=== PATIENT | female | born 1955 | race Caucasian/White ===

== ENCOUNTER → 2016-04-23 | Outpatient (CLI) | payer OTHER ==
[~2016-04-23] MED LIST: ALBINS/ INH; CITA40TA12 PO; CLR10 PO; DILT120C PO; LEVO25TA5 PO; LISI-729 PO; MELO7.5T5 PO; PRED50TA PO; PRLSR20 PO
--- NOTE | 2016-04-24 06:16 | PAP/PSG TECHNICIAN REPORT ---
[facility] Traveling Operator Polysomnogram Report Study name: None Report date: 04/24/2016 Study date: 04/23/2016 Referring Physician: Cole Castro M.D. Name: VJ WADE Interpreting Physician: Haile Castro M.D. Date of : 1955 Traveling Operator: Dora Vincent RPS. Sex: Female Age: 60 StudyType: PSG Weight: 230 lbs Height: 60 years, Height 5' 3" Neck Circum: 15.75 BMI: 40.74 Medications: Methylprednisolone, Duoneb, Singulair 10mg, ProAir HFA 108 (90 Base), Diltiazem 120 mg, Bledsoe Nasal Stanton, Lisinopril 10 mg, Loratadine 10 mg, Levoxyl 25 MCG, Celexa 40mg, Meloxican 15 mg, Flonase 50 MCG, Omeprazole 20 mg Patient History 60 yr. old female here for a possible split night sleep study. Patient complains of loud snoring and never feeling rested. Patients Henderson Sleepiness Scale Score is 6/24. Parameters Monitored NPSG: E1-M2, E2-M1, Fp1-M2, Fp2-M1, F3-M2, F4-M2, F4-M1, C3-M2, C4-M2, C4-M1, O1-M2, O2-M2, O2-M1, T3-M2, T4-M1, P3-M2, P4-M1, CHIN1, CHIN2, HR, EKG, Legs, PFLOW, SNOR, FLOW, CFLOW, Tidal Volume, THOR, ABDO, SpO2, PLTH, CPRESS, ETCO2 Wave, ETCO2, pH Sleep Architecture Sleep Stages Time at Lights Off 10:49:59 PM STAGES Time (min.) TST (%) Time at Lights On 5:59:59 AM Wake 61.5 -- Total Recording Time (TRT) 429.00 min. N1 25.5 7 Total Sleep Period (TSP) 399.5 min. N2 130.5 36 Total Sleep Time (TST) 367.5min. N3 67.5 18 Awake Time 61.5 min. REM 144.0 39 Wake after Sleep Onset 33.0 min. Sleep Efficiency (SE) 86 % Sleep Onset Latency (JENIFER) 29.5 min. Number of Stage 1 Shifts None Awakenings 11 Stage Changes 55 Number of REM periods 4 REM 144.0 39 REM Latency 114.5 min. NREM 223.5 61 Body Position Analysis Supine Right Left Side Prone Vertical Total Sleep Time (min.) 153.8 253.5 0.0 253.50 0.0 0.0 Total Sleep Time (%) 31% 69% 0% 69 0% N/A% Total Sleep Time REM (min.) 61.5 82.5 0.0 None 0.0 0.0 Total Sleep Time NREM (min.) 52.5 171.0 0.0 None 0.0 0.0 Intermittent Wake (min.) 39.8 21.7 0.0 None 0.0 0.0 Total Sleep Period (%) 34% None None None None None Arousals Myoclonus (PLM) * Events Count Index Events Count Index Spontaneous 3 0 Events Awake (PLMW) 63 61.5 Respiratory 0 0.0 Events Asleep w/ Arousal (PLMA) 2 0.3 PLM 1 0 Events Asleep w/o Arousal (PLMS) 53 8.7 Snoring 12 2 Total Asleep 55 9.0 Total 16 3 Total 118 17 Respiratory Analysis * CA OA MA CH H RERA Total Count 0 3 0 0 107 0 110 Index 0.0 0.5 0.0 0 17.5 0 18.0 Mean Duration 0.0 13.8 0.0 0.00 18.5 0.0 18.4 Longest Duration 0.0 16.2 0.0 0.00 0.0 0.0 47.2 Respiratory Event Summary Total Supine ~Supine Right Left Prone REM NREM Apneas Count 3 1 2 2 N/A N/A 3 0 Index 0.5 1 0 0.5 N/A N/A 1 0 Hypopneas (4% Desat) Count 107 55 52 52 N/A N/A 104 3 Index 17.5 28.9 12 12.3 N/A N/A 43.3 0.8 Apneas & All Hypopneas Count 110 56 54 54 N/A N/A 107 3 Index 18.0 29 13 13 N/A N/A 44.6 0.8 Respiratory Events (Senior Writer+All Hyp+RERA) Count 110 56 54 54 N/A N/A 107 3 Index 18.0 29 13 12.8 N/A N/A 44.6 0.8 Respiratory Related Arousal Count 0 56 0 0 N/A N/A 0 0 Index 0.0 0 0 0 N/A N/A 0 0 Snoring Analysis Supine Right Left Prone REM NREM Total Snore duration 111.9 min Snores count 482 2,623 N/A N/A 838 2,267 3,105 Snore mean duration 2.2 Sec Snores index 254 621 N/A N/A 349.2 608.6 506.9 TST with snoring (%) 30.5% Desaturation Event Summary: Minimum %SpO2 Event Count Mean/Min/Max Duration(sec.) Desaturation Index % Time In Bed > 90 93 23.2 / 8.3 / 59.5 16.4 80.5 86 - 90 26 14.4 / 8.0 / 31.8 19.7 18.7 81 - 85 0 N/A 0.0 0.7 76 - 80 0 N/A 0.0 0.1 71 - 75 0 N/A 0.0 0.0 66 - 70 0 N/A 0.0 0.0 61 - 65 0 N/A 0.0 0.0 56 - 60 0 N/A 0.0 0.0 51 - 55 0 N/A 0.0 0.0 < 50 0 N/A 0.0 0.0 Total REM NREM Awake <50% 0.0 min. 0.0 min. 0.0 min. 0.0 min. 51 - 60% 0.0 min. 0.0 min. 0.0 min. 0.0 min. 61 - 70% 0.0 min. 0.0 min. 0.0 min. 0.0 min. 71 - 80% 0.3 min. 0.1 min. 0.0 min. 0.2 min. 81 - 90% 82.4 min. 37.0 min. 44.0 min. 1.3 min. 91 - 100% 340.8 min. 106.9 min. 179.5 min. 54.5 min. Average 92 92 91 94 Minimum SpO2 75 79 83 75 Desaturation Event Index 14.4 38.8 0.5 7.8 # Desat. Events below 89% 50 47 2 1 Time(%) with Saturation below 89% 3.7 3.4 0.1 0.1 Time(min.) with Saturation below 89% 15.5 14.6 0.5 0.5 Time (mins) REM (mins) NREM (mins) % of TST SpO2 Below 90% 80 78 N2 7.7 SpO2 Below 88% 15 0 0 2 Heart Rate Analysis Min (bpm) Max (bpm) Average (bpm) Awake 70 127 82 NREM 62 103 79 REM 64 143 83 Overall 62 143 81 Supplemental O2 Values Minimum O2 level: None Value Start Time End Time Traveling Operator Comments MS. Wade slept in the right and supine positions. Tachycardia noted. No PLMs noted. No bruxism noted. Snoring was noted and scored as a 4 on a scale of 0 through 5. (0=no snoring, 5=snoring loud enough to be heard through a closed door or down the tabor way) MS. Wade awoke to use the restroom once during the night. MS. Wade stated, I actually slept better last night compared to at home. The final report will be interpreted and signed by a sleep physician. The completed physician report will then be placed in the patient medical record. Therapy (cm H2O) 0 TIB (min.) 429.0 TST (min.) 367.5 Sleep Onset (min.) 29.5 REM Onset From Sleep (min.) 114.5 Sleep Efficiency % 86 Wakefulness (%) 14 Wakefulness (min.) 61.5 NREM 1 (%) 7 NREM 1 (min.) 25.5 NREM 2 (%) 36 NREM 2 (min.) 130.5 NREM 3 (%) 18 NREM 3 (min.) 67.5 REM (%) 39 REM (min.) 144.0 # Arousals 16 Arousal Index 3 # Snore 3,105 Snore Index 506.9 AHI 18.0 AHI Supine 29 AHI Non-Supine 13 NREM AHI 0.8 REM AHI 44.6 RDI 18.0 # Obstructive Apnea 3 # Central Apnea 0 # Mixed Apnea 0 # Hypopneas 107 RERAs 0 Total Respiratory Events 111 Time Below SpO2 89% (min.) 15.0 Mean NREM SpO2 (%) 91 Mean REM SpO2 (%) 92 Mean Sleep SpO2 (%) 92 Min NREM SpO2 (%) 83 Min REM SpO2 (%) 79 Position Supine (min.) 153.8 Position Non-supine (min.) 253.5 LM Index Sleep 9.0 LM Index NREM 6.4 LM Index REM 12.9 Mean Heart Rate (bpm) 81 Min Heart Rate (bpm) 62
--- NOTE | 2016-05-04 00:53 | POLYSOMNOGRAPH REPORT ---
REFERRING PERSON: Dr. Gretchen Castro. CAR STORER: Dora Vincent. Ms. Wade is a 60-year-old female sent for a possible split night sleep study. She complains of loud snoring and unrefreshing sleep. Her Jackson sleepiness scale score on the evening of this study is 6. BMI is 40.74. Following the technical and digital specifications of the [place] [employer] (AASM) a standard diagnostic polysomnogram was performed monitoring EEG, EOG, EMG (chin and leg deviations), oxygen saturation, body position, digital video, respiratory effort and airflow. The sleep Stage and event scoring was based on the AASM Manual for the Scoring of Sleep and Associated Events 2007 edition. Apneas are defined as a drop in the peak thermal sensor excursion by >90% of baseline for at least 10 seconds. Hypopneas were scored using the 4% oxygen desaturation rule (4A-Medicare) and a decrease in the nasal pressure excursions by >30% of baseline for at least 10 seconds. Respiratory effort-related arousal (RERA's) is defined as a sequence of breaths lasting at least 10 seconds characterized by increasing respiratory effort or flattening of the nasal pressure waveform leading to an arousal from sleep when the sequence of breaths does not meet criteria for an apnea or hypopnea. Apnea Hypopnea index (AHI) is defined as the number of apneas and hypopneas occurring in an hour of sleep. Respiratory disturbance index (RDI) is defined as the number of apneas, hypopneas, and RERA's occurring in an hour of sleep. Ms. Wade's total sleep period time was 399.5 minutes. Total sleep time was 367.5 minutes. Sleep efficiency was 86%. Latency to sleep onset was 29.5 minutes with wake after sleep onset of 33 minutes. Total non-REM sleep time was 223.5 minutes. She spent 7% of that time in N1 sleep, 36% in N2 sleep and 18% in N3 sleep. REM latency was 114.5 minutes. Total REM sleep time was 144 minutes or 39% of total sleep time. There were 16 cortical arousals from sleep. Three of these arousals were spontaneous, 1 was due to periodic limb movement and 12 were due to snoring. There were 55 periodic limb movements noted on this test. Limb movement index was 9. Limb movement with arousal index was 0.3. There were no central, 3 obstructive and no mixed apneas on this test. Additionally, there were 107 hypopneas. Apnea-hypopnea index was 18. The supine AHI was 29 and REM AHI 44.6. There were 3105 snoring events recorded. Total sleep time with snoring was 30.5%. Loud snoring was heard throughout the night. Mean saturation during sleep was 92%. Desaturations were noted particularly during an episode of REM sleep while supine to 75%. Saturations were less than 89% for 15.5 minutes of sleep time. This is significant nocturnal hypoxemia. During sleep, heart rates ranged from a low of 62 beats per minute to 143 beats per minute. A period of tachycardia was noted during a supine REM. This lasted about 5 minutes. It appears that this is not artifactual, but may be. IMPRESSION AND PLAN: A 60-year-old female with evidence of moderately severe sleep apnea, severe in REM and supine sleep, with nocturnal hypoxemia. 1. This patient would likely benefit from positive airway pressure therapy. She should return to sleep lab for a full night titration and then based on those results be started on equipment at home. A download from her machine should be reviewed in 1 month both to check compliance as well as AHI and further pressure adjustments can occur at that time. 2. Should this patient be unwilling or unable to tolerate CPAP therapy, she should be sent to ear, nose and throat or oral surgery/dental medicine (if appropriate) to discuss alternative treatments for sleep disordered breathing.
== END | disposition home or self-care (01) ==
LOC: C.NEUR 20:00
PROVIDERS: ATTEND Family Medicine
DX: G47.10 Hypersomnia, unspecified (principal)

== ENCOUNTER 2016-08-26 10:52 | Emergency (ER) | payer OTHER ==
[~2016-08-26] VITALS: Ht 160 cm; Wt 104.5 kg
[~2016-08-26 10:52] MED LIST changes: -ALBINS/ INH; -PRED50TA PO
[2016-08-26 11:03] VITALS: TEMP 36.5; Ht 160 cm; Wt 104.5 kg
[2016-08-26] MEDS ORDERED: ALBUT/IPRATROP 3MG/0.5MG NEB 3 ML VIAL INH STA (11:21)
--- NOTE | 2016-08-26 11:48 | DIAGNOSTIC IMAGING REPORT ---
CHEST ONE VIEW PORTABLE CLINICAL HISTORY: Respiratory distress. Dyspnea. COMPARISON STUDY: 06/10/2015 FINDINGS: The cardiac and mediastinal contours are normal. There is no evidence of focal pulmonary consolidation. There is no evidence of failure. No pleural effusions are visualized.[ IMPRESSION: No active disease in the chest. Electronically signed by: Eleuterio Jean M.D. 08/26/2016 11:47 AM Dictated Date/Time: 08/26/2016 11:46 AM
[2016-08-26 11:49] VITALS: O2SAT 100
[2016-08-26 11:59] LABS: BASO % 0.3 %; BASO ABS # 0.02 K/uL (0-0.2); COMPLETE YES; EOS % 2.3 %; HEMATOCRIT 41.9 % (37-47); LYMPH % 35.3 %; LYMPH ABS # 2.13 K/uL (1.2-3.4); MEAN CELL VOLUME 78.8 fL (80-100); MEAN CORPUSCULAR HEMOGLOBIN 24.1 pg (25-34); MEAN CORPUSCULAR HGB CONC 30.5 g/dl (32-36); NEUT % 57.1 %; PLATELET COUNT 109 K/uL (130-400); RED BLOOD COUNT 5.32 M/uL (4.2-5.4); WHITE BLOOD COUNT 6.03 K/uL (4.8-10.8)
[2016-08-26 12:07] LABS: URINE APPEARANCE CLEAR (CLEAR); URINE BILIRUBIN NEG (NEG); URINE COLOR YELLOW; URINE EPITHELIAL CELL AUTO >30 /lpf (0-5); URINE NITRITE NEG (NEG); URINE PH 6.5 (4.5-7.5); URINE SPECIFIC GRAVITY 1.016 (1.000-1.030); UROBILINOGEN NEG (NEG)
[2016-08-26 12:11] LABS: PROTHROMBIN TIME (PATIENT) 10.7 SECONDS (9.0-12.0)
[2016-08-26 12:17] LABS: ALT/SGPT 32 U/L (12-78); AST/SGOT 19 U/L (15-37); BLOOD UREA NITROGEN 15 mg/dl (7-18); BUN/CREATININE RATIO 16.8 (10-20); CALCIUM 8.5 mg/dl (8.5-10.1); CARBON DIOXIDE 28 mmol/L (21-32); CHLORIDE 110 mmol/L (98-107); CREATININE 0.89 mg/dl (0.60-1.20); GLUCOSE 106 mg/dl (70-99); POTASSIUM 3.7 mmol/L (3.5-5.1); SODIUM 146 mmol/L (136-145)
[2016-08-26 12:21] LABS: ALB/GLOB RATIO 1.2 (0.9-2); ALKALINE PHOSPHATASE 74 U/L (45-117)
[2016-08-26 12:26] LABS: MANUAL MICROSCOPIC REQUIRED? NO; REVIEW REQ? YES
[2016-08-26] MEDS ORDERED: ALBUTEROL 0.083% NEBU SOLN 3 ML VIAL INH STA (12:37)
[2016-08-26] MEDS ORDERED: PRED50TA PO (12:59)
[2016-08-26] MEDS ORDERED: ALBINS/ INH (13:07)
[2016-08-26 13:48] VITALS: BP 167/78; PULSE 76; O2SAT 99
--- NOTE | 2016-08-26 17:05 | EMERGENCY ROOM VISIT NOTE ---
History Report prepared by Rosetta: Angi Stark Under the Supervision of: Dr. Augusto Ron D.O. First contact with patient: 11:11 Chief Complaint: SHORTNESS OF BREATH Stated Complaint: SOB Nursing Triage Summary: Patient has hx of asthma. Patient c/o SOB with no relief after using rescue inhaler an nebulizer. History of Present Illness The patient is a 60 year old female who presents to the Emergency Room with complaints of constant shortness of breath for the past month that has been worsening over the past week. She has a history of asthma and states that she typically has some shortness of breath and wheezing due to her asthma. Over the past month it has gotten worse, but she attributed this to her seasonal allergies. She reports an intermittent cough and rhinorrhea. The patient has been using her inhaler and nebulizer. She used both of these this morning without any relief of her symptoms. She denies sore throat, chest pain, abdominal pain, nausea, vomiting, and pain or swelling in the legs. She denies any recent weight gain or personal history of heart failure. The patient does not take any blood thinners. Source of History: patient Onset: 1 month ago Position: chest (respiratory) Quality: other (shortness of breath) Timing: worsening Associated Symptoms: + cough, No sorethroat, No chest pain, No vomiting, No abdominal pain Note: Pt notes rhinorrhea. Review of Systems See HPI for pertinent positives & negatives. A total of 10 systems reviewed and were otherwise negative. Past Medical & Surgical Medical Problems: (1) Asthma (2) Hypertension (3) Pulmonary nodule (4) SVT (supraventricular tachycardia) Surgical Problems: (1) History of hysterectomy Family History Atrial flutter Diabetes mellitus FH: cancer FH: gallbladder disease FH: heart disease FH: lung disease Hypertension Social History Smoking Status: Never Smoker Smokeless Tobacco Use: No Alcohol Use: none Drug Use: none Marital Status: in relationship Housing Status: lives with significant other Occupation Status: employed Current/Historical Medications Scheduled Albuterol Sulf (Proventil 0.083% 2.5MG/3ML), 2.5 MG INH QID Citalopram Hydrobromide (Celexa), 40 MG PO DAILY Diltiazem Hcl Coated Beads (Diltiazem Hcl Er), 1 CAP PO DAILY Levothyroxine Sodium (Levothyroxine Sodium), 25 MCG PO DAILY Lisinopril (Zestril), 10 MG PO DAILY Loratadine (Claritin), 10 MG PO DAILY Meloxicam (Mobic), 15 MG PO DAILY Omeprazole (Prilosec), 20 MG PO DAILY Prednisone (Prednisone), 50 MG PO DAILY Allergies Coded Allergies: NO KNOWN DRUG ALLERGIES (Verified Allergy, Unknown, ., 08/26/16) Physical Exam Vital Signs Date Time Temp Pulse Resp B/P (MAP) Pulse Ox O2 Delivery O2 Flow Rate FiO2 08/26/16 13:48 76 18 167/78 99 08/26/16 13:17 73 18 151/74 99 Room Air 08/26/16 12:31 82 08/26/16 11:49 100 Room Air 08/26/16 11:09 Room Air 08/26/16 11:03 36.5 71 20 177/93 98 Room Air Physical Exam GENERAL: alert, sitting up in bed, well appearing, well nourished, no distress, non-toxic, able to talk in full sentence. EYE EXAM: normal conjunctiva OROPHARYNX: no exudate, no erythema, lips, buccal mucosa, and tongue normal and mucous membranes are moist NECK: supple, no nuchal rigidity, no adenopathy, non-tender, no JVD. LUNGS: Slightly diminished air movement throughout. Normal chest wall mechanics HEART: no murmurs, S1 normal and S2 normal ABDOMEN: abdomen soft, non-tender, normo-active bowel sounds, no masses, no rebound or guarding. BACK: Back is symmetrical on inspection and there is no deformity, no midline tenderness, no CVA tenderness. SKIN: no rashes and no bruising UPPER EXTREMITIES: upper extremities are grossly normal. LOWER EXTREMITIES: Faint pitting edema. Calves are equal bilaterally. NEURO EXAM: Normal sensorium, cranial nerves II-XII grossly intact, normal speech, no gross weakness of arms, no gross weakness of legs. Medical Decision & Procedures ER Provider Diagnostic Interpretation: Radiology results as stated below per my review and the radiologist's interpretation: CHEST ONE VIEW PORTABLE CLINICAL HISTORY: Respiratory distress. Dyspnea. COMPARISON STUDY: 06/10/2015 FINDINGS: The cardiac and mediastinal contours are normal. There is no evidence of focal pulmonary consolidation. There is no evidence of failure. No pleural effusions are visualized.[ IMPRESSION: No active disease in the chest. Electronically signed by: Eleuterio Jean M.D. 08/26/2016 11:47 AM Dictated Date/Time: 08/26/2016 11:46 AM Laboratory Results 08/26/16 11:40 Red Blood Count 5.32, Mean Corpuscular Volume 78.8, Mean Corpuscular Hemoglobin 24.1, Mean Corpuscular Hemoglobin Concent 30.5, Mean Platelet Volume 10.0, Neutrophils (%) (Auto) 57.1, Lymphocytes (%) (Auto) 35.3, Monocytes (%) (Auto) 5.0, Eosinophils (%) (Auto) 2.3, Basophils (%) (Auto) 0.3, Neutrophils # (Auto) 3.44, Lymphocytes # (Auto) 2.13, Monocytes # (Auto) 0.30, Eosinophils # (Auto) 0.14, Basophils # (Auto) 0.02 08/26/16 11:40 Test 08/26/16 11:40 08/26/16 11:45 White Blood Count 6.03 K/uL (4.8-10.8) Red Blood Count 5.32 M/uL (4.2-5.4) Hemoglobin 12.8 g/dL (12.0-16.0) Hematocrit 41.9 % (37-47) Mean Corpuscular Volume 78.8 fL (80-100) Mean Corpuscular Hemoglobin 24.1 pg (25-34) Mean Corpuscular Hemoglobin Concent 30.5 g/dl (32-36) Platelet Count 109 K/uL (130-400) Mean Platelet Volume 10.0 fL (7.4-10.4) Neutrophils (%) (Auto) 57.1 % Lymphocytes (%) (Auto) 35.3 % Monocytes (%) (Auto) 5.0 % Eosinophils (%) (Auto) 2.3 % Basophils (%) (Auto) 0.3 % Neutrophils # (Auto) 3.44 K/uL (1.4-6.5) Lymphocytes # (Auto) 2.13 K/uL (1.2-3.4) Monocytes # (Auto) 0.30 K/uL (0.11-0.59) Eosinophils # (Auto) 0.14 K/uL (0-0.5) Basophils # (Auto) 0.02 K/uL (0-0.2) RDW Standard Deviation 38.1 fL (36.4-46.3) RDW Coefficient of Variation 13.5 % (11.5-14.5) Immature Granulocyte % (Auto) 0.0 % Immature Granulocyte # (Auto) 0.00 K/uL (0.00-0.02) Prothrombin Time 10.7 SECONDS (9.0-12.0) Prothromb Time International Ratio 1.0 (0.9-1.1) Activated Partial Thromboplast Time 26.6 SECONDS (21.0-31.0) Partial Thromboplastin Ratio 1.0 D-Dimer 280 ug/L FEU (0-500) Anion Gap 8.0 mmol/L (3-11) Est Creatinine Clear Calc Drug Dose 79.7 ml/min Estimated GFR () 82.8 Estimated GFR (Non- 71.4 BUN/Creatinine Ratio 16.8 (10-20) Calcium Level 8.5 mg/dl (8.5-10.1) Total Bilirubin 0.3 mg/dl (0.2-1) Aspartate Amino Transf (AST/SGOT) 19 U/L (15-37) Alanine Aminotransferase (ALT/SGPT) 32 U/L (12-78) Alkaline Phosphatase 74 U/L (45-117) Troponin I < 0.015 ng/ml (0-0.045) Total Protein 7.1 gm/dl (6.4-8.2) Albumin 3.8 gm/dl (3.4-5.0) Globulin 3.3 gm/dl (2.5-4.0) Albumin/Globulin Ratio 1.2 (0.9-2) Urine Color YELLOW Urine Appearance CLEAR (CLEAR) Urine pH 6.5 (4.5-7.5) Urine Specific [place] 1.016 (1.000-1.030) Urine Protein NEG (NEG) Urine Glucose (UA) NEG (NEG) Urine Ketones NEG (NEG) Urine Occult Blood NEG (NEG) Urine Nitrite NEG (NEG) Urine Bilirubin NEG (NEG) Urine Urobilinogen NEG (NEG) Urine Leukocyte Esterase MODERATE (NEG) Urine WBC (Auto) 5-10 /hpf (0-5) Urine RBC (Auto) 0-4 /hpf (0-4) Urine Hyaline Casts (Auto) 1-5 /lpf (0-5) Urine Epithelial Cells (Auto) >30 /lpf (0-5) Urine Bacteria (Auto) NEG (NEG) Urine Yeast (Auto) (NONE PRSENT) Laboratory results per my review. Medications Administered Medications (Trade) Dose Ordered Sig/Mike Route Start Time Stop Time Status Last Admin Dose Admin Albuterol/ Ipratropium (Duoneb) 3 ml NOW STAT INH 08/26/16 11:21 08/26/16 11:23 DC 08/26/16 11:47 3 ML Albuterol Sulfate (Ventolin 0.083% 2.5MG/3ML Neb) 2.5 mg NOW STAT INH 08/26/16 12:37 08/26/16 12:38 DC 08/26/16 13:17 2.5 MG Prednisone (PredniSONE TAB) 50 mg NOW ONCE PO 08/26/16 12:45 08/26/16 13:24 DC 08/26/16 13:42 50 MG ECG Indication: SOB/dyspnea Rate (beats per minute): 62 Rhythm: normal sinus Findings: no ectopy, other (normal axis) ED Course ED COURSE: Vital signs were reviewed and showed hypertensive. The patients medical record was reviewed The above diagnostic studies were performed and reviewed. ED treatments and interventions as stated above. 1111: The patient was evaluated in room C9. A complete history and physical examination was performed. 1121: DuoNeb 3 ml INH 1229: I reassessed the patient at this time and she is feeling better after the DuoNeb. 1237: Albuterol sulfate 2.5 mg INH 1245: Prednisone 50 mg PO 1301: Upon reevaluation, the patient is feeling better and resting comfortably. I discussed my findings with the patient and she understands and agrees with the treatment plan. Based on the patients age, coexisting illnesses, exam and lab findings the decision to treat as an outpatient was made. The patient remained stable while under my care. The patient appeared well at the time of discharge. Medical Decision Differential diagnoses includes but is not limited to pneumonia, bronchitis, COPD/Asthma exacerbation, pneumothorax, pulmonary embolism, congestive heart failure, acute coronary syndrome. Medication Reconciliation: I attest that I have personally reviewed the patient' s current medication list. Blood pressure screening: Patient was found to have an elevated blood pressure and was referred to their primary doctor for recheck and further treatment. Patient is a 60-year-old female who presents the ER for shortness of breath. She notes that this has been present for the past month but worsened over the past week. She denies any chest pain. She does admit to a slight cough and runny nose. Denies any diabetes, high cholesterol, CAD, smoking and previous blood clots. She does admit to hypertension. EKG shows no ischemia. Troponin was negative. CBC along with BMP, LFTs, bilirubin and troponin were negative. UA was contaminated. D-dimer was negative. Chest x-ray was unremarkable. She was given a neb treatment along with steroids and had proven of her symptoms. I do not believe that this is cardiac in nature with a negative troponin and unremarkable EKG. She has no signs of heart failure. Unlikely PE as d-dimer is negative. Patient did feel better following albuterol and steroids. She is discharged with steroids and a new albuterol prescription for her nebulizer to follow with her PCP. Discussed with Pt concerning signs and symptoms to watch out for. Pt was instructed to follow up with their PCP and discussed with the patient their option to return to the ED at anytime for persistent or worsening symptoms. The appropriate anticipatory guidance and out-patient management, including indications for return to the emergency department, were explained at length to the patient and understood. Impression Primary Impression: Shortness of breath Scribe Attestation The scribe's documentation has been prepared under my direction and personally reviewed by me in its entirety. I confirm that the note above accurately reflects all work, treatment, procedures, and medical decision making performed by me. Departure Information Dispostion Home / Self-Care Prescriptions Albuterol Sulf (PROVENTIL 0.083% 2.5MG/3ML) 2.5 Mg/3 Ml Nebu 2.5 MG INH QID, #60 EA Prov: Augusto Ron, DO 08/26/16 Prednisone (PREDNISONE) 50 Mg Tab 50 MG PO DAILY for 4 Days, TAB Prov: Augusto Ron, DO 08/26/16 Referrals No Doctor, Assigned (PCP) Nisa Guerra, D.O. Forms HOME CARE DOCUMENTATION FORM, IMPORTANT VISIT INFORMATION Patient Instructions ED Dyspnea Shortness of Breath, Emphysema [place], My [facility] Additional Instructions Please follow up with your primary care doctor with in the next 24 hours. Any worsening of your symptoms, please return to the ED immediately. This includes chest pain, new or worsening shortness breath, passing out, or any other concerning signs or symptoms from your standpoint. Please use your inhaler as needed. Please take steroids as prescribed.
== END 2016-08-26 13:48 | disposition home or self-care (01) ==
LOC: C.EDB 10:54 → C.EDC 13:48
DX: R06.02 Shortness of breath (principal); J45.909 Unspecified asthma, uncomplicated; I10 Essential (primary) hypertension; Z90.710 Acquired absence of both cervix and uterus; Z82.49 Family history of ischemic heart disease and other diseases of the circulatory system; Z83.3 Family history of diabetes mellitus; Z79.899 Other long term (current) drug therapy

== ENCOUNTER 2023-03-30 07:47 | Observation (INO) ==
--- NOTE | 2022-12-30 11:38 | PAT Medication Instructions ---
Medication Instructions Date of Service December 30, 2022 Home Medications Medication Instructions Recorded OneTouch Verio Flex Start #1 ea 09/22/19 (blood-glucose meter) metformin 500 mg tablet 1,000 mg PO BID #360 tabs 04/28/21 oxycodone 5 mg tablet (Roxicodone) 5 mg PO Q6H PRN pain #12 tabs 12/05/21 OneTouch Verio test strips (blood #300 ea 03/03/22 sugar diagnostic) OneTouch Delica Plus Lancet 33 ##100 03/12/22 gauge (lancets) dulaglutide 3 mg/0.5 mL 3 mg (0.5 mL) subcut Q7D #2 mL 09/02/22 subcutaneous pen injector albuterol sulfate 90 mcg/actuation aerosol inhaler 2 puffs inhalation Q4H PRN Wheezing allopurinol 100 mg tablet 100 mg PO QAM allopurinol 300 mg tablet 300 mg PO QAM fluticasone propionate 50 mcg/actuation nasal spray,suspension (Flonase Allergy Relief) 2 sprays intranasal DAILY PRN Congestion furosemide 20 mg tablet (Lasix) 20 mg PO QAM ipratropium 0.5 mg-albuterol 3 mg (2.5 mg base)/3 mL nebulization soln 3 ml inhalation Q4H PRN Wheezing levothyroxine 25 mcg tablet (Levoxyl) 25 mcg PO QAM montelukast 10 mg tablet (Singulair) 10 mg PO QAM omeprazole magnesium 20 mg tablet,delayed release (Prilosec OTC) 20 mg PO QAM sodium chloride 0.65 % nasal spray aerosol ([place] Nasal) 2 sprays intranasal BID PRN Congestion triamcinolone acetonide 0.1 % topical cream 1 appln topical BID PRN Rash lisinopril 10 mg tablet 20 mg PO QAM citalopram 40 mg tablet (Celexa) 40 mg PO QAM metformin 500 mg tablet 1,000 mg PO BID oxycodone 5 mg tablet (Roxicodone) 5 mg PO Q6H PRN pain dulaglutide 3 mg/0.5 mL subcutaneous pen injector 3 mg (0.5 mL) subcut Q7D atorvastatin 10 mg tablet 10 mg PO QAM levocetirizine 5 mg tablet (Xyzal) 5 mg PO QAM STOP taking 24 hours before surgery triamcinolone acetonide 0.1 % topical cream 1 appln topical BID PRN Rash DO NOT take the morning of surgery furosemide 20 mg tablet (Lasix) 20 mg PO QAM montelukast 10 mg tablet (Singulair) 10 mg PO QAM lisinopril 10 mg tablet 20 mg PO QAM metformin 500 mg tablet 1,000 mg PO BID levocetirizine 5 mg tablet (Xyzal) 5 mg PO QAM Take morning of surgery With a small sip of water, OTHERWISE NOTHING TO EAT OR DRINK AFTER MIDNIGHT: albuterol sulfate 90 mcg/actuation aerosol inhaler 2 puffs inhalation Q4H PRN Wheezing (use if needed; please bring rescue inhaler with you to hospital day of surgery if possible) allopurinol 100 mg tablet 100 mg PO QAM allopurinol 300 mg tablet 300 mg PO QAM fluticasone propionate 50 mcg/actuation nasal spray,suspension (Flonase Allergy Relief) 2 sprays intranasal DAILY PRN Congestion (if needed) ipratropium 0.5 mg-albuterol 3 mg (2.5 mg base)/3 mL nebulization soln 3 ml inhalation Q4H PRN Wheezing (if needed) levothyroxine 25 mcg tablet (Levoxyl) 25 mcg PO QAM omeprazole magnesium 20 mg tablet,delayed release (Prilosec OTC) 20 mg PO QAM sodium chloride 0.65 % nasal spray aerosol ([place] Nasal) 2 sprays intranasal BID PRN Congestion (if needed) citalopram 40 mg tablet (Celexa) 40 mg PO QAM oxycodone 5 mg tablet (Roxicodone) 5 mg PO Q6H PRN pain (if needed) atorvastatin 10 mg tablet 10 mg PO QAM Take evening before surgery albuterol sulfate 90 mcg/actuation aerosol inhaler 2 puffs inhalation Q4H PRN Wheezing (if needed) fluticasone propionate 50 mcg/actuation nasal spray,suspension (Flonase Allergy Relief) 2 sprays intranasal DAILY PRN Congestion (if needed) ipratropium 0.5 mg-albuterol 3 mg (2.5 mg base)/3 mL nebulization soln 3 ml inhalation Q4H PRN Wheezing (if needed) sodium chloride 0.65 % nasal spray aerosol ([place] Nasal) 2 sprays intranasal BID PRN Congestion (if needed) metformin 500 mg tablet 1,000 mg PO BID oxycodone 5 mg tablet (Roxicodone) 5 mg PO Q6H PRN pain (if needed) STOP 7 days prior to surgery (to receive further instructions at upcoming PAT visit) dulaglutide 3 mg/0.5 mL subcutaneous pen injector 3 mg (0.5 mL) subcut Q7D Other Notes If you have any questions please call us at [phone] or [phone] or [phone] or [phone]
--- NOTE | 2023-01-04 10:43 | Anesthesiology Consultation ---
Date of Service January 04, 2023 Assessment & Plan (1) Encounter for pre-operative examination: - Check BSG AM DOS - Infectious disease screening: Per assessment on 01/04/23: No known infectious disease contacts or current infectious disease symptoms. No noted Covid positive test result in past 90 days. - Outpatient joint assessment: Pt currently scheduled for inpatient pathway. If surgeon requests review for outpatient joint pathway, patient is not recommended candidate for outpatient joint program from anesthesia standpoint. - Trulicity/dulaglutide instructions: Patient takes on Tuesdays. Patient informed at PAT visit to stop 7 days prior to surgery- voiced understanding. DOS 01/26/23. Advised last dose to be 01/19/23 (advised to not take DOS). - Thrombocytopenia: Platelets 106 on preop labs performed 01/04/23. Available comparison labs from 10/2022 show platelets at 123. Note written to PCP regarding thrombocytopenia- Awaiting response (Dr. Nisa Guerra/[facility]). Chart Review Chart Review: Patient seen in Pre Admission Testing Teaching & Discussion Pre-Anesthesia Teaching/Discussion Notes: Instructed NPO after midnight before surgery,except medications with 15 cc of water. Medication instructions provided according to the [facility] guidelines. History Surgery Operation Date: 01/26/23 11:15 Proposed Procedures p Left Total Knee Arthroplasty - Lars Enrique DO Height/Weight Height: 5 ft 3 in Weight: 111.6 kg Allergies Allergy/AdvReac Type Severity Reaction Status Date / Time No Known Drug Allergies Allergy Unknown Verified 12/28/22 08:59 Medications Home Medications Medication Instructions Recorded Confirmed Last Taken albuterol sulfate 90 mcg/actuation 2 puffs inhalation Q4H PRN Wheezing 09/11/19 12/28/22 Unknown aerosol inhaler allopurinol 100 mg tablet 100 mg PO QAM 09/11/19 12/28/22 Unknown allopurinol 300 mg tablet 300 mg PO QAM 09/11/19 12/28/22 Unknown fluticasone propionate 50 2 sprays intranasal DAILY PRN 09/11/19 12/28/22 Unknown mcg/actuation nasal Congestion spray,suspension (Flonase Allergy Relief) furosemide 20 mg tablet (Lasix) 20 mg PO QAM 09/11/19 12/28/22 Unknown ipratropium 0.5 mg-albuterol 3 mg 3 ml inhalation Q4H PRN Wheezing 09/11/19 12/28/22 Unknown (2.5 mg base)/3 mL nebulization soln levothyroxine 25 mcg tablet 25 mcg PO QAM 09/11/19 12/28/22 Unknown (Levoxyl) montelukast 10 mg tablet 10 mg PO QAM 09/11/19 12/28/22 Unknown (Singulair) omeprazole magnesium 20 mg 20 mg PO QAM 09/11/19 12/28/22 Unknown tablet,delayed release (Prilosec OTC) sodium chloride 0.65 % nasal spray 2 sprays intranasal BID PRN 09/11/19 12/28/22 Unknown aerosol ([place] Nasal) Congestion triamcinolone acetonide 0.1 % 1 appln topical BID PRN Rash 09/11/19 12/28/22 Unknown topical cream OneTouch Verio Flex Start #1 ea 09/22/19 09/16/21 Unknown (blood-glucose meter) lisinopril 10 mg tablet 20 mg PO QAM 10/27/19 12/28/22 Unknown citalopram 40 mg tablet (Celexa) 40 mg PO QAM 05/02/20 12/28/22 Unknown metformin 500 mg tablet 1,000 mg PO BID #360 tabs 04/28/21 12/28/22 Unknown oxycodone 5 mg tablet (Roxicodone) 5 mg PO Q6H PRN pain #12 tabs 12/05/21 12/28/22 Unknown OneTouch Verio test strips (blood #300 ea 03/03/22 Unknown sugar diagnostic) OneTouch Delica Plus Lancet 33 ##100 03/12/22 Unknown gauge (lancets) dulaglutide 3 mg/0.5 mL 3 mg (0.5 mL) subcut Q7D #2 mL 09/02/22 12/28/22 Unknown subcutaneous pen injector atorvastatin 10 mg tablet 10 mg PO QAM 12/28/22 12/28/22 Unknown levocetirizine 5 mg tablet (Xyzal) 5 mg PO QAM 12/28/22 12/28/22 Unknown Past Medical History Medical History Arthritis Asthma Stable Depression Diabetes mellitus, type 2 GERD (gastroesophageal reflux disease) Gout History of COVID-2020, not hospitalized Hyperlipidemia Hypertension Hypothyroidism Leaky heart valve Stress echo 08/2019: Mild AR Pulmonary nodule Sleep apnea CPAP (compliant) Spinal stenosis SVT (supraventricular tachycardia) 2016 felt r/t flu, no issues since Exercise / Class Metabolic Activity III < 4 Walking/Shop/Light housework Past Family History Family History Mother Diabetes Father Diabetes Brother Diabetes Brother Diabetes Past Surgical History Surgical History H/O melanoma excision face History of colonoscopy History of hysterectomy Past Anesthesia History No Hx of Anesthesia Complications and No Family Hx of Anesthesia Complications History of PONV No Hx of PONV and Hx of Motion Sickness (Occasional) Social History Smoking Status: Never smoker Do You Dip or Chew Tobacco: No Hx Alcohol Use: Yes Alcohol type: hard liquor alcohol intake frequency: a few times a month Hx Substance Use: No substance use type: does not use Review of Systems Patient denies chest pain, shortness of breath, fever, chills, cough, wheezing, palpitations. Physical Exam Vital Signs VITALS BP 123/74 P 70 TEMP 98.0 SP02 97%RA RESP 16 PHYSICAL Full cervical extension range of motion. Full TMJ range of motion. TMD 4 finger breaths Mallampati Score 3 Dentition: missing molars Lungs: clear throughout to auscultation Cardiac: regular rate and rhythm, no murmurs noted Spine: normal Carotid arteries: negative bruit Extremities: non-pitting LE edema Short neck Lab Results Anesthesia Preop Results Results Anesthesia Widget: WBC 5.02 K/ul (4.8-10.8) 01/04/23 Hgb 12.6 g/dl (12.0-16.0) 01/04/23 Hct 40.5 % (37.0-47.0) 01/04/23 Plt 106 K/uL (130-400) L 01/04/23 Na 140 mmol/L (136-145) 01/04/23 K 4.1 mmol/L (3.5-5.1) 01/04/23 Cl 105 mmol/L (98-107) 01/04/23 CO2 29 mmol/L (21-32) 01/04/23 BUN 17 mg/dl (6-23) 01/04/23 Creat 0.97 mg/dl (0.6-1.2) 01/04/23 Glucose Level 103 mg/dl (70-99(Fasting)) H 01/04/23 PT 11.4 Seconds (9.0-12.0) 01/04/23 PTT 29.1 Seconds (21.0-31.0) 01/04/23 INR 1.0 (0.9-1.1) 01/04/23 TSH 1.053 uIu/ml (0.300-4.500) 11/09/22 HA1c 6.5 % (4.5-5.6) H 01/04/23 Urine Color Yellow 01/04/23 Urine Appearance Clear (Clear) 01/04/23 Urine pH 6.5 (4.5-7.5) 01/04/23 Urine Specific [place] 1.010 (1.000-1.030) 01/04/23 Urine Protein Negative (Negative) 01/04/23 Urine Glucose (UA) Negative (Negative) 01/04/23 Urine Ketones Negative (Negative) 01/04/23 Urine Blood Negative (Negative) 01/04/23 Urine Nitrite Negative (Negative) 01/04/23 Urine Bilirubin Negative (Negative) 01/04/23 Urine Urobilinogen Negative (Negative) 01/04/23 Urine Leukocyte Esterase Negative (Negative) 01/04/23 Blood Type A Negative 01/04/23 Antibody Screen NEGATIVE 01/04/23 Testing Electrocardiogram Date: 11/09/22 Normal sinus rhythm at 71 bpm. Low voltage QRS. Compared to 07/18/2018, questionable change in QRS duration per human resources hr representative fior silverio. Chest X-Ray Date: 11/09/22 FINDINGS: Exam is limited by underpenetration. Calcified aortic knob is seen. The lungs are clear. No evidence of pleural effusion or pneumothorax. IMPRESSION: No acute chest disease. Stress Test Date: 09/12/19 Type: exercise Stress echo is negative for inducible ischemia. Below average exercise tolerance for age. 97% MPHR. 5.8 METS. At rest, normal LV chamber size with mild concentric LVH. EF 55-60%. Grade 1 diastolic dysfunction. Inadequately visualized aortic valve with mild sclerosis and mild AR. Mild LAE.
--- NOTE | 2023-01-06 08:29 | History & Physical Report ---
Date of Service January 06, 2023 DATE OF SURGERY: 01/26/23 PROCEDURE: Left Total Knee Arthroplasty Surgeon: Lars Enrique Assessment & Plan (1) Arthritis of knee, left: Plan: Further care discussed with patient and at this point in time has failed conservative measures and would like to proceed with a left total knee replacement. Plan on discharge will be home with home health physical therapy. DVT prophylaxiswith TEDs, SCDs and will also place on aspirin 81 mg p.o. b.i.d. for a month postop. Patient will have follow up appointment in our office two weeks post op for staple/suture removal and re-evaluation. Patient otherwise has no other questions or concerns. The risks and benefits have been discussed including, but not limited to, risk of infection, nerve injury, stiffness, loss of motion, failure to improve, etc. Reasonable outcomes and options of treatment were discussed. An explanation of appropriate alternatives to the procedure that may be advantageous were discussed and their risks and benefits, as well as the risks and benefits of not proceeding with treatment. I offered to answer any additional inquiries concerning the treatment involved. All the patient's questions were answered. The patient is agreeable, understanding of the treatment plan and alternatives, and wishes to proceed with the treatment plan. History of Present Illness Chief Complaint: left knee pain Primary Care Provider: BAILEE Peña Jono is a pleasant 67-year-old female who presented for preop evaluation prior to upcoming left total knee replacement, she had a longstanding history of left knee pain which is gradually worsened in particular over the last year. She had an arthroscopy of the knee done about a year ago and has had no improvement. She has also undergone viscosupplementation as well as steroid injections without any improvement. She has tried oral anti-inflammatories and Tylenol. At this point time is failed conservative measures and would like to proceed with a left total knee replacement Allergies Allergy/AdvReac Type Severity Reaction Status Date / Time No Known Drug Allergies Allergy Unknown Verified 12/28/22 08:59 Home Medications Medication Instructions Recorded Confirmed Type albuterol sulfate 90 mcg/actuation 2 puffs inhalation Q4H PRN Wheezing 09/11/19 12/28/22 History aerosol inhaler allopurinol 100 mg tablet 100 mg PO QAM 09/11/19 12/28/22 History allopurinol 300 mg tablet 300 mg PO QAM 09/11/19 12/28/22 History fluticasone propionate 50 2 sprays intranasal DAILY PRN 09/11/19 12/28/22 History mcg/actuation nasal Congestion spray,suspension (Flonase Allergy Relief) furosemide 20 mg tablet (Lasix) 20 mg PO QAM 09/11/19 12/28/22 History ipratropium 0.5 mg-albuterol 3 mg 3 ml inhalation Q4H PRN Wheezing 09/11/19 12/28/22 History (2.5 mg base)/3 mL nebulization soln levothyroxine 25 mcg tablet 25 mcg PO QAM 09/11/19 12/28/22 History (Levoxyl) montelukast 10 mg tablet 10 mg PO QAM 09/11/19 12/28/22 History (Singulair) omeprazole magnesium 20 mg 20 mg PO QAM 09/11/19 12/28/22 History tablet,delayed release (Prilosec OTC) sodium chloride 0.65 % nasal spray 2 sprays intranasal BID PRN 09/11/19 12/28/22 History aerosol ([place] Nasal) Congestion triamcinolone acetonide 0.1 % 1 appln topical BID PRN Rash 09/11/19 12/28/22 History topical cream OneTouch Verio Flex Start #1 ea 09/22/19 09/16/21 Rx (blood-glucose meter) lisinopril 10 mg tablet 20 mg PO QAM 10/27/19 12/28/22 History citalopram 40 mg tablet (Celexa) 40 mg PO QAM 05/02/20 12/28/22 History metformin 500 mg tablet 1,000 mg PO BID #360 tabs 04/28/21 12/28/22 Rx oxycodone 5 mg tablet (Roxicodone) 5 mg PO Q6H PRN pain #12 tabs 12/05/21 12/28/22 Rx OneTouch Verio test strips (blood #300 ea 03/03/22 Rx sugar diagnostic) OneTouch Delica Plus Lancet 33 ##100 03/12/22 Rx gauge (lancets) dulaglutide 3 mg/0.5 mL 3 mg (0.5 mL) subcut Q7D #2 mL 09/02/22 12/28/22 Rx subcutaneous pen injector atorvastatin 10 mg tablet 10 mg PO QAM 12/28/22 12/28/22 History levocetirizine 5 mg tablet (Xyzal) 5 mg PO QAM 12/28/22 12/28/22 History Past Med/Surg History Medical History Arthritis Asthma Stable Depression Diabetes mellitus, type 2 GERD (gastroesophageal reflux disease) Gout History of COVID-19 2020, not hospitalized Hyperlipidemia Hypertension Hypothyroidism Leaky heart valve Stress echo 08/2019: Mild AR Pulmonary nodule Sleep apnea CPAP (compliant) Spinal stenosis SVT (supraventricular tachycardia) 2015 felt r/t flu, no issues since Surgical History H/O melanoma excision face History of colonoscopy History of hysterectomy Family History Mother Diabetes Father Diabetes Brother Diabetes Brother Diabetes Social History Smoking Status: Never smoker Second Hand Exposure: No; Do You Dip or Chew Tobacco: No; Hx Alcohol Use: Yes Alcohol type: hard liquor Hx Substance Use: No Preferred Language: Slovak Communication Ability: Effective Blade Balancer Required: No Beliefs That Will Affect Care: None Current Living Situation: Significant Other Feels Safe at Home: Yes Assistive Devices: CPAP and Glasses Review of Systems Review of Systems: All systems reviewed & are unremarkable except as noted in HPI & below Constitutional: no fever, no chills and no sweats Respiratory: no cough and no dyspnea Cardiovascular: no chest pain, no dyspnea and no orthopnea Gastrointestinal: no abdominal pain, no nausea and no vomiting Musculoskeletal: as per Subjective / HPI Physical Exam Physical Exam: HT: 5ft 3in WT: 111.6kg Constitutional: WD/WN, vitals as above no acute distress Respiratory: normal respiratory effort, lungs clear to auscultation no respiratory distress, no labored breathing and does not use accessory muscles Cardiovascular: RRR, no murmur, no edema Gastrointestinal (Abdomen): normal bowel sounds, soft, nontender, no hepatosplenomegaly Musculoskeletal: Knee: + knee abnormal to inspection (LEFT KNEE: ), + effusion (+1 effusion), + surgical incision (well healed portals), + limited ROM of knee (ROM 0/3/110), + knee ROM with crepitation, + joint line tenderness (medial joint line) and + Jero's sign positive; no deformity, no skin erythema, no ecchymosis, no valgus laxity, no varus laxity, anterior drawer test negative, Noy's sign negative and pivot shift test negative Results & Data Results & Data Diagnostic Findings Left Knee X-ray: left knee series confirm degenerative changes to the left knee, greatest medial compartments and patellofemoral joint, showing joint space narrowing, osteophyte formation and subchondral sclerosis. no acute bony pathology noted.
--- NOTE | 2023-01-27 08:19 | History & Physical Report ---
Date of Service January 27, 2023 date of surgery: 02/03/23 Procedure: Left Total Knee Arthroplasty Surgeon: Lars Enrique DO Assessment & Plan (1) Arthritis of knee, left: Plan: Further care discussed with patient and at this point in time has failed conse rvative measures and would like to proceed with a left total knee replacement. Plan on discharge will be home with home health physical therapy. DVT prophylaxiswith TEDs, SCDs and will also place on aspirin 81 mg p.o. b.i.d. for a month postop. Patient will have follow up appointment in our office two weeks post op for staple/suture removal and re-evaluation. Patient otherwise has no other questions or concerns. The risks and benefits have been discussed including, but not limited to, risk of infection, nerve injury, stiffness, loss of motion, failure to improve, etc. Reasonable outcomes and options of treatment were discussed. An explanation of appropriate alternatives to the procedure that may be advantageous were discussed and their risks and benefits, as well as the risks and benefits of not proceeding with treatment. I offered to answer any additional inquiries concerning the treatment involved. All the patient's questions were answered. The patient is agreeable, understanding of the treatment plan and alternatives, and wishes to proceed with the treatment plan. History of Present Illness Chief Complaint: left knee pain Primary Care Provider: Nisa Guerra DO Jono is a pleasant 67-year-old female who presented for preop evaluation prior to upcoming left total knee replacement, she had a longstanding history of left knee pain which is gradually worsened in particular over the last year. She had an arthroscopy of the knee done about a year ago and has had no improvement. She has also undergone viscosupplementation as well as steroid injections without any improvement. She has tried oral anti-inflammatories and Tylenol. At this point time is failed conservative measures and would like to proceed with a left total knee replacement Allergies Allergy/AdvReac Type Severity Reaction Status Date / Time No Known Drug Allergies Allergy Unknown Verified 01/20/23 10:37 Home Medications Medication Instructions Recorded Confirmed Type albuterol sulfate 90 mcg/actuation 2 puffs inhalation Q4H PRN Wheezing 09/11/19 01/20/23 History aerosol inhaler allopurinol 100 mg tablet 100 mg PO QAM 09/11/19 01/20/23 History allopurinol 300 mg tablet 300 mg PO QAM 09/11/19 01/20/23 History fluticasone propionate 50 2 sprays intranasal DAILY PRN 09/11/19 01/20/23 History mcg/actuation nasal Congestion spray,suspension (Flonase Allergy Relief) furosemide 20 mg tablet (Lasix) 20 mg PO QAM 09/11/19 01/20/23 History ipratropium 0.5 mg-albuterol 3 mg 3 ml inhalation Q4H PRN Wheezing 09/11/19 01/20/23 History (2.5 mg base)/3 mL nebulization soln levothyroxine 25 mcg tablet 25 mcg PO QAM 09/11/19 01/20/23 History (Levoxyl) montelukast 10 mg tablet 10 mg PO QAM 09/11/19 01/20/23 History (Singulair) omeprazole magnesium 20 mg 20 mg PO QAM 09/11/19 01/20/23 History tablet,delayed release (Prilosec OTC) sodium chloride 0.65 % nasal spray 2 sprays intranasal BID PRN 09/11/19 01/20/23 History aerosol ([place] Nasal) Congestion triamcinolone acetonide 0.1 % 1 appln topical BID PRN Rash 09/11/19 01/20/23 History topical cream OneTouch Verio Flex Start #1 ea 09/22/19 01/20/23 Rx (blood-glucose meter) lisinopril 10 mg tablet 20 mg PO QAM 10/27/19 01/20/23 History citalopram 40 mg tablet (Celexa) 40 mg PO QAM 05/02/20 01/20/23 History metformin 500 mg tablet 1,000 mg (2 x 500 mg) PO BID #360 04/28/21 01/20/23 Rx tabs OneTouch Verio test strips (blood #300 ea 03/03/22 01/20/23 Rx sugar diagnostic) OneTouch Delica Plus Lancet 33 ##100 03/12/22 01/20/23 Rx gauge (lancets) dulaglutide 3 mg/0.5 mL 3 mg (0.5 mL) subcut Q7D #2 mL 09/02/22 01/20/23 Rx subcutaneous pen injector atorvastatin 10 mg tablet 10 mg PO QAM 12/28/22 01/20/23 History levocetirizine 5 mg tablet (Xyzal) 5 mg PO QAM 12/28/22 01/20/23 History cholecalciferol (vitamin D3) 125 5,000 unit PO DAILY #30 caps 01/21/23 Rx mcg (5,000 unit) capsule semaglutide 0.25 mg or 0.5 mg (2 0.25 mg (0.368 mL) subcut Q7D 30 01/26/23 Rx mg/3 mL) subcutaneous pen injector days #3 mL (Ozempic) Past Med/Surg History Medical History Spinal stenosis Arthritis GERD (gastroesophageal reflux disease) Hypothyroidism Diabetes mellitus, type 2 Depression Leaky heart valve Stress echo 08/2019: Mild [place] Hyperlipidemia History of COVID-19 2020, not hospitalized Sleep apnea CPAP (compliant) Gout SVT (supraventricular tachycardia) 2015 felt r/t flu, no issues since Pulmonary nodule Hypertension Asthma Stable Surgical History History of colonoscopy H/O melanoma excision face History of hysterectomy Family History Mother Diabetes Father Diabetes Brother Diabetes Brother Diabetes Social History Smoking Status: Never smoker Second Hand Exposure: No; Do You Dip or Chew Tobacco: No; Tobacco Cessation Education Requested by Patient: No Hx Alcohol Use: Yes Alcohol type: hard liquor Hx Substance Use: No Preferred Language: French Communication Ability: Effective Vehicle Trimmer Required: No Beliefs That Will Affect Care: None Current Living Situation: Significant Other Other Information That Helps Us Care for You: No Feels Safe at Home: Yes Safety Concerns: Feels Safe At This Time Assistive Devices: CPAP and Glasses Review of Systems Constitutional: no fever, no chills and no sweats Respiratory: no cough and no dyspnea Cardiovascular: no chest pain, no dyspnea and no orthopnea Gastrointestinal: no abdominal pain, no nausea and no vomiting Musculoskeletal: as per Subjective / HPI Physical Exam Physical Exam: HT: 5ft 3in WT: 111.6kg Constitutional: WD/WN, vitals as above no acute distress Respiratory: normal respiratory effort, lungs clear to auscultation no respiratory distress, no labored breathing and does not use accessory muscles Cardiovascular: RRR, no murmur, no edema Gastrointestinal (Abdomen): normal bowel sounds, soft, nontender, no hepatosplenomegaly Musculoskeletal: Knee: + knee abnormal to inspection (LEFT KNEE: ), + effusion (+1 effusion), + surgical incision (well healed portals), + limited ROM of knee (ROM 0/3/110), + knee ROM with crepitation, + joint line tenderness (medial joint line) and + Jero's sign positive; no deformity, no skin erythema, no ecchymosis, no valgus laxity, no varus laxity, anterior drawer test negative, Noy's sign negative and pivot shift test negative Results & Data Results & Data Diagnostic Findings Left Knee X-ray: left knee series confirm degenerative changes to the left knee, greatest medial compartments and patellofemoral joint, showing joint space narrowing, osteophyte formation and subchondral sclerosis. no acute bony pathology noted.
--- NOTE | 2023-03-02 08:24 | History & Physical Report ---
Date of Service March 02, 2023 date of surgery: 03/30/23 Procedure: Left Total Knee Arthroplasty Surgeon: Lars Enrique DO Assessment & Plan (1) Arthritis of knee, left: Plan: Further care discussed with patient and at this point in time has failed conse rvative measures and would like to proceed with a left total knee replacement. Plan on discharge will be home with home health physical therapy. DVT prophylaxiswith TEDs, SCDs and will also place on aspirin 81 mg p.o. b.i.d. for a month postop. Patient will have follow up appointment in our office two weeks post op for staple/suture removal and re-evaluation. Patient otherwise has no other questions or concerns. The risks and benefits have been discussed including, but not limited to, risk of infection, nerve injury, stiffness, loss of motion, failure to improve, etc. Reasonable outcomes and options of treatment were discussed. An explanation of appropriate alternatives to the procedure that may be advantageous were discussed and their risks and benefits, as well as the risks and benefits of not proceeding with treatment. I offered to answer any additional inquiries concerning the treatment involved. All the patient's questions were answered. The patient is agreeable, understanding of the treatment plan and alternatives, and wishes to proceed with the treatment plan. History of Present Illness Chief Complaint: Left knee pain Primary Care Provider: Nisa Guerra DO Jono is a pleasant 67-year-old female who presented for preop evaluation prior to upcoming left total knee replacement, she had a longstanding history of left knee pain which is gradually worsened in particular over the last year. She had an arthroscopy of the knee done about a year ago and has had no improvement. She has also undergone viscosupplementation as well as steroid injections without any improvement. She has tried oral anti-inflammatories and Tylenol. At this point time is failed conservative measures and would like to proceed with a left total knee replacement Allergies Allergy/AdvReac Type Severity Reaction Status Date / Time No Known Drug Allergies Allergy Unknown Verified 01/20/23 10:37 Home Medications Medication Instructions Recorded Confirmed Type albuterol sulfate 90 mcg/actuation 2 puffs inhalation Q4H PRN Wheezing 09/11/19 01/20/23 History aerosol inhaler allopurinol 100 mg tablet 100 mg PO QAM 09/11/19 01/20/23 History allopurinol 300 mg tablet 300 mg PO QAM 09/11/19 01/20/23 History fluticasone propionate 50 2 sprays intranasal DAILY PRN 09/11/19 01/20/23 History mcg/actuation nasal Congestion spray,suspension (Flonase Allergy Relief) furosemide 20 mg tablet (Lasix) 20 mg PO QAM 09/11/19 01/20/23 History ipratropium 0.5 mg-albuterol 3 mg 3 ml inhalation Q4H PRN Wheezing 09/11/19 01/20/23 History (2.5 mg base)/3 mL nebulization soln levothyroxine 25 mcg tablet 25 mcg PO QAM 09/11/19 01/20/23 History (Levoxyl) montelukast 10 mg tablet 10 mg PO QAM 09/11/19 01/20/23 History (Singulair) omeprazole magnesium 20 mg 20 mg PO QAM 09/11/19 01/20/23 History tablet,delayed release (Prilosec OTC) sodium chloride 0.65 % nasal spray 2 sprays intranasal BID PRN 09/11/19 01/20/23 History aerosol ([place] Nasal) Congestion triamcinolone acetonide 0.1 % 1 appln topical BID PRN Rash 09/11/19 01/20/23 History topical cream OneTouch Verio Flex Start #1 ea 09/22/19 01/20/23 Rx (blood-glucose meter) lisinopril 10 mg tablet 20 mg PO QAM 10/27/19 01/20/23 History citalopram 40 mg tablet (Celexa) 40 mg PO QAM 05/02/20 01/20/23 History metformin 500 mg tablet 1,000 mg (2 x 500 mg) PO BID #360 04/28/21 01/20/23 Rx tabs OneTouch Verio test strips (blood #300 ea 03/03/22 01/20/23 Rx sugar diagnostic) OneTouch Delica Plus Lancet 33 ##100 03/12/22 01/20/23 Rx gauge (lancets) dulaglutide 3 mg/0.5 mL 3 mg (0.5 mL) subcut Q7D #2 mL 09/02/22 01/20/23 Rx subcutaneous pen injector atorvastatin 10 mg tablet 10 mg PO QAM 12/28/22 01/20/23 History levocetirizine 5 mg tablet (Xyzal) 5 mg PO QAM 12/28/22 01/20/23 History cholecalciferol (vitamin D3) 125 5,000 unit PO DAILY #30 caps 01/21/23 Rx mcg (5,000 unit) capsule semaglutide 0.25 mg or 0.5 mg (2 0.25 mg (0.368 mL) subcut Q7D 30 01/26/23 Rx mg/3 mL) subcutaneous pen injector days #3 mL (Ozempic) Past Med/Surg History Medical History Spinal stenosis Arthritis GERD (gastroesophageal reflux disease) Hypothyroidism Diabetes mellitus, type 2 Depression Leaky heart valve Stress echo 08/2019: Mild [place] Hyperlipidemia History of COVID-2020, not hospitalized Sleep apnea CPAP (compliant) Gout SVT (supraventricular tachycardia) 2015 felt r/t flu, no issues since Pulmonary nodule Hypertension Asthma Stable Surgical History History of colonoscopy H/O melanoma excision face History of hysterectomy Family History Mother Diabetes Father Diabetes Brother Diabetes Brother Diabetes Social History Smoking Status: Never smoker Second Hand Exposure: No; Do You Dip or Chew Tobacco: No; Tobacco Cessation Education Requested by Patient: No Hx Alcohol Use: Yes Alcohol type: hard liquor Hx Substance Use: No Preferred Language: Yakut Communication Ability: Effective Patient Care Technician Required: No Beliefs That Will Affect Care: None Current Living Situation: Significant Other Other Information That Helps Us Care for You: No Feels Safe at Home: Yes Safety Concerns: Feels Safe At This Time Assistive Devices: CPAP and Glasses Review of Systems Constitutional: no fever, no chills and no sweats Respiratory: no cough and no dyspnea Cardiovascular: no chest pain, no dyspnea and no orthopnea Gastrointestinal: no abdominal pain, no nausea and no vomiting Musculoskeletal: as per Subjective / HPI Physical Exam Physical Exam: HT: 5ft 3in WT: 111.6kg Constitutional: WD/WN, vitals as above no acute distress Respiratory: normal respiratory effort, lungs clear to auscultation no respiratory distress, no labored breathing and does not use accessory muscles Cardiovascular: RRR, no murmur, no edema Gastrointestinal (Abdomen): normal bowel sounds, soft, nontender, no hepatosplenomegaly Musculoskeletal: Knee: + knee abnormal to inspection (LEFT KNEE: ), + effusion (+1 effusion), + surgical incision (well healed portals), + limited ROM of knee (ROM 0/3/110), + knee ROM with crepitation, + joint line tenderness (medial joint line) and + Jero's sign positive; no deformity, no skin erythema, no ecchymosis, no valgus laxity, no varus laxity, anterior drawer test negative, Noy's sign negative and pivot shift test negative Results & Data Results & Data Diagnostic Findings Left Knee X-ray: left knee series confirm degenerative changes to the left knee, greatest medial compartments and patellofemoral joint, showing joint space narrowing, osteophyte formation and subchondral sclerosis. no acute bony pathology noted.
[~2023-03-30 07:47] MED LIST changes: +ACETAMINOPHEN 500 MG TAB PO SCH; +BUPIVACAINE 0.5 % 5 MG/1 ML PF 10ML VIAL ONE; -CITA40TA12 PO; -CLR10 PO; +CeleBREX 200 MG CAP PO SCH; -DILT120C PO; +EPINEPHrine INJ 1 MG/ML AMP ONE; +FAMOTIDINE 20 MG TAB PO SCH; +GABAPENTIN 600 MG DOSE PO SCH; -LEVO25TA5 PO; -LISI-729 PO; +LR 500ML BOLUS, THEN 15ML/HR IV SCH; +LR 60ML/HR IV SCH; -MELO7.5T5 PO; +METOCLOPRAMIDE HCL 10 MG TABLET PO SCH; -PRLSR20 PO; +ROPIV 0.5% 246mg, Ketorolac 30mg, EPINEPHrine 0.5mg in NSS INFIL SCH; +ROPIVACAINE 0.5% 5 MG/ML 30 ML VIAL ONE; +ROPIVACAINE 0.5% HCL/PF 150 MG, BUPIVACAINE 0.75% MPF 20 ML, EPINEPHrine 30MG/30ML (OR ... INSTIL SCH; +TRANEXAMIC ACID 1,000 MG **IV Intra-op IV SCH; +TRANEXAMIC ACID 1,000 MG **IV Pre-op IV SCH; +ceFAZolin 2000MG 2,000 MG/15 ML SYR IV SCH
--- OUTSIDE RECORDS SUMMARY | 2023-03-30 07:56 | External Medical Summary | Summary of Care ---
Author Name Unknown Organization [facility] Address [address] [place] [address] Phone [phone] Care Team Providers Care Drywall Finisher Foreman Name Role Phone RenettaBeatris slaughter Christelle MOROCHO Primary Care Provider Reason for Visit * Reason Onset Date Comments Advice 03/19/2023 Cpap supplies or jesusita Encounter Details Date Type Department Care Team (Late st Contact Info) Description 03/19/2023 Telephone Sleep Disorders Ctr [facility] [address] [place] [phone] Cassy Salas CRNP [address] [place] [address] Advice (Cpap supplies order) Allergies Active Allergy Reactions Criticality Noted Date Comments No Known Drug Allergy 02/05/2001 documented as of this encounter (statuses as of 03/22/2023) Medications Medication Sig Dispensed Refills Start Date End Date Status NEBULIZER DEVIIndications:Asth ma, severity to be determined,Esophagea l reflux as directed 1 0 03/16/2006 Active saline (OCEAN NASAL SPRAY) 0.65 % nasal sprayIndications:Acu te frontal sinusitis, recurrence not specified,Acute bronchitis, complicated Administer 2 Sprays into each nostril as needed for Congestion. for nasal dryness or congestion 1 Bottle 5 05/26/2015 Active Multiple Vitamins-Minerals (MULTIVITAMIN ADULT) TABS Take by mouth. 0 Active Spacer/Aero-Holding Chambers Device J44.9 1 Each 0 01/01/2020 Active CPAP every night at bedtime. 0 Active Albuterol Sulfate HFA 108 (90 Base) MCG/ACT Inhalation Aerosol Solution Inhale 2 Puffs by mouth every 4 hours as needed for Shortness of Breath or Wheezing. 8.5 g 5 07/06/2022 Active Fluticasone-Salmeter ol 230-21 MCG/ACT Inhalation Aerosol (Advair HFA) Inhale 2 Puffs by mouth in the morning and 2 Puffs before bedtime. 36 Each 3 08/18/2022 Active Levothyroxine Sodium 25 MCG Oral Tablet (Levoxyl) Take 1 Tablet by mouth daily first thing in the morning. (at least 30 min prior to breakfast or other meds) 90 Tablet 08/18/2022 Active Lisinopril 20 MG Oral Tablet (Prinivil)Indication s:HTN, goal below 140/90 Take 1 Tablet by mouth in the morning. 90 Tablet 3 08/18/2022 Active Allopurinol 300 MG Oral Tablet (Zyloprim)Indication s:Chronic gout of foot, unspecified cause, unspecified laterality Take 1 Tablet by mouth in the morning. 90 Tablet 08/18/2022 Active Ipratropium-Albutero l 0.5-2.5 (3) MG/3ML Inhalation Solution (Duoneb) USE 3 ML EVERY 4 HOURS NEEDED FOR COUGH OR FOR SHORTNESS OF BREATH OR WHEEZING 90 mL 08/18/2022 Active Citalopram Hydrobromide 40 MG Oral Tablet (CeleXA)Indications: Moderate episode of recurrent major depressive disorder (HCC) Take 1 Tablet by mouth in the morning. 90 Tablet 3 08/18/2022 Active Levocetirizine Dihydrochloride 5 MG Oral Tablet Take 1 Tablet by mouth every evening. 90 Tablet 08/18/2022 Active Meloxicam 15 MG Oral Tablet TAKE 1 TABLET BY MOUTH DAILY FOR PAIN 30 Tablet 10/30/2022 Active Furosemide 20 MG Oral Tablet (Lasix)Indications:1 + pitting edema One pill on Wednesday to and 2 pills Wednesday, Wednesday, Wednesday. 90 Tablet 3 11/03/2022 Active Potassium Chloride Katelyn ER 20 MEQ Oral Tablet Extended ReleaseIndications:1 + pitting edema Take 1 Tablet by mouth in the morning. 90 Tablet 3 11/03/2022 Active Fluticasone Propionate 50 MCG/ACT Nasal Suspension (Flonase)Indications :Seasonal allergic rhinitis due to pollen SPRAY 2 SPRAYS INTO EACH NOSTRIL EVERY DAY 16 mL 5 01/04/2023 Active Omeprazole 20 MG Oral Capsule Delayed Release (PriLOSEC)Indication s:Gastroesophageal reflux disease without esophagitis TAKE BY MOUTH 1 CAPSULE IN THE MORNING. 1 HOUR BEFORE THE FIRST MEAL OF THE DAY.. 90 Capsule 1 01/14/2023 Active Triamcinolone Acetonide 0.1 % External Cream (Aristocort) Apply to itchy areas on arms twice daily as needed 453.6 g 1 01/18/2023 Active Montelukast Sodium 10 MG Oral Tablet (Singulair)Indicatio ns:Allergic rhinitis,Asthma, allergic, mild intermittent, uncomplicated TAKE 1 TABLET BY MOUTH EVERY DAY 90 Tablet 3 01/29/2023 Active SUMAtriptan Succinate 50 MG Oral Tablet (Imitrex) TAKE 2 TABLETS BY MOUTH AT ONSET OF MIGRAINE. TAKE 1 TABLET EVERY 2 HRS NEEDED. MAX 5 PER 24 HRS 9 Tablet 3 01/29/2023 Active Allopurinol 100 MG Oral Tablet (Zyloprim) TAKE 1 TABLET BY MOUTH EVERY DAY *TAKE ALONG WITH 300MG TABS FOR A DAILY DOSE OF 400MG* 90 Tablet 3 01/29/2023 Active Doxycycline Monohydrate 100 MG Oral CapsuleIndications:F olliculitis Take 1 Capsule by mouth in the morning. 30 Capsule 11 03/16/2023 Active Ozempic (0.25 or 0.5 MG/DOSE) 2 MG/3ML Solution Pen-injector INJECT 0.25 MG (0.368 ML) SUBCUTANEOUSLY EVERY 7 DAYS FOR 30 DAYS 0 01/26/2023 Active documented as of this encounter (statuses as of 03/22/2023) Active Problems Problem Noted Date Diagnosed Date Moderate episode of recurrent major depressive d isorder 03/16/2023 Hyperlipidemia 03/16/2023 Folliculitis 03/16/2023 Thrombocytopenia 01/21/2023 Mass of skin 08/18/2022 Depression 08/18/2022 Recurrent headache 09/20/2021 Neck pain 09/20/2021 Vitreous floaters of both eyes 09/20/2021 Migraine without aura and wi thout status migrainosus, not intractable 09/20/2021 Type 2 diabetes mellitus wit h other diabetic kidney complication 06/19/2021 Moderate persistent asthma with acute exacerbati on 06/19/2021 Left shoulder pain 12/03/2020 Preoperative general physical examination 2020 Type 2 diabetes mellitus wit h hemoglobin A1c goal of less than 7.0% 08/30/2020 HTN, goal below 130/80 02/23/2020 Need for pneumococcal vaccination 11/16/2019 SOB (shortness of breath) 09/26/2019 Grade I diastolic dysfunction 09/26/2019 Lung nodule 09/26/2019 Elevated LFTs 08/24/2019 History of malignant melanoma of skin 12/14/2016 Overview: right cheek 0.3mm in depth, 05/29 DANNIE on CPAP 06/17/2016 Overview: CPAP 14 AHP Gout 08/21/2014 Morbid obesity with BMI of 40.0-44.9, adult 05/14 Overview: Per Obesity Taxonomy Anxiety state 01/06/2009 Hypothyroid 12/29/2007 Allergic rhinitis, seasonal 10/03/2003 Overview: ICD-10 update of inactive term Rosacea Esophageal reflux documented as of this encounter (statuses as of 03/22/2023) Resolved Problems Problem Noted Date Diagnosed Date Resolved Date Mild intermittent asthma with exacerbation 05/28/2021 06/06/2021 Chest pain 08/05/2020 06/06/2021 Mild persistent asthma without complication 01/11/2020 06/19/2021 Diabetes mellitus without complication 01/26/2019 08/09/2020 Malignant melanoma of face e xcluding eyelid, nose, lip, and ear 09/01/2016 12/14/2016 Overview: Breslow 0.3mm Impaired fasting glucose 08/21/201401/2020 Solar lentigo 08/13/2014 12/14/2016 ACTIVE CASE MANAGEMENT 11/14/200912/30 Overview: Ramonita Saldivar, RN HTN, goal below 140/90 01/18/200902/22 Overview: Modified per HTN Taxonomy. ADVANCE DIRECTIVE INFORMATION 02/04/2005 07/09/2017 Overview: No, Advance Directive brochure given to patient at prior appointment. High triglycerides 02/21/2003 5 OBESITY, UNSPECIFIED 03/09/2002 010 Overview: Per Obesity Taxonomy Hypopotassemia 07/09/2017 BENIGN HYPERTENSION 01/19/20 09 Overview: Modified per HTN Taxonomy. documented as of this encounter (statuses as of 03/22/2023) Immunizations Name Administration Dates Next Due HEP A - Hepatitis A (Adult > 18 yrs) 04/18/2018, 10/13/2017 Hepatitis B, 20+ yrs 04/18/2018,11/16/2017,10/13 PPD 01/12/2012 Pneumococcal Conjugate Vacci ne, 20-valent ([id number]) 03/16/2023 Pneumococcal Polysaccharide PPV23 (Pneumovax) 02/23/2020 Seasonal Influenza, PF, 6 M & above, IM , (FluLaval or Fluzone) 01/06/2022,12/03/2020,11/16/2019 Seasonal Influenza, Quadriva lent Hd (Fluzone Hd) 03/16/2023 TDAP (age 10 and older)(Boostrix) 12/08/2016 TDAP (age 11 and older)(Adacel) 12/29/2007 Zoster Vaccine Recombinant (Shingrix) 04/10/2019 ,01/26/2019 documented as of this encounter Social History Tobacco Use Types Packs/Day Years Used Date Smoking Tobacco: Never Smokeless Tobacco: Never Alcohol Use Standard Drinks/Week Comments Yes 0 (1 standard drink = 0.6 oz pur e alcohol) less than once a month PHQ-2 Answer Date Recorded PHQ-2 Score 0 01/26/2019 Hunger Vital Sign Answer Date Recorded Worried About Running Out of Food in the Last Ye ar Never true 01/26/2019 Ran Out of Food in the Last Year Never true 01/26/2019 Sex and Gender Information Value Date Recorded Sex Assigned at Female 01/12/2023 4:54 PM EDT Gender Identity Not on file Sexual Orientation Straight 01/12/2023 4: 54 PM EDT Job Start Date Occupation Industry Not on file Not on file Not on file documented as of this encounter Miscellaneous Notes * Telephone Encounter - Tera Dutton OSA - 03/22/2023 9:28 AM EST [employer] message sent with Date and time. * Telephone Encounter - Margoth Floyd LPN - 03/19/2023 10:59 AM EST Pt was last seen by sleep 04/2020. I spoke with the pt, and she understands she will be contacted toschedule an appt, in order to get PAP supplies. She prefers to be contacted via the portal. * Telephone Encounter - Tera Dutton OSA - 03/19/2023 9:50 AM EST Jolynn from [facility] ([place] [facility]) left message on my machine about patient. Patient needs cpap supplies and recently switched insurances to [facility]. They need an order through [facility]. If I looked in chart correctly, patient hasn't seen sleep in 5 years. Any questions, please call Jolynn at [phone]. documented in this encounter Plan of Treatment Upcoming Encounters Date Type Department Care Team (Late st Contact Info) Description 03/30/2023 11:00 AM EST Office Visit Sleep Disorders Ctr [facility] [address] [facility] [place] [phone] Cassy Salas CRNP [address] [facility] [place] [address] 06/15/2023 9:20 AM EDT Office Visit Family Practice [facility] [address] [place] [address] Beatris Ruggiero CRNP [address] [place] [address] 08/30/2023 10:30 AM EDT Imaging Radiology [facility] 1st [facility] [address] [place] [address] 01/20/2024 12:45 PM EST Office Visit Dermatology [facility] [address] [facility] [place] [address] Bianca Mattson MD [address] [facility] [place] [address] Scheduled Procedures Name Priority Associated Diagnoses Date/Ti me COLONOSCOPY FLEXIBLE PROXIMAL DIAGNOSTIC Recall Screen for colon cancer Health Maintenance Due Date Last Done Comments COVID-19 Vaccine (#1) 06/04/1956 Cologuard 2002 Fecal Occult Blood Test 2002 Sigmoidoscopy 2002 Depression Screening 01/27/2020 01/26/2019 Diabetic Eye Exam 08/23/2020 08/24/2019 DXA Scan 2022 Diabetic Foot Exam 08/19/2023 08/18/2022, 0 12/03/2020, 08/24/2019 HbA1c 09/14/2023 03/16/2023, 08/13, 01/06/2022, Additional history exists Mammogram 09/17/2023 09/16/2022, 08/13, 09/24/2020, Additional history exists Albumin/Creatinine Ratio 03/16/2024 03/16/2023, 12/14 GFR 03/16/2024 03/16/2023, 12/14, 11/03/2022, Additional history exists TSH 03/16/2024 03/16/2023, 08/13, 01/06/2022, Additional history exists DTaP,Tdap,and Td Vaccines (3 - Td or Tdap) 12/08/2026 12/08/2016, 12/29/2007 Lipid Panel 08/29/2027 08/28/2022, 06/2021, 08/04/2018, Additional history exists Colonoscopy 03/06/2029 03/06/2019, 02/13, 01/31/2009 Colorectal Cancer Screening 03/06/2029 Hepatitis B Completed 04/18/2018, 06/2017, 10/13/2017 Zoster Vaccines Completed 04/10/2019, 01/26/2019 Influenza Vaccine (FLU shot) Completed 04/2023, 01/06/2022, 12/03/2020, Additional history exists Pneumococcal Vaccine: 65+ Years Completed 03/16/2023, 02/23/2020 GARDASIL-HPV IMMUNIZATION SERIES Aged Out No longer eligible based on patient's age to complete this topic MENINGOCOCCAL (MENACTRA/MENVEO) Aged Out No longer eligible based on patient's age to complete this topic documented as of this encounter Medical Devices Not on filedocumented as of this encounter Care Teams Drywall Finisher Foreman Relationship Specialty Start Date End Date Beatris Ruggiero CRNP [address] [place] [address] PCP - General Nurse Practitioner 05/16/21 documented as of this encounter
--- OUTSIDE RECORDS SUMMARY | 2023-03-30 07:56 | External Medical Summary | Summary of Care ---
Author Name Unknown Organization [facility] Address [address] [place] [address] Phone [phone] Care Team Providers Care Tile Classifier Name Role Phone RenettaBeatris slaughter Christelle MOROCHO Primary Care Provider Reason for Visit * Reason Onset Date Comments Advice 03/19/2023 Cpap supplies or jesusita Appointment 03/19/2023 Encounter Details Date Type Department Care Team (Late st Contact Info) Description 03/19/2023 Telephone Sleep Disorders Ctr [facility] [address] [place] [phone] Cassy Salas CRNP [address] [place] [address] Advice (Cpap supplies order); Appointment Allergies Active Allergy Reactions Criticality Noted Date Comments No Known Drug Allergy 02/05/2001 documented as of this encounter (statuses as of 03/24/2023) Medications Medication Sig Dispensed Refills Start Date [...] in the morning. 90 Tablet 08/18/2022 Active Allopurinol 300 MG Oral Tablet [...] 2 pills Wednesday, Wednesday, Wednesday. 90 Tablet 11/03/2022 Active Potassium Chloride Katelyn ER 20 [...] as of this encounter (statuses as of 03/24/2023) Active Problems Problem Noted Date Diagnosed Date [...] as of this encounter (statuses as of 03/24/2023) Resolved Problems Problem Noted Date Diagnosed Date Resolved Date Mild intermittent asthma with exacerbation 05/28/2021 06/06/2021 Chest pain 08/05/2020 06/06/2021 Mild persistent asthma without complication 01/11/2020 06/19/2021 Diabetes mellitus without complication 01/26/2019 08/09/2020 Malignant melanoma of face e xcluding eyelid, nose, lip, and ear 09/01/2016 12/14/2016 Overview: Breslow 0.3mm Impaired fasting glucose 08/21/201401/2020 Solar lentigo 08/13/2014 12/14/2016 ACTIVE CASE MANAGEMENT 11/14/200912/30 Overview: Ramonita Saldivar RN HTN, goal below 140/90 01/18/200902/22 Overview: Modified per HTN Taxonomy. ADVANCE DIRECTIVE INFORMATION 02/04/2005 07/09/2017 Overview: No, Advance Directive brochure given to patient at prior appointment. High triglycerides 02/21/2003 5 OBESITY, UNSPECIFIED 03/09/2002 010 Overview: Per Obesity Taxonomy Hypopotassemia 07/09/2017 BENIGN HYPERTENSION 01/19/20 09 Overview: Modified per HTN Taxonomy. documented as of this encounter (statuses as of 03/24/2023) Immunizations Name Administration Dates Next Due HEP A - Hepatitis A (Adult > 18 yrs) 04/18/2018, 10/13/2017 Hepatitis B, 20+ yrs 04/18/2018,11/16/2017,10/13 PPD 01/12/2012 Pneumococcal Conjugate Vacci ne, 20-valent ([id number]) 03/16/2023 Pneumococcal Polysaccharide PPV23 (Pneumovax) 02/23/2020 Seasonal [...] Dutton OSA - 03/22/2023 9:28 AM EST [employer] message sent with Date and time. * [...] - 03/19/2023 9:50 AM EST Jolynn from [facility] ([place] [facility]) left message on my machine about patient. Patient needs cpap supplies and recently switched insurances to [facility]. They need an order through [facility]. If I looked in chart correctly, patient hasn't seen sleep in 5 years. Any questions, please call Jolynn at [phone]. documented in this encounter Plan of Treatment Upcoming Encounters Date Type Department Care Team (Late st Contact Info) Description 06/15/2023 9:20 AM EDT Office Visit [facility] [address] [place] [address] Beatris Ruggiero CRNP [address] [place] [address] 08/30/2023 10:30 AM EDT Imaging Radiology [facility] 1st [facility] [address] [place] [address] 01/20/2024 12:45 PM EST Office Visit Dermatology [facility] [address] [place] [address] Bianca Mattson MD [address] [place] [address] Scheduled Procedures Name Priority Associated Diagnoses Date/Ti [...] 12/08/2026 12/08/2016, 12/29/2007 Lipid Panel 08/29/2027 08/28/2022, 03/0 06/2021, 08/04/2018, Additional history exists Colonoscopy 03/06/2029 [...] filedocumented as of this encounter Care Teams Tile Classifier Relationship Specialty Start Date End Date Beatris Ruggiero CRNP [address] [place] [address] PCP - General Nurse Practitioner 05/16/21 documented as of this encounter
--- OUTSIDE RECORDS SUMMARY | 2023-03-30 07:56 | External Medical Summary | Summary of Care ---
Author Name Unknown Organization [facility] Address [address] [place] [address] Phone [phone] Care Team Providers Care Shift Production Associate Name Role Phone RenettaBeatris slaughter Christelle MOROCHO Primary Care Provider Reason for Visit * Reason Onset Date Comments Advice 03/19/2023 Cpap supplies or jesusita Appointment 03/19/2023 Encounter Details Date Type Department Care Team (Late st Contact Info) Description 03/19/2023 Telephone Sleep Disorders Ctr [facility] [address] [place] [phone] Cassy Salas CRNP [address] [place] [address] Advice (Cpap supplies order); Appointment Allergies Active [...] PPD 01/12/2012 Pneumococcal Conjugate Vacci ne, 20-valent ([id number]) 03/16/2023 Pneumococcal Polysaccharide PPV23 (Pneumovax) 02/23/2020 Seasonal [...] Dutton OSA - 03/22/2023 9:28 AM EST [employer] message sent with Date and time. * [...] - 03/19/2023 9:50 AM EST Jolynn from [facility] ([place] [facility]) left message on my machine about patient. Patient needs cpap supplies and recently switched insurances to [facility]. They need an order through [facility]. If I looked in chart correctly, patient hasn't seen sleep in 5 years. Any questions, please call Jolynn at [phone]. documented in this encounter Plan of Treatment Upcoming Encounters Date Type Department Care Team (Late st Contact Info) Description 05/07/2023 9:20 AM EST Office Visit Sleep Disorders Ctr [facility] [address] [facility] [place] [phone] Jovanna Madrigal, [address] [place] [address] 06/15/2023 9:20 AM EDT Office Visit Family Practice [facility] [address] [place] [address] Beatris Ruggiero CRNP [address] [place] [address] 08/30/2023 10:30 AM EDT Imaging Radiology [address] [place] [address] 01/20/2024 12:45 PM EST Office Visit Dermatology [facility] [address] [place] [address] Bianca Mattson MD [address] [place] [address] Scheduled Procedures Name Priority Associated Diagnoses Date/Ti [...] filedocumented as of this encounter Care Teams Shift Production Associate Relationship Specialty Start Date End Date Beatris Ruggiero CRNP [address] [place] [address] PCP - General Nurse Practitioner 05/16/21 documented as of this encounter
--- OUTSIDE RECORDS SUMMARY | 2023-03-30 07:57 | External Medical Summary ---
Author Name Unknown Address Unknown Organization [id number]:[facility] [address] [place] [address] Laboratory Report Ordering Provider Test Date Status RICCARDO CACERES 03/16/2023 13:49:20 Final Normal: <30 mg/g creatinine< br/>High: 30-300 mg/g creatinine
Very High: >300 mg/g creatinine
Nephrotic: >2200 mg/g creatinine Observation Date Value Abnormality Reference (Units ) Status Albumin, Urine 03/16/2023 13:49:20 <1.20 (mg/dL) Final Creatinine, Urine 03/16/2023 13:49:20 49 (mg/dL) Final Albumin/Creatinine [Mass Ratio] in Urine 03/16/2023 13:49:20 <24 <30 (mg/g Creat) Final Performing Location [facility] [place] [address] [place] [address]
--- OUTSIDE RECORDS SUMMARY | 2023-03-30 07:57 | External Medical Summary ---
Author Name Unknown Address Unknown Organization [id number] [address] [place] [address] Laboratory Report Ordering Provider Test Date Status TESSY TAPIA 03/16/2023 13:44:47 Final Observation Date Value Abnormality Reference (Units ) Status SYNC LEUKOCYTES IN BLOOD BY AUTOMATED COUNT 03/16/2023 13:44:47 5.42 4.00-10.80 (K/uL) Final Segs 03/16/2023 13:44:47 51.6 40.0-75.0 (%) Final Lymphs % 03/16/2023 13:44:47 39.5 18.0-42.0 (%) Final Monos 03/16/2023 13:44:47 6.1 1.0-11.0 (%) Final Eosinophils 03/16/2023 13:44:47 2.4 0.0-6.0 (%) Final Basos 03/16/2023 13:44:47 0.4 0.0-2.0 (%) Final Absolute Segs 03/16/2023 13:44:47 2.80 1.80-7.70 (K/uL) Final Lymphs, absolute 03/16/2023 13:44:47 2.14 1.00-4.80 (K/ul) Final Monos, Abs 03/16/2023 13:44:47 0.33 0.00-1.10 (K/uL) Final Eos, Abs 03/16/2023 13:44:47 0.13 0.00-0.70 (K/uL) Final Basos, Abs 03/16/2023 13:44:47 0.02 0.00-0.20 (K/uL) Final Performing Location LABORATORY [facility] [[email or web address]] [place] [facility] - [address] [place] [address]
--- OUTSIDE RECORDS SUMMARY | 2023-03-30 07:57 | External Medical Summary ---
Author Name Unknown Address Unknown Organization [id number]:[facility]ORY [facility] [place] - [address] [place] [address] Laboratory Report Ordering Provider Test Date Status VONDA CACERESFabricio 03/16/2023 13:44:47 Final Observation Date Value Abnormality Reference (Units ) Status TSH 03/16/2023 13:44:47 0.43 0.27-4.20 (uIU/mL) Final Performing Location LABORATORY [facility] - [address] [place] [id number]
--- OUTSIDE RECORDS SUMMARY | 2023-03-30 07:57 | External Medical Summary ---
Author Name Unknown Address Unknown Organization [id number][place] [place] [address] [place] [address] Laboratory Report Ordering Provider Test Date Status DIONNE PEREZ 03/16/2023 13:44:47 Final Observation Date Value Abnormality Reference (Units ) Status MYCODE SPECIMEN-SST 03/16/2023 13:44:47 Freezing of extracted DNA, whole blood and/or serum. Final Performing Location LABORATORY C - [address] [place] [address]
--- OUTSIDE RECORDS SUMMARY | 2023-03-30 07:57 | External Medical Summary ---
Author Name Unknown Address Unknown Organization [id number]:LABORATORY [facility] [place] [address] - [address] [place] [address] Laboratory Report Ordering Provider Test Date Status RICCARDO CACERES 03/16/2023 13:44:47 Final Observation Date Value Abnormality Reference (Units ) Status BUN 03/16/2023 13:44:47 18 6-20 (mg/dL) Final Creatinine 03/16/2023 13:44:47 1.0 0.5-1.0 (mg/dL) Final Glomerular filtration rate/1.73 sq M.predicted [Volume Rate/Area] in Serum, Plasma or Blood by Creatinine-based formula (CKD-EPI) 03/16/2023 13:44:47 64 >=60 (mL/min) Final eGFR is calculated based on the CKD-EPI 2020 equation SODIUM 03/16/2023 13:44:47 141 135-146 (m mol/L) Final Potassium 03/16/2023 13:44:47 4.4 3.5-5.1 (m mol/L) Final Cl 03/16/2023 13:44:47 103 98-107 (mm ol/L) Final CO2 03/16/2023 13:44:47 27 22-32 (mmo l/L) Final Anion gap 03/16/2023 13:44:47 11 7-15 (mmol /L) Final Glucose 03/16/2023 13:44:47 103 70-120 (mg /dL) Final Calcium 03/16/2023 13:44:47 9.9 8.4-10.2 ( mg/dL) Final Performing Location LABORATORY [facility] [place] [address] - [address] [place] [address]
--- OUTSIDE RECORDS SUMMARY | 2023-03-30 07:57 | External Medical Summary ---
Author Name Unknown Address Unknown Organization K01:[facility]ORY [facility] [place] - [facility] [address] [facility] [address] Laboratory Report Ordering Provider Test Date Status RICCARDO CACERES 03/16/2023 13:44:47 Final Verbal consent received from patient for HIV screening. pb Observation Date Value Abnormality Reference (Units ) Status HIV 1+2 Ab+HIV1 p24 Ag [Presence] in Serum or Plasma by Immunoassay 03/16/2023 13:44:47 Negative Negative Final Negative HIV-1/2 antigen and antibody screening tset results usually indicate the absence of HIV-1 and HIV-2 infection. However, such negative results do not rule-out acute HIV infection. If acute HIV-1 infection is highly suspected, it is recommended that a specimen be submitted for detection of HIV-1 RNA. Performing Location LABORATORY [facility] [place] - [address] [place] [address]
--- OUTSIDE RECORDS SUMMARY | 2023-03-30 07:57 | External Medical Summary | Summary of Care ---
Author Name Unknown Organization [facility] Address [address] [place] [address] Phone [phone] Care Team Providers Care Strip Picker Name Role Phone RenettaBeatris slaughter Christelle MOROCHO Primary Care Provider Reason for Visit * Reason Comments Outpatient Testing Encounter Details Date Type Department Care Team (Late st Contact Info) Description 03/16/2023 1:50 PM EST Laboratory Laboratory, [facility] [address] [facility] [id number] [facility] [address] Special screening examination for viral disease; MyCode Research Other*[id number]; Gastroesophageal reflux disease without esophagitis; Encounter for long-term (current) use of medications; Thrombocytopenia (HCC); Preoperative general physical examination; Type 2 diabetes mellitus with hemoglobin A1c goal of less than 7.0% ([facility]); Acquired hypothyroidism; Type 2 diabetes mellitus with other diabetic kidney complication ([facility]) Allergies Active Allergy Reactions Criticality Noted Date Comments No Known Drug Allergy 02/05/2001 documented as of this encounter (statuses as of 03/16/2023) Medications Medication Sig Dispensed Refills Start Date [...] to breakfast or other meds) 90 Tablet 3 08/18/2022 Active Lisinopril 20 MG Oral Tablet (Prinivil)Indication s:HTN, goal below 140/90 Take 1 Tablet by mouth in the morning. 90 Tablet 3 08/18/2022 Active Allopurinol 300 MG Oral Tablet (Zyloprim)Indication s:Chronic gout of foot, unspecified cause, unspecified laterality Take 1 Tablet by mouth in the morning. 90 Tablet 3 08/18/2022 Active Ipratropium-Albutero l 0.5-2.5 (3) MG/3ML Inhalation Solution (Duoneb) USE 3 ML EVERY 4 HOURS NEEDED FOR COUGH OR FOR SHORTNESS OF BREATH OR WHEEZING 90 mL 5 08/18/2022 Active Citalopram Hydrobromide 40 MG Oral Tablet (CeleXA)Indications: Moderate episode of recurrent major depressive disorder (HCC) Take 1 Tablet by mouth in the morning. 90 Tablet 3 08/18/2022 Active Levocetirizine Dihydrochloride 5 MG Oral Tablet Take 1 Tablet by mouth every evening. 90 Tablet 3 08/18/2022 Active Meloxicam 15 MG Oral Tablet TAKE 1 TABLET BY MOUTH DAILY FOR PAIN 30 Tablet 5 10/30/2022 Active Furosemide 20 MG Oral Tablet [...] as of this encounter (statuses as of 03/16/2023) Active Problems Problem Noted Date Diagnosed Date [...] as of this encounter (statuses as of 03/16/2023) Resolved Problems Problem Noted Date Diagnosed Date [...] as of this encounter (statuses as of 03/16/2023) Immunizations Name Administration Dates Next Due HEP A - Hepatitis A (Adult > 18 yrs) 04/18/2018, 10/13/2017 Hepatitis B, 20+ yrs 04/18/2018,11/16/2017,10/13 PPD 01/12/2012 Pneumococcal Conjugate Vacci ne, 20-valent ([id number]) 03/16/2023 Pneumococcal Polysaccharide PPV23 (Pneumovax) 02/23/2020 Seasonal [...] on file documented as of this encounter Plan of Treatment Upcoming Encounters Date Type Department Care Team (Late st Contact Info) Description 06/15/2023 9:20 AM EDT Office Visit Family Practice [facility] [address] [facility] [place] [address] Beatris Ruggiero CRNP [address] [place] [address] 08/30/2023 10:30 AM EDT Imaging Radiology [facility] [address] [facility] [address] [facility] [place] [address] 01/20/2024 12:45 PM EST Office Visit Dermatology [facility] [address] [place] [address] Bianca Mattson MD [address] [place] [address] Pending Results Name Type Priority Associated Diagnoses Date /Time HIV ANTIGEN & ANTIBODY SCREEN W/ CONFIRMATION Lab Routine Special screening examination for viral disease 03/16/2023 1:44 PM EST MYCODE SUBSEQUENT ADULT Lab Routine MyCode Research Other*[id number] 03/16/2023 1:44 PM EST MAGNESIUM Lab Routine Gastroesophageal reflux disease without esophagitis Encounter for long-term (current) use of medications 03/16/2023 1:44 PM EST HEMOGLOBIN A1C Lab Routine Type 2 diabetes mellitus with hemoglobin A1c goal of less than 7.0% (HCC) 03/16/2023 1:44 PM EST TSH WITH FREE T4 IF INDICATED Lab Routine Acquired hypothyroidism 03/16/2023 1:44 PM EST MYCODE SST1 Lab Routine MyCode Research Other*[id number] 03/16/2023 1:44 PM EST MYCODE SST2 Lab Routine MyCode Research Other*[id number] 03/16/2023 1:44 PM EST ALBUMIN / CREATININE RATIO, URINE Lab Routine Type 2 diabetes mellitus with other diabetic kidney complication (HCC) 03/16/2023 1:49 PM EST Scheduled Orders Name Type Priority Associated Diagnoses Orde r Schedule HIV ANTIGEN & ANTIBODY SCREEN W/ CONFIRMATION Lab Routine Special screening examination for viral disease Expected: 03/16/2023, Expires: 03/16/2024 ALBUMIN / CREATININE RATIO, URINE Lab Routine Type 2 diabetes mellitus with other diabetic kidney complication (HCC) Expected: 03/16/2023 (Approximate), Expires: 03/16/2024 Scheduled Procedures Name Priority Associated Diagnoses Date/Ti me COLONOSCOPY FLEXIBLE PROXIMAL DIAGNOSTIC Recall Screen for colon cancer Health Maintenance Due Date Last Done Comments COVID-19 Vaccine (#1) 06/04/1956 HIV Screening 1972 Cologuard 2002 Fecal Occult Blood Test 2002 Sigmoidoscopy 2002 Depression Screening 01/27/2020 01/26/2019 Diabetic Eye Exam 08/23/2020 08/24/2019 DXA Scan 2022 Albumin/Creatinine Ratio 01/06/2023 01/06/2022 HbA1c 02/27/2023 08/28/2022, 12/14, 03/11/2021, Additional history exists Diabetic Foot Exam 08/19/2023 08/18/2022, 0 12/03/2020, 08/24/2019 TSH 08/29/2023 08/28/2022, 12/14, 05/16/2021, Additional history exists Mammogram 09/17/2023 09/16/2022, 08/13, 09/24/2020, Additional history exists GFR 03/16/2024 03/16/2023, 12/14, 11/03/2022, Additional history exists DTaP,Tdap,and Td Vaccines (3 - Td or Tdap) 12/08/2026 12/08/2016, 12/29/2007 Lipid Panel 08/29/2027 08/28/2022, 0306/2021, 08/04/2018, Additional history exists Colonoscopy 03/06/2029 03/06/2019, [...] Not on filedocumented as of this encounter Procedures Procedure Name Priority Date/Time Associated Diagnosis Comments DIFFERENTIAL, AUTOMATED Routine 03/16/2023 1:44 PM EST Thrombocytopenia (HCC) BASIC METABOLIC PANEL Routine 03/16/2023 1:44 PM EST Type 2 diabetes mellitus with hemoglobin A1c goal of less than 7.0% (HCC) CBC Routine 03/16/2023 1:44 PM EST Thrombocytopenia (HCC) CBC Routine 03/16/2023 1:44 PM EST Thrombocytopenia (HCC) documented in this encounter Results * DIFFERENTIAL, AUTOMATED (03/16/2023 1:44 PM EST) WBC 5.42 4.00 - 10.80 K/uL 03/16/2023 2:24 PM EST [facility] [place] [facility] Neutrophils % 51.6 40.0 - 75.0 % 03/16/2023 2:24 PM EST [facility] [place] [facility] Lymphocytes % 39.5 18.0 - 42.0 % 03/16/2023 2:24 PM EST [facility] [place] [facility] Monocytes % 6.1 1.0 - 11.0 % 03/16/2023 2:24 PM EST [facility] [place] [facility] Eosinophils % 2.4 0.0 - 6.0 % 03/16/2023 2:24 PM EST [facility] [place] [facility] Basophils % 0.4 0.0 - 2.0 % 03/16/2023 2:24 PM EST [facility] [place] [facility] Absolute Neutrophils 2.80 1.80 - 7.70 K/uL 03/16/2023 2:24 PM EST [facility] [place] [facility] Absolute Lymphocytes 2.14 1.00 - 4.80 K/ul 03/16/2023 2:24 PM EST [facility] [place] [facility] Absolute Monocytes 0.33 0.00 - 1.10 K/uL 03/16/2023 2:24 PM EST [facility] [place] [facility] Absolute Eosinophils 0.13 0.00 - 0.70 K/uL 03/16/2023 2:24 PM EST [facility] [place] [facility] Absolute Basophils 0.02 0.00 - 0.20 K/uL 03/16/2023 2:24 PM EST [facility] [place] [facility] Blood Venous blood specimen / Unknown Venipuncture / Unknown 03/16/2023 1:44 PM EST 03/16/2023 1:44 PM EST Jacque MOROCHO LAB BLOOD ORDERABL ES [facility] [place] [facility] [place] [id number] * (ABNORMAL) CBC (03/16/2023 1:44 PM EST) WBC 5.42 4.00 - 10.80 K/uL 03/16/2023 2:24 PM EST [facility] [place] [facility] RBC 5.05 3.85 - 5.15 M/uL 03/16/2023 2:24 PM EST [facility] [place] [facility] HGB 12.8 12.0 - 15.3 g/dL 03/16/2023 2:24 PM EST [facility] [place] [facility] HCT 41.0 36.0 - 45.2 % 03/16/2023 2:24 PM EST [facility] [place] [facility] MCV 81.2 81.5 - 97.5 fL 03/16/2023 2:24 PM EST [facility] [place] [facility] MCH 25.3 27.0 - 34.0 pg 03/16/2023 2:24 PM EST [facility] [place] [facility]10 MCHC 31.2 32.0 - 36.0 g/dL 03/16/2023 2:24 PM EST [facility] [place] [facility] RDW 14.4 11.5 - 15.5 % 03/16/2023 2:24 PM EST [facility] [place] [facility] PLT 117(L) 140 - 400 K/uL 03/16/2023 2:24 PM EST [facility] [place] [facility] MPV 11.1 6.6 - 11.1 fL 03/16/2023 2:24 PM EST [facility] [place] [facility]10 Blood Venous blood specimen / Unknown Venipuncture / Unknown 03/16/2023 1:44 PM EST 03/16/2023 1:44 PM EST Jacque MOROCHO LAB BLOOD ORDERABL ES [facility] [place] [address] [address] [place] [address] * BASIC METABOLIC PANEL (03/16/2023 1:44 PM EST) BUN 18 6 - 20 mg/dL 03/16/2023 3:15 PM EST [facility] [place] [address] Creatinine 1.0 0.5 - 1.0 mg/dL 03/16/2023 3:15 PM EST [facility] [place] [facility]10 Estimated Glomerular Filtration Rate 64 >=60 mL/min 03/16/2023 3:15 PM EST [facility] [place] [facility] Comment:eGFR is calculated b ased on the CKD-EPI 2020 equation Sodium 141 135 - 146 mmol/L 03/16/2023 3:15 PM EST [facility] [place] [facility] Potassium 4.4 3.5 - 5.1 mmol/L 03/16/2023 3:15 PM EST [facility] [place] [facility] Chloride 103 98 - 107 mmol/L 03/16/2023 3:15 PM EST [facility] [place] [facility] CO2 27 22 - 32 mmol/L 03/16/2023 3:15 PM EST [facility] [place] [facility] Anion Gap 11 7 - 15 mmol/L 03/16/2023 3:15 PM EST [facility] [place] [facility] Glucose 103 70 - 120 mg/dL 03/16/2023 3:15 PM EST [facility] [place] [facility] Calcium 9.9 8.4 - 10.2 mg/dL 03/16/2023 3:15 PM EST [facility] [place] [facility] Blood Venous blood specimen / Unknown Venipuncture / Unknown 03/16/2023 1:44 PM EST 03/16/2023 1:44 PM EST Beatris MOROCHO LAB BLOOD ORDE SHAYE [facility] [place] [facility] [address] [place] [address] documented in this encounter Visit Diagnoses Diagnosis Special screening examination for viral disease Special screening examination for unspecified viral disease MyCode Research Other*[id number] Gastroesophageal reflux disease without esophagitis Esophageal reflux Encounter for long-term (current) use of medications Encounter for long-term (current) use of other medications Thrombocytopenia (HCC) Thrombocytopenia, unspecified Preoperative general physical examination Other specified pre-operative examination Type 2 diabetes mellitus with hemoglobin A1c goal of less than 7.0% (HCC) Acquired hypothyroidism Unspecified hypothyroidism Type 2 diabetes mellitus with other diabetic kidney complication (HCC) documented in this encounter Care Teams Strip Picker Relationship Specialty Start Date End Date Beatris Ruggiero CRNP [address] [place] [address] PCP - General Nurse Practitioner 05/16/21 documented as of this encounter
--- OUTSIDE RECORDS SUMMARY | 2023-03-30 07:57 | External Medical Summary ---
Author Name Unknown Address Unknown Organization [id number]:[facility] [place] - [address] [facility] [address] Laboratory Report Ordering Provider Test Date Status NICKIRICCARDO 03/16/2023 13:44:47 Final Observation Date Value Abnormality Reference (Units ) Status HbA1C 03/16/2023 13:44:47 6.6 Above high normal 4. 0-5.6 (%) Final The use of HbA1c to monitor glycemic status is based on normal hemoglobin and HbA composition. This test should not be used in patients with abnormal hemoglobin that affects the half life of the red blood cell or the in vivo glycation rates. Glucose, estimated average 03/16/2023 13:44:47 143 Above high normal <126 (mg/dL) Aron wilcox Performing Location [facility] [place] - [address] [place] [address]
--- OUTSIDE RECORDS SUMMARY | 2023-03-30 07:57 | External Medical Summary | Summary of Care ---
Author Name Unknown Organization [facility] Address [address] [place] [address] Phone [phone] Care Team Providers Care Monogram And Letter Paster Name Role Phone Beatris Ruggiero Primary Care Provider Reason for Visit * Reason Onset Date Comments pre-op exam Pt here for pre op for knee surgery Medication Administration 03/16/2023 Flu an d/or Pneumo Inj Encounter Details Date Type Department Care Team (Latest Contact Info) Description 03/16/2023 1:00 PM EST Office [facility] [address] [facility] [place] [address] Beatris Ruggiero CRNP [address] [place] [address] Preoperative general physical examination*; Type 2 diabetes mellitus with hemoglobin A1c goal of less than 7.0% (HCC); Moderate persistent asthma without complication; Folliculitis; Need for prophylactic vaccination and inoculation against influenza; Need for pneumococcal vaccination; Acquired hypothyroidism; Moderate episode of recurrent major depressive disorder (HCC); Type 2 diabetes mellitus with other diabetic kidney complication (HCC); Anxiety state; Migraine without aura and without status migrainosus, not intractable; Morbid obesity with BMI of 40.0-44.9, adult (HCC); Thrombocytopenia (HCC); HTN, goal below 130/80; Hypothyroidism, unspecified type; Hyperlipidemia, unspecified hyperlipidemia type; Moderate persistent asthma with acute exacerbation Allergies Active Allergy Reactions Criticality Noted Date Comments No Known Drug Allergy 02/05/2001 documented as of this encounter (statuses as of 03/16/2023) Medications Medication Sig Dispensed Refills Start Date End Date Status NEBULIZER DEVIIndications:As thma, severity to be determined,Esophag eal reflux as directed 1 0 03/16/19 07 Active saline (OCEAN NASAL SPRAY) 0.65 % nasal sprayIndications:A cute frontal sinusitis, recurrence not specified,Acute bronchitis, complicated Administer 2 Sprays into each nostril as needed for Congestion. for nasal dryness or congestion 1 Bottle 5 05/26/19 16 Active Multiple Vitamins-Minerals (MULTIVITAMIN ADULT) TABS Take by mouth. 0 Active Spacer/Aero-Holdin g Chambers Device J44.9 1 Each 0 01/01/20 20 Active CPAP every night at bedtime. 0 Active Albuterol Sulfate HFA 108 (90 Base) MCG/ACT Inhalation Aerosol Solution Inhale 2 Puffs by mouth every 4 hours as needed for Shortness of Breath or Wheezing. 8.5 g 5 07/07/19 23 Active Fluticasone-Salmet olivia 230-21 MCG/ACT Inhalation Aerosol (Advair HFA) Inhale 2 Puffs by mouth in the morning and 2 Puffs before bedtime. 36 Each 3 08/19/19 23 Active Levothyroxine Sodium 25 MCG Oral Tablet (Levoxyl) Take 1 Tablet by mouth daily first thing in the morning. (at least 30 min prior to breakfast or other meds) 90 Tablet 3 08/19/19 23 Active Lisinopril 20 MG Oral Tablet (Prinivil)Indicati ons:HTN, goal below 140/90 Take 1 Tablet by mouth in the morning. 90 Tablet 3 08/19/19 23 Active Allopurinol 300 MG Oral Tablet (Zyloprim)Indicati ons:Chronic gout of foot, unspecified cause, unspecified laterality Take 1 Tablet by mouth in the morning. 90 Tablet 3 08/19/19 23 Active Ipratropium-Albute rol 0.5-2.5 (3) MG/3ML Inhalation Solution (Duoneb) USE 3 ML EVERY 4 HOURS NEEDED FOR COUGH OR FOR SHORTNESS OF BREATH OR WHEEZING 90 mL 5 08/19/19 Active Citalopram Hydrobromide 40 MG Oral Tablet (CeleXA)Indication s:Moderate episode of recurrent major depressive disorder (HCC) Take 1 Tablet by mouth in the morning. 90 Tablet 3 08/19/19 Active Levocetirizine Dihydrochloride 5 MG Oral Tablet Take 1 Tablet by mouth every evening. 90 Tablet 3 08/19/19 Active Meloxicam 15 MG Oral Tablet TAKE 1 TABLET BY MOUTH DAILY FOR PAIN 30 Tablet 5 10/31/19 Active Furosemide 20 MG Oral Tablet (Lasix)Indications :1+ pitting edema One pill on Wednesday to and 2 pills Wednesday, Wednesday, Wednesday. 90 Tablet 3 11/04/19 Active Potassium Chloride Katelyn ER 20 MEQ Oral Tablet Extended ReleaseIndications :1+ pitting edema Take 1 Tablet by mouth in the morning. 90 Tablet 3 11/04/19 Active Fluticasone Propionate 50 MCG/ACT Nasal Suspension (Flonase)Indicatio ns:Seasonal allergic rhinitis due to pollen SPRAY 2 SPRAYS INTO EACH NOSTRIL EVERY DAY 16 mL 5 01/05/20 Active Omeprazole 20 MG Oral Capsule Delayed Release (PriLOSEC)Indicati ons:Gastroesophage al reflux disease without esophagitis TAKE BY MOUTH 1 CAPSULE IN THE MORNING. 1 HOUR BEFORE THE FIRST MEAL OF THE DAY.. 90 Capsule 1 01/15/20 Active Triamcinolone Acetonide 0.1 % External Cream (Aristocort) Apply to itchy areas on arms twice daily as needed 453.6 g 1 01/19/20 Active Montelukast Sodium 10 MG Oral Tablet (Singulair)Indicat ions:Allergic rhinitis,Asthma, allergic, mild intermittent, uncomplicated TAKE 1 TABLET BY MOUTH EVERY DAY 90 Tablet 3 01/30/20 Active SUMAtriptan Succinate 50 MG Oral Tablet (Imitrex) TAKE 2 TABLETS BY MOUTH AT ONSET OF MIGRAINE. TAKE 1 TABLET EVERY 2 HRS NEEDED. MAX 5 PER 24 HRS 9 Tablet 3 01/30/20 23 Active Allopurinol 100 MG Oral Tablet (Zyloprim) TAKE 1 TABLET BY MOUTH EVERY DAY *TAKE ALONG WITH 300MG TABS FOR A DAILY DOSE OF 400MG* 90 Tablet 3 01/30/20 23 Active Doxycycline Monohydrate 100 MG Oral CapsuleIndications :Folliculitis Take 1 Capsule by mouth in the morning. 30 Capsule 11 03/16/19 24 Active Ozempic (0.25 or 0.5 MG/DOSE) 2 MG/3ML Solution Pen-injector INJECT 0.25 MG (0.368 ML) SUBCUTANEOUSLY EVERY 7 DAYS FOR 30 DAYS 0 01/27/20 23 Active ASPIRIN 81 MG PO TABS Take by mouth. 0 024 Discontinued Doxycycline Monohydrate 100 MG Oral CapsuleIndications :Folliculitis TAKE 1 CAPSULE BY MOUTH EVERY DAY 30 Capsule 11 02/07/20 22 024 Discontinued(Re fill) documented as of this encounter (statuses as [...] Morbid obesity with BMI of 40.0-44.9, adult /11/2009 Overview: Per Obesity Taxonomy Anxiety state 01/06/2009 [...] PPD 01/12/2012 Pneumococcal Conjugate Vacci ne, 20-valent ([id number]) 03/16/2023 Pneumococcal Polysaccharide PPV23 (Pneumovax) 02/23/2020 Seasonal [...] on file documented as of this encounter Last Filed Vital Signs Vital Sign Reading Time Taken Comments Blood Pressure 120/78 03/16/2023 12:54 PM EST Pulse 80 03/16/2023 12:54 PM EST Temperature 36.4 C (97.5 F) 03/16/2023 12:[address] Respiratory Rate 18 03/16/2023 12:54 PM EST Oxygen Saturation - - Inhaled Oxygen Concentration - - Weight 108.4 kg (239 lb) 03/16/2023 12:54 PM EST Height 160 cm (5' 3") 03/16/2023 12:54 PM EST Body Mass Index 42.34 03/16/2023 12:54 PM EST documented in this encounter Patient Instructions * Patient Instructions* Karina Serrano LPN - 03/16/2023 12:58 PM EST ~~PATIENT INSTRUCTIONS FOR PNEUMOCOCCAL VACCINE~~ Possible side effects of pneumococcal vaccine, (pneumonia shot), are usually mild and can include: 1. Soreness or redness at injection site 2. Low grade fever 3. Body aches You may use Tylenol/Acetaminophen as needed for these symptoms. LET YOUR DOCTOR KNOW IMMEDIATELY IF YOU HAVE DIFFICULTY BREATHING OR SWALLOWING, EXPERIENCE ITCHINGOF FEET OR HANDS, HAVE SWELLING OF EYES, FACE OR INSIDE OF NOSE. documented in this encounter Progress Notes * Karina Serrano LPN - 03/16/2023 12:57 PM EST PRE - ADMINISTRATION DOCUMENTATION Are you experiencing any cold symptoms or fever? No Have you had Guillain-[place] Syndrome (an illness that causes paralysis) within the last 6 weeks? No Have you had the flu shot in the past? YES Have you ever had a reaction to the flu shot? No Karina Serrano LPN, 03/16/2023 12:57 PM Immunization Administration Documentation Time Out Procedure Performed: Yes Patient Identified (Ask Name/Date of ): Yes Does the patient have a fever greater than 101 degrees today? No Patient allergic to latex? No VFC Stock: Yes, Does this patient qualify for immunization through the VFC program because he/she (check only one): No-this child does not qualify for [facility] program; refer patient to a Federal Qualified [facility] Immunization(s) verified: Yes, Immunization Name: Flu, VIS Sheet(s) given: Yes Verified Side and Site: Yes Verified Shot(s) with Parent(s)/Patient: Yes * Beatris Ruggiero CRNP - 03/16/2023 12:49 PM EST Jono Manzo Mauro : 1955 Chief Complaint: Patient is sent for pre-operative medical clearance at the request of Dr. Enrique Planned Surgery: LEFT TOTAL KNEE REPLACEMENT Date: 03/30/2022 Planned anesthesia: Block and twilight HPI: 67 year old female presenting for preoperative clearance. Jono is able to walk 1 city block without olmos and able to ascend 1 flight of step without shortness of breath. Denies difficulty with anesthesia in the past. Patient Active Problem List Diagnosis Code Allergic rhinitis, seasonal J30.2 Rosacea L71.9 Esophageal reflux K21.9 Hypothyroid E03.9 Anxiety state F41.1 Morbid obesity with BMI of 40.0-44.9, adult ([facility]) E66.01, Z68.41 Gout M10.9 DANNIE on CPAP G47.33 History of malignant melanoma of skin Z85.820 Elevated LFTs R79.89 SOB (shortness of breath) R06.02 Grade I diastolic dysfunction I51.89 Lung nodule R91.1 Need for prophylactic vaccination and inoculation against influenza Z23 HTN, goal below 130/80 I10 Type 2 diabetes mellitus with hemoglobin A1c goal of less than 7.0% ([facility]) E11.9 Left shoulder pain M25.512 Encounter for screening mammogram for breast cancer Z12.31 Type 2 diabetes mellitus with other diabetic kidney complication ([facility]) E11.29 Moderate persistent asthma with acute exacerbation J45.41 Recurrent headache R51.9 Neck pain M54.2 Vitreous floaters of both eyes H43.393 Migraine without aura and without status migrainosus, not intractable G43.009 Mass of skin R22.9 Depression F32.A Thrombocytopenia ([facility]) D69.6 Past Surgical History: Procedure Laterality Date COLONOSCOPY, DIAGNOSTIC (RECTUM) 03/06/2019 diverticulosis, repeat 10 yrs/COLONOSCOPY FLEXIBLE PROXIMAL DIAGNOSTIC performed by Alma Subramanian MD at ENDOSCOPY [facility] CXR 2 VIEWS AP/PA & LATERAL 07/23/2007 NAD....[place] DIGITAL RECTAL EXAM,ANNUAL 07/1999 EGD, FLEXIBLE, DIAGNOSTIC 11/06/2020 normal bx / ESOPHAGOGASTRODUODENOSCOPY (EGD), FLEXIBLE, TRANSORAL, DIAGNOSTIC performed by Alma Subramanian MD at ENDOSCOPY [facility] INJECT DX/THER SUBSTANCE INTERLAMINAR LUMBAR/SACRAL W IMAGE GUIDE 02/02/2019 INJECTION SPINE LUMBAR OR SACRAL performed by Will rKishnamurthy DO at OR [facility] INJECT DX/THER SUBSTANCE INTERLAMINAR LUMBAR/SACRAL W IMAGE GUIDE 03/16/2019 INJECTION SPINE LUMBAR OR SACRAL performed by Will Krishnamurthy DO at OR [facility] INJECT DX/THER SUBSTANCE INTERLAMINAR LUMBAR/SACRAL W IMAGE GUIDE 01/11/2020 INJECTION SPINE LUMBAR OR SACRAL performed by Will Curt Cousins, DO at OR [facility] INJECT DX/THER SUBSTANCE INTERLAMINAR LUMBAR/SACRAL W IMAGE GUIDE 10/10/2020 INJECTION SPINE LUMBAR OR SACRAL performed by Will Krishnamurthy, DO at OR [facility] INJECT DX/THER SUBSTANCE INTERLAMINAR LUMBAR/SACRAL W IMAGE GUIDE 11/19/2021 INJECTION SPINE LUMBAR OR SACRAL performed by Will Krishnamurthy, DO at OR [facility] INJECT DX/THER SUBSTANCE INTERLAMINAR LUMBAR/SACRAL W IMAGE GUIDE 05/13/2022 INJECTION SPINE LUMBAR OR SACRAL performed by Will Krishnamurthy, DO at OR [facility] L-/S-SPINE PARAVERTEBRAL FACET INJ,1 LEVEL 12/08/2018 L-/S-SPINE PARAVERTEBRAL FACET INJ, 1 LEVEL performed by Will Krishnamurthy, at OR [facility] LIGATE/CUT OVIDUCT(S) 1995 MAMMOGRAM - BILATERAL 08/1999 Mammogram,Both Breast MAMMOGRAM SCREENING-BILATERAL 07/29/2007 heterogeneously dense, category 1 normal OBTAINING SCREEN PAP SMEAR 07/1999 REMOVAL OF OVARY/OVIDUCT(S) 10/18/2001 bilateral REMOVE TONSILS & ADENOIDS, UNDER 12 Age 6-7 TOTAL ABD HYSTERECTOMY W/WO REMOVAL OF TUBE(S) 10/18/2001 Dr. Little XR L SPINE COMPLETE 08/20/2014 grade 1 spondylolisthesis Current Outpatient Medications Medication Sig Dispense Refill NEBULIZER DOROTHY as directed 1 0 ASPIRIN 81 MG PO TABS Take by mouth. saline (OCEAN NASAL SPRAY) 0.65 % nasal spray Administer 2 Sprays into each nostril as needed for Congestion. for nasal dryness or congestion 1 Bottle 5 Multiple Vitamins-Minerals (MULTIVITAMIN ADULT) TABS Take by mouth. Spacer/Aero-Holding Chambers Device J44.9 1 Each 0 CPAP every night at bedtime. Doxycycline Monohydrate 100 MG Oral Capsule TAKE 1 CAPSULE BY MOUTH EVERY DAY (Patient not taking: Reported on 11/03/2022) 30 Capsule 11 Albuterol Sulfate HFA 108 (90 Base) MCG/ACT Inhalation Aerosol Solution Inhale 2 Puffs by mouth every 4 hours as needed for Shortness of Breath or Wheezing. 8.5 g 5 Fluticasone-Salmeterol 230-21 MCG/ACT Inhalation Aerosol (Advair HFA) Inhale 2 Puffs by mouth in the morning and 2 Puffs before bedtime. 36 Each 3 Levothyroxine Sodium 25 MCG Oral Tablet (Levoxyl) Take 1 Tablet by mouth daily first thing in the morning. (at least 30 min prior to breakfast or other meds) 90 Tablet 3 Lisinopril 20 MG Oral Tablet (Prinivil) Take 1 Tablet by mouth in the morning. 90 Tablet 3 Allopurinol 300 MG Oral Tablet (Zyloprim) Take 1 Tablet by mouth in the morning. 90 Tablet 3 Ipratropium-Albuterol 0.5-2.5 (3) MG/3ML Inhalation Solution (Duoneb) USE 3 ML EVERY 4 HOURS NEEDED FOR COUGH OR FOR SHORTNESS OF BREATH OR WHEEZING 90 mL 5 Citalopram Hydrobromide 40 MG Oral Tablet (CeleXA) Take 1 Tablet by mouth in the morning. 90 Tablet3 Levocetirizine Dihydrochloride 5 MG Oral Tablet Take 1 Tablet by mouth every evening. 90 Tablet 3 Meloxicam 15 MG Oral Tablet TAKE 1 TABLET BY MOUTH DAILY FOR PAIN 30 Tablet 5 Furosemide 20 MG Oral Tablet (Lasix) One pill on Wednesday to and 2 pills Wednesday, Wednesday, Wednesday. 90 Tablet 3 Potassium Chloride Katelyn ER 20 MEQ Oral Tablet Extended Release Take 1 Tablet by mouth in the morning. 90 Tablet 3 Fluticasone Propionate 50 MCG/ACT Nasal Suspension (Flonase) SPRAY 2 SPRAYS INTO EACH NOSTRIL EVERYDAY 16 mL 5 Omeprazole 20 MG Oral Capsule Delayed Release (PriLOSEC) TAKE BY MOUTH 1 CAPSULE IN THE MORNING. 1 HOUR BEFORE THE FIRST MEAL OF THE DAY.. 90 Capsule 1 Triamcinolone Acetonide 0.1 % External Cream (Aristocort) Apply to itchy areas on arms twice daily as needed 453.6 g 1 Montelukast Sodium 10 MG Oral Tablet (Singulair) TAKE 1 TABLET BY MOUTH EVERY DAY 90 Tablet 3 SUMAtriptan Succinate 50 MG Oral Tablet (Imitrex) TAKE 2 TABLETS BY MOUTH AT ONSET OF MIGRAINE. TAKE 1 TABLET EVERY 2 HRS NEEDED. MAX 5 PER 24 HRS 9 Tablet 3 Allopurinol 100 MG Oral Tablet (Zyloprim) TAKE 1 TABLET BY MOUTH EVERY DAY *TAKE ALONG WITH 300MG TABS FOR A DAILY DOSE OF 400MG* 90 Tablet 3 No current facility-administered medications for this visit. 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: [employer] Tobacco Use Smoking status: Never Smokeless tobacco: Never Vaping Use Vaping Use: Never used Substance and Sexual Activity Alcohol use: Yes Comment: less than once a month Drug use: No Sexual activity: Yes Partners: Male control/protection: Surgical Other Topics Concern Service Not Asked Blood Transfusions Not Asked Caffeine Concern Not Asked Occupational Exposure Not Asked Hobby Hazards Not Asked Sleep Concern Not Asked Stress Concern Not Asked Weight Concern Not Asked Special Diet Not Asked Back Care Not Asked Exercise No Bike Helmet Not Asked Seat Belt Not Asked Self-Exams Yes Comment: breast, occasional Social History Narrative [employer], 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 Social Determinants of Health Financial Resource Strain: Not on file Food Insecurity: No Food Insecurity (01/26/2019) Hunger Vital Sign Worried About Running Out of Food in the Last Year: Never true Ran Out of Food in the Last Year: Never true Transportation Needs: Not on file Physical Activity: Not on file Stress: Not on file Social Connections: Not on file Intimate Partner Violence: Not on file Housing Stability: Not on file Family History Problem Relation Age of Onset Hypertension Mother Asthma Mother Diabetes Father Hypertension Father Diabetes Grandmother (Maternal) Hypertension Grandmother (Maternal) Hypertension Grandfather (Maternal) Diabetes Grandmother (Paternal) Hypertension Grandmother (Paternal) Breast Cancer Grandmother (Paternal) Cancer Grandfather (Paternal) ?site Hypertension Grandfather (Paternal) Hypertension Brother Asthma Brother Review of Systems Constitutional: Negative for chills, diaphoresis, fatigue and fever. HENT: Negative for trouble swallowing. Respiratory: Negative for cough, shortness of breath and wheezing. Cardiovascular: Negative for chest pain and palpitations. Gastrointestinal: Negative for abdominal pain, anal bleeding, blood in stool, constipation, diarrhea, nausea and vomiting. Neurological: Negative for dizziness and syncope. Psychiatric/Behavioral: Negative for dysphoric mood and sleep disturbance. The patient is not nervous/anxious. Filed Vitals: 03/16/23 1254 BP: 120/78 Pulse: 80 Resp: 18 Temp: 36.4 C (97.5 F) TempSrc: Tympanic Weight: 108.4 kg (239 lb) Height: 1.6 m (5' 3") Physical Exam HENT: Head: Normocephalic. Comments: Ear canals small and tortuous Right Ear: A middle ear effusion is present. Left Ear: A middle ear effusion is present. Eyes: Pupils: Pupils are equal, round, and reactive to light. Cardiovascular: Rate and Rhythm: Normal rate and regular rhythm. Pulmonary: Effort: Pulmonary effort is normal. Breath sounds: Normal breath sounds. Abdominal: General: Bowel sounds are normal. Palpations: Abdomen is soft. Tenderness: There is no abdominal tenderness. Musculoskeletal: General: Normal range of motion. Cervical back: Normal range of motion. Neurological: General: No focal deficit present. Mental Status: She is alert and oriented to person, place, and time. Psychiatric: Mood and Affect: Mood normal. Behavior: Behavior normal. Thought Content: Thought content normal. Judgment: Judgment normal. 1. Preoperative general physical examination PRE-OPERATIVE TESTS: ECG:normal January 2023 LABS: PENDING PRE-OPERATIVE CLEARANCE DISCUSSION: There is no medical contraindication for the proposed surgery and anesthesia. Concerns/Precautions: Diabetes. DANNIE on cpap- will need to use this is the postoperative period. - CBC WITH WBC DIFFERENTIAL; Future 2. Type 2 diabetes mellitus with hemoglobin A1c goal of less than 7.0% (HCC) On ozempic - HEMOGLOBIN A1C; Future - BASIC METABOLIC PANEL; Future 3. Moderate persistent asthma without complication stable 4. Folliculitis refilled - Doxycycline Monohydrate 100 MG Oral Capsule; Take 1 Capsule by mouth in the morning. Dispense: 30Capsule; Refill: 11 5. Need for prophylactic vaccination and inoculation against influenza - INFLUENZA VACC, QUAD, HIGH DOSE (FLUZONE HD) 6. Need for pneumococcal vaccination - PNEUMOCOCCAL VACC, PCV20, IM ([id number]) 7. Acquired hypothyroidism On levothyroxine - TSH WITH FREE T4 IF INDICATED; Future I spent a total of 40-54 minutes (exact time 40 mins) on the date of service in preparation, delivery, and documentation of the care provided to Jono Wade excluding any time spent in the performance of separately billed services. documented in this encounter Nursing Notes * Chong-Karina Aragon LPN - 03/16/2023 12:54 PM EST The patient has been properly identified by confirmation of name and date of . Chief Complaint Patient presents with pre-op exam Pt here for pre op for knee surgery documented in this encounter Plan of Treatment Upcoming Encounters Date Type Department Care Team (Late st Contact Info) Description 06/15/2023 9:20 AM EDT Office Visit Family Practice [facility] [address] [place] [address] Beatris Ruggiero CRNP [address] [place] [address] 08/30/2023 10:30 AM EDT Imaging Radiology [address] [place] [address] 01/20/2024 12:45 PM EST Office Visit Dermatology [facility] [address] [place] [address] Bianca Mattson MD [address] [place] [address] Pending Results Name Type Priority Associated Diagnoses Date /Time HEMOGLOBIN A1C Lab Routine Type 2 diabetes mellitus with hemoglobin A1c goal of less than 7.0% ([facility]) 03/16/2023 1:44 PM EST BASIC METABOLIC PANEL Lab Routine Type 2 diabetes mellitus with hemoglobin A1c goal of less than 7.0% (HCC) 03/16/2023 1:44 PM EST TSH WITH FREE T4 IF INDICATED Lab Routine Acquired hypothyroidism 03/16/2023 1:44 PM EST Scheduled Orders Name Type Priority Associated Diagnoses Orde r Schedule HEMOGLOBIN A1C Lab Routine Type 2 diabetes mellitus with hemoglobin A1c goal of less than 7.0% (HCC) Expected: 03/16/2023 (Approximate), Expires: 03/15/2024 BASIC METABOLIC PANEL Lab Routine Type 2 diabetes mellitus with hemoglobin A1c goal of less than 7.0% (HCC) Expected: 03/16/2023 (Approximate), Expires: 03/15/2024 TSH WITH FREE T4 IF INDICATED Lab Routine Acquired hypothyroidism Expected: 03/16/2023 (Approximate), Expires: 03/15/2024 Scheduled Procedures Name Priority Associated Diagnoses Date/Ti [...] 09/16/2022, 08/13, 09/24/2020, Additional history exists GFR 01/05/2024 01/04/2023, 10/14, 10/20/2022, Additional history exists DTaP,Tdap,and Td Vaccines (3 [...] Not on filedocumented as of this encounter Visit Diagnoses Diagnosis Preoperative general physical examination- Primary Other specified pre-operative examination Type 2 diabetes mellitus with hemoglobin A1c goal of less than 7.0% (HCC) Moderate persistent asthma without complication Unspecified asthma Folliculitis Other specified disease of hair and hair follicles Need for prophylactic vaccination and inoculation against influenza Need for pneumococcal vaccination Need for prophylactic vaccination against streptococcus pneumoniae (pneumococcus) Acquired hypothyroidism Unspecified hypothyroidism Moderate episode of recurrent major depressive disorder (HCC) Type 2 diabetes mellitus with other diabetic kidney complication (HCC) Anxiety state Anxiety state, unspecified Migraine without aura and without status migrainosus, not intractable Migraine without aura, without mention of intractable migraine without mention of status migrainosus Morbid obesity with BMI of 40.0-44.9, adult (HCC) Morbid obesity Thrombocytopenia (HCC) Thrombocytopenia, unspecified HTN, goal below 130/80 Unspecified essential hypertension Hypothyroidism, unspecified type Hyperlipidemia, unspecified hyperlipidemia type Moderate persistent asthma with acute exacerbation documented in this encounter Care Teams Monogram And Letter Paster Relationship Specialty Start Date End Date Beatris Ruggiero CRNP [address] [place] [id number] PCP - General Nurse Practitioner 05/16/21 documented as of this encounter
--- OUTSIDE RECORDS SUMMARY | 2023-03-30 07:57 | External Medical Summary ---
Author Name Unknown Address Unknown Organization [id number]:[facility] [address] [place] [address] Laboratory Report Ordering Provider Test Date Status RAINA MCCLELLAND 03/16/2023 13:44:47 Final Observation Date Value Abnormality Reference (Units ) Status Magnesium 03/16/2023 13:44:47 1.8 1.5-2.6 (m g/dL) Final Performing Location [facility] [address] [place] [address]
[2023-03-30] MEDS ORDERED: MIDAZOLAM HCL 1 MG/ML 2ML VIAL ONE (08:43)
--- NOTE | 2023-03-30 08:44 | History & Physical Bridge Note ---
Date of Service March 30, 2023 History & Physical Bridge Note I have examined the patient, reviewed the History & Physical and in the interval since the performance of the History & Physical I have noted the following changes of clinical significance: no changes noted
[2023-03-30] MEDS ORDERED: ORTHO JOINT ANESTHETIC ONE (09:16)
[2023-03-30] MEDS ORDERED: ONDANSETRON INJ 2 MG/ML 2 ML VIAL IV PRN ×2 (09:41→14:12)
[2023-03-30] MEDS ORDERED: ePHEDrine sulfate 50 MG/ML AMP IV PRN (09:41)
[2023-03-30] MEDS ORDERED: NALOXONE HCL 0.4 MG/1 ML VIAL/CARP IV PRN ×2 (09:41→14:12)
[2023-03-30] MEDS ORDERED: FLUMAZENIL 0.1 MG/1 ML 10 ML VIAL IV PRN (09:41)
[2023-03-30] MEDS ORDERED: HYDROmorphone INJ 1 MG/ML SYRINGE IV PRN ×2 (09:41→14:12)
[2023-03-30] MEDS ORDERED: PROMETHAZINE HCL 12.5 MG in SODIUM CHLORIDE 0.9% 50 ML IV PRN (09:41)
[2023-03-30] MEDS ORDERED: ATROPINE SULFATE 0.1 MG/ML 10ML SYR IV PRN (09:41)
[2023-03-30] MEDS ORDERED: fentaNYL citrate PF 100 MCG/2 ML VIAL IV PRN (09:41)
[2023-03-30] MEDS ORDERED: PROPOFOL IV EMULSION 10 MG/ML 20 ML VIAL IV ONE ×3 (10:26→11:26)
[2023-03-30] MEDS ORDERED: ONDANSETRON INJ 2 MG/ML 2 ML VIAL ONE (10:26)
--- NOTE | 2023-03-30 12:49 | XRay Report ---
XR knee LT 1 or 2V routine HISTORY: 67 years-old Female Surgical Post Op left knee arthroplasty COMPARISON: 01/04/2023 TECHNIQUE: 2 views of the left knee FINDINGS: Total arthroplasty with patellar resurfacing. Surgical drainage catheter is in place. Expected postop erative soft tissue swelling with deep tissue air. No acute fracture, dislocation or unexpected opaqu e foreign body. IMPRESSION: Total joint arthroplasty with expected postoperative changes. ACT 112: Negative or not required by law. The above report was generated using voice recognition software. It may contain grammatical, syntax o r spelling errors. Electronically signed by: Shahid Baugh M.D. 03/30/2023 12:47 PM
--- NOTE | 2023-03-30 12:58 | Anesthesiology Progress Note ---
Date of Service March 30, 2023 Anesthesia Post Procedure Vital Signs Vital Signs: Temp Pulse Resp BP Pulse Ox O2 Del Method O2 Flow Rate 03/30/23 12:35 36.9 C 80 20 124/62 94 Room Air 03/30/23 12:25 79 23 109/61 98 Oxymask 2 03/30/23 12:15 82 25 H 127/57 L 96 Oxymask 3 03/30/23 12:05 83 29 H 110/60 97 Oxymask 3 03/30/23 11:56 36.4 C L 85 16 117/55 L 96 Oxymask 5 03/30/23 08:13 36.7 C 74 16 136/79 95 Room Air Transfer of Care Handoff Completed per policy Notes Mental Status: alert / awake / arousable Patient Amnestic to Procedure: Yes Nausea / Vomiting: adequately controlled Pain: adequately controlled Airway Patency, RR, SpO2: stable & adequate BP & HR: stable & adequate Hydration State: stable & adequate Neuraxial Anesthesia: was administered and sensory block is resolving Anesthetic Complications: no major complications apparent
[2023-03-30] MEDS ORDERED: SODIUM CHLORIDE 0.65% NA SOLN 45 ML (OCEAN) NAE PRN (14:12)
[2023-03-30] MEDS ORDERED: SODIUM CHLORIDE 0.9% 1,000 ML IV SCH (14:12)
[2023-03-30] MEDS ORDERED: diphenhydrAMINE Capsule 25 MG CAP PO PRN (14:12)
[2023-03-30] MEDS ORDERED: METOCLOPRAMIDE HCL INJ 5 MG/ML 2 ML VIAL IV PRN (14:12)
[2023-03-30] MEDS ORDERED: PHARMACY GLYCEMIC MGMT CONSULT PRN (14:12)
[2023-03-30] MEDS ORDERED: TRIAMCINOLONE ACET 0.1% CR 15 GM TUBE TOP PRN (14:12)
[2023-03-30] MEDS ORDERED: FLUTICASONE PROPIONATE NA SPR 16 GM BTL NAE PRN (14:12)
[2023-03-30] MEDS ORDERED: bisacodyL 10 MG SUPP PR PRN (14:12)
[2023-03-30] MEDS ORDERED: ALBUT/IPRATROP 3MG/0.5MG NEB 3 ML VIAL INH PRN (14:12)
[2023-03-30] MEDS ORDERED: ALBUTEROL HFA 8 GM INHALER INH PRN (14:12)
[2023-03-30] MEDS ORDERED: MAGNESIUM HYDROXIDE SUSP 30 ML UDC PO PRN (14:12)
[2023-03-30] MEDS: ACETAMINOPHEN 500 MG TAB PO SCH ×2 (14:29→22:54)
--- NOTE | 2023-03-30 14:49 | Pharmacy Report ---
Pharmacy Glycemic Short Note 2 - Date of Service March 30, 2023 - Glycemic Short BSG Results (Last 24 hours): 03/30/23 03/30/23 03/30/23 08:11 11:57 14:14 POC Glucose 126 H 98 108 H OUTPATIENT ANTIDIABETIC REGIMEN: * Metformin 1 gm PO BID * Ozempic 0.25 mg SC weekly * HbA1c= 6.5% on 01/04/23 ASSESSMENT: * 67 y/o F admitted for L TKA today. She has history of Type 2 diabetes well controlled on oral Metformin and SC Ozempic at home. * Post surgery, will hold off on home anti-diabetic meds and utilize only bolus insulins for inpatient glycemic control. * Will hold off on basal insulin since patient did not receive any steroids in the OR and BSG have been within goal. * Novolog parameters started with dinner using stress between 1 and 2. PLAN FOR INPATIENT GLYCEMIC CONTROL: * Hold outpatient oral diabetes medications * Basal insulin * None * Bolus insulin * NovoLog per scale ACHS or Q6hrs while NPO * Goal Range: Low 110 mg/dL - High 140 mg/dL * Correction Factor: 25 mg/dL/unit * Nutritional / Prandial insulin per carb ratio of 1 unit per 10 grams CHO consumed
[2023-03-30] MEDS ORDERED: GLUCOSE 40% GEL 15 GM TUBE PO PRN (15:00)
[2023-03-30] MEDS ORDERED: GLUCOSE 10 TAB/TUBE PO PRN (15:00)
[2023-03-30] MEDS ORDERED: DEXTROSE 50% 50 ML SYRINGE IV PRN (15:00)
[2023-03-30] MEDS ORDERED: CARBOHYDRATES FOR HYPOGLYCEMIA PO PRN (15:00)
[2023-03-30] MEDS ORDERED: GLUCAGON FOR INJ 1 MG VIAL IM PRN (15:00)
[2023-03-30] MEDS: KETOROLAC TROMETHAMINE 15 MG/ML VIAL IV SCH ×2 (15:18→22:55)
[2023-03-30] MEDS: lisinopril 10 MG TAB PO SCH (15:18)
[2023-03-30] MEDS ORDERED: INSULIN ASPART PER UNIT CHARGE SC SCH (16:30)
[2023-03-30] MEDS: ceFAZolin 2000MG 2,000 MG/15 ML SYR IV SCH (17:06)
[2023-03-30] MEDS: INSULIN ASPART PER UNIT CHARGE SC SCH ×2 (17:10→20:36)
[2023-03-30] MEDS: oxyCODONE HCL IR 5 MG TAB (IMMEDIATE RELEASE) PO PRN ×2 (18:41→22:54)
[2023-03-30] MEDS: DOCUSATE SODIUM 100 MG CAP PO SCH (20:23)
[2023-03-30] MEDS: ASPIRIN 81 MG ECTAB PO SCH (20:23)
[2023-03-30] MEDS ORDERED: SENNA 8.6 MG TAB PO SCH (21:00)
[2023-03-31] MEDS: ceFAZolin 2000MG 2,000 MG/15 ML SYR IV SCH (03:24)
[2023-03-31] MEDS: KETOROLAC TROMETHAMINE 15 MG/ML VIAL IV SCH ×2 (03:24→09:52)
[2023-03-31] MEDS: oxyCODONE HCL IR 5 MG TAB (IMMEDIATE RELEASE) PO PRN ×2 (03:35→09:57)
[2023-03-31] MEDS ORDERED: LEVOTHYROXINE SODIUM 25 MCG TABLET PO SCH (06:30)
--- NOTE | 2023-03-31 07:26 | Orthopedic Progress Note ---
Date of Service March 31, 2023 Assessment & Plan (1) History of total left knee replacement: Plan: POD #1 s/p Left TKA pt/ot dvt proph with JUANA/SCD/ASA plan for d/c home with HHPT Admission and Anticipated Discharge Date Admission Date: March 30, 2023 Subjective POD #1 s/p Left TKA Review of Systems Constitutional: no fever, no chills and no sweats Respiratory: no cough and no dyspnea Cardiovascular: no chest pain and no dyspnea Gastrointestinal: no abdominal pain, no nausea and no vomiting Physical Exam Physical Exam: Vital Signs Temp 36.4 C L 03/31/23 07:21 Pulse 80 03/31/23 07:21 Resp 18 03/31/23 07:21 BP 120/74 03/31/23 07:21 Pulse Ox 96 03/31/23 07:21 O2 Del Method Room Air 03/31/23 07:21 O2 Flow Rate 2 03/31/23 03:38 Intake & Output 03/30/23 03/31/23 03/31/23 18:59 06:59 18:59 Intake Total 1400 / 2315 915 / 2315 Output Total 466 / 741 275 / 741 Balance 934 / 1574 640 / 1574 Weight 107 kg Intake: IV 200 / 815 615 / 815 Lactated Ringe r's 1,000 ml @ 15 0 / 0 mls/hr IV .Q24 H FISH Rx#: [id number] Sodium Chlorid e 0.9% 1,000 ml @ 615 / 615 100 mls/hr IV .Q10H FISH Rx#: [id number] Tranexamic Aci d / 0.7% NaCl 1, 200 / 200 000 mg In 100 ml @ 600 mls/hr IV TODAY@0600 FISH Rx#:[id number] IV Perioperative 1200 / 1200 Oral 300 / 300 Output: Urine 350 / 350 Estimated Blood Loss 10 / 10 Drain Output 106 / 381 275 / 381 Left Knee Hemo vac #1 106 / 381 275 / 381 Other: # Unmeasured Voi ds 1 Weight Measureme nt Method Standing Scale Musculoskeletal: Left Leg: NVDI, calf SNT, negative carla sign. DP palpable, able to wiggle toes/ankle movement without difficulty. dressing clean dry and intact. Results & Data Vital Signs (Past 12 Hours) Vital Signs Temp Pulse Resp BP Pulse Ox O2 Del Method O2 Flow Rate 03/31/23 07:21 36.4 C L 80 18 120/74 96 Room Air 03/31/23 03:38 36.4 C L 72 20 99/65 L 96 Nasal Cannula 2 03/30/23 23:43 36.3 C L 73 18 95/61 L 97 Nasal Cannula 2 03/30/23 19:57 36.8 C 68 18 118/71 95 Room Air Laboratory Results Laboratory Results POC Glucose 102 mg/dl (70-99) H 03/30/23 20:27 Blood Type A Negative 03/30/23 08:01 Antibody Screen NEGATIVE 03/30/23 08:01 Impressions Knee X-Ray 03/30/23 11:59 XR knee LT 1 or 2V routine HISTORY: 67 years-old Female Surgical Post Op left knee arthroplasty COMPARISON: 01/04/2023 TECHNIQUE: 2 views of the left knee FINDINGS: Total arthroplasty with patellar resurfacing. Surgical drainage catheter is in place. Expected postoperative soft tissue swelling with deep tissue air. No acute fracture, dislocation or unexpected opaque foreign body. IMPRESSION: Total joint arthroplasty with expected postoperative changes. ACT 112: Negative or not required by law. The above report was generated using voice recognition software. It may contain grammatical, syntax or spelling errors. Electronically signed by: Shahid Baugh M.D. 03/30/2023 12:47 PM
--- NOTE | 2023-03-31 07:32 | Discharge Summary ---
Date of Service date of discharge: March 31, 2023 date of admission: 03/30/23 Admission HPI Per Admitting Provider Jono is a pleasant 67-year-old female who presented for preop evaluation prior to upcoming left total knee replacement, she had a longstanding history of left knee pain which is gradually worsened in particular over the last year. She had an arthroscopy of the knee done about a year ago and has had no improvement. She has also undergone viscosupplementation as well as steroid injections without any improvement. She has tried oral anti-inflammatories and Tylenol. At this point time is failed conservative measures and would like to proceed with a left total knee replacement Principal Diagnosis left total knee replacement Discharge Exam Vital Signs Temp Pulse Resp BP Pulse Ox O2 Del Method O2 Flow Rate 03/31/23 07:21 36.4 C L 80 18 120/74 96 Room Air 03/31/23 03:38 36.4 C L 72 20 99/65 L 96 Nasal Cannula 2 03/30/23 23:43 36.3 C L 73 18 95/61 L 97 Nasal Cannula 2 03/30/23 19:57 36.8 C 68 18 118/71 95 Room Air 03/30/23 17:00 36.7 C 75 18 120/77 93 Room Air 03/30/23 16:08 37.0 C 70 18 117/65 96 Nasal Cannula 2 03/30/23 15:10 74 16 115/66 97 Nasal Cannula 2 03/30/23 14:30 37.0 C 92 H 18 117/67 96 Nasal Cannula 2 03/30/23 14:00 Nasal Cannula 2 03/30/23 14:00 37.0 C 84 18 113/64 97 Room Air 03/30/23 13:30 85 17 132/64 97 Nasal Cannula 2 03/30/23 13:05 78 20 125/67 95 Nasal Cannula 2 03/30/23 12:35 36.9 C 80 20 124/62 94 Room Air 03/30/23 12:25 79 23 109/61 98 Oxymask 2 03/30/23 12:15 82 25 H 127/57 L 96 Oxymask 3 03/30/23 12:05 83 29 H 110/60 97 Oxymask 3 03/30/23 11:56 36.4 C L 85 16 117/55 L 96 Oxymask 5 03/30/23 08:13 36.7 C 74 16 136/79 95 Room Air Intake and Output 03/30/23 03/31/23 03/31/23 22:59 06:59 14:59 Intake Total 915 / 2315 Output Total 500 / 741 150 / 741 Balance 415 / 1574 -150 / 1574 Intake: IV 615 / 815 Sodium Chloride 0.9% 1,000 ml @ 615 / 615 100 mls/hr IV .Q10H FISH Rx#: [id number] Oral 300 / 300 Output: Urine 300 / 350 Drain Output 200 / 381 150 / 381 Left Knee Hemovac #1 200 / 381 150 / 381 Other: # Unmeasured Voids 1 1 Laboratory Results POC Glucose 102 mg/dl (70-99) H 03/30/23 20:27 Blood Type A Negative 03/30/23 08:01 Antibody Screen NEGATIVE 03/30/23 08:01 Impressions Knee X-Ray 03/30/23 11:59 XR knee LT 1 or 2V routine HISTORY: 67 years-old Female Surgical Post Op left knee arthroplasty COMPARISON: 01/04/2023 TECHNIQUE: 2 views of the left knee FINDINGS: Total arthroplasty with patellar resurfacing. Surgical drainage catheter is in place. Expected postoperative soft tissue swelling with deep tissue air. No acute fracture, dislocation or unexpected opaque foreign body. IMPRESSION: Total joint arthroplasty with expected postoperative changes. ACT 112: Negative or not required by law. The above report was generated using voice recognition software. It may contain grammatical, syntax or spelling errors. Electronically signed by: Shahid Baugh M.D. 03/30/2023 12:47 PM Musculoskeletal left knee: NVDI, calf SNT, negative carla sign. DP palpable, able to wiggle toes/ankle movement without difficulty. LEANNE dressing clean dry and intact. Discharge Data Allergies Allergy/AdvReac Type Severity Reaction Status Date / Time No Known Drug Allergies Allergy Unknown Verified 03/30/23 08:17 Procedures Performed Operation Date: 03/30/23 09:35 Actual Procedures p Left Total Knee Arthroplasty(Left) - Lars Enrique DO Ordered Studies 03/30/23 05:00 US - OR guided needle placemen Routine Hospital Course (1) History of total left knee replacement: POD #1 s/p Left TKA pt/ot dvt proph with JUANA/SCD/ASA plan for d/c home with HHPT Total Time Total Time Spent Total Time Spent (In Minutes): 20 Discharge Plan Discharge Items Patient Disposition: Home - Home Health Services Reason For Visit: Left Knee Osteoarthritis Discharge Diagnosis: Left Knee Osteoarthritis Activity: Per Instructions section Non-emergency contact: Surgeon Call non-emergency contact if: you have any medication questions, your pain is not controlled, your temperature is above 101.5, your wound has increased redness and your wound has increased drainage Follow-up/Referrals: Nisa Guerra DO [Primary Care Provider] - Diet: Regular Addtl Attending Provider Instructions: ACTIVITY RECOMMENDATIONS: SELF CARE INSTRUCTIONS AFTER TOTAL KNEE REPLACEMENT A. You may need to continue a physical therapy program after discharge from the hospital. There are several options available to you. Your doctor will assist you in selecting the best one for you. 1. An out-patient facility 2 to 3 times a week for therapy or home therapy. 2. Continue working on all exercises taught to you in the hospital. Your goals should be to increase bending of your knee to 90 degrees and beyond and to fully straighten your knee. B. You may progress at your own pace from walking with a walker or crutches to a cane; then to no assistive devices. C. Make walking a part of your daily routine. Be up as much as comfortable with rest periods throughout the day. Rest with leg elevation is very important. Use the ice wrap frequently for the first 3-4 weeks. D. There are no restrictions on activities. You may ride in a car, shop, participate in tack maker and all social activities. E. Wear the long elastic stockings (JUANA hose) 20 hours a day for 2 weeks after surgery. They can be removed several times a day for laundering and for a bath. F. You may shower, no tub baths until cleared by your doctor. SPECIAL CARE INSTRUCTIONS: VERY IMPORTANT TO READ AND REVIEW A. There are a few signs you need to watch for after you are home. Call [facility] if you notice any of the followin. Increased severe knee pain. Some pain is expected especially when you exercise. 2. Increased swelling in your leg or knee; pain or swelling of the calf muscle in either lower leg. 3. Any fluid drainage from the incision. 4. Shortness of breath or chest pain. B. Please call [facility] at if you have any concerns or questions about your operation or recovery. The doctor or his nurse will return your call promptly. C. You must take antibiotics before dental work, bladder, bowel or other surgery. Your doctor will provide you with a permanent care to carry describing this precaution. IMPORTANT: * REMEMBER TO TAKE ASPIRIN, 81 MG, TWICE DAILY FOR 4 WEEKS UNLESS OTHERWISE DIRECTED. THIS IS YOUR BLOOD THINNER. .* CALL IF INCREASED PAIN, REDNESS, DRAINAGE OR FEVER GREATER THAT 101. * WEAR JUANA HOSE 20 HOURS PER DAY FOR 2 WEEKS. DRESSING INSTRUCTIONS * LEANNE Dressing- This is a large suction dressing covering your incision. This will help pull any excess drainage from the wound and allow your incision to heal properly. You may shower with this if you can keep the unit outside of the shower. If any bleeding or leakage is noted please call your doctor's office. This will remain on your incision for 7 days and then should be removed. This can be done yourself or by the home nursing staff if applicable. The entire unit is disposable once removed. Once removed, keep incision clean and dry. If redness or drainage is noted, please call your surgeon. ONCE LEANNE IS REMOVED, FOLLOW THESE INSTRUCTIONS: DERMABOND Prineo- This is a mesh tape dressing that is covered with glue. It should remain in place until the incision is properly healed, usually 10-14 days. This dressing is designed to naturally slough off. You may trim the excess mesh tape as it peels off. Incision may be briefly wet in a shower. Dry immediately by blotting with a clean, dry towel. Do not bath or swim until instructed by your doctor. Do not scratch, rub, or pick at the dressing. Do not apply any topical ointments or lotions until dressing is completely removed and/or instructed by your doctor. There may be a small piece of suture material at one end of your incision. Do not pull or trim this. If it is bothersome or catching on clothing, you may cover it with a band-aid. IF INCISION IS LEAKING THROUGH DRESSING, CALL THE OFFICE . FOLLOW UP VISIT: If appointment is not already scheduled: Please call [facility] to make a follow-up appointment for 2 weeks after your surgery at . Pending Studies at Discharge: No Stand-Alone Forms: My [facility] Medications and DC Order Prescriptions: New acetaminophen 500 mg tablet 1,000 mg PO Q8 21 Days Qty: 126 0RF aspirin 81 mg tablet,delayed release (DR/EC) 81 mg PO BID 30 Days Qty: 60 0RF cefadroxil 500 mg capsule 500 mg PO BID 14 Days Qty: 28 0RF celecoxib [Celebrex] 200 mg capsule 200 mg PO BID 30 Days Qty: 60 0RF docusate sodium 100 mg Capsule 100 mg PO BID Qty: 20 0RF oxycodone 5 mg tablet 5 - 10 mg PO Q6H PRN (Reason: pain) Qty: 30 0RF Rx Instructions: ongoing therapy, supervising dr tyson enrique. max 6 tabs in 24 hours Continued (DME) blood-glucose meter [[employer] HealthTouch Verio Flex Start] Kit See Rx Instructions .ROUTE .MEDSUPPLY Qty: 1 0RF Rx Instructions: As directed (DME) OneTouch Verio test strips Strip See Rx Instructions .ROUTE .MEDSUPPLY Qty: 300 3RF Rx Instructions: test blood sugar 3 x daily Ozempic 0.25 mg or 0.5 mg (2 mg/3 mL) pen injector 0.25 mg subcut Q7D 30 Days Qty: 3 1RF (DME) lancets [[employer] HealthTouch Delica Plus Lancet] 33 gauge misc See Rx Instructions .ROUTE .COMPLEX Qty: 100 11RF Dose Instruction: TEST BLOOD SUGAR 3 X DAILY Rx Instructions: TEST BLOOD SUGAR 3 X DAILY allopurinol 100 mg tablet 100 mg PO QAM Rx Instructions: Take 1 tab by mouth daily. with 300 mg tab for total daily dose of 400 mg daily. allopurinol 300 mg tablet 300 mg PO QAM montelukast [Singulair] 10 mg tablet 10 mg PO QAM omeprazole magnesium [Prilosec OTC] 20 mg tablet,delayed release (DR/EC) 20 mg PO QAM Rx Instructions: Before first meal of the day levothyroxine [Levoxyl] 25 mcg tablet 25 mcg PO QAM fluticasone propionate [Flonase Allergy Relief] 50 mcg/actuation spray,suspension 2 sprays INTNAS DAILY PRN (Reason: Congestion) triamcinolone acetonide 0.1 % cream 1 appln TOP BID PRN (Reason: Rash) sodium chloride [[place] Nasal] 0.65 % aerosol,spray 2 sprays INTNAS BID PRN (Reason: Congestion) albuterol sulfate 90 mcg/actuation HFA aerosol inhaler 2 puffs INH Q4H PRN (Reason: Wheezing) ipratropium-albuterol 0.5 mg-3 mg(2.5 mg base)/3 mL solution for nebulization 3 ml INH Q4H PRN (Reason: Wheezing) furosemide [Lasix] 20 mg tablet 20 mg PO QAM lisinopril 10 mg tablet 20 mg PO 3XWK citalopram [Celexa] 40 mg tablet 40 mg PO QAM levocetirizine [Xyzal] 5 mg Tablet 5 mg PO QAM atorvastatin 10 mg tablet 10 mg PO QAM Rx Instructions: TAKE 1 TABLET BY MOUTH EVERY DAY lisinopril 10 mg Tablet 10 mg PO 4XWK metformin 500 mg tablet 500 mg PO BID Patient Comments: pt states has not taken for approx 1 month Rx Instructions: titrate as directed cholecalciferol (vitamin D3) 125 mcg (5,000 unit) capsule 5,000 unit PO QAM Admission Data Admit Date/Time: 03/30/23 11:59 Attending Provider: Lars Enrique Admit Provider: Lars Enrique Primary Care Provider: Nisa Guerra
[2023-03-31] MEDS: ACETAMINOPHEN 500 MG TAB PO SCH (07:35)
[2023-03-31] MEDS: lisinopril 10 MG TAB PO SCH (08:52)
[2023-03-31] MEDS: ASPIRIN 81 MG ECTAB PO SCH (08:53)
[2023-03-31] MEDS: DOCUSATE SODIUM 100 MG CAP PO SCH (08:53)
[2023-03-31] MEDS: INSULIN ASPART PER UNIT CHARGE SC SCH (08:57)
[2023-03-31 08:58] LABS: BUN Creatinine Ratio 19.7 (10-20); Calcium 8.6 mg/dl (8.6-10.3); Creatinine Clr Calc Pharmacy 44.7 ml/min; Est GFR (Non-African American) 37.1 ml/min; Potassium 4.5 mmol/L (3.5-5.1)
[2023-03-31] MEDS ORDERED: MULTIVITAMIN TAB PO SCH (09:00)
[2023-03-31] MEDS ORDERED: CETIRIZINE HCL 10 MG TABLET PO SCH (09:00)
[2023-03-31] MEDS ORDERED: CHOLECALCIFEROL 5,000 UNITS 125 MCG TAB PO SCH (09:00)
[2023-03-31] MEDS ORDERED: ATORVASTATIN 10 MG TAB PO SCH (09:00)
[2023-03-31] MEDS ORDERED: CITALOPRAM 40 MG TAB PO SCH (09:00)
[2023-03-31] MEDS ORDERED: allopurinoL 300 MG TAB PO SCH (09:00)
[2023-03-31] MEDS ORDERED: MONTELUKAST SODIUM 10 MG TABLET PO SCH (09:00)
[2023-03-31] MEDS ORDERED: allopurinoL 100 MG TAB PO SCH (09:00)
[2023-03-31 09:35] LABS: Hemoglobin 11.2 g/dl (12.0-16.0); Mean Corpuscular Hemoglobin 25.3 pg (25.0-34.0); Mean Corpuscular Hgb Conc 30.3 g/dL (32.0-36.0); Mean Corpuscular Volume 83.5 fL (80.0-100.0); Platelet Count 83 K/uL (130-400); Platelet Estimate Decreased (Normal); RDW Coefficient of Variation 14.4 % (11.5-14.5); RDW Standard Deviation 43.7 fL (36.4-46.3); Red Blood Count 4.43 M/uL (4.20-5.40); White Blood Count 5.85 K/ul (4.8-10.8)
[2023-03-31] MEDS ORDERED: CeleBREX 200 MG CAP PO SCH (21:00)
[2023-04-02] MEDS ORDERED: lisinopril 20 MG TAB PO SCH (09:00)
--- NOTE | 2023-04-07 10:11 | Operative Report ---
Post Operative Report Pre & Post Diagnosis Operation Date: 03/30/23 09:35 Pre-Op Diagnosis: Left Knee Osteoarthritis Post-Op Diagnosis: Left Knee Osteoarthritis I identified the patient and participated in the time-out.: Yes Procedure Left total knee arthroplasty utilizing [employer] journey 2 patient-matched total knee arthroplasty size femur 4 tibia 3 poly 11 patella 29 oval Operation Date: 03/30/23 09:35 Actual Procedures p Left Total Knee Arthroplasty(Left) - Lars Enrique DO Surgeon Lars Enrique DO Roving Can Tender Cristina PAC Estimated Blood Loss 10 Findings Consistent with Post-Op Diagnosis severe tricompartmental djd, subchondral cysts Specimens bone Drains medium bore hemovac Anesthesia Type MAC Spinal Regional Complications none Indications Patient presents with severe end-stage DJD left knee nonresponse to conservative management above intraoperative findings are noted patient is failed attempted conservative management occluding physical therapy anti-inflammatories relative rest activity modification corticosteroid injections viscosupplementation Description of Procedure Description of Procedure After proper prepping and draping of the left lower extremity anterior midline incision was made over the region of the extensor extensor mechanism after meticulous hemostasis was obtained and maintained in subcutaneous tissues a medial parapatellar incision was made The patella was subluxed lateralward the medial lateral gutter were cleaned from any hypertrophic synovitis and scar tissue of the distal femoral block was placed and the distal femoral osteotomy cut was made subsequently the chamfers anterior and posterior osteotomy cuts were made utilizing the 4-in-1 block the tibia was subsequently subluxed anteriorward medial and ateral meniscal remnants were excised in their entirety remnants of the anterior and posterior cruciate ligaments were excised in their entirety excellent exposure of the proximal tibia was obtained the tibial osteotomy guide was placed on the proximal tibial osteotomy cut was made once again the knee was irrigated with copious amounts of sterile saline solution the patella was subsequently everted lateralward thickened scar tissue around the patella was removed the patella was subsequently cut utilizing a freehand technique and was drilled prepared for final preparation and placement of patella socially flexion-extension gaps were checked and the equal and symmetric trials were placed to the appropriate femoral and tibial trials with poly-spacer being placed for equal flexion and extension gaps and full range of motion including extension to 0 and flexion to 140 the trial components after having been taken to recovery range of motion was subsequently removed meticulous hemostasis was obtained and maintained subsequently a knee block injection of joint cocktail including ropivacaine 0.5% 150 mg. Bupivacaine 0.5% epinephrine 1-200,030 mL's toradol 30 mg dexamethasone 4 mg ketamine 10 mg clonidine 100 micrograms normal saline solution 30 mg was infiltrated into the soft tissues of the posterior knee medial lateral gutters and periosteal synovium special attention was paid to protect neurovascular structures at all times subsequently trial components having been removed the knee was irrigated with sterile saline solution. debris was removed the proximal tibia was subsequently prepared and was made ready for the placement of the tibial component tibial component was also cemented and tamped into position the femoral component was subsequently placed and cemented in the position the patellar component was subsequently cemented in position because hemostasis once again obtained and maintained wound having been thoroughly irrigated with debridement and debridement lavage was performed as well as a medial parapatellar incision closed with #1 Vicryl in interrupted fashion subcutaneous was closed with #2 Vicryl skin was closed with skin clips. PA-C was necessary for prepping and drapping as well as wound closure of deep fascia Sub cutaneous tissue and skin and was necessary for the case. A sterile compressive dressing was placed patient was taken to recovery in stable condition of report dictated by Klaus I attest to the content of the Intraoperative Record and any orders documented therein. Any exceptions are noted below.Due to the complex nature of the procedure, the entire surgery was performed with the operational assistance of DUSTIN Valladares. The anesthesiology physician assistant, under direct supervision, was involved in the actual performance of all aspects of the surgical procedure including hemostasis, tissue retraction and incision, instrument management, patient positioning, and wound closure. I attest to the content of the Intraoperative Record and any orders documented therein. Any exceptions are noted below. I attest to the content of the Intraoperative Record and any orders documented therein. Any exceptions are noted below.
== END 2023-03-31 13:11 | disposition home health service (06) ==
LOC: ASU 07:47 → 3N 07:47

== ENCOUNTER 2023-11-25 10:33 | Inpatient (IN) ==
[2023-11-25] MEDS ORDERED: VANCOMYCIN CONSULT ACTIVE PRN (10:48)
[2023-11-25] MEDS ORDERED: PROMETHAZINE 6.25 MG/50.25 ML BAG IV PRN (10:54)
[2023-11-25] MEDS ORDERED: ALUMINUM/MAGNESIUM SUSP 30 ML UDC PO PRN (10:54)
[2023-11-25] MEDS ORDERED: MAGNESIUM HYDROXIDE SUSP 30 ML UDC PO PRN (10:54)
--- NOTE | 2023-11-25 11:05 | History & Physical Report ---
Date of Service November 25, 2023 Assessment & Plan (1) Infection of left knee: Plan Aly Wade is a 67y/o F with PMHx of DM type II, hypothyroidism, gout, HLD, DANNIE on CPAP, lung nodule, asthma, grade I diastolic dysfunction, HTN, SVT, mild aortic regurgitation, esophageal reflux, migraines, thrombocytopenia, anxiety, malignant melanoma s/p Mohs surgery, depression, elevated LFTs and other problems listed below who is a direct admission from [facility] for further medical management of a periprosthetic left knee joint infection and episodes of sustained tachycardia. Transfer was favored as a result of no available infectious disease or cardiology services at [facility]. Transfer was coordinated with the assistance of Anabelle Rehman and Boubacar Carreno MD [[facility]]. Patient underwent left total knee arthroplasty performed by Dr. Lars Enrique in March [address] [facility]. Approximately 6 to 8 weeks post-op, patient developed a superficial wound issue with a stitch abscess. 2cm of suture material was removed at that time and the area did heal. Then approximately 6 weeks later she had a similar issue just distal to the first area where another portion of the absorbable suture had to be removed. Patient then did well again until the end of September/early October. Patient had developed a superficial wound at the most proximal aspect of her surgical incision site. She has since then undergone multiple revisions plus I&Ds as a result of the recurrent non-healing superficial wounds at the incision site. Previous wound cultures from the site have grown Pseudomonas aeruginosa. Patient was seen at [facility] ED on 11/21/23 for left knee pain and left knee XR noted hardware loosening in addition to a large joint effusion with soft tissue swelling. Was ultimately then transferred to [facility] as a direct admission from our ED. Patient underwent left knee I&D with removal of the implant with placement of antibiotic spacer on 11/23/[address] Enrique. Patient was not on IV antibiotic therapy at [facility] at time of discussion with transfer center. She received 1 dose of IV vancomycin pre-operatively and 2 doses of IV vancomycin post-operatively. She now has a LEANNE drain dressing in place on her left knee surgical site. Infection of Left Knee Joint: History as per above and HPI. Vitals stable, not septic. Baseline labs still pending. CXR negative. Intraoperative cultures from [facility] show rare gram-positive cocci with other results still pending. Left knee XR shows antibiotic spacer, soft tissue swelling and soft tissue gas. MRSA screen negative. ESR pending. Wound care consulted. ID consulted. Ortho consulted. Pain control. Initiating IV cefepime + vancomycin for now. Blood cx pending. LEANNE drain dressing and knee immobilizer in place. Tachycardic Episodes History of SVT, Mild Aortic Regurgitation: Patient reportedly had runs of tachycardia with exertion at [facility]. Patient had episodes where her HR increased to the 170s and sustained for a short period of time. Does have a known h/o SVT. Each incidence of tachycardia resolved without intervention. Patient mentions that she did not experience any symptoms during the episodes of tachycardia. EKG shows NSR w/ sinus arrhythmia but no overt acute ischemic changes. Trop negative. Routine echo w/ LVEF=60-65%, grade I diastolic dysfunction, trace AR. Hypothyroidism: TSH pending. Continue levothyroxine. Anemia: Hgb 10.2 on admission. Will proceed with anemia w/u in AM - follow. 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 SSI regimen while inpatient. BSG checks ACHS. CC, HH diet. Hgb A1c in AM - follow. HTN: BP stable, continue to monitor. Continue lisinopril. 1+ BLE pitting edema on exam. Can continue home Lasix, K+ supplementation. Morbid obesity BMI 41 Other Chronic Medical Conditions: Gout, HLD, depression, seasonal allergies, asthma, GERD --> Can continue home meds for these specific conditions. CPAP HS for DANNIE. DVT Prophylaxis: SQ Lovenox Code Status: FULL CODE PCP: BAILEE Peña Disposition: Admitted in Med/Surg + Telemetry Patient seen in collaboration with Dr. Tam. Please see addendum. I spent a total of 70 minutes coordinating, documenting, and providing care for this patient excluding time spent in the performance of separately billed services. This included personally reviewing all current laboratories and imaging studies, medical reconciliation, outpatient chart review and discussion with specialists. This chart was completed in part utilizing Speech Voice Recognition Software. Grammatical errors, random word insertions, pronoun errors, and incomplete sentences are an occasional consequence of this system due to software limitations, ambient noise, and hardware issues. Any formal questions or concerns about the content, text, or information contained within the body of this dictation should be directly addressed to the provider for clarification. History of Present Illness Chief Complaint: Direct Admission - Left Periprosthetic Knee Joint Infection, Tachycardic Episodes Primary Care Provider: BAILEE Peña Mauro is a 67y/o F with PMHx of DM type II, hypothyroidism, gout, HLD, DANNIE on CPAP, lung nodule, asthma, grade I diastolic dysfunction, HTN, SVT, mild aortic regurgitation, esophageal reflux, migraines, thrombocytopenia, anxiety, malignant melanoma s/p Mohs surgery, depression, elevated LFTs and other problems listed below who is a direct admission from [facility] for further medical management of a periprosthetic left knee joint infection and episodes of sustained tachycardia. Transfer was favored as a result of no available infectious disease or cardiology services at [facility]. Transfer was coordinated with the assistance of Anabelle Rehman and Boubacar Carreno MD [[facility]]. Patient underwent left total knee arthroplasty performed by Dr. Lars Enrique in March [address] [facility]. Approximately 6 to 8 weeks post-op, patient developed a superficial wound issue with a stitch abscess. 2cm of suture material was removed at that time and the area did heal. Then approximately 6 weeks later she had a similar issue just distal to the first area where another portion of the absorbable suture had to be removed. Patient then did well again until the end of September/early October. Patient had developed a superficial wound at the most proximal aspect of her surgical incision site. She has since then undergone multiple revisions plus I&Ds as a result of the recurrent non-healing superficial wounds at the incision site. Previous wound cultures from the site have grown Pseudomonas aeruginosa. Patient was seen at [facility] ED on 11/21/23 for left knee pain and left knee XR noted hardware loosening in addition to a large joint effusion with soft tissue swelling. Was ultimately then transferred to [facility] as a direct admission from our ED. Patient underwent left knee I&D with removal of the implant with placement of antibiotic spacer on 11/23/[address] Enrique. Patient was not on IV antibiotic therapy at [facility] at time of discussion with transfer center. She received 1 dose of IV vancomycin pre-operatively and 2 doses of IV vancomycin post-operatively. She now has a LEANNE drain dressing in place on her left knee surgical site. Patient mentions repeated left knee infections as per above. Reports sensitivity to absorbable sutures as the main culprit for her incision not healing appropriately. Experiences left knee pain intermittently. Has been taking oxycodone for pain PRN. Patient reportedly had runs of tachycardia with exertion at [facility]. According to Dr. Carreno, patient had episodes where her HR increased to the 170s and sustained for a short period of time. Each incidence of tachycardia resolved without intervention. Patient mentions that she did not experience any symptoms during the episodes of tachycardia. No palpitations, SOB or chest pain recorded. Allergies Allergy/AdvReac Type Severity Reaction Status Date / Time No Known Drug Allergies Allergy Unknown Verified 11/21/23 12:26 Home Medications Medication Instructions Recorded Confirmed Type albuterol sulfate 90 mcg/actuation 2 puffs inhalation Q4H PRN Wheezing 09/11/19 11/25/23 History aerosol inhaler allopurinol 100 mg tablet See Rx Instructions .Route .COMPLEX 09/11/19 11/25/23 History allopurinol 300 mg tablet See Rx Instructions .Route .COMPLEX 09/11/19 11/25/23 History fluticasone propionate 50 2 sprays intranasal DAILY PRN 09/11/19 11/25/23 History mcg/actuation nasal Congestion spray,suspension (Flonase Allergy Relief) furosemide 20 mg tablet (Lasix) 20 mg PO QAM 09/11/19 11/25/23 History ipratropium 0.5 mg-albuterol 3 mg 3 ml inhalation Q4H PRN Wheezing 09/11/19 11/25/23 History (2.5 mg base)/3 mL nebulization soln levothyroxine 25 mcg tablet 25 mcg PO QAM 09/11/19 11/25/23 History (Levoxyl) montelukast 10 mg tablet 10 mg PO QAM 09/11/19 11/25/23 History (Singulair) omeprazole magnesium 20 mg 20 mg PO QAM 09/11/19 11/25/23 History tablet,delayed release (Prilosec OTC) sodium chloride 0.65 % nasal spray 2 sprays intranasal BID PRN 09/11/19 11/25/23 History aerosol (Medanales Nasal) Congestion triamcinolone acetonide 0.1 % 1 appln topical BID PRN Rash 09/11/19 11/25/23 History topical cream OneTouch Verio Flex Start #1 ea 09/22/19 11/25/23 Rx (blood-glucose meter) citalopram 40 mg tablet (Celexa) 40 mg PO QAM 05/02/20 11/25/23 History OneTouch Verio test strips (blood #300 ea 03/03/22 11/25/23 Rx sugar diagnostic) atorvastatin 10 mg tablet 10 mg PO QAM 12/28/22 11/25/23 History levocetirizine 5 mg tablet (Xyzal) 5 mg PO QAM 12/28/22 11/25/23 History cholecalciferol (vitamin D3) 125 5,000 unit PO QAM 03/23/23 11/25/23 History mcg (5,000 unit) capsule lisinopril 10 mg tablet 10 mg PO DAILY 03/23/23 11/25/23 History OneTouch Delica Plus Lancet 33 #100 ea 03/30/23 11/25/23 Rx gauge (lancets) docusate sodium 100 mg capsule 100 mg PO BID #20 caps 03/31/23 11/25/23 Rx semaglutide 0.25 mg or 0.5 mg (2 0.5 mg (0.736 mL) subcut Q7D #3 mL 10/04/23 11/25/23 Rx mg/3 mL) subcutaneous pen injector (Ozempic) celecoxib 200 mg capsule 200 mg PO QAM 11/21/23 11/25/23 History iron,carbonyl 65 mg-vitamin C 125 1 tab PO QAM 11/21/23 11/25/23 History mg tablet,delayed release (Vitron-C) meloxicam 15 mg tablet 15 mg PO DAILY 11/21/23 11/25/23 History naproxen 500 mg tablet 500 mg PO BID PRN pain #14 tabs 11/21/23 11/25/23 Rx potassium chloride 20 mEq 20 meq PO DAILY 11/21/23 11/25/23 History tablet,extended release(part/cryst) (Klor-Con M) sumatriptan succinate 50 mg tablet 100 mg PO UD 11/21/23 11/25/23 History metformin 1,000 mg tablet 1,000 mg PO BID 11/25/23 11/25/23 History oxycodone 5 mg tablet 5 - 10 mg PO Q6H PRN Pain 11/25/23 11/25/23 History Past Med/Surg History Problem List Infection of left knee Knee pain, left (Acute) S/P total knee arthroplasty (Acute) Knee pain, left (Acute) History of total left knee replacement Arthritis of knee, left Encounter for pre-operative examination Vitamin D deficiency Increase in creatinine Dysesthesia Depression Hypothyroidism Hypertriglyceridemia Dyslipidemia Obesity Controlled type 2 diabetes mellitus Shortness of breath (Acute) Tachycardia (Acute) Asthma (Chronic) Stable Hypertension (Chronic) Pulmonary nodule (Chronic) Medical History Hx of basal cell carcinoma Hx of melanoma of skin Spinal stenosis Arthritis GERD (gastroesophageal reflux disease) Hypothyroidism Diabetes mellitus, type 2 NIDDM Depression Leaky heart valve Stress echo 08/2019: Mild AR Hyperlipidemia History of COVID-19 2020, not hospitalized Sleep apnea CPAP (compliant) Gout Surgical History Hx of basal cell carcinoma excision S/P right knee arthroscopy S/P left knee arthroscopy History of colonoscopy H/O melanoma excision face Family History Mother Diabetes Father Diabetes Brother Diabetes Brother Diabetes Other No family history of adverse response to anesthesia Social History Smoking Status: Never smoker Second Hand Exposure: No; Do You Dip or Chew Tobacco: No; Tobacco Cessation Education Requested by Patient: No Hx Alcohol Use: Yes Alcohol type: hard liquor Hx Substance Use: No Preferred Language: Kittitian Communication Ability: Effective Inspector Metal Can Required: No Beliefs That Will Affect Care: None Current Living Situation: Alone Other Information That Helps Us Care for You: No Feels Safe at Home: Yes Safety Concerns: Feels Safe At This Time Assistive Devices: Cane and Walker Review of Systems Review of Systems: At least ten systems reviewed and negative, except as noted in the HPI. Physical Exam Physical Exam: Please refer to Dr. Tam's addendum for physical examination findings. Results & Data Results & Data Vital Signs (Past 12 Hours) Vital Signs Temp Resp BP Pulse Ox O2 Del Method 36.8 C 17 105/63 96 Room Air 11/25/23 12:52 11/25/23 12:52 11/25/23 12:52 11/25/23 12:52 11/25/23 12:52 Laboratory Results Short CBC 11/25/23 Range/Units 15:21 WBC 7.13 (4.8-10.8) K/ul Hgb 10.2 L (12.0-16.0) g/dl Hct 32.6 L (37.0-47.0) % Plt Count 126 L (130-400) K/uL Diagnostic Findings Knee X-Ray 11/25/23 13:00 XR knee LT 3V CLINICAL HISTORY: PAIN LEFT KNEE - INFECTION COMPARISON: Left knee radiographs November 21, 2023. FINDINGS: Skin monique are noted. Interval removal of the tibial component with placement of an antibiotic spacer is noted. Femoral component remains in place. There are no unexpected radiopaque foreign bodies. There are no fractures. Soft tissue swelling is noted as well as soft tissue gas. There is a probable joint effusion. IMPRESSION: 1. Interval removal of the tibial component with placement of an antibiotic spacer. 2. No fractures. No radiopaque foreign bodies. 3. Soft tissue swelling and soft tissue gas, as expected. ACT 112: Negative or not required by law. Electronically signed by: Carlos Dennis M.D. 11/25/2023 1:30 PM Code Status & VTE Plan Code Status FULL CODE VTE Prophylaxis Plan VTE Prophylaxis will be ordered: Yes Supervising Physician Co-Signing Physician Notes Patient is a 67-year-old female with history of hypothyroidism, hyperlipidemia, morbid obesity, diabetes mellitus, hypertension, SVT, asthma and other medical problems who was a direct admit from [facility] requesting evaluation by infectious disease for management of recurrent periprosthetic left knee joint infection and intermittent tachycardia. Patient admits to have pain at surgical site intermittently which is controlled with pain medications. Patient was noted to have recurrent tachycardic episodes with heart rates r unning as high as 170. Given lack of infectious disease, cardiology services patient was transferred to [facility] for further management. Currently she denies any chest pain, dyspnea, nausea, vomiting, abdominal pain, fever, chills. Patient had history of left TKA in March 2023, developed recurrent wound infections requiring I&D, hardware removal due to loosening. On 11/23/2023 patient had left knee I&D and removal of the implant with placement of antibiotic spacer by Dr. Enrique. Please review HPI for complete details of presentation. I personally reviewed blood work and imaging studies. EKG showed normal sinus rhythm with sinus arrhythmia, low voltage QRS, QTc 425. Also noted nonspecific T wave changes. Physical Exam: Vitals signs as noted above General Appearance: Morbidly obese, no apparent distress Head: normocephalic, Atraumatic Eyes: normal inspection, EOMI Neck: supple, Trachea midline Respiratory/Chest: Normal breath sounds, CTA, No accessory muscle use Cardiovascular: S1, S2, ? Faint murmur Abdomen/GI:Soft, Non tender, Bowel sounds present Extremities/Musculoskeletal:normal inspection, 1+edema, left knee immobilizer,+ wound VAC Neurologic/Psych:AAOX3, grossly no focal neurological deficits Skin: normal color, warm Left knee prosthetic joint infection On 11/23/2023 S/P left knee I&D and removal of the implant with placement of antibiotic spacer by Dr. Enrique Intraoperative cultures at [facility] showed rare gram-positive cocci Elevated ESR, CRP --Knee X ray:Interval removal of the tibial component with placement of an antibiotic spacer. No fractures. No radiopaque foreign bodies. Soft tissue swelling and soft tissue gas, as expected. H/O pseudomonal infection in the past on prior cultures Empirically started on vancomycin, cefepime Orthopedics on board Pain control Infectious disease consulted as well Recurrent tachycardic episodes H/O SVT Likely NSVT's Normal TSH Monitor on telemetry Check resting echo Monitor and replete electrolytes as needed Currently not on any beta-richardson If patient develops any recurrence of tachycardia, will start on beta-richardson Consider cardiology evaluation I personally interviewed and examined at bedside. Patient's care is coordinated with Mary Alonzo PA-C. I have reviewed the advanced practitioner's documentation, and I agree with plan of care. Please refer to the documentation above for details of patient's presentation and for discussion of other issues. I spent a total [id number] coordinating, documenting, and providing care for this patient excluding time spent in the performance of separately billed services.
--- NOTE | 2023-11-25 13:32 | XRay Report ---
XR knee LT 3V CLINICAL HISTORY: PAIN LEFT KNEE - INFECTION COMPARISON: Left knee radiographs November 21, 2023. FINDINGS: Skin monique are noted. Interval removal of the tibial component with placement of an anti biotic spacer is noted. Femoral component remains in place. There are no unexpected radiopaque foreig n bodies. There are no fractures. Soft tissue swelling is noted as well as soft tissue gas. There is a probable joint effusion. IMPRESSION: 1. Interval removal of the tibial component with placement of an antibiotic spacer. 2. No fractures. No radiopaque foreign bodies. 3. Soft tissue swelling and soft tissue gas, as expected. ACT 112: Negative or not required by law. Electronically signed by: Carlos Dennis M.D. 11/25/2023 1:30 PM
--- NOTE | 2023-11-25 13:51 | Orthopedic Consultation ---
Date of Consultation November 25, 2023 Assessment & Plan (1) Infection of left knee: Patient transferred from [facility] to [facility] for further medical management and cardiac evaluation as well as infectious disease consultation. Patient is currently on vancomycin awaiting cultures. Her intraoperative cultures from [facility] show rare gram- positive cocci with other results pending. Her ESR on 11/22 was 31 and CRP was 0.58. At this point we will continue PWB with the immobilizer on at all times while ambulating, she can loosen this while in bed for comfort. Ice elevate for swelling, currently on Percocet for breakthrough pain as well as Lovenox for DVT prophylaxis. LEANNE dressing x 7 days. Will await infectious disease recommendations regarding antibiotic and duration. Did discuss with patient that she would eventually require removal of antibiotic spacer and placement of revision total knee arthroplasty once infection is cleared. Spoke with patients over the phone as well. History of Present Illness Reason for Consultation: Infected left Total knee arthroplasty, s/p removal implant and placement of antibiotic spacer Attending Physician: Chris Tam MD History of Present Illness Ms Wade is a 67-year-old female that we are consulted in regards to her left knee. She has a history of a left total knee replacement on 03/30/23. Initially postoperatively, patient was progressing well. Approximately 6 to 8 weeks postoperatively she developed a superficial wound infection, where she actually was able to pull out a 2 inch piece of the 3-0 stratafix suture. She was placed on antibiotics at that time and the incision continued to heal. Patient was then seen again on 07/07/23 for a similar episode, at that time I was able to again remove a 2 inch long piece of the stratafix suture. She was continued on cefadroxil for 2 additional weeks and was healing well. She did follow-up at that time on July [address] Enrique and appeared that everything had healed over. She then followed up on October [address] Enrique for what appeared to be a "water- filled blister, and the area was aspirated by Dr. Enrique. At that time the decision was made to do a superficial wound I&D of the area on October 13 with placement of iodoform packing. She followed up postoperatively and had the packing removed a few days later and continued on Keflex. She was then again seen in the office on October 26 and again on November 03 to have the remaining sutures removed. Between that time and most recently November 18, patient began having increased pain and presented to [facility] ER where x-rays were obtained which showed loosening of her tibial component. Patient was then contacted at that time by our office to present to the [facility] emergency department for I&D and removal of implants with placement of antibiotic spacer. She underwent this procedure on November 22 and tolerated the procedure well. During her postoperative course she had several bouts of tachycardia and it was determined at that time the patient will need to be transferred to for cardiac consultation at [facility] as there was no handcrew foreman in-house at [facility] as well as to obtain infectious disease consultation and likely placement of PICC line. Previous wound cultures from the site have grown Pseudomonas aeruginosa. She has received two doses of Vancomycin thus far. Allergies Allergy/AdvReac Type Severity Reaction Status Date / Time No Known Drug Allergies Allergy Unknown Verified 11/21/23 12:26 Home Medications Medication Instructions Recorded Confirmed Type albuterol sulfate 90 mcg/actuation 2 puffs inhalation Q4H PRN Wheezing 09/11/19 11/21/23 History aerosol inhaler allopurinol 100 mg tablet See Rx Instructions .Route .COMPLEX 09/11/19 11/21/23 History allopurinol 300 mg tablet See Rx Instructions .Route .COMPLEX 09/11/19 11/21/23 History fluticasone propionate 50 2 sprays intranasal DAILY PRN 09/11/19 11/21/23 History mcg/actuation nasal Congestion spray,suspension (Flonase Allergy Relief) furosemide 20 mg tablet (Lasix) 20 mg PO QAM 09/11/19 11/21/23 History ipratropium 0.5 mg-albuterol 3 mg 3 ml inhalation Q4H PRN Wheezing 09/11/19 11/21/23 History (2.5 mg base)/3 mL nebulization soln levothyroxine 25 mcg tablet 25 mcg PO QAM 09/11/19 11/21/23 History (Levoxyl) montelukast 10 mg tablet 10 mg PO QAM 09/11/19 11/21/23 History (Singulair) omeprazole magnesium 20 mg 20 mg PO QAM 09/11/19 11/21/23 History tablet,delayed release (Prilosec OTC) sodium chloride 0.65 % nasal spray 2 sprays intranasal BID PRN 09/11/19 11/21/23 History aerosol ([place] Nasal) Congestion triamcinolone acetonide 0.1 % 1 appln topical BID PRN Rash 09/11/19 11/21/23 History topical cream OneTouch Verio Flex Start #1 ea 09/22/19 01/20/23 Rx (blood-glucose meter) citalopram 40 mg tablet (Celexa) 40 mg PO QAM 05/02/20 11/21/23 History OneTouch Verio test strips (blood #300 ea 03/03/22 01/20/23 Rx sugar diagnostic) atorvastatin 10 mg tablet 10 mg PO QAM 12/28/22 11/21/23 History levocetirizine 5 mg tablet (Xyzal) 5 mg PO QAM 12/28/22 11/21/23 History cholecalciferol (vitamin D3) 125 5,000 unit PO QAM 03/23/23 11/21/23 History mcg (5,000 unit) capsule lisinopril 10 mg tablet 10 mg PO DAILY 03/23/23 11/21/23 History metformin 500 mg tablet 500 mg PO BID 03/23/23 11/21/23 History OneTouch Delica Plus Lancet 33 #100 ea 03/30/23 Rx gauge (lancets) docusate sodium 100 mg capsule 100 mg PO BID #20 caps 03/31/23 11/21/23 Rx oxycodone 5 mg tablet 5 - 10 mg (1 - 2 x 5 mg) PO Q6H 03/31/23 11/21/23 Rx PRN pain #30 tabs semaglutide 0.25 mg or 0.5 mg (2 0.5 mg (0.736 mL) subcut Q7D #3 mL 10/04/23 11/21/23 Rx mg/3 mL) subcutaneous pen injector (Ozempic) celecoxib 200 mg capsule 200 mg PO QAM 11/21/23 11/21/23 History iron,carbonyl 65 mg-vitamin C 125 1 tab PO QAM 11/21/23 11/21/23 History mg tablet,delayed release (Vitron-C) meloxicam 15 mg tablet 15 mg PO DAILY 11/21/23 11/21/23 History naproxen 500 mg tablet 500 mg PO BID PRN pain #14 tabs 11/21/23 Rx potassium chloride 20 mEq 20 meq PO DAILY 11/21/23 11/21/23 History tablet,extended release(part/cryst) (Klor-Con M) sumatriptan succinate 50 mg tablet 100 mg PO UD 11/21/23 11/21/23 History Patient History Medical History Hx of basal cell carcinoma Hx of melanoma of skin Spinal stenosis Arthritis GERD (gastroesophageal reflux disease) Hypothyroidism Diabetes mellitus, type 2 NIDDM Depression Leaky heart valve Stress echo 08/2019: Mild AR Hyperlipidemia History of COVID-19 2020, not hospitalized Sleep apnea CPAP (compliant) Gout Surgical History Hx of basal cell carcinoma excision S/P right knee arthroscopy S/P left knee arthroscopy History of colonoscopy H/O melanoma excision face Family History Mother Diabetes Father Diabetes Brother Diabetes Brother Diabetes Other No family history of adverse response to anesthesia Social History Smoking Status: Never smoker Second Hand Exposure: No; Do You Dip or Chew Tobacco: No; Tobacco Cessation Education Requested by Patient: No Hx Alcohol Use: Yes Alcohol type: hard liquor Hx Substance Use: No Preferred Language: Amharic Communication Ability: Effective Consumer Loan Underwriter Required: No Beliefs That Will Affect Care: None Current Living Situation: Alone Other Information That Helps Us Care for You: No Feels Safe at Home: Yes Safety Concerns: Feels Safe At This Time Assistive Devices: Cane and Walker Review of Systems Constitutional: no fever, no chills and no sweats Respiratory: no cough and no dyspnea Cardiovascular: no chest pain and no dyspnea Gastrointestinal: no abdominal pain, no nausea and no vomiting Physical Exam Physical Exam: Vital Signs Temp Resp BP Pulse Ox O2 Del Method 11/25/23 12:52 36.8 C 17 105/63 96 Room Air Intake and Output 11/24/23 11/25/23 11/25/23 22:59 06:59 14:59 Other: Weight 104 kg Weight Measureme nt Method Built in [facility] Patient Weight 11/26/23 06:59 Weight 104 kg Musculoskeletal: Left knee: NVDI, calf SNT, negative carla sign. DP palpable, able to wiggle toes/ankle movement without difficulty. dressing clean dry and intact, LEANNE dressing intact. expected post-operative bruising noted. Results & Data Vital Signs (Past 12 Hours) Vital Signs Temp Resp BP Pulse Ox O2 Del Method 11/25/23 12:52 36.8 C 17 105/63 96 Room Air Laboratory Results Laboratory Results POC Glucose 114 mg/dl (70-99) H 11/25/23 13:23 Impressions Knee X-Ray 11/25/23 13:00 XR knee LT 3V CLINICAL HISTORY: PAIN LEFT KNEE - INFECTION COMPARISON: Left knee radiographs November 21, 2023. FINDINGS: Skin monique are noted. Interval removal of the tibial component with placement of an antibiotic spacer is noted. Femoral component remains in place. There are no unexpected radiopaque foreign bodies. There are no fractures. Soft tissue swelling is noted as well as soft tissue gas. There is a probable joint effusion. IMPRESSION: 1. Interval removal of the tibial component with placement of an antibiotic spacer. 2. No fractures. No radiopaque foreign bodies. 3. Soft tissue swelling and soft tissue gas, as expected. ACT 112: Negative or not required by law. Electronically signed by: Carlos Dennis M.D. 11/25/2023 1:30 PM
[2023-11-25] MEDS ORDERED: GLUCAGON FOR INJ 1 MG VIAL SQ PRN (13:58)
[2023-11-25] MEDS ORDERED: GLUCOSE 40% GEL 15 GM TUBE PO PRN (13:58)
[2023-11-25] MEDS ORDERED: DEXTROSE 50% 50 ML SYRINGE IV PRN (13:58)
[2023-11-25] MEDS ORDERED: CARBOHYDRATES FOR HYPOGLYCEMIA PO PRN (13:58)
[2023-11-25] MEDS ORDERED: GLUCOSE 10 TAB/TUBE PO PRN (13:58)
[2023-11-25] MEDS: Patient's HEIGHT &/or WEIGHT Needed SCH (14:00)
--- NOTE | 2023-11-25 14:13 | XRay Report ---
XR chest 1V portable CLINICAL HISTORY: INFECTION COMPARISON STUDY: Chest CT June 02, 2015. Chest radiograph November 09, 2022. FINDINGS: Lung volumes are normal. Lungs are clear. There is no pneumothorax or pleural effusion. Car diac size is normal. Mediastinal contours are normal. There is no evidence for pulmonary edema. Sever al old right-sided rib fractures are incidentally noted. IMPRESSION: No acute cardiopulmonary findings. ACT 112: Negative or not required by law. Electronically signed by: Carlos Dennis M.D. 11/25/2023 2:12 PM
--- NOTE | 2023-11-25 14:13 | Pharmacy Report ---
Pharmacy PK ABX Note - Date of Service November 25, 2023 - Assessment and Plan Assessment 67 year old F is a direct admit from OSH for further medical management of a periprosthetic left knee joint. Initial arthroplasty of the knee was done March 2023 and since then patient has had recurrent non-healing superficial wounds at the incision cite which resulted in multiple revisions and I&Ds. Most recently (11/22) a left knee I&D was done with removal of the implant and placem ent of an antibiotic spacer. * Pseudomonas grew on left knee cultures dated 10/11/23 and 10/14/23. * Cefepime has also been started today Day # 1 of antimicrobial therapy. Plan Vancomycin * Loading dose: 2500 mg IV x 1 (24mg/kg) * Maintenance dose: 750 mg IV every 12 hours * Regimen is predicted to achieve target AUC/JACLYN of 400-600 mg/L.hr * Vanco trough to be ordered as clinically indicated. Pharmacy will continue to follow and will adjust dose/frequency as necessary. Thank you. Pharmacy has transitioned to AUC monitoring for vancomycin. AUC/JACLYN is the preferred PK/PD target and is associated with decreased risk of nephrotoxicity compared to traditional trough targets.
[2023-11-25] MEDS: CEFEPIME 2,000 MG in SYRINGE 0 ML IV SCH (14:27)
[2023-11-25] MEDS: VANCOMYCIN HCL 2,500 MG in SODIUM CHLORIDE 0.9% 500 ML IV ONE (14:27)
[2023-11-25] MEDS: ENOXAPARIN INJ 40 MG/0.4 ML SYR SQ SCH (14:45)
[2023-11-25] MEDS: ADVANCED PROBIOTIC 625 MG CAPSULE PO SCH (14:46)
[2023-11-25 15:47] LABS: Basophils # (auto) 0.02 K/uL (0.00-0.20); Basophils % (auto) 0.3 %; Eosinophils # (auto) 0.51 K/uL (0.00-0.50); Eosinophils % (auto) 7.2 %; Hematocrit (blood only) 32.6 % (37.0-47.0); Hemoglobin 10.2 g/dl (12.0-16.0); Immature Granulocytes # (auto) 0.02 K/uL (0.01-0.20); Immature Granulocytes % (auto) 0.3 %; Lymphocytes # (auto) 2.06 K/uL (1.20-3.40); Lymphocytes % (auto) 28.9 %; Mean Corpuscular Hemoglobin 22.6 pg (25.0-34.0); Mean Corpuscular Hgb Conc 31.3 g/dL (32.0-36.0); Mean Corpuscular Volume 72.3 fL (80.0-100.0); Mean Platelet Volume 10.3 fL (9.4-12.4); Neutrophils # (auto) 4.02 K/uL (1.40-6.50); Neutrophils % (auto) 56.3 %; Platelet Count 126 K/uL (130-400); RDW Coefficient of Variation 16.9 % (11.5-14.5); RDW Standard Deviation 42.7 fL (36.4-46.3); Red Blood Count 4.51 M/uL (4.20-5.40); White Blood Count 7.13 K/ul (4.8-10.8)
[2023-11-25] MEDS ORDERED: ALBUT/IPRATROP 3MG/0.5MG NEB 3 ML VIAL INH PRN (15:52)
[2023-11-25] MEDS: POTASSIUM CHLORIDE CRTAB 20 MEQ TABCR PO ONE (16:03)
[2023-11-25 16:08] LABS: Troponin I High Sensitivity 2.6 pg/ml (0-14)
[2023-11-25 16:18] LABS: Thyroid Stimulating Hormone 0.943 uIu/ml (0.300-4.500)
[2023-11-25 16:24] LABS: Magnesium 1.6 mg/dl (1.7-2.4)
[2023-11-25 16:30] LABS: C Reactive Protein 8.5 mg/dl (0-0.5); Creatinine Clr Calc Pharmacy 65.4 ml/min; Est GFR (Non-African American) 61.3 ml/min; Phosphorus 3.6 mg/dl (2.5-4.9)
[2023-11-25] MEDS: INSULIN ASPART PER UNIT CHARGE SC SCH (17:44)
[2023-11-25] MEDS: MAGNESIUM SULFATE / D5W 1 GM/100 ML BAG IV SCH (20:28)
[2023-11-25] MEDS: DOCUSATE SODIUM 100 MG CAP PO SCH (20:28)
--- OUTSIDE RECORDS SUMMARY | 2023-11-25 20:34 | External Medical Summary | Summary of Care ---
Author Name Unknown Organization [facility] Address [address] [place] [address] Phone [phone] Care Team Providers Care Cna Gna Name Role Phone RenettaBeatris slaughter Christelle MOROCHO Primary Care Provider Encounter Details Date Type Department Care Team (Late st Contact Info) Description 11/23/2023 Result Scan Unspecified Department <No scans attached> Allergies Active Allergy Reactions Criticality Noted Date Comments No Known Drug Allergy 02/05/2001 documented as of this encounter (statuses as of 11/24/2023) Medications Medication Sig Dispensed Refills Start Date End Date Status NEBULIZER DEVIIndications:Asthm a, severity to be determined,Esophageal reflux as directed 1 0 03/16/2006 Active saline (OCEAN NASAL SPRAY) 0.65 % nasal sprayIndications:Acut e frontal sinusitis, recurrence not specified,Acute bronchitis, complicated Administer 2 Sprays into each nostril as needed for Congestion. for nasal dryness or congestion 1 Bottle 5 05/26/2015 Active Multiple Vitamins-Minerals (MULTIVITAMIN ADULT) TABS Take 1 Tablet by mouth daily. Active Spacer/Aero-Holding Chambers Device J44.9 1 Each 01/01/2020 Active CPAP every night at bedtime. Active Fluticasone-Salmetero l 230-21 MCG/ACT Inhalation Aerosol (Advair HFA) Inhale 2 Puffs by mouth in the morning and 2 Puffs before bedtime. 36 Each 3 08/18/2022 Active Lisinopril 20 MG Oral Tablet (Prinivil)Indications :HTN, goal below 140/90 Take 1 Tablet by mouth in the morning. 90 Tablet 3 08/18/2022 Active Allopurinol 300 MG Oral Tablet (Zyloprim)Indications :Chronic gout of foot, unspecified cause, unspecified laterality Take 1 Tablet by mouth in the morning. 90 Tablet 3 08/18/2022 Active Ipratropium-Albuterol 0.5-2.5 (3) MG/3ML Inhalation Solution (Duoneb) USE 3 ML EVERY 4 HOURS NEEDED FOR COUGH OR FOR SHORTNESS OF BREATH OR WHEEZING 90 mL 5 08/18/2022 Active Triamcinolone Acetonide 0.1 % External Cream (Aristocort) Apply to itchy areas on arms twice daily as needed 453.6 g 1 01/18/2023 Active Meloxicam 15 MG Oral Tablet (Mobic) TAKE 1 TABLET BY MOUTH DAILY FOR PAIN 30 Tablet 11 05/09/2023 Active Albuterol Sulfate HFA 108 (90 Base) MCG/ACT Inhalation Aerosol Solution Inhale 2 Puffs by mouth every 4 hours as needed for Shortness of Breath or Wheezing. 8.5 g 5 06/09/2023 Active Ozempic (0.25 or 0.5 MG/DOSE) 2 MG/3ML Solution Pen-injector Inject 0.5 mg under the skin once a week. 06/24/2023 Active Fluticasone Propionate 50 MCG/ACT Nasal Suspension (Flonase)Indications: Seasonal allergic rhinitis due to pollen SPRAY 2 SPRAYS INTO EACH NOSTRIL EVERY DAY 48 mL 1 07/05/2023 Active Levocetirizine Dihydrochloride 5 MG Oral Tablet TAKE 1 TABLET BY MOUTH EVERY DAY IN THE EVENING 30 Tablet 11 08/17/2023 Active Citalopram Hydrobromide 40 MG Oral Tablet (CeleXA)Indications:M oderate episode of recurrent major depressive disorder (HCC) TAKE 1 TABLET BY MOUTH EVERY DAY IN THE MORNING 90 Tablet 3 08/30/2023 Active Levothyroxine Sodium 25 MCG Oral Tablet (Levoxyl)Indications: Hypothyroidism, unspecified TAKE 1 TAB BY MOUTH DAILY FIRST THING IN THE MORNING(ATLEAST 30MIN PRIOR TO BREAKFAST OR OTHER MEDS) 90 Tablet 09/20/2023 Active Furosemide 20 MG Oral Tablet (Lasix)Indications:1+ pitting edema ONE PILL ON WEDNESDAY TO WEDNESDAY AND 2 PILLS WEDNESDAY, WEDNESDAY, WEDNESDAY. 120 Tablet 1 09/27/2023 Active Additional Information Patient taking differently: 20 mg Oral Daily(Non-Specified), One pill on Wednesday to and 2 pills Wednesday, Wednesday, Wednesday., Reported on 09/30/2023 Vitamin D 50 MCG (2000 UT) Oral Capsule Take 2,000 Units by mouth in the morning. Active Celecoxib 200 MG Oral Capsule (CeleBREX) Take 1 Capsule by mouth in the morning. Active Acetaminophen 500 MG Oral Tablet (Tylenol) Take 2 Tablets by mouth daily as needed for Pain, Mild or Pain, Moderate. Active Estroven Menopause Supplement Oral Tablet Take 1 Tablet by mouth at bedtime. Active Montelukast Sodium 10 MG Oral Tablet (Singulair)Indication s:Allergic rhinitis,Asthma, allergic, mild intermittent, uncomplicated TAKE 1 TABLET BY MOUTH EVERY DAY 90 Tablet 3 11/01/2023 Active Allopurinol 100 MG Oral Tablet (Zyloprim) TAKE 1 TABLET BY MOUTH EVERY DAY *TAKE ALONG WITH 300MG TABS FOR A DAILY DOSE OF 400MG* 90 Tablet 3 11/01/2023 Active Klor-Con M20 20 MEQ Oral Tablet Extended Release (Potassium Chloride ER)Indications:1+ pitting edema TAKE 1 TABLET BY MOUTH EVERY DAY IN THE MORNING 30 Tablet 11 10/31/2023 Active Omeprazole 20 MG Oral Capsule Delayed Release (PriLOSEC)Indications :Gastroesophageal reflux disease without esophagitis TAKE BY MOUTH 1 CAPSULE IN THE MORNING. 1 HOUR BEFORE THE FIRST MEAL OF THE DAY.. 90 Capsule 3 11/01/2023 Active Vitron-C 65-125 MG Oral Tablet (Iron-Vitamin C 65-125 mg per tab) Take 1 Tablet by mouth in the morning. 30 Tablet 3 11/02/2023 Active Atorvastatin Calcium 10 MG Oral Tablet (Lipitor) TAKE 1 TABLET BY MOUTH EVERY DAY IN THE MORNING 90 Tablet 11/09/2023 Active SUMAtriptan Succinate 50 MG Oral Tablet (Imitrex) TAKE 2 TABLETS BY MOUTH AT ONSET OF MIGRAINE. TAKE 1 TABLET EVERY 2 HRS NEEDED. MAX 5 PER 24 HRS 9 Tablet 3 11/12/2023 Active metFORMIN HCl 1000 MG Oral Tablet (Glucophage) Take 1 Tablet by mouth 2 times a day with morning and evening meals. 180 Tablet 11/22/2023 Active documented as of this encounter (statuses as of 11/24/2023) Active Problems Problem Noted Date Diagnosed Date Status post left knee replacement 06/24/2023 Moderate episode of recurrent major depressive d [...] as of this encounter (statuses as of 11/24/2023) Resolved Problems Problem Noted Date Diagnosed Date [...] as of this encounter (statuses as of 11/24/2023) Immunizations Name Administration Dates Next Due HEP A - Hepatitis A (Adult > 18 yrs) 04/18/2018, 10/13/2017 Hepatitis B, 20+ yrs 04/18/2018,11/16/2017,10/13 PPD 01/12/2012 Pneumococcal Conjugate Vacci ne, 20-valent ([id number]) 03/16/2023 Pneumococcal Polysaccharide PPV23 (Pneumovax) 02/23/2020 Seasonal Influenza, PF, 6 M & above, IM , (FluLaval or Fluzone) 01/06/2022,12/03/2020,11/16/2019 Seasonal Influenza, Quadriva lent Hd (Fluzone Hd) 03/16/2023 TDAP (age 10 and older)(Boostrix) 12/08/2016 TDAP, Age 7 and older, IM (Adacel) 12/29/2007 Zoster Vaccine Recombinant (Shingrix) 04/10/2019 ,01/26/2019 [...] Care Team (Late st Contact Info) Description 01/26/2024 10:00 AM EST [facility] [place] [address] Beatris Ruggiero CRNP [address] [place] [address] 09/08/2024 10:00 AM EDT Imaging Radiology [facility]st [facility] [address] [place] [address] Scheduled Procedures Name Priority Associated Diagnoses Date/Ti me COLONOSCOPY FLEXIBLE PROXIMAL DIAGNOSTIC Recall Screen for colon cancer Health Maintenance Due Date Last Done Comments Cologuard 2002 Fecal Occult Blood Test 2002 Sigmoidoscopy 2002 Depression Monitoring 01/27/2020 01/26/2019 Diabetic Foot Exam 08/19/2023 08/18/2022, 0 12/03/2020, 08/24/2019 COVID-19 Vaccine ( season) 2023 Influenza Vaccine (FLU shot) (#1) 2023 03/16/2023, 01/06/2022, 12/03/2020, Additional history exists Albumin/Creatinine Ratio 03/16/2024 03/16/2023, 12/14 HbA1c 04/27/2024 10/26/2023, 0 04/2023, 08/28/2022, Additional history exists Diabetic Eye Exam 06/23/2024 06/24/2023, 08/24/2019 Mammogram 09/01/2024 09/02/2023, 08/14, 08/30/2023, Additional history exists GFR 10/25/2024 10/26/2023, 0 04/2023, 01/04/2023, Additional history exists TSH 10/25/2024 10/26/2023, 0 04/2023, 08/28/2022, Additional history exists DTap/Tdap Vaccines (3 - Td or Tdap) 12/08/2026 12/08/2016, 12/29/2007 Lipid Panel 08/29/2027 08/28/2022, 030 06/2021, 08/04/2018, Additional history exists Colonoscopy 03/06/2029 03/06/2019, 02/13, 01/31/2009 Colorectal Cancer Screening 03/06/2029 DXA Scan 10/25/2033 10/26/2023 Hepatitis B Vaccine Completed 04/18/2018, 11/16/2017, 10/13/2017 Zoster Vaccines Completed 04/10/2019, 01/26/2019 Pneumococcal Vaccine: 65+ Years Completed 03/16/2023, 02/23/2020 HPV (Gardasil) Vaccine Aged Out No lo nger eligible based on patient's age to complete this topic MENINGOCOCCAL (MENACTRA/MENVEO) Aged Out No longer eligible based on patient's age to complete this topic documented as of this encounter Medical Devices Not on filedocumented as of this encounter Procedures Procedure Name Priority Date/Time Associated Diagnosis Comments RADIOLOGY SCANNED RESULT 11/23/2023 documented in this encounter Results * RADIOLOGY SCANNED RESULT (11/23/2023) 11/23/2023 No Physician Data Unknown DIAGNOSTIC RAD IOLOGY SERVICES documented in this encounter Care Teams Cna Gna Relationship Specialty Start Date End Date Beatris Ruggiero CRNP [address] [place] [address] PCP - General Nurse Practitioner 05/16/21 documented as of this encounter
[2023-11-25] MEDS: oxyCODONE/ACETAMINOPHEN 5mg/325mg TAB PO PRN (23:30)
[2023-11-26] MEDS: VANCOMYCIN HCL 750 MG in SODIUM CHLORIDE 0.9% 250 ML IV SCH (05:30)
[2023-11-26] MEDS: LEVOTHYROXINE SODIUM 25 MCG TABLET PO SCH (05:30)
[2023-11-26 06:34] LABS: Hematocrit (blood only) 29.5 % (37.0-47.0); Hemoglobin 9.1 g/dl (12.0-16.0); Mean Corpuscular Hemoglobin 22.5 pg (25.0-34.0); Mean Corpuscular Hgb Conc 30.8 g/dL (32.0-36.0); Mean Corpuscular Volume 72.8 fL (80.0-100.0); Platelet Count 119 K/uL (130-400); RDW Coefficient of Variation 16.7 % (11.5-14.5); RDW Standard Deviation 43.4 fL (36.4-46.3); Red Blood Count 4.05 M/uL (4.20-5.40); White Blood Count 5.12 K/ul (4.8-10.8)
[2023-11-26 06:45] LABS: Calcium 8.6 mg/dl (8.6-10.3); Creatinine Clr Calc Pharmacy 54.6 ml/min; Est GFR (African American) 57.2 ml/min; Est GFR (Non-African American) 49.4 ml/min; Magnesium 2.1 mg/dl (1.7-2.4); Phosphorus 3.3 mg/dl (2.5-4.9); Potassium 4.7 mmol/L (3.5-5.1)
[2023-11-26 07:05] LABS: Ferritin 124.3 ng/ml (8-388)
[2023-11-26 07:07] LABS: Folate (Folic Acid),Ser orPlas 13.4 ng/ml (>5.38)
--- NOTE | 2023-11-26 07:20 | Hospitalist Progress Note ---
<Statement entered by Med Richter, - 11/26/23 15:11> I have seen and examined the patient and have discussed the case with the provider above. I have reviewed the advanced practitioner's documentation, and I agree with, and take responsibility for that plan of care. 12 minutes spent on care patient and coordination. Patient feeling well. Was getting up out of bed to walk to the bathroom. Pain is controlled. Plan of care as outlined below Date of Service November 26, 2023 Assessment & Plan (1) Infection of left knee: Plan Aly Wade is a 67y/o F with PMHx of DM type II, hypothyroidism, gout, HLD, DANNIE on CPAP, lung nodule, asthma, grade I diastolic dysfunction, HTN, SVT, mild aortic regurgitation, esophageal reflux, migraines, thrombocytopenia, anxiety, malignant melanoma s/p Mohs surgery, depression, elevated LFTs --direct a dmission from [facility] for further medical management of a periprosthetic L knee joint infection and episodes of sustained tachycardia. Transfer was favored as a result of no available infectious disease or cardiology services @ [facility]. Patient underwent left total knee arthroplasty performed by Dr. Enrique 03/2023 at [facility]. 6 to 8 weeks post-op, patient developed a superficial wound issue with a stitch abscess. 2cm of suture material was removed at that time and the area did heal. 6 weeks later she had a similar issue. Pt was fine until the end of September/early October where she developed a superficial wound at the most proximal aspect of her surgical incision site. She has since then undergone multiple revisions plus I&Ds as a result of the recurrent non-healing superficial wounds at the incision site. Previous wound cultures from the site have grown Pseudomonas aeruginosa. Patient was seen at [facility] ED on 11/21/23 for left knee pain and left knee XR noted hardware loosening in addition to a large joint effusion with soft tissue swelling. She was a direct admit from [facility]. She had a left knee I&D with removal of the implant with placement of antibiotic spacer on 11/23/[address] Enrique. Patient was not on IV antibiotic therapy at [facility] at time of discussion with transfer center. She received 1 dose of IV vancomycin pre-op and 2 doses of IV vancomycin post-op. Infection of Left Knee Joint: History as per above and HPI. Vitals stable, not septic. Baseline labs still pending. CXR negative. Intraoperative cultures from [facility] show rare gram-positive cocci with other results still pending. Left knee XR shows antibiotic spacer, soft tissue swelling and soft tissue gas. MRSA screen neg. ESR 50. Wound care consulted. ID consulted. Ortho consulted. Pain control Blood cx drawn on 11/24; pending Started on IV cefepime + vancomycin for now;continue and adjust based on cultures and ID reccs LEANNE drain dressing and knee immobilizer in place. PICC consent obtained anticipating 6 weeks IV abx at home; await formal reccs from ID; if needed, order PICC to be placed Tachycardic Episodes History of SVT, Mild Aortic Regurgitation: reportedly had runs of tachycardia with exertion at , ranging 130-170. No episodes at [place] since arrival Each incidence of tachycardia resolved without intervention. EKG NSR w/ sinus arrhythmia; no ischemic changes Trop negative. ECHO 11/24 w/ LVEF=60-65%, grade I diastolic dysfunction, trace AR. 11/24: Started on Metoprolol Succinate 12.5 PO BID; will stop Lisinopril Low threshold for Cardiology consultation HTN: Chronic 1+ BLE pitting edema on exam. Continue home Lasix, K+ Stop Lisinopril since starting betablocker monitor; consider Cardiology consult if needed Anemia: Chronic Hgb 10.2 on admission; baseline 12 Hgb 9.1 on 11/25 Fe+16; will start oral Fe+ replacement. Ganzoni defecit 1220mg. 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 SSI regimen while inpatient. BSG checks ACHS. CC, HH diet. HA1c 6.8 Hypothyroidism: TSH 0.943. Continue levothyroxine. Morbid obesity BMI 41 Other Chronic Medical Conditions: Gout, HLD, depression, seasonal allergies, asthma, GERD --> Can continue home meds for these specific conditions. CPAP HS for DANNIE. Disposition: DVT Prophylaxis: SQ Lovenox Code Status: FULL CODE PCP: BAILEE Peña Admitted in Med/Surg + Telemetry I spent a total of 56 minutes coordinating, documenting, and providing care for this patient excluding time spent in the performance of separately billed services. This included personally reviewing all current laboratories and imaging studies, medical reconciliation, outpatient chart review and discussion with specialists. This chart was completed in part utilizing Speech Voice Recognition Software. Grammatical errors, random word insertions, pronoun errors, and incomplete sentences are an occasional consequence of this system due to software limitations, ambient noise, and hardware issues. Any formal questions or concerns about the content, text, or information contained within the body of this dictation should be directly addressed to the provider for clarification. Admission and Anticipated Discharge Date Admission Date: November 25, 2023 Subjective Pt sitting in her hospital bed in no apparent distress. She denies TOLBERT, dizziness, chest pain, palpitations, N/V/D Left knee in immobilizer. B/L +2 pedal pulses No episodes of SVT overnight Review of Systems Review of Systems: Neuro: (-) Falls, trauma, slurred speech HEENT: (-) TOLBERT, dizziness, dysphagia, visual or auditory changes CV: (-) CP, palpitations, swelling Resp: (-) SOB GI: (-) appetite changes, N/V/D, bowel changes : (-) urinary changes Skin: (-) rashes Psych: (-) anxiety, depression Physical Exam Physical Exam: Neuro: AAOx4, PERRLA, no aphagia, memory changes, CNII-XII grossly intact HEENT: head normocephalic, moist mucus membranes CV: S1/S2, (-) M/G/R, (-) edema, cap refill < 3 seconds Resp: Lungs CTA in all granda. On RA GI: Abdomen S/NT/ND, Ax4 bowel sounds, (-) CVA tenderness Musculoskeletal: 5/5 B/L UE strength, 5/5 B/L LE strength. Left knee immobilizer in place Skin: (-) rashes , (-) erythema. Psych: euthymic mood Results & Data Results & Data Vital Signs (Past 12 Hours) Vital Signs Temp Pulse Pulse Resp BP Pulse Ox O2 Del Method 11/26/23 05:41 73 11/26/23 02:30 84 14 94 11/26/23 02:16 36.7 C 79 18 111/66 95 Room Air, CPAP 11/25/23 23:28 90 14 96 11/25/23 23:21 84 11/25/23 22:37 36.5 C 83 18 96/61 L 97 Room Air 11/25/23 19:34 36.7 C 83 18 117/70 95 Room Air FiO2 11/26/23 05:41 11/26/23 02:30 21 11/26/23 02:16 11/25/23 23:28 21 11/25/23 23:21 11/25/23 22:37 11/25/23 19:34 Laboratory Results Short CBC 11/25/23 11/26/23 Range/Units 15:21 05:33 WBC 7.13 5.12 (4.8-10.8) K/ul Hgb 10.2 L 9.1 L (12.0-16.0) g/dl Hct 32.6 L 29.5 L (37.0-47.0) % Plt Count 126 L 119 L (130-400) K/uL BMP 11/25/23 11/26/23 15:21 05:33 Sodium 136 Potassium 4.7 Chloride 106 Carbon Dioxide 27 BUN 22 Creatinine 0.97 1.16 Glucose 117 H Calcium 8.6
[2023-11-26 07:42] LABS: Estimated Average Glucose 143 mg/dl; Hemoglobin A1C 6.6 % (4.5-5.6)
[2023-11-26] MEDS: POLYETHYLENE (MIRALAX) 17 GM PACK PO PRN (08:26)
--- NOTE | 2023-11-26 08:26 | Infectious Disease Consult ---
Date of Consultation November 26, 2023 Assessment & Plan (1) Infection of left knee: (2) Knee pain, left: Plan #Left knee infection #OR cultures Pending 67 yo F with h/o complicated left total knee infection, initial s/p L TKA 03/30/23, post operatively developed a wound infection for which she was placed on cefadroxil. She began having drainage again on 07/07/23 and given 2 additional weeks of cefadroxil for which the wound healed. Then again on 10/11/23 she developed a fluid filled bister and then went I+D on October [address] Enrique for what appeared to be a "water-filled blister, and the area was aspirated by Dr. Enrique. At that time the decision was made to do a superficial wound I&D of the area on October 13 with placement of iodoform packing. She followed up postoperatively and had the packing removed a few days later and continued on cephalexin - She presented to [facility] ER on 11/18 due to increasing pain, Xray showed loosening of tibial component. She went to [facility] surgery, there on 11/23/23 she underwent I&D and removal of implants with placement of antibiotic spacer. H/e TF to [facility] for tachycardia as there was no Cardiology on site. Currently on Vancomycin and Cefepime Prior MICRO 11/22 OR culture GPC 10/13 Left knee wound cx Pseudomonas panS 10/11/23 Lef knee wound cx PSA panS RECOMMEND: -Please obtain cultures from OR at [facility] once we have those cultures with sensi then can outline regimen -C/W Vancomycin -C/W Cefepime Anticipate [address] PICC line Pamela Carias MD Infectious Diseases Consultation Information Consultation was provided via telemedicine using two-way real-time interactive telecommunication between the patient and the telemedicine provider. For the duration of the visit, the provider was performing the assessment from a different facility than the patient. This includesuse of bluetooth stethoscope forauscultationperformed by the telepresenter that the telemedicine provider can hear if described in the physical exam. Proof Coin Collector contact information: Please call [facility] [place] . (Phone Number For Physician Use Only) After establishing a telemedicine visit, patient was: Patient was verified with two unique identifiers, Patient/authorized rep acknowledged consent and understanding and Gave permission to continue telehealth session Time Spent with Patient: Initial => 55 min History of Present Illness Reason for Consultation: knee infection Requesting Physician: Dr. Richter Attending Physician: Med Richter DO History of Present Illness 67 yo F with h/o complicated left total knee infection, initial s/p L TKA 03/30/23, post operatively developed a wound infection for which she was placed on cefadroxil. She began having drainage again on 07/07/23 and given 2 additional weeks of cefadroxil for which the wound healed. Then again on 10/11/23 she developed a fluid filled bister and then went I+D on October [address] Enrique for what appeared to be a "water-filled blister, and the area was aspirated by Dr. Enrique. At that time the decision was made to do a superficial wound I&D of the area on October 13 with placement of iodoform packing. She followed up postoperatively and had the packing removed a few days later and continued on cephalexin - She presented to [facility] ER on 11/18 due to increasing pain, Xray showed loosening of tibial component. She went to [facility] surgery, there on 11/23/23 she underwent I&D and removal of implants with placement of antibiotic spacer. H/e TF to [facility] for tachycardia as there was no Cardiology on site. Currently on Vancomycin and Cefepime Prior MICRO 11/22 OR culture GPC 10/13 Left knee wound cx Pseudomonas panS 10/11/23 Left knee wound cx PSA panS Allergies Allergy/AdvReac Type Severity Reaction Status Date / Time No Known Drug Allergies Allergy Unknown Verified 11/21/23 12:26 Home Medications Medication Instructions Recorded Confirmed Type albuterol sulfate 90 mcg/actuation 2 puffs inhalation Q4H PRN Wheezing 09/11/19 11/25/23 History aerosol inhaler allopurinol 100 mg tablet See Rx Instructions .Route .COMPLEX 09/11/19 11/25/23 History allopurinol 300 mg tablet See Rx Instructions .Route .COMPLEX 09/11/19 11/25/23 History fluticasone propionate 50 2 sprays intranasal DAILY PRN 09/11/19 11/25/23 History mcg/actuation nasal Congestion spray,suspension (Flonase Allergy Relief) furosemide 20 mg tablet (Lasix) 20 mg PO QAM 09/11/19 11/25/23 History ipratropium 0.5 mg-albuterol 3 mg 3 ml inhalation Q4H PRN Wheezing 09/11/19 11/25/23 History (2.5 mg base)/3 mL nebulization soln levothyroxine 25 mcg tablet 25 mcg PO QAM 09/11/19 11/25/23 History (Levoxyl) montelukast 10 mg tablet 10 mg PO QAM 09/11/19 11/25/23 History (Singulair) omeprazole magnesium 20 mg 20 mg PO QAM 09/11/19 11/25/23 History tablet,delayed release (Prilosec OTC) sodium chloride 0.65 % nasal spray 2 sprays intranasal BID PRN 09/11/19 11/25/23 History aerosol (Crosby Nasal) Congestion triamcinolone acetonide 0.1 % 1 appln topical BID PRN Rash 09/11/19 11/25/23 History topical cream OneTouch Verio Flex Start #1 ea 09/22/19 11/25/23 Rx (blood-glucose meter) citalopram 40 mg tablet (Celexa) 40 mg PO QAM 05/02/20 11/25/23 History OneTouch Verio test strips (blood #300 ea 03/03/22 11/25/23 Rx sugar diagnostic) atorvastatin 10 mg tablet 10 mg PO QAM 12/28/22 11/25/23 History levocetirizine 5 mg tablet (Xyzal) 5 mg PO QAM 12/28/22 11/25/23 History cholecalciferol (vitamin D3) 125 5,000 unit PO QAM 03/23/23 11/25/23 History mcg (5,000 unit) capsule lisinopril 10 mg tablet 10 mg PO DAILY 03/23/23 11/25/23 History OneTouch Delica Plus Lancet 33 #100 ea 03/30/23 11/25/23 Rx gauge (lancets) docusate sodium 100 mg capsule 100 mg PO BID #20 caps 03/31/23 11/25/23 Rx semaglutide 0.25 mg or 0.5 mg (2 0.5 mg (0.736 mL) subcut Q7D #3 mL 10/04/23 11/25/23 Rx mg/3 mL) subcutaneous pen injector (Ozempic) celecoxib 200 mg capsule 200 mg PO QAM 11/21/23 11/25/23 History iron,carbonyl 65 mg-vitamin C 125 1 tab PO QAM 11/21/23 11/25/23 History mg tablet,delayed release (Vitron-C) meloxicam 15 mg tablet 15 mg PO DAILY 11/21/23 11/25/23 History naproxen 500 mg tablet 500 mg PO BID PRN pain #14 tabs 11/21/23 11/25/23 Rx potassium chloride 20 mEq 20 meq PO DAILY 11/21/23 11/25/23 History tablet,extended release(part/cryst) (Klor-Con M) sumatriptan succinate 50 mg tablet 100 mg PO UD 11/21/23 11/25/23 History metformin 1,000 mg tablet 1,000 mg PO BID 11/25/23 11/25/23 History oxycodone 5 mg tablet 5 - 10 mg PO Q6H PRN Pain 11/25/23 11/25/23 History Patient History Medical History Hx of basal cell carcinoma Hx of melanoma of skin Spinal stenosis Arthritis GERD (gastroesophageal reflux disease) Hypothyroidism Diabetes mellitus, type 2 NIDDM Depression Leaky heart valve Stress echo 08/2019: Mild AR Hyperlipidemia History of COVID-2020, not hospitalized Sleep apnea CPAP (compliant) Gout Surgical History Hx of basal cell carcinoma excision S/P right knee arthroscopy S/P left knee arthroscopy History of colonoscopy H/O melanoma excision face Family History Mother Diabetes Father Diabetes Brother Diabetes Brother Diabetes Other No family history of adverse response to anesthesia Social History Smoking Status: Never smoker Second Hand Exposure: No; Do You Dip or Chew Tobacco: No; Tobacco Cessation Education Requested by Patient: No Hx Alcohol Use: Yes Alcohol type: hard liquor Hx Substance Use: No Preferred Language: Nigerian Communication Ability: Effective Stock Driver Required: No Beliefs That Will Affect Care: None Current Living Situation: Alone Other Information That Helps Us Care for You: No Feels Safe at Home: Yes Safety Concerns: Feels Safe At This Time Assistive Devices: CPAP and Walker Physical Exam Physical Exam: NAD Wound bandage on, no surrounding erythema OOB to chair Results & Data Vital Signs (Past 12 Hours) Vital Signs Temp Pulse Pulse Resp BP Pulse Ox O2 Del Method 11/26/23 07:40 36.8 C 84 16 109/62 97 Room Air 11/26/23 05:41 73 11/26/23 02:30 84 14 94 11/26/23 02:16 36.7 C 79 18 111/66 95 Room Air, CPAP 11/25/23 23:28 90 14 96 11/25/23 23:21 84 11/25/23 22:37 36.5 C 83 18 96/61 L 97 Room Air FiO2 11/26/23 07:40 11/26/23 05:41 11/26/23 02:30 21 11/26/23 02:16 11/25/23 23:28 21 11/25/23 23:21 11/25/23 22:37 Laboratory Results Laboratory Results - last 48 hr 11/25/23 11/25/23 11/25/23 13:23 13:24 15:21 WBC 7.13 RBC 4.51 Hgb 10.2 L Hct 32.6 L MCV 72.3 L MCH 22.6 L MCHC 31.3 L RDW Std Deviation 42.7 RDW Coeff of Soraya 16.9 H Plt Count 126 L MPV 10.3 Immature Gran % (Auto) 0.3 Neut % (Auto) 56.3 Lymph % (Auto) 28.9 Bryan % (Auto) 7.0 Eos % (Auto) 7.2 Baso % (Auto) 0.3 Neut # (Auto) 4.02 Lymph # (Auto) 2.06 Bryan # (Auto) 0.50 Eos # (Auto) 0.51 H Baso # (Auto) 0.02 Immature Gran # (Auto) 0.02 ESR 50 H Sodium Potassium Chloride Carbon Dioxide Anion Gap BUN Creatinine 0.97 Est Cr Clr Drug Dosing 65.4 Est GFR ( Amer) 71.0 Est GFR (Non-Af Amer) 61.3 BUN/Creatinine Ratio Glucose POC Glucose 114 H Estimat Average Glucose Hemoglobin A1c Calcium Phosphorus 3.6 Magnesium 1.6 L Iron TIBC Unsaturated IBC Transferrin % Sat Ferritin Troponin I High Sens 2.6 C-Reactive Protein 8.50 H Vitamin B12 Folate TSH 0.943 Nasal Screen MRSA (PCR) Negative 11/25/23 11/25/23 11/26/23 17:04 20:36 05:33 WBC 5.12 RBC 4.05 L Hgb 9.1 L Hct 29.5 L MCV 72.8 L MCH 22.5 L MCHC 30.8 L RDW Std Deviation 43.4 RDW Coeff of Soraya 16.7 H Plt Count 119 L MPV 11.0 Immature Gran % (Auto) Neut % (Auto) Lymph % (Auto) Bryan % (Auto) Eos % (Auto) Baso % (Auto) Neut # (Auto) Lymph # (Auto) Bryan # (Auto) Eos # (Auto) Baso # (Auto) Immature Gran # (Auto) ESR Sodium 136 Potassium 4.7 Chloride 106 Carbon Dioxide 27 Anion Gap 3 BUN 22 Creatinine 1.16 Est Cr Clr Drug Dosing 54.6 Est GFR ( Amer) 57.2 Est GFR (Non-Af Amer) 49.4 BUN/Creatinine Ratio 19.0 Glucose 117 H POC Glucose 110 H 88 Estimat Average Glucose 143 Hemoglobin A1c 6.6 H Calcium 8.6 Phosphorus 3.3 Magnesium 2.1 Iron 16 L TIBC 229 L Unsaturated IBC 213 Transferrin % Sat 7 L Ferritin 124.3 Troponin I High Sens C-Reactive Protein Vitamin B12 331 Folate 13.40 TSH Nasal Screen MRSA (PCR) 11/26/23 08:01 WBC RBC Hgb Hct MCV MCH MCHC RDW Std Deviation RDW Coeff of Soraya Plt Count MPV Immature Gran % (Auto) Neut % (Auto) Lymph % (Auto) Bryan % (Auto) Eos % (Auto) Baso % (Auto) Neut # (Auto) Lymph # (Auto) Bryan # (Auto) Eos # (Auto) Baso # (Auto) Immature Gran # (Auto) ESR Sodium Potassium Chloride Carbon Dioxide Anion Gap BUN Creatinine Est Cr Clr Drug Dosing Est GFR ( Amer) Est GFR (Non-Af Amer) BUN/Creatinine Ratio Glucose POC Glucose 122 H Estimat Average Glucose Hemoglobin A1c Calcium Phosphorus Magnesium Iron TIBC Unsaturated IBC Transferrin % Sat Ferritin Troponin I High Sens C-Reactive Protein Vitamin B12 Folate TSH Nasal Screen MRSA (PCR) Medications Administered Current Inpatient Medications Acetaminophen (Acetaminophen 325 Mg Tab) 650 mg PO Q4H PRN PRN Reason: pain/fever Stop: 12/25/23 10:53 Al Hydrox/Mg Hydrox/Simethicone (Aluminum/Magnesium Susp 30 Ml Udc) 30 ml PO Q6H PRN PRN Reason: Dyspepsia Stop: 12/25/23 10:53 Albuterol (Albut/Ipratrop 3mg/0.5mg Neb 3 Ml Vial) 3 ml INH Q4H PRN; Protocol PRN Reason: Wheezing/SOB Stop: 12/25/23 15:51 Allopurinol (Allopurinol 100 Mg Tab) 100 mg PO DAILY FISH Stop: 12/26/23 08:59 Allopurinol (Allopurinol 300 Mg Tab) 300 mg PO DAILY FISH Stop: 12/26/23 08:59 Ascorbic Acid (Ascorbic Acid 500 Mg Tab) 500 mg PO QAM [facility] Stop: 12/26/23 08:59 Atorvastatin Calcium (Atorvastatin 10 Mg Tab) 10 mg PO QAM [facility] Stop: 12/26/23 08:59 Cetirizine HCl (Cetirizine Hcl 10 Mg Tablet) 10 mg PO QAM [facility] Stop: 12/26/23 08:59 Citalopram Hydrobromide (Citalopram 40 Mg Tab) 40 mg PO QAM [facility] Stop: 12/26/23 08:59 Dextrose (Dextrose 50% 50 Ml Syringe) 25 - 50 ml IV UD PRN; Protocol PRN Reason: Hypoglycemia Protocol Stop: 12/25/23 13:57 Docusate Sodium (Docusate Sodium 100 Mg Cap) 100 mg PO BID FISH Stop: 12/25/23 20:59 Last Admin: 11/25/23 20:28 Dose: 100 mg Enoxaparin Sodium (Enoxaparin Inj 40 Mg/0.4 Ml Syr) 40 mg SQ Q12H FISH Stop: 12/25/23 14:14 Last Admin: 11/26/23 02:20 Dose: 40 mg Ferrous Sulfate (Ferrous Sulfate 325 Mg Tab) 1 mg PO QAM FISH Stop: 12/26/23 08:59 Furosemide (Furosemide 20 Mg Tab) 20 mg PO QAM FISH Stop: 12/26/23 08:59 Glucagon (Glucagon For Inj 1 Mg Vial) 1 mg SQ UD PRN; Protocol PRN Reason: Hypoglycemia Protocol Stop: 12/25/23 13:57 Glucose (Glucose 40% Gel 15 Gm Tube) 15 - 30 gm PO UD PRN; Protocol PRN Reason: Hypoglycemia Protocol Stop: 12/25/23 13:57 Glucose (Glucose 10 Tab/Tube) 4 - 8 tab PO UD PRN; Protocol PRN Reason: Hypoglycemia Treatment Stop: 12/25/23 13:57 Cefepime HCl 2,000 mg/ Syringe 20 mls @ 5 mls/min IV Q8H FISH; Protocol Stop: 01/06/24 13:59 Last Admin: 11/26/23 05:30 Dose: 5 mls/min Promethazine HCl (Phenergan) 6.25 mg in 50.25 mls @ 201 mls/hr IV Q6H PRN PRN Reason: Nausea And Vomiting Stop: 12/25/23 10:53 Vancomycin HCl 750 mg/ Sodium (Chloride) 265 mls @ 200 mls/hr IV Q12H [facility] Stop: 01/07/24 02:59 Last Infusion: 11/26/23 07:03 Dose: Infused Insulin Aspart (Insulin Aspart Per Unit Charge) 0 units SC ACHS [facility] Stop: 12/25/23 16:29 Last Admin: 11/25/23 20:36 Dose: Not Given Lactobacillus Acidophilus (Advanced Probiotic 625 Mg Capsule) 1,250 mg PO DAILY FISH Stop: 12/25/23 14:14 Last Admin: 11/25/23 14:46 Dose: 1,250 mg Levothyroxine Sodium (Levothyroxine Sodium 25 Mcg Tablet) 25 mcg PO DAILYBB [facility] Stop: 12/26/23 06:29 Last Admin: 11/26/23 05:30 Dose: 25 mcg Lisinopril (Lisinopril 10 Mg Tab) 10 mg PO DAILY [facility] Stop: 12/26/23 08:59 Magnesium Hydroxide (Magnesium Hydroxide Susp 30 Ml Udc) 30 ml PO Q6H PRN PRN Reason: Constipation Stop: 12/25/23 10:53 Miscellaneous (Carbohydrates For Hypoglycemia ) 15 - 30 gm PO UD PRN PRN Reason: Hypoglycemia Protocol Stop: 12/25/23 13:57 Miscellaneous Information (Vancomycin Consult Active) 1 each N/A UD PRN PRN Reason: Consult Stop: 12/25/23 10:47 Montelukast Sodium (Montelukast Sodium 10 Mg Tablet) 10 mg PO QAM [facility] Stop: 12/26/23 08:59 Oxycodone/Acetaminophen (Oxycodone/Acetaminophen 5mg/325mg Tab) 1 tab PO Q6H PRN PRN Reason: Mod-Sev Pain (Scale 4-10) Stop: 12/09/23 13:55 Last Admin: 11/25/23 23:30 Dose: 1 tab Pantoprazole Sodium (Pantoprazole 40 Mg Tab) 40 mg PO QAM [facility] Stop: 12/26/23 08:59 Polyethylene Glycol (Polyethylene (Miralax) 17 Gm Pack) 17 gm PO DAILY PRN PRN Reason: Constipation Stop: 12/25/23 10:53 Potassium Chloride (Potassium Chloride Crtab 20 Meq Tabcr) 20 meq PO DAILY FISH Stop: 12/26/23 08:59 Vitamin D (Cholecalciferol 125 Mcg (5,000 Units) Tab) 125 mcg PO QAM FISH Stop: 12/26/23 08:59
[2023-11-26] MEDS: FERROUS SULFATE 325 MG TAB PO SCH ×2 (08:28→15:57)
[2023-11-26] MEDS: allopurinoL 300 MG TAB PO SCH (08:28)
[2023-11-26] MEDS: PANTOprazole 40 MG TAB PO SCH (08:28)
[2023-11-26] MEDS: FUROSEMIDE 20 MG TAB PO SCH (08:28)
[2023-11-26] MEDS: allopurinoL 100 MG TAB PO SCH (08:28)
[2023-11-26] MEDS: CETIRIZINE HCL 10 MG TABLET PO SCH (08:28)
[2023-11-26] MEDS: CHOLECALCIFEROL 125 MCG (5,000 UNITS) TAB PO SCH (08:28)
[2023-11-26] MEDS: CITALOPRAM 40 MG TAB PO SCH (08:28)
[2023-11-26] MEDS: ATORVASTATIN 10 MG TAB PO SCH (08:28)
[2023-11-26] MEDS: lisinopril 10 MG TAB PO SCH (08:28)
[2023-11-26] MEDS: ASCORBIC ACID 500 MG TAB PO SCH (08:28)
[2023-11-26] MEDS: MONTELUKAST SODIUM 10 MG TABLET PO SCH (08:29)
[2023-11-26] MEDS: POTASSIUM CHLORIDE CRTAB 20 MEQ TABCR PO SCH (08:30)
[2023-11-26] MEDS: METOPROLOL SUCC 25MG EXT REL TAB PO SCH (11:26)
[2023-11-26] MEDS: ACETAMINOPHEN 325 MG TAB PO PRN (12:14)
--- NOTE | 2023-11-26 13:17 | Electrocardiogram Report ---
Test Reason : Blood Pressure : */* mmHG Vent. Rate : 81 BPM Atrial Rate : 81 BPM P-R Int : 168 ms QRS Dur : 82 ms QT Int : 366 ms P-R-T Axes : 31 10 21 degrees QTcB Int : 425 ms Normal sinus rhythm with sinus arrhythmia Low voltage QRS Possible Inferior infarct , age undetermined Abnormal ECG When compared with ECG of 09-Nov-2022 17:30, Criteria for Septal infarct are no longer Present Borderline criteria for Inferior infarct are now Present Confirmed by Dhaval Crump ([id number]) on 11/26/2023 1:16:41 PM Referred By: Chris Tam Confirmed By: Dhaval Crump
--- NOTE | 2023-11-26 13:54 | Electrocardiogram Report ---
Test Reason : Blood Pressure : */* mmHG Vent. Rate : 78 BPM Atrial Rate : 78 BPM P-R Int : 162 ms QRS Dur : 80 ms QT Int : 374 ms P-R-T Axes : 43 90 -7 degrees QTcB Int : 426 ms Normal sinus rhythm Rightward axis T wave abnormality, consider inferior ischemia Abnormal ECG When compared with ECG of 25-Nov-2023 14:40, (unconfirmed) Questionable change in QRS axis Confirmed by Dhaval Crump ([id number]) on 11/26/2023 1:54:23 PM Referred By: Chris Tam Confirmed By: Dhaval Crump
[2023-11-26] MEDS: CEFEPIME 2,000 MG in SYRINGE 0 ML IV SCH (18:20)
[2023-11-26] MEDS: VANCOMYCIN HCL 1,000 MG in SODIUM CHLORIDE 0.9% 250 ML IV SCH (21:08)
[2023-11-27 06:29] LABS: Hematocrit (blood only) 31.6 % (37.0-47.0); Hemoglobin 9.6 g/dl (12.0-16.0); Mean Corpuscular Hemoglobin 22.6 pg (25.0-34.0); Mean Corpuscular Hgb Conc 30.4 g/dL (32.0-36.0); Mean Corpuscular Volume 74.4 fL (80.0-100.0); Mean Platelet Volume 10.1 fL (9.4-12.4); Platelet Count 116 K/uL (130-400); RDW Coefficient of Variation 16.9 % (11.5-14.5); RDW Standard Deviation 44.7 fL (36.4-46.3); Red Blood Count 4.25 M/uL (4.20-5.40); White Blood Count 5.05 K/ul (4.8-10.8)
[2023-11-27 06:45] LABS: BUN Creatinine Ratio 20.7 (10-20); Calcium 8.8 mg/dl (8.6-10.3); Creatinine Clr Calc Pharmacy 52.4 ml/min; Est GFR (African American) 54.4 ml/min; Est GFR (Non-African American) 46.9 ml/min; Potassium 4.9 mmol/L (3.5-5.1)
--- NOTE | 2023-11-27 11:21 | Orthopedic Progress Note ---
Date of Service November 27, 2023 Assessment & Plan (1) Infection of left knee: Plan: Postop day 4 status post explant infected left TKA hardware with implantation of antibiotic spacer. PT/OT protocols. Partial weightbearing left lower extremity with immobilizer on at all times. DVT prophylaxis-enoxaparin 40 mg SQ q12 hours Pain management as written Cultures from [facility] have been [facility]. [facility] phone # [phone]; ask for laboratory) Verbal reading showed cultures of the hardware showing rare Pseudomonas aeruginosa, synovial fluid showing a rare Pseudomonas aeruginosa, and tissue showing rare Pseudomonas aeruginosa. They have sensitivities but the person I spoke to was unable to see them at that time. Currently they are planning on faxing the results of all cultures to [facility]. Cultures from previous aspirate and superficial I&D showing Pseudomonas aeruginosa pansensitive. Currently on cefepime and vancomycin. Infectious disease team to make final recommendations for antibiotics after reviewing [facility] cultures. Patient will require 6 weeks of IV antibiotics and PICC line insertion. Guero dressing to be removed in 3 days. Admission and Anticipated Discharge Date Admission Date: November 25, 2023 Subjective Postop day 4 Patient sitting up in bed awake and alert. States she is having a little bit of knee soreness this morning but it is tolerable. Pain has been controlled. No other complaints this morning. Patient states that she has been up to the bathroom several times on her own with walker. Physical Exam Physical Exam: Immobilizer in place. Loosened to check out her dressing. Guero dressing is clean, dry, and intact. Functioning well. Swelling consistent with surgery. Essentially no erythema. Calves are soft nontender. Neurovascular is intact. Toes are mobile. She has good dorsiflexion and plantarflexion of her left foot. Hemovac drain has been removed. Results & Data Vital Signs (Past 12 Hours) Vital Signs Temp Pulse Pulse Resp BP Pulse Ox O2 Del Method 11/27/23 07:41 37.0 C 70 20 117/76 93 Room Air 11/27/23 05:42 78 11/27/23 03:53 82 14 97 11/27/23 03:47 36.7 C 82 16 108/63 97 CPAP 11/26/23 23:57 36.5 C 80 16 104/59 L 94 CPAP 11/26/23 23:34 79 Laboratory Results 11/27/23 11/27/23 11/26/23 Range/Units 08:28 05:45 20:17 WBC 5.05 (4.8-10.8) K/ul RBC 4.25 (4.20-5.40) M/uL Hgb 9.6 L (12.0-16.0) g/dl Hct 31.6 L (37.0-47.0) % MCV 74.4 L (80.0-100.0) fL MCH 22.6 L (25.0-34.0) pg MCHC 30.4 L (32.0-36.0) g/dL RDW Std Deviation 44.7 (36.4-46.3) fL RDW Coeff of Soraya 16.9 H (11.5-14.5) % Plt Count 116 L (130-400) K/uL MPV 10.1 (9.4-12.4) fL Sodium 137 (136-145) mmol/L Potassium 4.9 (3.5-5.1) mmol/L Chloride 106 (98-107) mmol/L Carbon Dioxide 26 (21-32) mmol/L Anion Gap 5 (3-11) BUN 25 H (6-23) mg/dl Creatinine 1.21 H (0.6-1.2) mg/dl Est Cr Clr Drug Dosing 52.4 ml/min Est GFR ( Amer) 54.4 ml/min Est GFR (Non-Af Amer) 46.9 ml/min BUN/Creatinine Ratio 20.7 H (10-20) Glucose 119 H (70-99(Fasting)) mg/dl POC Glucose 124 H 105 H (70-99) mg/dl Calcium 8.8 (8.6-10.3) mg/dl 11/26/23 11/26/23 Range/Units 16:51 12:09 WBC (4.8-10.8) K/ul RBC (4.20-5.40) M/uL Hgb (12.0-16.0) g/dl Hct (37.0-47.0) % MCV (80.0-100.0) fL MCH (25.0-34.0) pg MCHC (32.0-36.0) g/dL RDW Std Deviation (36.4-46.3) fL RDW Coeff of Soraya (11.5-14.5) % Plt Count (130-400) K/uL MPV (9.4-12.4) fL Sodium (136-145) mmol/L Potassium (3.5-5.1) mmol/L Chloride (98-107) mmol/L Carbon Dioxide (21-32) mmol/L Anion Gap (3-11) BUN (6-23) mg/dl Creatinine (0.6-1.2) mg/dl Est Cr Clr Drug Dosing ml/min Est GFR ( Amer) ml/min Est GFR (Non-Af Amer) ml/min BUN/Creatinine Ratio (10-20) Glucose (70-99(Fasting)) mg/dl POC Glucose 135 H 137 H (70-99) mg/dl Calcium (8.6-10.3) mg/dl
--- NOTE | 2023-11-27 12:16 | Hospitalist Progress Note ---
Date of Service November 27, 2023 Assessment & Plan (1) Infection of prosthetic left knee joint: (2) Paroxysmal SVT (supraventricular tachycardia): (3) Hypothyroidism: (4) Diabetes mellitus, type 2: (5) Sleep apnea: Plan Patient overall doing well. Continue current antibiotics as recommended by infectious disease Attempt to get final cultures and sensitivities from [facility], nursing staff to get results faxed Continue therapies Continue metoprolol, patient tolerating well, no recurrent SVT Continue to monitor glucose and manage with insulin Anticipate PICC line placement today Care management to coordinate home antibiotics when final plans arranged by infectious disease [facility] to [facility] Admission and Anticipated Discharge Date Admission Date: November 25, 2023 Subjective Patient reports pain is well-controlled. No chest pain or palpitations Physical Exam Physical Exam: Constitutional: Alert HEENT: Mucous membranes moist. Lungs: Clear to auscultation, decreased, no wheezes rales or rhonchi CV: S1-S2, regular Abdomen: Soft, nontender, nondistended Extremities: No significant edema, left lower extremity in immobilizer Neuro: No focal deficits Psych: Cooperative, normal mood Results & Data Results & Data Vital Signs (Past 12 Hours) Vital Signs Temp Pulse Pulse Resp BP Pulse Ox O2 Del Method 11/27/23 11:42 36.8 C 80 16 119/71 95 Room Air 11/27/23 07:41 37.0 C 70 20 117/76 93 Room Air 11/27/23 05:42 78 11/27/23 03:53 82 14 97 11/27/23 03:47 36.7 C 82 16 108/63 97 CPAP Diagnostic Findings Reviewed imaging, laboratory and diagnostic studies. Pertinent findings as below. Hemoglobin 9.6, stable Creatinine 1.2 Verbal report from [facility] as surgical specimen/microbiology from 11/23/2023 growing rare amounts of Pseudomonas
[2023-11-28] MEDS: METOPROLOL TARTRATE 25 MG TAB PO STA ×2 (00:21→02:12)
[2023-11-28] MEDS: SODIUM CHLORIDE 0.9% 500 ML IV SCH ×2 (02:26→03:52)
[2023-11-28] MEDS: SODIUM CHLORIDE 0.9% 1,000 ML IV SCH (04:54)
[2023-11-28 05:54] LABS: Creatinine Clr Calc Pharmacy 63.7 ml/min; Est GFR (African American) 68.5 ml/min; Est GFR (Non-African American) 59.1 ml/min
--- NOTE | 2023-11-28 09:36 | Pharmacy Report ---
Pharmacy PK ABX Note - Date of Service November 28, 2023 - Assessment and Plan Assessment 67 year old F is a direct admit from OSH for further medical management of a periprosthetic left knee joint. Initial arthroplasty of the knee was done March 2023 and since then patient has had recurrent non-healing superficial wounds at the incision cite which resulted in multiple revisions and I&Ds. Most recently (11/22) a left knee I&D was done with removal of the implant and placem ent of an antibiotic spacer. * Pseudomonas grew on left knee cultures dated 10/11/23 and 10/14/23. * Cefepime has also continues * Per ID, anticipate 6 weeks of abx Day # 4 of antimicrobial therapy. Plan Vancomycin * Current regimen: 1000 mg IV every 18 hours * Random level obtained 11/28/23 resulted as 12.5 mcg/mL. This is predicted to achieve lower end of target AUC/JACLYN of 400-600 mg/L.hr (433 mg/L.hr) * Will adjust regimen to q24 hours as well in anticipation of discharge. Change to 1500 mg IV every 24 hours. Predicted AUC at steady state: 522 mg/L.hr * Repeat random level ordered for: 11/30/23 with AM labs. Pharmacy will continue to follow and will adjust dose/frequency as necessary. Thank you. Pharmacy has transitioned to AUC monitoring for vancomycin. AUC/JACLYN is the preferred PK/PD target and is associated with decreased risk of nephrotoxicity compared to traditional trough targets.
[2023-11-28] MEDS ORDERED: VANCOMYCIN HCL 1,250 MG in SODIUM CHLORIDE 0.9% 250 ML IV SCH (10:00)
[2023-11-28] MEDS: VANCOMYCIN HCL 1,500 MG in SODIUM CHLORIDE 0.9% 500 ML IV SCH (10:04)
[2023-11-28] MEDS: VANCOMYCIN LEVEL ONE (10:57)
--- NOTE | 2023-11-28 12:58 | Hospitalist Progress Note ---
Date of Service November 28, 2023 Assessment & Plan (1) Infection of prosthetic left knee joint: (2) Paroxysmal SVT (supraventricular tachycardia): (3) Hypothyroidism: (4) Diabetes mellitus, type 2: (5) Sleep apnea: Plan Patient with prosthetic joint infection, prosthetic joint removed at [facility]. [facility] cultures no growth to date Patient with some sinus tachycardia overnight, resolved with fluid hydration. Hold diuretics Continue beta-richardson Confirm with infectious disease final antibiotics recommendations given that no growth has been obtained from most recent cultures at [facility]. PICC line placed, discharged home when antibiotics coordinated, anticipate 6 weeks Admission and Anticipated Discharge Date Admission Date: November 25, 2023 Subjective Patient [place] any chest pain or shortness of breath. Overnight had some tachycardia that resolved with fluid resuscitation. Physical Exam Physical Exam: Constitutional: Alert, nontoxic HEENT: Mucous membranes moist. Lungs: Clear to auscultation, decreased, no wheezes rales or rhonchi CV: S1-S2, regular Abdomen: Soft, nontender, nondistended Extremities: Left lower extremity in immobilizer Neuro: No focal deficits Psych: Cooperative, normal mood Results & Data Results & Data Vital Signs (Past 12 Hours) Vital Signs Temp Pulse Resp BP Pulse Ox O2 Del Method 11/28/23 08:15 Room Air 11/28/23 07:12 36.7 C 75 18 112/67 96 Room Air 11/28/23 05:45 72 98 Room Air 11/28/23 03:26 111 H 107/62 11/28/23 01:41 120 H 11/28/23 01:31 122 H 116/78 Diagnostic Findings Reviewed imaging, laboratory and diagnostic studies. Pertinent findings as be low. Reviewed fax from [facility], cultures from most recent surgical intervention no growth
[2023-11-28] MEDS: CEFEPIME 2,000 MG in SYRINGE 0 ML IV SCH (14:25)
[2023-11-29] MEDS: METOPROLOL TARTRATE 25 MG TAB PO STA (00:31)
[2023-11-29] MEDS: SODIUM CHLORIDE 0.9% 500 ML IV SCH (02:00)
--- NOTE | 2023-11-29 07:42 | Infectious Disease Progress Nt ---
Date of Service November 29, 2023 Assessment & Plan (1) Infection of left knee: (2) Knee pain, left: Plan #Left knee infection #OR cultures Pending 67 yo F with h/o complicated left total knee infection, initial s/p L TKA 03/30/23, post operatively developed a wound infection for which she was placed on cefadroxil. She began having drainage again on 07/07/23 and given 2 additional weeks of cefadroxil for which the wound healed. Then again on 10/11/23 she developed a fluid filled bister and then went I+D on October [address] Enrique for what appeared to be a "water-filled blister, and the area was aspirated by Dr. Enrique. At that time the decision was made to do a superficial wound I&D of the area on October 13 with placement of iodoform packing. She followed up postoperatively and had the packing removed a few days later and continued on cephalexin - She presented to [facility] on 11/18 due to increasing pain, Xray showed loosening of tibial component. She went to [facility] surgery, there on 11/23/23 she underwent I&D and removal of implants with placement of antibiotic spacer. H/e TF to [facility] for tachycardia as there was no Cardiology on site. Currently on Vancomycin and Cefepime Prior MICRO 11/22 OR culture GPC 10/13 Left knee wound cx Pseudomonas panS 10/11/23 Lef knee wound cx PSA panS RECOMMEND: -Please obtain cultures from OR at [facility] once we have those cultures with sensi then can outline regimen Will confirm with primary care team today as some notes states Pseudomonas from OR cx from 11/22 - -C/W Vancomycin -C/W Cefepime Anticipate [address] PICC line Paemla Carias MD Infectious Diseases Admission and Anticipated Discharge Date Admission Date: November 25, 2023 Subjective Subsequent visit was provided via telemedicine using two-way real-time interactive telecommunication between the patient and the telemedicine provider. For the duration of the visit, the provider was performing the assessment from a different facility than the patient. This includesuse of bluetooth stethoscope forauscultationperformed by the telepresenter that the telemedicin e provider can hear if described in the physical exam. Economics Lecturer contact information: Please call [facility] [phone]. (Phone Number For Physician Use Only) After establishing a telemedicine visit, patient was: Patient was verified with two unique identifiers, Patient/authorized rep acknowledged consent and under standing and Gave permission to continue telehealth session Time Spent with Patient: Subsequent => 35 min Results & Data Vital Signs (Past 12 Hours) Vital Signs Temp Pulse Pulse Resp BP Pulse Ox O2 Del Method 11/29/23 07:18 36.6 C 80 16 129/75 96 Room Air 11/29/23 03:10 74 16 108/64 96 Room Air 11/29/23 03:09 78 17 95 11/29/23 01:50 121 H 16 113/73 96 Room Air 11/29/23 00:10 121 H 95 Room Air 11/28/23 23:16 123 H 128/70 95 Room Air 11/28/23 23:11 123 H 14 95 11/28/23 21:55 121 H 118/73 95 Room Air 11/28/23 19:56 36.8 C 120 H 16 122/72 95 Room Air FiO2 11/29/23 07:18 11/29/23 03:10 11/29/23 03:09 21 11/29/23 01:50 11/29/23 00:10 11/28/23 23:16 11/28/23 23:11 21 11/28/23 21:55 11/28/23 19:56 Laboratory Results Laboratory Results - last 48 hr 11/27/23 11/27/23 11/27/23 08:28 12:11 17:08 Creatinine Est Cr Clr Drug Dosing Est GFR ( Amer) Est GFR (Non-Af Amer) POC Glucose 124 H 117 H 123 H Random Vancomycin 11/27/23 11/28/23 11/28/23 20:24 05:23 07:41 Creatinine 1.00 Est Cr Clr Drug Dosing 63.7 Est GFR ( Amer) 68.5 Est GFR (Non-Af Amer) 59.1 POC Glucose 88 110 H Random Vancomycin 12.5 11/28/23 11/28/23 11/28/23 11:35 16:44 20:23 Creatinine Est Cr Clr Drug Dosing Est GFR ( Amer) Est GFR (Non-Af Amer) POC Glucose 136 H 92 122 H Random Vancomycin
[2023-11-29 07:49] LABS: Creatinine Clr Calc Pharmacy 71.6 ml/min; Est GFR (African American) 78.8 ml/min
--- NOTE | 2023-11-29 08:24 | Communication Note ---
Date of Service: November 29, 2023 Spoke with the laboratory at [facility] this morning. Cultures from left knee I&D with removal of the implant with placement of antib iotic spacer on 11/23/[address] Enrique are growing rare Pseudomonas aeruginosa. Still awaiting sensitivities at this time. Records are to be sent over from [facility] this morning.
--- NOTE | 2023-11-29 10:23 | Infectious Disease Progress Nt ---
Date of Service November 29, 2023 Assessment & Plan Admission and Anticipated Discharge Date Admission Date: November 25, 2023 Subjective Subsequent visit was provided via telemedicine using two-way real-time interactive telecommunication between the patient and the telemedicine provider. For the duration of the visit, the provider was performing the assessment from a different facility than the patient. This includesuse of bluetooth stethoscope forauscultationperformed by the telepresenter that the telemedicine provider can hear if described in the physical exam. Day Care Aide contact information: Please call [facility] . (Phone Number For Physician Use Only) After establishing a telemedicine visit, patient was: Patient was verified with two unique identifiers, Patient/authorized rep acknowledged consent and understanding and Gave permission to continue telehealth session Time Spent with Patient: Subsequent => 35 min Patient feeling well No acute events PICC line placed Results & Data Vital Signs (Past 12 Hours) Vital Signs Temp Pulse Pulse Resp BP Pulse Ox O2 Del Method 11/29/23 07:18 36.6 C 80 16 129/75 96 Room Air 11/29/23 03:10 74 16 108/64 96 Room Air 11/29/23 03:09 78 17 95 11/29/23 01:50 121 H 16 113/73 96 Room Air 11/29/23 00:10 121 H 95 Room Air 11/28/23 23:16 123 H 128/70 95 Room Air 11/28/23 23:11 123 H 14 95 FiO2 11/29/23 07:18 11/29/23 03:10 11/29/23 03:09 21 11/29/23 01:50 11/29/23 00:10 11/28/23 23:16 11/28/23 23:11 21 Laboratory Results Laboratory Results - last 48 hr 11/27/23 11/27/23 11/27/23 12:11 17:08 20:24 Creatinine Est Cr Clr Drug Dosing Est GFR ( Amer) Est GFR (Non-Af Amer) POC Glucose 117 H 123 H 88 Random Vancomycin 11/28/23 11/28/23 11/28/23 05:23 07:41 11:35 Creatinine 1.00 Est Cr Clr Drug Dosing 63.7 Est GFR ( Amer) 68.5 Est GFR (Non-Af Amer) 59.1 POC Glucose 110 H 136 H Random Vancomycin 12.5 11/28/23 11/28/23 11/29/23 16:44 20:23 07:20 Creatinine 0.89 Est Cr Clr Drug Dosing 71.6 Est GFR ( Amer) 78.8 Est GFR (Non-Af Amer) 68.0 POC Glucose 92 122 H Random Vancomycin 11/29/23 07:50 Creatinine Est Cr Clr Drug Dosing Est GFR ( Amer) Est GFR (Non-Af Amer) POC Glucose 116 H Random Vancomycin
--- NOTE | 2023-11-29 14:57 | Hospitalist Progress Note ---
<Statement entered by Med Richter, DO - 11/29/23 16:38> I have seen and examined the patient and have discussed the case with the provider above. I have reviewed the advanced practitioner's documentation, and I agree with, and take responsibility for that plan of care. 15 minutes spent on coordination of care Patient with asymptomatic sinus tachycardia overnight. Resolved with fluid bolus. Again reviewed echocardiogram no concerning findings Continue current metoprolol Continue to encourage oral hydration Coordinated home antibiotics as outlined below Plan of care as outlined below, anticipate discharge home tomorrow with home antibiotics Date of Service November 29, 2023 Assessment & Plan (1) Infection of left knee: (2) Paroxysmal SVT (supraventricular tachycardia): Plan Aly Wade is a 67y/o F with PMHx of DM type II, hypothyroidism, gout, HLD, DANNIE on CPAP, lung nodule, asthma, grade I diastolic dysfunction, HTN, SVT, mild aortic regurgitation, esophageal reflux, migraines, thrombocytopenia, anxiety, malignant melanoma s/p Mohs surgery, depression, elevated LFTs and other problems listed below who was a direct admission from [facility] on 11/25/23 for further medical management of a periprosthetic left knee joint infection and episodes of sustained tachycardia. Patient underwent left total knee arthroplasty performed by Dr. Lars Enrique in March 2023 at [facility]. Approximately 6 to 8 weeks post-op, patient developed a superficial wound issue with a stitch abscess. 2cm of suture material was removed at that time and the area did heal. Then approximately 6 weeks later she had a similar issue just distal to the first area where another portion of the absorbable suture had to be removed. Patient then did well again until the end of September/early October. Patient had developed a superficial wound at the most proximal aspect of her surgical incision site. She has since then undergone multiple revisions plus I&Ds as a result of the recurrent non-healing superficial wounds at the incision site. Previous wound cultures from the site have grown Pseudomonas aeruginosa. Patient was seen at [facility] ED on 11/21/23 for left knee pain and left knee XR noted hardware loosening in addition to a large joint effusion with soft tissue swelling. Was ultimately then transferred to [facility] as a direct admission from our ED. Patient underwent left knee I&D with removal of the implant with placement of antibiotic spacer on 11/23/[address] Enrique. 11/29/23 Spoke with the lab at [facility] this morning. Intraoperative cultures and sensitivities from operation on 11/23/23 were faxed over. Cultures reviewed --> growing rare Pseudomonas aeruginosa. Scanned results relayed via SeeWhy to Dr. Pamela Carias [ID] who recommended the following: * Discontinue IV vancomycin. C/W IV cefepime 2G TID x 6 weeks through 01/03/24. * Weekly CBC with diff, CMP while on IV cefepime therapy. Prescription for IV therapy given to CM this afternoon. Waiting to hear back from [facility] to see when medication can be delivered. Infection of Left Knee Joint: Patient had PICC line placed in her upper R anterior arm on 11/28/23. Vancomycin discontinued as per above. Plan to continue IV cefepime per ID recommendations as outlined above. Tachycardic Episodes History of SVT, Mild Aortic Regurgitation: Patient reportedly had runs of tachycardia with exertion at [facility]. She never had any symptoms. Each incidence of tachycardia resolved without intervention. Echo done 11/25/23 revealed LVEF=60-65%, grade I diastolic dysfunction, trace AR. She was started on metoprolol succinate 12.5mg po BID on 11/24. LISINOPRIL ST OPPED. Patient did have some episode of tachycardia overnight that resolved s/p po metoprolol tartrate 25mg x 1 dose. HTN: Holding home diuretics. Continue metoprolol succinate. 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 Chronic Anemia: Hgb 10.2 on admission, baseline Hgb ~12 per chart review. Iron level was 16 on anemia work-up, continue iron supplementation. 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 SSI regimen while inpatient. BSG checks ACHS. CC, HH diet. Hgb A1c 6.8% this admission. Other Chronic Medical Conditions: Gout, hypothyroidism, HLD, depression, seasonal allergies, asthma, GERD --> Can continue home meds for these specific conditions. CPAP HS for DANNIE. DVT Prophylaxis: SQ Lovenox Code Status: FULL CODE PCP: BAILEE Peña Disposition: Admitted in Med/Surg + Telemetry --> ? Possible discharge home tomorrow if IV antibiotic therapy can be arranged through [facility]. Patient seen in collaboration with Dr. Richter. Please see addendum. I spent a total of 50 minutes coordinating, documenting, and providing care for this patient excluding time spent in the performance of separately billed services. This included personally reviewing all current laboratories and imaging studies, medical reconciliation, outpatient chart review and discussion with specialists. This chart was completed in part utilizing Speech Voice Recognition Software. Grammatical errors, random word insertions, pronoun errors, and incomplete sentences are an occasional consequence of this system due to software limitations, ambient noise, and hardware issues. Any formal questions or concerns about the content, text, or information contained within the body of this dictation should be directly addressed to the provider for clarification. Admission and Anticipated Discharge Date Admission Date: November 25, 2023 Subjective Patient seen and examined at bedside in room N384-2. She spoke with Dr. Carias [infectious disease] this morning. Agreeable with IV cefepime x 6wk therapy at home. Pain is well-controlled at this time. Has no major concerns or questions at this time. No chest pain, SOB or palpitations. Review of Systems Review of Systems: At least ten systems reviewed and negative, except as noted in the HPI. Physical Exam Physical Exam: General: WD/WN, vitals as above, NAD, sitting up in bed, pleasant, conversing. A+Ox3, euthymic affect. HEENT: Normocephalic, atraumatic. PERRL, conjunctivae normal, anicteric sclerae, oropharynx normal. Respiratory: Normal respiratory effort, lungs clear to auscultation, no wheeze, rales, rhonchi. No accessory muscle use. Cardiovascular: Regular rate, rhythm, no murmur, normal peripheral pulses, no BLE edema. Vessels: No JVD. Abdomen/GI: Normal bowel sounds, soft, nontender, no hepatosplenomegaly. Extremities/Musculoskeletal: No cyanosis or clubbing, LLE in knee immobilizer. Neurologic: EOMI, no focal deficits, CN's II-XI not formally tested but appear grossly intact bilaterally. Skin: No rashes, normal color, warm/dry. Results & Data Results & Data Vital Signs (Past 12 Hours) Vital Signs Temp Pulse Pulse Resp BP Pulse Ox O2 Del Method 11/29/23 14:30 36.6 C 86 16 144/77 H 98 Room Air 11/29/23 07:18 36.6 C 80 16 129/75 96 Room Air 11/29/23 03:10 74 16 108/64 96 Room Air 11/29/23 03:09 78 17 95 FiO2 11/29/23 14:30 11/29/23 07:18 11/29/23 03:10 11/29/23 03:09 21 Laboratory Results [facility] 11/29/23 07:20 Creatinine 0.89
[2023-11-29 19:52] VITALS: O2SAT 97
--- NOTE | 2023-11-30 05:59 | Electrocardiogram Report ---
Test Reason : Blood Pressure : */* mmHG Vent. Rate : 122 BPM Atrial Rate : 122 BPM P-R Int : 224 ms QRS Dur : 82 ms QT Int : 300 ms P-R-T Axes : * 15 31 degrees QTcB Int : 427 ms Sinus tachycardia with 1st degree A-V block Otherwise normal ECG When compared with ECG of 26-Nov-2023 06:40, MD interval has increased Vent. rate has increased by 44 bpm Questionable change in QRS axis Nonspecific T wave abnormality has replaced inverted T waves in Inferior leads Confirmed by Vitor Gonzalez ([id number]) on 11/30/2023 5:58:52 AM Referred By: Chris Tam Confirmed By: Vitor Gonzalez
[2023-11-30 07:25] VITALS: RESP 16; TEMP 97.5
[2023-11-30 07:38] LABS: Basophils # (auto) 0.04 K/uL (0.00-0.20); Basophils % (auto) 0.8 %; Eosinophils # (auto) 0.53 K/uL (0.00-0.50); Eosinophils % (auto) 10.4 %; Hematocrit (blood only) 32.3 % (37.0-47.0); Hemoglobin 9.6 g/dl (12.0-16.0); Immature Granulocytes # (auto) 0.04 K/uL (0.01-0.20); Immature Granulocytes % (auto) 0.8 %; Lymphocytes % (auto) 35.4 %; Mean Corpuscular Hemoglobin 22.1 pg (25.0-34.0); Mean Corpuscular Hgb Conc 29.7 g/dL (32.0-36.0); Mean Corpuscular Volume 74.3 fL (80.0-100.0); Mean Platelet Volume 10.2 fL (9.4-12.4); Monocytes # (auto) 0.43 K/uL (0.11-0.59); Monocytes % (auto) 8.4 %; Neutrophils # (auto) 2.25 K/uL (1.40-6.50); Neutrophils % (auto) 44.2 %; Platelet Count 141 K/uL (130-400); RDW Coefficient of Variation 17.6 % (11.5-14.5); RDW Standard Deviation 45.5 fL (36.4-46.3); Red Blood Count 4.35 M/uL (4.20-5.40); White Blood Count 5.09 K/ul (4.8-10.8)
[2023-11-30 08:03] LABS: Albumin Globulin Ratio 1.6 (0.9-2); Albumin Level 3.7 gm/dl (3.4-5.0); BUN Creatinine Ratio 21.5 (10-20); Bilirubin,Total 0.4 mg/dl (0.2-1.0); Calcium 9.1 mg/dl (8.6-10.3); Creatinine Clr Calc Pharmacy 80.7 ml/min; Est GFR (Non-African American) 78.6 ml/min; Globulin 2.3 gm/dl (2.5-4.0); Magnesium 1.7 mg/dl (1.7-2.4); Phosphorus 3.8 mg/dl (2.5-4.9); Potassium 4.5 mmol/L (3.5-5.1)
--- NOTE | 2023-11-30 10:01 | Discharge Summary ---
<Statement entered by Med Richter, DO - 11/30/23 13:56> I have seen and examined the patient and have discussed the case with the provider above. I have reviewed the advanced practitioner's documentation, and I agree with, and take responsibility for that plan of care. 8 minutes spent on evaluation patient coordinating care Patient doing well. No pain. Anxious to get home. Home IV antibiotics have been arranged. Discharge plans as outlined below Date of Service November 30, 2023 Admission HPI Per Admitting Provider Aly Wade is a 67y/o F with PMHx of DM type II, hypothyroidism, gout, HLD, DANNIE on CPAP, lung nodule, asthma, grade I diastolic dysfunction, HTN, SVT, mild aortic regurgitation, esophageal reflux, migraines, thrombocytopenia, anxiety, malignant melanoma s/p Mohs surgery, depression, elevated LFTs and other problems listed below who is a direct admission from [facility] for further medical management of a periprosthetic left knee joint infection and episodes of sustained tachycardia. Transfer was favored as a result of no available infectious disease or cardiology services at [facility]. Transfer was coordinated with the assistance of Anabelle Rehman and Boubacar Carreno MD [[facility]]. Patient underwent left total knee arthroplasty performed by Dr. Lars Enrique in March 2023 at [facility]. Approximately 6 to 8 weeks post-op, patient developed a superficial wound issue with a stitch abscess. 2cm of suture material was removed at that time and the area did heal. Then approximately 6 weeks later she had a similar issue just distal to the first area where another portion of the absorbable suture had to be removed. Patient then did well again until the end of September/early October. Patient had developed a superficial wound at the most proximal aspect of her surgical incision site. She has since then undergone multiple revisions plus I&Ds as a result of the recurrent non-healing superficial wounds at the incision site. Previous wound cultures from the site have grown Pseudomonas aeruginosa. Patient was seen at [facility] ED on 11/21/23 for left knee pain and left knee XR noted hardware loosening in addition to a large joint effusion with soft tissue swelling. Was ultimately then transferred to [facility] as a direct admission from our ED. Patient underwent left knee I&D with removal of the implant with placement of antibiotic spacer on 11/23/[address] Enrique. Patient was not on IV antibiotic therapy at [facility] at time of discussion with transfer center. She received 1 dose of IV vancomycin pre-operatively and 2 doses of IV vancomycin post-operatively. She now has a LEANNE drain dressing in place on her left knee surgical site. Patient mentions repeated left knee infections as per above. Reports sensitivity to absorbable sutures as the main culprit for her incision not healing appropriately. Experiences left knee pain intermittently. Has been taking oxycodone for pain PRN. Patient reportedly had runs of tachycardia with exertion at [facility]. According to Dr. Carreno, patient had episodes where her HR increased to the 170s and sustained for a short period of time. Each incidence of tachycardia resolved without intervention. Patient mentions that she did not experience any symptoms during the episodes of tachycardia. No palpitations, SOB or chest pain recorded. Admission Exam Per Admitting Provider General Appearance: Morbidly obese, no apparent distress Head: normocephalic, Atraumatic Eyes: normal inspection, EOMI Neck: supple, Trachea midline Respiratory/Chest: Normal breath sounds, CTA, No accessory muscle use Cardiovascular: S1, S2, ? Faint murmur Abdomen/GI:Soft, Non tender, Bowel sounds present Extremities/Musculoskeletal:normal inspection, 1+edema, left knee immobilizer,+ wound VAC Neurologic/Psych:AAOX3, grossly no focal neurological deficits Skin: normal color, warm Principal Diagnosis Left Knee Joint Infection, Paroxysmal SVT Discharge Exam General: WD/WN, vitals as above, NAD, sitting up in bed, pleasant, conversing. A+Ox3, euthymic affect. HEENT: Normocephalic, atraumatic. PERRL, conjunctivae normal, anicteric sclerae, oropharynx normal. Respiratory: Normal respiratory effort, lungs clear to auscultation, no wheeze, rales, rhonchi. No accessory muscle use. Cardiovascular: Regular rate, rhythm, no murmur, normal peripheral pulses, no BLE edema. Vessels: No JVD. Abdomen/GI: Normal bowel sounds, soft, nontender, no hepatosplenomegaly. Extremities/Musculoskeletal: No cyanosis or clubbing, LLE in knee immobilizer, LEANNE dressing in place. Neurologic: EOMI, no focal deficits, CN's II-XI not formally tested but appear grossly intact bilaterally. Skin: No rashes, normal color, warm/dry. Discharge Data Allergies Allergy/AdvReac Type Severity Reaction Status Date / Time No Known Drug Allergies Allergy Unknown Verified 11/21/23 12:26 Consultations 11/25/23 10:57 Consult Orthopedic Surgery Routine 11/25/23 14:09 Consult Infectious Diseases Routine 11/29/23 07:33 HIM [Consult Health Information Management] Routine Hospital Course (1) Infection of left knee: (2) Paroxysmal SVT (supraventricular tachycardia): Mau Wade is a 67y/o F with PMHx of DM type II, hypothyroidism, gout, HLD, DANNIE on CPAP, lung nodule, asthma, grade I diastolic dysfunction, HTN, SVT, mild aortic regurgitation, esophageal reflux, migraines, thrombocytopenia, anxiety, malignant melanoma s/p Mohs surgery, depression, elevated LFTs and other problems listed below who was a direct admission from [facility] on 11/25/23 for further medical management of a periprosthetic left knee joint infection and episodes of sustained tachycardia. Transfer was favored as a result of no available infectious disease or cardiology services at [facility]. Infection of Left Knee Joint: Patient underwent left total knee arthroplasty performed by Dr. Lars Enrique in March 2023 at [facility]. Approximately 6 to 8 weeks post-op, patient developed a superficial wound issue with a stitch abscess. 2cm of suture material was removed at that time and the area did heal. Then approximately 6 weeks later she had a similar issue just distal to the first area where another portion of the absorbable suture had to be removed. Patient then did well again until the end of September/early October. Patient had developed a superficial wound at the most proximal aspect of her surgical incision site. She has since then undergone multiple revisions plus I&Ds as a result of the recurrent non-healing superficial wounds at the incision site. Previous wound cultures from the site have grown Pseudomonas aeruginosa. Patient was seen at [facility] ED on 11/21/23 for left knee pain and left knee XR noted hardware loosening in addition to a large joint effusion with soft tissue swelling. Was ultimately then transferred to [facility] as a direct admission from our ED. Patient underwent left knee I&D with removal of the implant with placement of antibiotic spacer on 11/23/[address] Enrique. Patient was not on IV antibiotic therapy at [facility] at time of discussion with transfer center. She received 1 dose of IV vancomycin pre-operatively and 2 doses of IV vancomycin post-operatively. She now has a LEANNE drain dressing in place on her left knee surgical site. Left knee XR on admission showed antibiotic spacer, soft tissue swelling and soft tissue gas. MRSA screen was negative, ESR was elevated at 50. Patient was started on IV cefepime and vancomycin initially. ID was consulted. Received patient's cultures and sensitivities from [facility] on 11/29/2023. Cultures were growing rare Pseudomonas aeruginosa sensitive to cefepime. Vancomycin was discontinued on 11/29/23 per ID. ID recommended patient complete 6-week course of IV cefepime 2g TID through 01/03/2024. PICC line was placed on 11/28/23 in the anterior right upper arm. Blood culture shows NGTD. Patient is being discharged home with [facility] and [facility]. Will need weekly CBC with differential and CMP while on ABX therapy per ID's recommendation. This will be coordinated by the patient's PCP. She is scheduled to see her PCP [BAILEE Rodrigues] on 12/03/2023 at 2:20PM. Tachycardic Episodes History of SVT, Mild Aortic Regurgitation: Patient reportedly had runs of tachycardia with exertion at [facility]. She never had any symptoms. Each incidence of tachycardia resolved without intervention. Echo done 11/25/23 revealed LVEF=60-65%, grade I diastolic dysfunction, trace AR. She was started on metoprolol succinate 12.5mg po BID on 11/24. Her home lisinopril was STOPPED at that time. HTN: Continue metoprolol succinate 12.5mg BID at time of discharge. Chronic Anemia: Hgb 9.6 at time of discharge. Patient can continue her iron supplementation at time of discharge. Close PCP follow-up as per above. DM Type II: On SSI regimen while admitted. Hgb A1c 6.8% this admission. Can continue her previous home regimen at time of discharge. Other Chronic Medical Conditions: Gout, hypothyroidism, HLD, depression, seasonal allergies, asthma, GERD --> Can continue home meds for these specific conditions at time of discharge. Also continue CPAP HS for DANNIE. PCP: BAILEE Peña Disposition: Patient is being discharged home with IV cefepime therapy (as per above) arranged by [facility]. [facility] will be assisting the patient with administering the ABX. Patient seen in collaboration with Dr. Richter. Please see addendum. I spent a total of 70 minutes coordinating, documenting, and providing care for this patient excluding time spent in the performance of separately billed services. This included personally reviewing all current laboratories and imaging studies, medical reconciliation, outpatient chart review and discussion with specialists. This chart was completed in part utilizing Speech Voice Recognition Software. Gr ammatical errors, random word insertions, pronoun errors, and incomplete sentences are an occasional consequence of this system due to software limitations, ambient noise, and hardware issues. Any formal questions or concerns about the content, text, or information contained within the body of this dictation should be directly addressed to the provider for clarification. Home Health Attestation I certify that this patient is under my care and that I, or a physicians high school assistant principal working with me, had a face to-face encounter that meets the home health [id number] encounter requirements with this patient. The encounter with the patient was in whole, or in part, for the following medical condition, which is the primary reason for home health care (list medical condition): left knee joint infection; home IV antibiotic therapy I certify that, based on my findings, the following services are medically necessary home health services: My clinical findings support the need for the above services because: Medication Compliance and Monitoring Effective of New Medications Medication Home Theatre Technician Incision for Infection Skilled Nsg Assessment Skilled Nsg Assessment Surgical Incision / Wound Skilled Nsg Instruction New Medications Skilled Nsg to Assess, Perform and Teach Wound Care S/S to Report to Provider Weekly Labs Further, I certify that my clinical findings support that this patient is homebound (i.e. absences from home require considerable and taxing effort and are for medical reasons or congregation services or infrequently or of short duration when for other reasons) because: Supportive Aid - Walker Transportation Assistance/Unable to Leave Home Unassisted Certification for Home Health Services: Based on the above findings, I certify that this patient is confined to the home and needs intermittent senior care care, physical therapy and/or speech therapy or continues to need occupational therapy. The patient is under my care, and I have initiated the establishment of the plan of care. This patient will be followed by a physician who will periodically review the plan of care. Total Time Total Time Spent Total Time Spent (In Minutes): 70 Discharge Plan Discharge Items Patient Disposition: Home - Self-Care Reason For Visit: Periprosthetic L Knee Joint Infection Discharge Diagnosis: Left Knee Joint Infection Condition on Discharge: Good Activity: Per Instructions section Non-emergency contact: Primary Care Provider Call non-emergency contact if: you have any medication questions, your pain is not controlled and you have a fever Follow-up/Referrals: Beatris Ruggiero CRNP [Primary Care Provider] - (DATE AND TIME: Wednesday (12/03/2023) @ 2:20PM Provider - BAILEE Rodrigues Patient will need WEEKLY CBC w/ diff and CMP while on IV cefepime!) Diet: Regular Addtl Attending Provider Instructions: Deepak De La Cruz were admitted to the hospital for treatment of a left knee joint infection. We started you on IV antibiotics during your hospitalization. You are being discharged home today and will be completing a 6-WEEK COURSE of IV cefepime therapy through JANUARY 03, 2024. [facility] will be visiting you this afternoon to assist with setting up your IV therapy equipment and managing your PICC line. Your antibiotic will be delivered today by [facility] and [facility] will help you administer your first dose. You will have WEEKLY lab work done while you are on your antibiotic regimen, including CBC with diff and CMP. Your primary care provider (PCP) will help manage this. You are scheduled to see BAILEE Rodrigues at 2:20PM on 12/03/2023. Please attend this hospital discharge follow-up appointment as scheduled. You were also started on METOPROLOL SUCCINATE 12.5MG TWICE DAILY during your hospitalization as you were diagnosed with paroxysmal supraventricular tachycardia. A prescription for this medication will be sent to your pharmacy. Please take this medication as prescribed and attend your PCP follow-up appointment above as scheduled. We STOPPED your LISINOPRIL 10MG DAILY while you were admitted. You will no longer be taking this medication! You can continue taking all of your other home medications as prescribed. You are being prescribed a DAILY PROBIOTIC to take while on IV antibiotic therapy. MEDICATION CHANGES: * START TAKING METOPROLOL SUCCINATE 12.5MG TWICE DAILY! * STOP TAKING LISINOPRIL 10MG DAILY! * CONTINUE TO TAKE A DAILY PROBIOTIC WHILE ON IV ANTIBIOTIC THERAPY! SEEK MEDICAL ATTENTION IF YOU HAVE: * temperature above 101F * chest pain or trouble breathing * abdominal pain, nausea, vomiting * diarrhea, dark stools or bloody stools * any unanswered questions or concerns Call [phone] if symptoms are severe. Please take good care of yourself. It has been a pleasure taking care of you. If you have any questions regarding your recent hospitalization please contact [facility] and request Jennifer Akosuaist @ [phone]. Addtl Thread Grinder Provider Instructions: ACTIVITY RECOMMENDATIONS: SELF CARE INSTRUCTIONS AFTER SURGERY A. You can do partial weight bearing on your leg with the immobilizer on. Leave immobilizer on at all times but can loosen when sitting for comfort. B. You may shower, no tub baths until cleared by your doctor. C. LEANNE Dressing- This is a large suction dressing covering your incision. This will help pull any excess drainage from the wound and allow your incision to heal properly. You may shower with this if you can keep the unit outside of the shower. If any bleeding or leakage is noted please call your doctor's office. This will remain on your incision for 7 days and then should be removed. This can be done yourself or by the home nursing staff if applicable. The entire unit is disposable once removed. Once removed, keep incision clean and dry. If redness or drainage is noted, please call your surgeon. SPECIAL CARE INSTRUCTIONS: VERY IMPORTANT TO READ AND REVIEW A. There are a few signs you need to watch for after you are home. Call [facility] if you notice any of the followin. Increased severe knee pain. Some pain is expected especially when you exercise. 2. Increased swelling in your leg or knee; pain or swelling of the calf muscle in either lower leg. 3. Any fluid drainage from the incision. 4. Shortness of breath or chest pain. B. Please call [facility] at if you have any concerns or questions about your operation or recovery. The doctor or his nurse will return your call promptly. IMPORTANT: * DVT prophylaxis that was prescribed by primary team. * will need 6 weeks of IV antibiotics * CALL IF INCREASED PAIN, REDNESS, DRAINAGE OR FEVER GREATER THAT 101. * WEAR JUANA HOSE 20 HOURS PER DAY FOR 2 WEEKS. FOLLOW UP VISIT: If appointment is not already scheduled: Please call [facility] to make a follow-up appointment for 2 weeks after your surgery at . Pending Studies at Discharge: No Stand-Alone Forms: My [facility], Smoking Cessation Medications and DC Order Prescriptions: New metoprolol succinate 25 mg Tablet Extended Release 24 Hr 12.5 mg PO BID Qty: 60 0RF Lactobacillus acidophilus 1 billion cell capsule 1,000 mmu cells PO DAILY Qty: 60 0RF Continued (DME) blood-glucose meter [Sentence LabTouch Verio Flex Start] Kit See Rx Instructions .ROUTE .MEDSUPPLY Qty: 1 0RF Rx Instructions: As directed (DME) OneTouch Verio test strips Strip See Rx Instructions .ROUTE .MEDSUPPLY Qty: 300 3RF Rx Instructions: test blood sugar 3 x daily (DME) lancets [OneTouch Delica Plus Lancet] 33 gauge misc See Rx Instructions .ROUTE .COMPLEX Qty: 100 11RF Dose Instruction: TEST BLOOD SUGAR 3 X DAILY Rx Instructions: TEST BLOOD SUGAR 3 X DAILY Ozempic 0.25 mg or 0.5 mg (2 mg/3 mL) pen injector 0.5 mg subcut Q7D Qty: 3 3RF Rx Instructions: Tuesdays allopurinol 100 mg tablet See Rx Instructions .ROUTE .COMPLEX Rx Instructions: Take 100mg with 300 mg tab for total daily dose of 400 mg every morning allopurinol 300 mg tablet See Rx Instructions .ROUTE .COMPLEX Rx Instructions: Take 300mg with 100mg to equal 400mg every morning montelukast [Singulair] 10 mg tablet 10 mg PO QAM omeprazole magnesium [Prilosec OTC] 20 mg tablet,delayed release (DR/EC) 20 mg PO QAM levothyroxine [Levoxyl] 25 mcg tablet 25 mcg PO QAM fluticasone propionate [Flonase Allergy Relief] 50 mcg/actuation spray,suspension 2 sprays INTNAS DAILY PRN (Reason: Congestion) triamcinolone acetonide 0.1 % cream 1 appln TOP BID PRN (Reason: Rash) sodium chloride [[place] Nasal] 0.65 % aerosol,spray 2 sprays INTNAS BID PRN (Reason: Congestion) albuterol sulfate 90 mcg/actuation HFA aerosol inhaler 2 puffs INH Q4H PRN (Reason: Wheezing) ipratropium-albuterol 0.5 mg-3 mg(2.5 mg base)/3 mL solution for nebulization 3 ml INH Q4H PRN (Reason: Wheezing) furosemide [Lasix] 20 mg tablet 20 mg PO QAM citalopram [Celexa] 40 mg tablet 40 mg PO QAM levocetirizine [Xyzal] 5 mg Tablet 5 mg PO QAM atorvastatin 10 mg tablet 10 mg PO QAM Rx Instructions: TAKE 1 TABLET BY MOUTH EVERY DAY cholecalciferol (vitamin D3) 125 mcg (5,000 unit) capsule 5,000 unit PO QAM docusate sodium 100 mg Capsule 100 mg PO BID Qty: 20 0RF metformin 1,000 mg tablet 1,000 mg PO BID oxycodone 5 mg tablet 5 - 10 mg PO Q6H PRN (Reason: Pain) celecoxib 200 mg capsule 200 mg PO QAM meloxicam 15 mg tablet 15 mg PO DAILY sumatriptan succinate 50 mg tablet 100 mg PO UD Rx Instructions: TAKE 2 TABLETS BY MOUTH AT ONSET OF MIGRAINE. TAKE 1 TABLET EVERY 2 HRS NEEDED. MAX 5 PER 24 HRS. potassium chloride [Klor-Con M20] 20 mEq tablet,ER particles/crystals 20 meq PO DAILY Vitron-C 65 mg iron- 125 mg tablet,delayed release (DR/EC) 1 tab PO QAM naproxen 500 mg tablet 500 mg PO BID PRN (Reason: pain) Qty: 14 0RF Discontinued lisinopril 10 mg Tablet 10 mg PO DAILY Discharge Orders: Discharge Order (Routine); Ordered 11/30/23 Ordered By: Mary Alonzo Admission Data Admit Date/Time: 11/25/23 10:54 Attending Provider: Med Richter Admit Provider: Chris Tam Primary Care Provider: Beatris Ruggiero Other Providers: Tyrell Palacios; Lars Enrique; Jessie Macedo; Pamela Carias; Gracia Peace; Dillon Colby; Lisa Mccarty; Katy Wei
[2023-11-30 11:08] VITALS: BP 105/60; PULSE 134
== END 2023-11-30 12:51 | disposition home health service (06) | DRG 560 ==
LOC: SUATTDRO 10:54 → 2N 10:54 → 3N 11-27 23:32

== ENCOUNTER 2023-12-15 10:55 | Inpatient (IN) ==
[2023-12-15] MEDS: ONDANSETRON INJ 2 MG/ML 2 ML VIAL ONE (12:17)
[2023-12-15] MEDS: ONDANSETRON INJ 2 MG/ML 2 ML VIAL IV STA (12:17)
[2023-12-15] MEDS: SODIUM CHLORIDE 0.9% 500 ML IV ONE (12:17)
[2023-12-15 12:18] LABS: Basophils # (auto) 0.08 K/uL (0.00-0.20); Basophils % (auto) 1.8 %; Eosinophils # (auto) 0.61 K/uL (0.00-0.50); Eosinophils % (auto) 13.7 %; Hematocrit (blood only) 36.4 % (37.0-47.0); Lymphocytes % (auto) 29.1 %; Mean Corpuscular Hemoglobin 22.9 pg (25.0-34.0); Mean Corpuscular Hgb Conc 30.2 g/dL (32.0-36.0); Mean Corpuscular Volume 75.7 fL (80.0-100.0); Mean Platelet Volume 10.2 fL (9.4-12.4); Monocytes # (auto) 0.38 K/uL (0.11-0.59); Monocytes % (auto) 8.5 %; Neutrophils # (auto) 2.09 K/uL (1.40-6.50); Neutrophils % (auto) 46.9 %; Platelet Count 82 K/uL (130-400); RDW Coefficient of Variation 18.8 % (11.5-14.5); RDW Standard Deviation 51.4 fL (36.4-46.3); Red Blood Count 4.81 M/uL (4.20-5.40); White Blood Count 4.46 K/ul (4.8-10.8)
--- NOTE | 2023-12-15 12:20 | XRay Report ---
XR chest 1V portable HISTORY: 68 years-old Female weakness acute weakness COMPARISON: 11/25/2023 TECHNIQUE: AP view of the chest FINDINGS: Status post placement of a right-sided PICC, distal tip in the expected location of the upper to mid SVC. No pneumothorax or effusion. The lungs are clear. Heart size is normal. Bones appear grossly int act. Chronic appearing right-sided rib fractures. IMPRESSION: 1. No acute process. 2. Status post placement of a right-sided PICC. 3. No pneumothorax. ACT 112: Negative or not required by law. The above report was generated using voice recognition software. It may contain grammatical, syntax o r spelling errors. Electronically signed by: Shahid Baugh M.D. 12/15/2023 12:19 PM
--- NOTE | 2023-12-15 12:23 | Emergency Department Note ---
Impression & Plan NIKITA (acute kidney injury), Infection of prosthetic left knee joint ED Provider Note Provider: Sandeep Nunn MD DATE OF SERVICE: 12/15/2023 CHIEF COMPLAINT: Worsened kidney function HISTORY OF PRESENT ILLNESS: Patient is a 68-year-old female history of type 2 diabetes, hyperlipidemia, grade 1 diastolic dysfunction, hypertension, SVT, migraines, anxiety, and complicated the left knee replacement status post infection and surgery by Dr. Enrique last month here currently on IV cefepime at home for Pseudomonas from the infected knee presenting here referred by outpatient doctor due to worsening blood work. Has been having some outpatient blood work. Kidney function noted from blood work yesterday to be worse with a creatinine of 2. Patient states he does not hydrate that well. Maybe a few chills here there and a little bit of pressure in the ears but denies significant cough. Has had some nausea here and there and got quite worked up according to and the patient after being called by the doctor this morning. No history of kidney issues reported. Urine has been a bit darker according to the patient recently. Has been taking the antibiotic as directed recently switched to twice daily dosing. Patient has been using Celebrex at home as directed daily. Lindy removed from left knee at office 2 days ago and has been healing well by patient's report. During interview patient acutely becomes nauseous and vomits approximately 500 mL of blackish brown vomitus. PAST MEDICAL HISTORY: As noted above MEDICATIONS: Reviewed home medications SOCIAL HISTORY: PHYSICAL EXAM: GENERAL: alert and oriented in no acute distress on stretcher Head: normocephalic and atraumatic EYES: No injection, discharge or icterus. EOMI. NECK: Trachea midline. Supple. ENT: Mucous membranes pink and moist. Pharynx without erythema or exudate. TMs clear bilaterally. LUNGS: Airway patent. No retractions. Breath sounds clear with good air entry bilaterally. HEART: Regular rate and rhythm. No chest wall tenderness ABDOMEN: Soft and non-tender, without guarding or rebound. SKIN: Acyanotic, warm, dry, without rashes EXTREMITIES: Without swelling, tenderness or deformity with the left knee and knee immobilizer trace swelling around the area. Right upper extremity PICC line in place. NEUROLOGICAL: No focal deficits sensation intact in all 4 extremities.. No aphasia. No facial droop or slurred speech. EK bpm sinus rhythm with sinus arrhythmia. No PVC or PAC. QTc 413. No acute ST segment elevation or depression. CONTINUOUS CARDIAC MONITORING: was ordered and showed a heart rate of 60s to 80s bpm in sinus rhythm occasional sinus arrhythmia Patient's laboratory studies and imaging reviewed. Differential includes Infection, dehydration, metabolic abnormality, hypo/hyperglycemia, electrolyte disturbance, anemia, hypoxia, cardiac sources, intracerebral event, toxicologic, neurologic, as well as other pathologies. IMPRESSION/MEDICAL DECISION MAKING: Patient with complex infectious history of the left knee. Reportedly been healing okay no trauma reported. Patient evidently had outpatient blood work showed worsening creatinine yesterday to 2. Called by doctor and told to come in for evaluation. Reportedly has had some decreased output but denies significant abdominal pain. Baseline creatinine around 1 according to prior blood work and testing on December 06 creatinine was 1.26. Has been on cefepime for antibiotic via PICC line. Has been using Celebrex for pain control this may be contributing. Blood work was ordered including procalcitonin COVID test she does report a bit of chills at times. Afebrile here. Judiciously given a small amount of IV fluid given some decreased intake reported although which be careful avoid fluid overload and does use Lasix regularly. Chest x-ray obtained. No evidence of acute otitis media on physical exam. Mother here with slightly worse thrombocytopenia of 82. Slightly improved anemia of 11. Blood cell count just low at 4.4. Worsened creatinine 2.26 today with a BUN of 54. No severe electrolyte abnormalities. Chest x-ray per my review and interpretation of those radiology without significant notes of fluid overload or pneumonia. Again gently given some IV fluids. Will send for renal ultrasound to exclude obstructive findings. Will bring in the hospital for further evaluation of her worsened renal function while on antibiotics. Will likely need to hold her Celebrex. Procalcitonin not elevated I doubt sepsis or bacteremia at this time. Renal ultrasound without obvious finding obstruction. Hospitalist evaluated for further care in the hospital given her acute kidney injury today. DIAGNOSIS: Acute kidney injury, chronic left knee infection DISPOSITION: Hospitalist will evaluate Patient was agreeable with this plan. Past Med/Surg History Problem List (Updated 12/15/23 @ 12:41 by Sandeep Nunn M.D.) NIKITA (acute kidney injury) (Acute) Infection of prosthetic left knee joint (Acute) Paroxysmal SVT (supraventricular tachycardia) Infection of left knee History of total left knee replacement Arthritis of knee, left Encounter for pre-operative examination Vitamin D deficiency Increase in creatinine Dysesthesia Depression Hypothyroidism Hypertriglyceridemia Dyslipidemia Obesity Controlled type 2 diabetes mellitus Shortness of breath (Acute) Tachycardia (Acute) Asthma (Chronic) Stable Hypertension (Chronic) Pulmonary nodule (Chronic) Medical History Hx of basal cell carcinoma Hx of melanoma of skin Spinal stenosis Arthritis GERD (gastroesophageal reflux disease) Hypothyroidism Diabetes mellitus, type 2 NIDDM Depression Leaky heart valve Stress echo 08/2019: Mild [place] Hyperlipidemia History of COVID-19 2020, not hospitalized Sleep apnea CPAP (compliant) Gout Surgical History Hx of basal cell carcinoma excision S/P right knee arthroscopy S/P left knee arthroscopy History of colonoscopy H/O melanoma excision face Family History Mother Diabetes Father Diabetes Brother Diabetes Brother Diabetes Other No family history of adverse response to anesthesia Social History Smoking Status: Never smoker Second Hand Exposure: No; Do You Dip or Chew Tobacco: No; Hx Alcohol Use: Yes Alcohol type: hard liquor Hx Substance Use: No Preferred Language: Tanzanian Communication Ability: Effective Director Of Dietary Required: No Beliefs That Will Affect Care: None Current Living Situation: Alone Feels Safe at Home: Yes Assistive Devices: CPAP and Walker Allergies Allergies Allergy/AdvReac Type Severity Reaction Status Date / Time No Known Drug Allergies Allergy Unknown Verified 11/21/23 12:26 Home Meds Home Medications Medication Instructions Recorded Confirmed albuterol sulfate 90 mcg/actuation 2 puffs inhalation Q4H PRN Wheezing 09/11/19 11/25/23 aerosol inhaler allopurinol 100 mg tablet See Rx Instructions .Route .COMPLEX 09/11/19 11/25/23 allopurinol 300 mg tablet See Rx Instructions .Route .COMPLEX 09/11/19 11/25/23 fluticasone propionate 50 2 sprays intranasal DAILY PRN 09/11/19 11/25/23 mcg/actuation nasal Congestion spray,suspension (Flonase Allergy Relief) furosemide 20 mg tablet (Lasix) 20 mg PO QAM 09/11/19 11/25/23 ipratropium 0.5 mg-albuterol 3 mg 3 ml inhalation Q4H PRN Wheezing 09/11/19 11/25/23 (2.5 mg base)/3 mL nebulization soln levothyroxine 25 mcg tablet 25 mcg PO QAM 09/11/19 11/25/23 (Levoxyl) montelukast 10 mg tablet 10 mg PO QAM 09/11/19 11/25/23 (Singulair) omeprazole magnesium 20 mg 20 mg PO QAM 09/11/19 11/25/23 tablet,delayed release (Prilosec OTC) sodium chloride 0.65 % nasal spray 2 sprays intranasal BID PRN 09/11/19 11/25/23 aerosol ([place] Nasal) Congestion triamcinolone acetonide 0.1 % 1 appln topical BID PRN Rash 09/11/19 11/25/23 topical cream citalopram 40 mg tablet (Celexa) 40 mg PO QAM 05/02/20 11/25/23 atorvastatin 10 mg tablet 10 mg PO QAM 12/28/22 11/25/23 levocetirizine 5 mg tablet (Xyzal) 5 mg PO QAM 12/28/22 11/25/23 cholecalciferol (vitamin D3) 125 5,000 unit PO QAM 03/23/23 11/25/23 mcg (5,000 unit) capsule celecoxib 200 mg capsule 200 mg PO QAM 11/21/23 11/25/23 iron,carbonyl 65 mg-vitamin C 125 1 tab PO QAM 11/21/23 11/25/23 mg tablet,delayed release (Vitron-C) meloxicam 15 mg tablet 15 mg PO DAILY 11/21/23 11/25/23 potassium chloride 20 mEq 20 meq PO DAILY 11/21/23 11/25/23 tablet,extended release(part/cryst) (Klor-Con M) sumatriptan succinate 50 mg tablet 100 mg PO UD 11/21/23 11/25/23 metformin 1,000 mg tablet 1,000 mg PO BID 11/25/23 11/25/23 oxycodone 5 mg tablet 5 - 10 mg PO Q6H PRN Pain 09/12/24 09/12/24 Previous Rx's Medication Instructions Recorded OneTouch Verio Flex Start #1 ea 09/22/19 (blood-glucose meter) OneTouch Verio test strips (blood #300 ea 03/03/22 sugar diagnostic) OneTouch Delica Plus Lancet 33 #100 ea 03/30/23 gauge (lancets) docusate sodium 100 mg capsule 100 mg PO BID #20 caps 03/31/23 semaglutide 0.25 mg or 0.5 mg (2 0.5 mg (0.736 mL) subcut Q7D #3 mL 10/04/23 mg/3 mL) subcutaneous pen injector ([employer]) naproxen 500 mg tablet 500 mg PO BID PRN pain #14 tabs 11/21/23 Lactobacillus acidophilus 1 1,000 mmu cells PO DAILY #60 caps 11/30/23 billion cell capsule metoprolol succinate 25 mg 12.5 mg (1/2 x 25 mg) PO BID #60 11/30/23 tablet,extended release 24 hr tabs Results & Data (ED) Vital Signs Vital Signs - 24 hr 12/15/23 11:04 12/15/23 12:31 12/15/23 12:33 Temperature 36.6 C Temperature Source Skin Pulse Rate 75 69 Respiratory Rate 18 Blood Pressure 158/89 H Blood Pressure Mean 112 Pulse Oximetry 97 97 Oxygen Delivery Method Room Air Room Air Sepsis Recent Fever Within 48 Hours No Sepsis New/Unexplained Change in Mental Status No Sepsis Action Taken by Nursing No Action Required Laboratory Data 12/15/23 Unknown 12/15/23 Unknown Lab Results 12/15/23 12/15/23 Range/Units 12:23 Unknown WBC 4.46 L (4.8-10.8) K/ul RBC 4.81 (4.20-5.40) M/uL Hgb 11.0 L (12.0-16.0) g/dl Hct 36.4 L (37.0-47.0) % MCV 75.7 L (80.0-100.0) fL MCH 22.9 L (25.0-34.0) pg MCHC 30.2 L (32.0-36.0) g/dL RDW Std Deviation 51.4 H (36.4-46.3) fL RDW Coeff of Soraya 18.8 H (11.5-14.5) % Plt Count 82 L (130-400) K/uL MPV 10.2 (9.4-12.4) fL Immature Gran % (Auto) 0.0 % Neut % (Auto) 46.9 % Lymph % (Auto) 29.1 % [place] % (Auto) 8.5 % Eos % (Auto) 13.7 % Baso % (Auto) 1.8 % Neut # (Auto) 2.09 (1.40-6.50) K/uL Lymph # (Auto) 1.30 (1.20-3.40) K/uL [place] # (Auto) 0.38 (0.11-0.59) K/uL Eos # (Auto) 0.61 H (0.00-0.50) K/uL Baso # (Auto) 0.08 (0.00-0.20) K/uL Immature Gran # (Auto) 0.00 L (0.01-0.20) K/uL Sodium 139 (136-145) mmol/L Potassium 4.4 (3.5-5.1) mmol/L Chloride 108 H (98-107) mmol/L Carbon Dioxide 22 (21-32) mmol/L Anion Gap 9 (3-11) BUN 54 H (6-23) mg/dl Creatinine 2.26 H (0.6-1.2) mg/dl Est Cr Clr Drug Dosing 27.5 ml/min eGFR 23.36 BUN/Creatinine Ratio 23.9 H (10-20) Glucose 106 H (70-99(Fasting)) mg/dl Calcium 9.5 (8.6-10.3) mg/dl Total Bilirubin 0.5 (0.2-1.0) mg/dl AST 17 (13-39) U/L ALT 11 (7-52) U/L Alkaline Phosphatase 76 (34-104) U/L Total Protein 7.4 (6.0-8.3) gm/dl Albumin 4.5 (3.4-5.0) gm/dl Globulin 2.9 (2.5-4.0) gm/dl Albumin/Globulin Ratio 1.6 (0.9-2) Lipase 67 (11-82) U/L Procalcitonin 0.07 (0-0.5) ng/ml TSH 0.797 (0.300-4.500) uIu/ml SARS-CoV-2, RNA, NAAT NEGATIVE (NEGATIVE) Administered Medications Discontinued Medications Sodium Chloride (Nss) 500 mls @ 999 mls/hr IV .Q31M ONE Stop: 12/15/23 12:44 Last Admin: 12/15/23 12:17 Dose: 999 mls/hr Documented By: DIEGO Ondansetron HCl (Ondansetron Inj 2 Mg/Ml 2 Ml Vial) 4 mg IV NOW STA Stop: 12/15/23 11:46 Last Admin: 12/15/23 12:17 Dose: 4 mg Documented By: DIEGO Ondansetron HCl (Ondansetron Inj 2 Mg/Ml 2 Ml Vial) Confirm Administered Dose 4 mg .ROUTE .STK-MED ONE Stop: 12/15/23 11:50 Last Admin: 12/15/23 12:17 Dose: Not Given Documented By: DIEGO Imaging Data Radiologist's Impression: Chest X-Ray 12/15/23 11:47 XR chest 1V portable HISTORY: 68 years-old Female weakness acute weakness COMPARISON: 11/25/2023 TECHNIQUE: AP view of the chest FINDINGS: Status post placement of a right-sided PICC, distal tip in the expected location of the upper to mid SVC. No pneumothorax or effusion. The lungs are clear. Heart size is normal. Bones appear grossly intact. Chronic appearing right-sided rib fractures. IMPRESSION: 1. No acute process. 2. Status post placement of a right-sided PICC. 3. No pneumothorax. ACT 112: Negative or not required by law. The above report was generated using voice recognition software. It may contain grammatical, syntax or spelling errors. Electronically signed by: Shahid Baugh M.D. 12/15/2023 12:19 PM Discharge Plan Visit Data Chief Complaint: Referred by Doctor Stated Complaint: ABNORMAL LABS/REFERRED BY ED Provider: Sandeep Nunn Discharge Problem: NIKITA (acute kidney injury), Infection of prosthetic left knee joint Patient Disposition: Being Evaluated by Hospitalist Forms Stand Alone Forms: [employer] Prescriptions Prescriptions: No Action (DME) blood-glucose meter [OneTouch Verio Flex Start] Kit See Rx Instructions .ROUTE .MEDSUPPLY Qty: 1 0RF Rx Instructions: As directed (DME) OneTouch Verio test strips Strip See Rx Instructions .ROUTE .MEDSUPPLY Qty: 300 3RF Rx Instructions: test blood sugar 3 x daily (DME) lancets [OneTouch Delica Plus Lancet] 33 gauge misc See Rx Instructions .ROUTE .COMPLEX Qty: 100 11RF Dose Instruction: TEST BLOOD SUGAR 3 X DAILY Rx Instructions: TEST BLOOD SUGAR 3 X DAILY Ozempic 0.25 mg or 0.5 mg (2 mg/3 mL) pen injector 0.5 mg subcut Q7D Qty: 3 3RF Rx Instructions: Tuesdays allopurinol 100 mg tablet See Rx Instructions .ROUTE .COMPLEX Rx Instructions: Take 100mg with 300 mg tab for total daily dose of 400 mg every morning allopurinol 300 mg tablet See Rx Instructions .ROUTE .COMPLEX Rx Instructions: Take 300mg with 100mg to equal 400mg every morning montelukast [Singulair] 10 mg tablet 10 mg PO QAM omeprazole magnesium [Prilosec OTC] 20 mg tablet,delayed release (DR/EC) 20 mg PO QAM levothyroxine [Levoxyl] 25 mcg tablet 25 mcg PO QAM fluticasone propionate [Flonase Allergy Relief] 50 mcg/actuation spray,suspension 2 sprays INTNAS DAILY PRN (Reason: Congestion) triamcinolone acetonide 0.1 % cream 1 appln TOP BID PRN (Reason: Rash) sodium chloride [[place] Nasal] 0.65 % aerosol,spray 2 sprays INTNAS BID PRN (Reason: Congestion) albuterol sulfate 90 mcg/actuation HFA aerosol inhaler 2 puffs INH Q4H PRN (Reason: Wheezing) ipratropium-albuterol 0.5 mg-3 mg(2.5 mg base)/3 mL solution for nebulization 3 ml INH Q4H PRN (Reason: Wheezing) furosemide [Lasix] 20 mg tablet 20 mg PO QAM citalopram [Celexa] 40 mg tablet 40 mg PO QAM levocetirizine [Xyzal] 5 mg Tablet 5 mg PO QAM atorvastatin 10 mg tablet 10 mg PO QAM Rx Instructions: TAKE 1 TABLET BY MOUTH EVERY DAY cholecalciferol (vitamin D3) 125 mcg (5,000 unit) capsule 5,000 unit PO QAM docusate sodium 100 mg Capsule 100 mg PO BID Qty: 20 0RF metformin 1,000 mg tablet 1,000 mg PO BID oxycodone 5 mg tablet 5 - 10 mg PO Q6H PRN (Reason: Pain) metoprolol succinate 25 mg Tablet Extended Release 24 Hr 12.5 mg PO BID Qty: 60 0RF Lactobacillus acidophilus 1 billion cell capsule 1,000 mmu cells PO DAILY Qty: 60 0RF celecoxib 200 mg capsule 200 mg PO QAM meloxicam 15 mg tablet 15 mg PO DAILY sumatriptan succinate 50 mg tablet 100 mg PO UD Rx Instructions: TAKE 2 TABLETS BY MOUTH AT ONSET OF MIGRAINE. TAKE 1 TABLET EVERY 2 HRS NEEDED. MAX 5 PER 24 HRS. potassium chloride [Klor-Con M20] 20 mEq tablet,ER particles/crystals 20 meq PO DAILY Vitron-C 65 mg iron- 125 mg tablet,delayed release (DR/EC) 1 tab PO QAM naproxen 500 mg tablet 500 mg PO BID PRN (Reason: pain) Qty: 14 0RF Referrals Referrals: Beatris Ruggiero CRNP [Primary Care Provider] -
[2023-12-15 12:28] LABS: Albumin Globulin Ratio 1.6 (0.9-2); Albumin Level 4.5 gm/dl (3.4-5.0); BUN Creatinine Ratio 23.9 (10-20); Bilirubin,Total 0.5 mg/dl (0.2-1.0); Calcium 9.5 mg/dl (8.6-10.3); Creatinine Clr Calc Pharmacy 27.5 ml/min; Globulin 2.9 gm/dl (2.5-4.0); Potassium 4.4 mmol/L (3.5-5.1); Total Protein 7.4 gm/dl (6.0-8.3)
[2023-12-15 12:42] LABS: Thyroid Stimulating Hormone 0.797 uIu/ml (0.300-4.500)
--- NOTE | 2023-12-15 13:03 | History & Physical Report ---
Date of Service December 15, 2023 Assessment & Plan (1) NIKITA (acute kidney injury): Plan: Patient is 68-year-old female with PMH HTN, dyslipidemia, DM II, PSVT, grade 1 diastolic dysfunction, chronic anemia, chronic thrombocytopenia, depression, hypothyroidism, gout, DANNIE and others listed below presented to ER for abnormal labs - abnromal renal functions. Currently on cefepime for left knee joint infection. Baseline creatinine 1.0 or less and Outpatient labs 12/07/2023 with creatinine 1.26. Outpatient labs yesterday and 12/14/2023 with creatinine of 2.0 Today in ER BUN: 54, Cr: 2.26, BUN/Cr ratio:24 UA pending Renal US: without hydronephrosis Patient reports was taking Celebrex in addition to meloxicam. Will hold those as well as well as avoid other NSAIDs, hold home Lasix, metformin. Renal adjust cefepime. In ER given 500ml NSS Will hold nephrotoxic agents as above and start gentle IVF CBC, BMP in am If no improvement of renal functions, consider nephrology consult (2) Infection of prosthetic left knee joint: Plan: S/P Left TKA in 03/[address] Enrique +Joint infection S/P I&D left knee with removal of implant and placement of antibiotic spacer on 11/23/[address] Enrique Intraoperative cultures + Pseudomonas aeruginosa. On IV cefepime per ID recommendations and to finish course on 01/03/24 Continue IV cefepime but renal dose Saw ortho 12/13/23 with reported no concern for infection at that time Will need continued outpatient follow up with ortho (3) Paroxysmal SVT (supraventricular tachycardia): Plan: History: Echo done 11/25/23 revealed LVEF=60-65%, grade I diastolic dysfunction, trace AR. Sinus rhythm Continue metoprolol tartrate (4) Hypertension: Plan: Continue metoprolol tartrate Lisinopril was previously stopped (5) Controlled type 2 diabetes mellitus: Plan: A1c: 6.6 on 11/26/23 Hold home metformin Novolog sliding scale correction only at this time (6) Hypothyroidism: Plan: TSH: 079 Continue levothyroxine (7) Depression: Plan: Continue citalopram (8) Asthma: Plan: No signs of acute exacerbation Continue albuterol prn (9) Chronic anemia: Plan: Hgb: 11 (baseline ~11). Plt: 82 (baseline low 100's) Monitor CBC Continue iron, B12 supplement (10) Gout: Plan: On home allopurinol 400mg daily Will decrease dose with renal functions (11) Sleep apnea: Plan: CPAP HS DVT Prophylaxis SCDs given thrombocytopenia Admit med tele Full Code as per discussion with pt Follows with Beatris Ruggiero for routine care Pt was seen and care coordinated with Dr Gutierrez See addendum I spent a total of 70 minutes reviewing notes, outpatient records, labs, medication, coordinating, documenting and providing care for this patient excluding time spent in the performance of separately billed services. History of Present Illness Chief Complaint: Abnormal labs Primary Care Provider: BAILEE Peña Patient is 68-year-old female with PMH HTN, dyslipidemia, DM II, PSVT, grade 1 diastolic dysfunction, chronic anemia, chronic thrombocytopenia, depression, hypothyroidism, gout, DANNIE and others listed below presented to ER for abnormal labs. History obtained from patient, patient's , inpatient and outpatient chart review. Per chart review history of hospitalization 11/25/2023 - 11/30/2023 for infected left periprosthetic knee joint. History left TKA by Dr. Enrique 03/2023. S/P I&D left knee with removal of implant and placement of antibiotic spacer on 11/23/[address] Enrique and Intraoperative cultures + Pseudomonas aeruginosa. During that hospitalization was initially treated with cefepime, vancomycin and ID consulted and recommended cefepime x 6 weeks with weekly CBC and CMP, to finish course on 01/03/24. Patient states has been given self cefepime at home TID through her PICC line in right arm. States yesterday was called and told to go to twice daily dosing but is unsure of the reason. Per chart review patient with baseline creatinine 1.0 or less and Outpatient labs 12/07/2023 with creatinine 1.26. Outpatient labs yesterday and 12/14/2023 with creatinine of 2.0 and was referred to ER today. Patient reports was taking Celebrex in addition to meloxicam. She states her knee pain in controlled. She states she drinks about 16 ounces of water daily, 1 cup of coffee and 1 bottle of soda. She has been taking Lasix 20 mg daily. She reports she is urinating without difficulty. Denies dysuria, hematuria, urinary frequency. States past couple days has had intermittent hot and cold episodes. Has not taken her temperature at home. She reports following up with Ortho, Dr. Enrique on 12/13/2023 and had sutures removed and reports area was healing as expected without suspected infection. Patient states eating normally. Today having some nausea. Denies any vomiting. Reports last week had 1 episode of diarrhea and took 1 OTC Imodium with relief. Since BMs have been normal. Patient reports 1 was told to come to ER today for abnormal labs she felt very anxious and in ER reports feeling severely anxious and vomited x 1. No further vomiting in ER. Patient reports now with discussion of current condition and medical plan she is feeling less anxious. Is using walker for ambulation at home. Denies falls. States last week had slight stuffy nose and slight nonproductive cough that has resolved. Denies diaphoresis, TOLBERT, dizziness, syncope, vision changes, neck pain, CP, SOB, orthopnea, palpitations, sore throat, otalgia, abdominal pain, back pain, paresthesias, extremity weakness, extremity edema, rashes. Allergies Allergy/AdvReac Type Severity Reaction Status Date / Time No Known Drug Allergies Allergy Unknown Verified 12/15/23 14:03 Home Medications Medication Instructions Recorded Confirmed Type albuterol sulfate 90 mcg/actuation 2 puffs inhalation Q4H PRN Wheezing 09/11/19 12/15/23 History aerosol inhaler allopurinol 100 mg tablet See Rx Instructions .Route .COMPLEX 09/11/19 12/15/23 History allopurinol 300 mg tablet See Rx Instructions .Route .COMPLEX 09/11/19 12/15/23 History fluticasone propionate 50 2 sprays intranasal DAILY PRN 09/11/19 12/15/23 History mcg/actuation nasal Congestion spray,suspension (Flonase Allergy Relief) furosemide 20 mg tablet (Lasix) 20 mg PO QAM 09/11/19 12/15/23 History ipratropium 0.5 mg-albuterol 3 mg 3 ml inhalation Q4H PRN Wheezing 09/11/19 12/15/23 History (2.5 mg base)/3 mL nebulization soln levothyroxine 25 mcg tablet 25 mcg PO QAM 09/11/19 12/15/23 History (Levoxyl) montelukast 10 mg tablet 10 mg PO QAM 09/11/19 12/15/23 History (Singulair) omeprazole magnesium 20 mg 20 mg PO QAM 09/11/19 12/15/23 History tablet,delayed release (Prilosec OTC) sodium chloride 0.65 % nasal spray 2 sprays intranasal BID PRN 09/11/19 12/15/23 History aerosol ([place] Nasal) Congestion triamcinolone acetonide 0.1 % 1 appln topical BID PRN Rash 09/11/19 12/15/23 History topical cream OneTouch Verio Flex Start #1 ea 09/22/19 12/15/23 Rx (blood-glucose meter) citalopram 40 mg tablet (Celexa) 40 mg PO QAM 05/02/20 12/15/23 History OneTouch Verio test strips (blood #300 ea 03/03/22 12/15/23 Rx sugar diagnostic) atorvastatin 10 mg tablet 10 mg PO QAM 12/28/22 12/15/23 History levocetirizine 5 mg tablet (Xyzal) 5 mg PO QAM 12/28/22 12/15/23 History OneTouch Delica Plus Lancet 33 #100 ea 03/30/23 12/15/23 Rx gauge (lancets) semaglutide 0.25 mg or 0.5 mg (2 0.5 mg (0.736 mL) subcut Q7D #3 mL 10/04/23 12/15/23 Rx mg/3 mL) subcutaneous pen injector (Ozempic) celecoxib 200 mg capsule 200 mg PO QAM 11/21/23 12/15/23 History iron,carbonyl 65 mg-vitamin C 125 1 tab PO QAM 11/21/23 12/15/23 History mg tablet,delayed release (Vitron-C) meloxicam 15 mg tablet 15 mg PO DAILY 11/21/23 12/15/23 History potassium chloride 20 mEq 20 meq PO DAILY 11/21/23 12/15/23 History tablet,extended release(part/cryst) (Klor-Con M) sumatriptan succinate 50 mg tablet 100 mg PO UD 11/21/23 12/15/23 History metformin 1,000 mg tablet 1,000 mg PO BID 11/25/23 12/15/23 History oxycodone 5 mg tablet 5 - 10 mg PO Q6H PRN Pain 11/25/23 12/15/23 History metoprolol succinate 25 mg 12.5 mg (1/2 x 25 mg) PO BID #60 11/30/23 12/15/23 Rx tablet,extended release 24 hr tabs cholecalciferol (vitamin D3) 50 2,000 unit PO DAILY 12/15/23 12/15/23 History mcg (2,000 unit) capsule (Vitamin D3) cyanocobalamin (vitamin B-12) 1,000 mcg PO DAILY 12/15/23 12/15/23 History 1,000 mcg tablet (Vitamin B-12) docusate sodium 100 mg capsule 100 mg PO BID PRN Constipation 12/15/23 12/15/23 History Past Med/Surg History Problem List (Updated 12/15/23 @ 14:48 by Ines Milner PA-C) Chronic anemia Sleep apnea CPAP (compliant) Gout NIKITA (acute kidney injury) (Acute) Infection of prosthetic left knee joint (Acute) Paroxysmal SVT (supraventricular tachycardia) Infection of left knee History of total left knee replacement Arthritis of knee, left Encounter for pre-operative examination Vitamin D deficiency Increase in creatinine Dysesthesia Depression Hypothyroidism Hypertriglyceridemia Dyslipidemia Obesity Controlled type 2 diabetes mellitus Shortness of breath (Acute) Tachycardia (Acute) Asthma (Chronic) Stable Hypertension (Chronic) Pulmonary nodule (Chronic) Medical History Hx of basal cell carcinoma Hx of melanoma of skin Spinal stenosis Arthritis GERD (gastroesophageal reflux disease) Hypothyroidism Diabetes mellitus, type 2 NIDDM Depression Leaky heart valve Stress echo 08/2019: Mild AR Hyperlipidemia History of COVID-2020, not hospitalized Sleep apnea CPAP (compliant) Gout Surgical History Hx of basal cell carcinoma excision S/P right knee arthroscopy S/P left knee arthroscopy History of colonoscopy H/O melanoma excision face Family History Mother Diabetes Father Diabetes Brother Diabetes Brother Diabetes Other No family history of adverse response to anesthesia Social History Smoking Status: Never smoker Second Hand Exposure: No; Do You Dip or Chew Tobacco: No; Tobacco Cessation Education Requested by Patient: No Hx Alcohol Use: No Hx Substance Use: No Preferred Language: [place] Islander Communication Ability: Effective [employer]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 Required: No Beliefs That Will Affect Care: None Current Living Situation: Spouse Other Information That Helps Us Care for You: No Feels Safe at Home: Yes Safety Concerns: Feels Safe At This Time Assistive Devices: Glasses and Walker Review of Systems Review of Systems: All systems reviewed & are unremarkable except as noted in HPI & below Physical Exam Physical Exam: General: no distress, obese Head: normocephalic, atraumatic Eyes: conjunctiva non-injected, anicteric ENT: normal inspection external ears, nose, mucous membranes dry Neck: supple, trachea midline Lungs: clear, no respiratory distress, no wheezing/rhonchi/rales CV: RRR, no murmur, no pretibial edema Abd: normal BS, soft, non-tender, no flank or CVA tenderness to palpation Ext: no cyanosis, no calf tenderness; Left knee with bandage and brace in place Neuro: A&O x 3, no focal deficits noted, normal affect Skin: warm, dry Results & Data Results & Data Vital Signs (Past 12 Hours) Vital Signs Temp Pulse Resp BP Pulse Ox O2 Del Method 12/15/23 12:33 69 12/15/23 12:31 97 Room Air 12/15/23 11:04 36.6 C 75 18 158/89 H 97 Room Air Laboratory Results Short CBC 12/15/23 Range/Units Unknown WBC 4.46 L (4.8-10.8) K/ul Hgb 11.0 L (12.0-16.0) g/dl Hct 36.4 L (37.0-47.0) % Plt Count 82 L (130-400) K/uL BMP 12/15/23 Unknown Sodium 139 Potassium 4.4 Chloride 108 H Carbon Dioxide 22 BUN 54 H Creatinine 2.26 H Glucose 106 H Calcium 9.5 Liver Function 12/15/23 Range/Units Unknown Total Bilirubin 0.5 (0.2-1.0) mg/dl AST 17 (13-39) U/L ALT 11 (7-52) U/L Alkaline Phosphatase 76 (34-104) U/L Albumin 4.5 (3.4-5.0) gm/dl Urine 12/15/23 Range/Units 13:49 Urine Color Yellow Urine Appearance Cloudy A (Clear) Urine pH 5.5 (4.5-7.5) Ur Specific Byers 1.017 (1.000-1.030) Urine Protein 2+ H (Negative) Urine Glucose (UA) Negative (Negative) Diagnostic Findings Chest X-Ray 12/15/23 11:47 XR chest 1V portable HISTORY: 68 years-old Female weakness acute weakness COMPARISON: 11/25/2023 TECHNIQUE: AP view of the chest FINDINGS: Status post placement of a right-sided PICC, distal tip in the expected location of the upper to mid SVC. No pneumothorax or effusion. The lungs are clear. Heart size is normal. Bones appear grossly intact. Chronic appearing right-sided rib fractures. IMPRESSION: 1. No acute process. 2. Status post placement of a right-sided PICC. 3. No pneumothorax. ACT 112: Negative or not required by law. The above report was generated using voice recognition software. It may contain grammatical, syntax or spelling errors. Electronically signed by: Shahid Baugh M.D. 12/15/2023 12:19 PM Renal Ultrasound 12/15/23 12:23 RENAL ULTRASOUND HISTORY: Acute kidney injury nikita COMPARISON: None. FINDINGS: Right kidney: 10.6 cm. No hydronephrosis. Normal corticomedullary differentiation and cortical thickness. Left kidney: 9.5 cm. No hydronephrosis. Normal corticomedullary differentiation and cortical thickness. Bladder: No bladder wall thickening. The bilateral ureteral jets were not identified. Hepatic steatosis incidentally noted. IMPRESSION: Normal renal ultrasound. ACT 112: Negative or not required by law. Electronically signed by: Shahid Baugh M.D. 12/15/2023 1:30 PM Supervising Physician Co-Signing Physician Notes Attending Addendum: Case reviewed with the advanced practitioner. I have personally performed a history and physical examination on the patient. I have reviewed the advanced practitioner's documentation on the date of service referenced in note, and I agree with, and take responsibility for the plan of care. please refer to her notes for full details patient seen and examined, records reviewed by myself as well on exam, patient seen resting in bed, comfortable, not in distress States she feels okay overall Denies problems with voiding No shortness of breath, chest pain abdominal pain, nausea vomiting No other new symptoms no other symptoms VS noted and reviewed oriented x 3, not in distress, speaks in sentences with no effort nor accessory muscle use normal rate, regular rhythm, no murmurs clear breath sounds bilaterally non distended, soft, nontender no bipedal edema, erythema, warmth no neuro deficits all labs, imaging noted and reviewed ASSESSMENT AND PLAN Acute kidney injury likely multifactorial: Prerenal etiology secondary to poor fluid intake, Lasix use Chronic use of celecoxib, meloxicam Underlying knee infection Renal ultrasound: No obstruction Hold offending meds IV NSS Check BMP tomorrow If without improvement, consult nephrology Left knee infection S/P I&D left knee with removal of implant and placement of antibiotic spacer on 11/23/[address] Enrique Intraoperative cultures + Pseudomonas aeruginosa. Blood cultures November 25, 2023 negative Continue IV cefepime until completion date, renally dose for now other diagnoses and plan of care as per advanced practitioner's notes Boni Gutierrez MD
--- NOTE | 2023-12-15 13:31 | Ultrasound Report ---
RENAL ULTRASOUND HISTORY: Acute kidney injury adriana COMPARISON: None. FINDINGS: Right kidney: 10.6 cm. No hydronephrosis. Normal corticomedullary differentiation and cortical thickn ess. Left kidney: 9.5 cm. No hydronephrosis. Normal corticomedullary differentiation and cortical thicknes s. Bladder: No bladder wall thickening. The bilateral ureteral jets were not identified. Hepatic steatosis incidentally noted. IMPRESSION: Normal renal ultrasound. ACT 112: Negative or not required by law. Electronically signed by: Shahid Baugh M.D. 12/15/2023 1:30 PM
[2023-12-15 14:13] LABS: Appearance Urine Cloudy (Clear); Bacteria Urine Automated None Seen (None Seen); Bilirubin Urine Negative (Negative); Blood Urine Trace (Negative); Color Urine Yellow; Epithelial Cell Urine Auto 0-2 /hpf (0-2); Glucose Urine UA Negative (Negative); Ketones Urine Trace (Negative); Leukocyte Esterase Urine Negative (Negative); Nitrite Urine Negative (Negative); Protein Urine 2+ (Negative); RBC Urine Automated 0-2 /hpf (0-2); Specific Gravity Urine 1.017 (1.000-1.030); Urobilinogen Urine Negative (Negative); WBC Urine Automated 0-5 /hpf (0-5); pH Urine 5.5 (4.5-7.5)
[2023-12-15] MEDS: METOPROLOL SUCC 25MG EXT REL TAB PO ONE (14:24)
[2023-12-15] MEDS ORDERED: GLUCAGON FOR INJ 1 MG VIAL SQ PRN (14:54)
[2023-12-15] MEDS ORDERED: PROMETHAZINE 6.25 MG/50.25 ML BAG IV PRN (14:54)
[2023-12-15] MEDS ORDERED: oxyCODONE HCL IR 5 MG TAB (IMMEDIATE RELEASE) PO PRN (14:54)
[2023-12-15] MEDS ORDERED: DEXTROSE 50% 50 ML SYRINGE IV PRN (14:54)
[2023-12-15] MEDS ORDERED: GLUCOSE 40% GEL 15 GM TUBE PO PRN (14:54)
[2023-12-15] MEDS ORDERED: ACETAMINOPHEN 325 MG TAB PO PRN (14:54)
[2023-12-15] MEDS ORDERED: GLUCOSE 10 TAB/TUBE PO PRN (14:54)
[2023-12-15] MEDS ORDERED: FLUTICASONE PROPIONATE NA SPR 16 GM BTL NAE PRN (14:54)
[2023-12-15] MEDS ORDERED: CARBOHYDRATES FOR HYPOGLYCEMIA PO PRN (14:54)
[2023-12-15] MEDS ORDERED: ALBUTEROL HFA 8 GM INHALER INH PRN (14:54)
--- NOTE | 2023-12-15 15:29 | Electrocardiogram Report ---
Test Reason : Blood Pressure : */* mmHG Vent. Rate : 63 BPM Atrial Rate : 63 BPM P-R Int : 168 ms QRS Dur : 82 ms QT Int : 404 ms P-R-T Axes : 49 4 23 degrees QTcB Int : 413 ms Normal sinus rhythm with sinus arrhythmia Poor R wave progression, consider anterior DE vs. lead placement vs. LVH When compared with ECG of 28-Nov-2023 01:57, HI interval has decreased Vent. rate has decreased by 59 bpm Confirmed by Brad Davis ([id number]) on 12/15/2023 3:28:46 PM Referred By: Confirmed By: Brad Davis
[2023-12-15] MEDS: CEFEPIME 2000MG 2,000 MG/20 ML SYR IV STA (15:47)
[2023-12-15] MEDS: SODIUM CHLORIDE 0.9% 1,000 ML IV SCH (15:47)
[2023-12-15] MEDS: INSULIN ASPART PER UNIT CHARGE SC SCH (17:54)
[2023-12-15] MEDS: METOPROLOL SUCC 25MG EXT REL TAB PO SCH (20:39)
--- OUTSIDE RECORDS SUMMARY | 2023-12-15 22:33 | External Medical Summary | Summary of Care ---
Author Name Unknown Organization [facility] Address [address] [place] [address] Phone [phone] Care Team Providers Care Neighborhood Aide Name Role Phone Beatris Ruggiero Primary Care Provider Encounter Details Date Type Department Care Team (Late st Contact Info) Description 12/14/2023 Orders Only Family Practice [facility] [address] [facility] [place] [id number] [facility] [address] [facility] [address] Allergies Active Allergy Reactions Criticality Noted Date Comments No Known Drug Allergy 02/05/2001 documented as of this encounter (statuses as of 12/14/2023) Medications Medication Sig Dispensed Refills Start Date [...] Active CPAP every night at bedtime. Active Fluticasone-Salmeter ol 230-21 MCG/ACT Inhalation Aerosol (Advair HFA) Inhale 2 Puffs by mouth in the morning and 2 Puffs before bedtime. 36 Each 3 08/18/2022 Active Ipratropium-Albutero l 0.5-2.5 (3) [...] FOR PAIN 30 Tablet 11 05/09/2023 Active Ozempic (0.25 or 0.5 MG/DOSE) 2 [...] Active Levothyroxine Sodium 25 MCG Oral Tablet (Levoxyl)Indications :Hypothyroidism, unspecified TAKE 1 TAB BY MOUTH DAILY FIRST THING IN THE MORNING(ATLEAST 30MIN PRIOR TO BREAKFAST OR OTHER MEDS) 90 Tablet 09/20/2023 Active Furosemide 20 MG Oral Tablet (Lasix)Indications:1 + pitting edema ONE PILL ON WEDNESDAY TO WEDNESDAY AND 2 PILLS WEDNESDAY, WEDNESDAY, WEDNESDAY. 120 Tablet 1 09/27/2023 Active Additional Information Patient taking differently: 20 mg Oral Daily(Non-Specified), One pill on Wednesday to and 2 pills Wednesday, Wednesday, Wednesday., Reported on 09/30/2023 Vitamin D 50 MCG (1999 UT) Oral Capsule Take 2,000 Units by [...] IN THE MORNING 90 Tablet 11/09/2023 Active Additional Information Patient not taking.Reported on 12/06/2023 SUMAtriptan Succinate 50 MG Oral Tablet (Imitrex) TAKE 2 TABLETS BY MOUTH AT ONSET OF MIGRAINE. TAKE 1 TABLET EVERY 2 HRS NEEDED. MAX 5 PER 24 HRS 9 Tablet 3 11/12/2023 Active metFORMIN HCl 1000 MG Oral Tablet (Glucophage) Take 1 Tablet by mouth 2 times a day with morning and evening meals. 180 Tablet 11/22/2023 Active Metoprolol Succinate 25 MG Oral Capsule ER 24 Hour Sprinkle Take 12.5 mg by mouth in the morning and 12.5 mg in the evening. Active Acidophilus Lactobacillus Oral Capsule Take by mouth. Active cefepime IV IJ (AMBULATORY) Administer intravenously. For 6wks via Picc line Active Allopurinol 300 MG Oral Tablet (Zyloprim)Indication s:Chronic gout of foot, unspecified cause, unspecified laterality Take 1 Tablet by mouth in the morning. 90 Tablet 3 12/06/2023 Active Albuterol Sulfate HFA 108 (90 Base) MCG/ACT Inhalation Aerosol Solution Inhale 2 Puffs by mouth every 4 hours as needed for Shortness of Breath or Wheezing. 8.5 g 5 12/06/2023 Active Metoprolol Succinate ER 25 MG Oral Tablet Extended Release 24 Hour (toPROL XL) Take 0.5 Tablets by mouth in the morning and 0.5 Tablets before bedtime. 11/30/2023 Active Cefepime HCl 2 GM Intravenous Solution Reconstituted (Maxipime) Administer 2 g intravenously in the morning and 2 g at noon and 2 g in the evening. 11/30/2023 Active Hospital, Clinic, or Other Facility Administered Medication Ordered Dose Route Frequency Start Date End Date Status sterile water for injection 20 mL with cefepime 2 g INFUSION CENTRAL IV Q12H 12/10/2023 12/31/2023 Act ginger documented as of this encounter (statuses as of 12/14/2023) Active Problems Problem Noted Date Diagnosed Date Pseudomonas aeruginosa infection 12/03/2023 History of removal of joint prosthesis of left knee due to infection 12/03/2023 Iron deficiency anemia 12/03/2023 Hospital discharge follow-up 12/03/2023 Status post left knee replacement 06/24/2023 Moderate [...] as of this encounter (statuses as of 12/14/2023) Resolved Problems Problem Noted Date Diagnosed Date [...] as of this encounter (statuses as of 12/14/2023) Immunizations Name Administration Dates Next Due HEP A - Hepatitis A (Adult > 18 yrs) 04/18/2018, 10/13/2017 Hepatitis B, 20+ yrs 04/18/2018,11/16/2017,10/13 PPD 01/12/2012 Pneumococcal Conjugate Vacci ne, 20-valent ([id number]) 03/16/2023 Pneumococcal Polysaccharide PPV23 (Pneumovax) 02/23/2020 Seasonal [...] Upcoming Encounters Date Type Department Care Team ([facility] st Contact Info) Description 01/05/2024 10:00 AM EDT Office Visit [facility] [address] [place] [id number] Beatris Ruggiero CRNP [address] [place] [phone] 01/26/2024 10:00 AM EST Office Visit [facility] [address] [place] [address] Beatris Ruggiero CRNP [address] [place] [phone] 09/08/2024 10:00 AM EDT Imaging Radiology [facility] [address] [facility] [place] [address] [place] [id number] Scheduled Procedures Name Priority Associated Diagnoses Date/Ti me COLONOSCOPY FLEXIBLE PROXIMAL DIAGNOSTIC Recall Screen for colon cancer Health Maintenance Due Date Last Done Comments Cologuard 2002 Fecal Occult Blood Test 2002 Sigmoidoscopy 2002 Depression Monitoring 01/27/2020 01/26/2019 Diabetic Foot Exam 08/19/2023 08/18/2022, 0 12/03/2020, 08/24/2019 COVID-19 Vaccine ( season) 2023 Influenza Vaccine (FLU shot) (#1) 2023 03/16/2023, 01/06/2022, 12/03/2020, Additional history exists Adult Wellness Visit 12/06/2023 Albumin/Creatinine Ratio 03/16/2024 03/16/2023, 12/14 HbA1c 04/27/2024 10/26/2023, 0 04/2023, 08/28/2022, Additional history exists Diabetic Eye Exam 06/23/2024 06/24/2023, 08/24/2019 Mammogram 09/01/2024 09/02/2023, 08/14, 08/30/2023, Additional history exists TSH 10/25/2024 10/26/2023, 0 04/2023, 08/28/2022, Additional history exists GFR 12/06/2024 12/14/2023, 11/14, 10/26/2023, Additional history exists DTap/Tdap Vaccines (3 - [...] Procedure Name Priority Date/Time Associated Diagnosis Comments CHEMISTRY-OUTSIDE Routine 12/14/2023 documented in this encounter Results * (ABNORMAL) CHEMISTRY-OUTSIDE (12/14/2023) Not all results display below - see scan for full detail SEE SCAN: CMP OUTSIDE LAB (SEE SCANNED REPORT) CREATININE 2.01(H) 0.55 - 1.02 MG/DL OUTSIDE LAB (SEE SCANNED REPORT) EGFR 27(L) >=60 ML/MIN/1. 73M2 OUTSIDE LAB (SEE SCANNED REPORT) POTASSIUM 4.1 3.5 - 5.1 MMOL/L OUTSIDE LAB (SEE SCANNED REPORT) GLUCOSE 149(H) 70 - 110 MG/DL OUTSIDE LAB (SEE SCANNED REPORT) HOURS FASTING OUTSID E LAB (SEE SCANNED REPORT) TRIGLYCERIDES-OUT SIDE LAB OUTSIDE LAB (SEE SCANNED REPORT) CHOLESTEROL-OUTSI DE LAB OUTSIDE LAB (SEE SCANNED REPORT) HDL-OUTSIDE LAB OUTS [facility] (SEE SCANNED REPORT) CHOL/HDL RATIO-OUTSIDE LAB OUTSIDE LA B (SEE SCANNED REPORT) LDL (CALCULATED)-OUTS [facility] LAB OUTSIDE LAB (SEE SCANNED REPORT) LDL (DIRECT MEASURE)-OUTSIDE LAB OUTSIDE LAB (SEE SCANNED REPORT) HEMOGLOBIN, [id number] LAB OUTSIDE LAB (SEE SCANNED REPORT) PHOSPHORUS-OUTSID E LAB OUTSIDE LAB (SEE SCANNED REPORT) PTH-OUTSIDE LAB OUTS [facility] LAB (SEE SCANNED REPORT) MICROALBUMIN RATIO-OUTSIDE LAB OUTSIDE LA B (SEE SCANNED REPORT) PROTEIN, UA-OUTSIDE LAB OUTSIDE LAB (SEE SCANNED REPORT) HGB OUTSIDE LA B (SEE SCANNED REPORT) 12/14/2023 [facility] OUTSIDE LAB (SEE SCANNED REPORT) documented in this encounter Care Teams Neighborhood Aide Relationship Specialty Start Date End Date Beatris Ruggiero CRNP [address] [place] [id number] PCP - General Nurse Practitioner 05/16/21 documented as of this encounter
--- OUTSIDE RECORDS SUMMARY | 2023-12-15 22:33 | External Medical Summary | Summary of Care ---
Author Name Unknown Organization [facility] Address [address] [place] [address] Phone [phone] Care Team Providers Care Mission Coordinator Name Role Phone Beatris Ruggiero Primary Care Provider Encounter Details Date Type Department Care Team (Late st Contact Info) Description 12/14/2023 Telephone Family Practice [facility] [address] [place] [address] Beatris Ruggiero CRNP [address] [place] [address] Allergies Active Allergy Reactions Criticality Noted Date Comments No Known Drug Allergy 02/05/2001 documented as of this encounter (statuses as of 12/15/2023) Medications Medication Sig Dispensed Refills Start Date [...] as of this encounter (statuses as of 12/15/2023) Active Problems Problem Noted Date Diagnosed Date [...] as of this encounter (statuses as of 12/15/2023) Resolved Problems Problem Noted Date Diagnosed Date [...] as of this encounter (statuses as of 12/15/2023) Immunizations Name Administration Dates Next Due HEP A - Hepatitis A (Adult > 18 yrs) 04/18/2018, 10/13/2017 Hepatitis B, 20+ yrs 04/18/2018,11/16/2017,10/13 PPD 01/12/2012 Pneumococcal Conjugate Vacci ne, 20-valent ([id number]) 03/16/2023 Pneumococcal Polysaccharide PPV23 (Pneumovax) 02/23/2020 Seasonal [...] encounter Miscellaneous Notes * Telephone Encounter - Bianca Tobar LPN - 12/15/2023 8:08 AM EDT Disregard. * Telephone Encounter - Beatris Ruggiero CRNP - 12/14/2023 4:25 PM EDT PLEASE CALL [facility] FOR COPY OF BMP DONE TODAY. documented in this encounter Plan of Treatment Upcoming Encounters Date Type Department Care Team (Late st Contact Info) Description 01/05/2024 10:00 AM EDT Office Visit [facility] [address] [place] [address] Beatris Ruggiero CRNP [address] [place] [address] 01/26/2024 10:00 AM EST Office Visit [facility] [address] [place] [address] Beatris Ruggiero CRNP [address] [place] [address] 09/08/2024 10:00 AM EDT [facility] [address] [place] [address] Scheduled Procedures Name Priority Associated Diagnoses Date/Ti [...] 0 04/2023, 08/28/2022, Additional history exists GFR 12/13/2024 12/14/2023, 11/14, 10/26/2023, Additional history exists DTap/Tdap [...] filedocumented as of this encounter Care Teams Mission Coordinator Relationship Specialty Start Date End Date Beatris Ruggiero CRNP [address] [place] [address] PCP - General Nurse Practitioner 05/16/21 documented as of this encounter
--- OUTSIDE RECORDS SUMMARY | 2023-12-15 22:34 | External Medical Summary | Summary of Care ---
Author Name Unknown Organization [facility] Address [address] [place] [address] Phone [phone] Care Team Providers Care Physics Tutor Name Role Phone Beatris Ruggiero Christelle MOROCHO Primary Care Provider Reason for Visit * Reason Onset Date Comments Test Results Imaging Study 12/06/2023 Encounter Details Date Type Department Care Team (Late st Contact Info) Description 12/06/2023 Telephone Family Practice [facility] [address] [place] [address] Alissa Dan LPN Test Results Imaging Study Allergies Active Allergy Reactions Criticality Noted Date Comments No Known Drug Allergy 02/05/2001 documented as of this encounter (statuses as of 12/06/2023) Medications Medication Sig Dispensed Refills Start Date [...] with cefepime 2 g INFUSION CENTRAL IV Q8H 12/03/2023 12/24/2023 Act ginger documented as of this encounter (statuses as of 12/06/2023) Active Problems Problem Noted Date Diagnosed Date [...] as of this encounter (statuses as of 12/06/2023) Resolved Problems Problem Noted Date Diagnosed Date [...] as of this encounter (statuses as of 12/06/2023) Immunizations Name Administration Dates Next Due HEP A - Hepatitis A (Adult > 18 yrs) 04/18/2018, 10/13/2017 Hepatitis B, 20+ yrs 04/18/2018,11/16/2017,10/13 PPD 01/12/2012 Pneumococcal Conjugate Vacci ne, 20-valent ([id number]) 03/16/2023 Pneumococcal Polysaccharide PPV23 (Pneumovax) 02/23/2020 Seasonal [...] encounter Miscellaneous Notes * Telephone Encounter - Lisa Gomez LPN - 12/06/2023 3:46 PM EDT Patient aware and verbalized understanding * Telephone Encounter - Davide Madrigal DO - 12/06/2023 12:18 PM EDT Please notify patient of normal results Thank you! * Telephone Encounter - Alissa Dan LPN - 12/06/2023 10:02 AM EDT (FYI) Receiving incoming call from- [employer] dept calling to give Preliminary results for LLE done on pt this am per Beatris Ruggiero who is out today. Negative for DVT. Please notify if pt to be contacted for result. documented in this encounter Plan of Treatment Upcoming Encounters Date Type Department Care Team (Late st Contact Info) Description 01/05/2024 10:00 AM EDT Office Visit [facility] [address] [place] [address] Beatris Ruggiero CRNP [address] [place] [address] 01/26/2024 10:00 AM EST Office Visit [facility] [address] [place] [address] Beatris Ruggiero CRNP [address] [place] [address] 09/08/2024 10:00 AM EDT Imaging Radiology [facility] 1st [facility] [address] [place] [address] Scheduled Procedures Name Priority Associated Diagnoses Date/Ti [...] Ratio 03/16/2024 03/16/2023, 12/14 HbA1c 04/27/2024 10/26/2023, 010 04/2023, 08/28/2022, Additional history exists Diabetic Eye Exam 06/23/2024 06/24/2023, 08/24/2019 Mammogram 09/01/2024 09/02/2023, 08/14, 08/30/2023, Additional history exists GFR 10/25/2024 10/26/2023, 01/0 04/2023, 01/04/2023, Additional history exists TSH 10/25/2024 10/26/2023, 010 04/2023, 08/28/2022, Additional history exists DTap/Tdap Vaccines [...] filedocumented as of this encounter Care Teams Physics Tutor Relationship Specialty Start Date End Date Beatris Ruggiero CRNP [address] [address] PCP - General Nurse Practitioner 05/16/21 documented as of this encounter
--- OUTSIDE RECORDS SUMMARY | 2023-12-15 22:34 | External Medical Summary | Summary of Care ---
Author Name Unknown Organization [facility] Address [address] [place] [address] Phone [phone] Care Team Providers Care Sonar Watchstander Name Role Phone Beatris Ruggiero Primary Care Provider Encounter Details Date Type Department Care Team (Late st Contact Info) Description 12/08/2023 Telephone Family Practice [facility] [address] [place] [address] Beatris Ruggiero CRNP [address] [place] [address] Allergies Active Allergy Reactions Criticality Noted Date Comments No Known Drug Allergy 02/05/2001 documented as of this encounter (statuses as of 12/08/2023) Medications Medication Sig Dispensed Refills Start Date [...] as of this encounter (statuses as of 12/08/2023) Active Problems Problem Noted Date Diagnosed Date [...] as of this encounter (statuses as of 12/08/2023) Resolved Problems Problem Noted Date Diagnosed Date [...] as of this encounter (statuses as of 12/08/2023) Immunizations Name Administration Dates Next Due HEP A - Hepatitis A (Adult > 18 yrs) 04/18/2018, 10/13/2017 Hepatitis B, 20+ yrs 04/18/2018,11/16/2017,10/13 PPD 01/12/2012 Pneumococcal Conjugate Vacci ne, 20-valent ([id number]) 03/16/2023 Pneumococcal Polysaccharide PPV23 (Pneumovax) 02/23/2020 Seasonal [...] encounter Miscellaneous Notes * Telephone Encounter - Paige Vides LPN - 12/08/2023 1:16 PM EDT Sent my g Confirmed that pt has been recently active on the [facility] my chart within the past few months. * Telephone Encounter - Beatris Ruggiero CRNP - 12/08/2023 9:04 AM EDT Please notify patient Kidney functions are reduced and likely from antibiotic she is getting via PICC. Who is her infectious disease doctor that ordered the tests.? Eliud, MSN, [facility] Medicine documented in this encounter Plan of Treatment Upcoming Encounters Date Type Department Care Team (Late st Contact Info) Description 01/05/2024 10:00 AM EDT Office Visit [facility] [address] [place] [address] Beatris Ruggiero CRNP [address] [place] [address] 01/26/2024 10:00 AM EST Office Visit [facility] [address] [address] Beatris Ruggiero CRNP [address] [place] [address] 09/08/2024 10:00 AM EDT Imaging Radiology [facility] [address] [facility] [address] [place] [address] Scheduled Procedures Name Priority Associated Diagnoses Date/Ti [...] 04/2023, 08/28/2022, Additional history exists GFR 12/06/2024 12/07/2023, 10/13, 03/16/2023, Additional history exists DTap/Tdap Vaccines (3 - [...] filedocumented as of this encounter Care Teams Sonar Watchstander Relationship Specialty Start Date End Date Beatris Ruggiero CRNP [address] [place] [address] PCP - General Nurse Practitioner 05/16/21 documented as of this encounter
--- OUTSIDE RECORDS SUMMARY | 2023-12-15 22:34 | External Medical Summary | Summary of Care ---
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 [facility] Program Type Case Management Complex Case Management [facility] Health Device(s) Requested Other (See Comment) Comments Primary Paint Roller Assembler: Felicitas Rodriguez at Home patient: No Is the patient already enrolled with another [facility] device/service? (If no, will need to "push the button") No Does the patient have a physical address? 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 Begin calls the week of 12/13/23. Thank you PCP: Beatris MOROCOH Dx: Removal of left knee hardware CTN: [phone] documented in this encounter Plan of Treatment Upcoming Encounters Date Type Department Care Team (Late st Contact Info) Description 01/05/2024 10:00 AM EDT Office Visit Family Practice [facility] [address] [facility] [place] [address] Beatris Ruggiero CRNP [address] [address] 01/26/2024 10:00 AM EST Office Visit Family Practice [facility] [address] [place] [address] Beatris Ruggiero CRNP [address] [place] [address] 09/08/2024 10:00 AM EDT Imaging Radiology [facility]st [facility] [address] [place] [address] Scheduled Procedures Name Priority Associated Diagnoses Date/Ti me COLONOSCOPY FLEXIBLE PROXIMAL DIAGNOSTIC Recall Screen for colon cancer Scheduled Referrals Name Type Priority Associated Diagnoses Orde r Schedule REMOTE PATIENT MONITORING REFERRAL Referral Within 3 days (urgent) 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) Ordered: 12/06/2023 Health Maintenance Due Date Last Done Comments [...] 08/30/2023, Additional history exists GFR 10/25/2024 10/26/2023, 010 04/2023, 01/04/2023, Additional history exists TSH 10/25/2024 [...] as of this encounter Visit Diagnoses Diagnosis 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
--- OUTSIDE RECORDS SUMMARY | 2023-12-15 22:34 | External Medical Summary | Summary of Care ---
Author Name Unknown Organization [facility] Address [address] [place] [address] Phone [phone] Care Team Providers Care Hearing Aid Repairer Name Role Phone Beatris Gu Primary Care Provider Reason for Visit * Reason Onset Date Comments Medication Refill 2023 Encounter Details Date Type Department Care Team (Late st Contact Info) Description 2023 Refill Family Practice [facility] [address] [place] [address] Beatris Gu CR[facility] [address] [facility] [address] Chronic gout of foot, unspecified cause, unspecified laterality Allergies Active Allergy Reactions Criticality Noted Date [...] or Wheezing. 8.5 g 5 12/06/2023 Active Allopurinol 300 MG Oral Tablet (Zyloprim)Indication s:Chronic gout of foot, unspecified cause, unspecified laterality Take 1 Tablet by mouth in the morning. 90 Tablet 3 08/18/2022 12/05/19 24 Discontinu ed(Refill) Albuterol Sulfate HFA 108 (90 Base) MCG/ACT Inhalation Aerosol Solution Inhale 2 Puffs by mouth every 4 hours as needed for Shortness of Breath or Wheezing. 8.5 g 5 06/09/2023 12/05/19 24 Discontinu ed(Refill) Hospital, Clinic, or Other Facility Administered Medication [...] PPD 01/12/2012 Pneumococcal Conjugate Vacci ne, 20-valent ([id number]) 03/16/2023 Pneumococcal Polysaccharide PPV23 (Pneumovax) 02/23/2020 Seasonal [...] encounter Miscellaneous Notes * Telephone Encounter - Ana Luisa Barba RPh - 12/06/2023 3:00 PM EDTSigned Prescriptions: Disp Refills Allopurinol 300 MG Oral Tablet (Zyloprim) 90 Tab*3 Sig: Take 1 Tablet by mouth in the morning.Authorizing Provider: BEATRIS GU User: ANA LUISA BARBA Albuterol Sulfate HFA 108 (90 Base) MCG/AC*8.5 g 5 Sig: Inhale 2 Puffs by mouth every 4 hours as needed for Shortness of Breath or Wheezing.Authorizing Provider: BEATRIS GU User: ANA LUISA BARBA documented in this encounter Plan of Treatment Upcoming Encounters Date Type Department Care Team (Late st Contact Info) Description 01/05/2024 10:00 AM EDT Office Visit [facility] [address] [address] Beatris Gu CRNP [address] [address] 01/26/2024 10:00 AM EST Office Visit [facility] [address] [address] Beatris Gu CRNP [address] [place] [address] 09/08/2024 10:00 AM EDT Imaging Radiology [address] [place] [address] Scheduled Procedures Name Priority Associated Diagnoses Date/Ti [...] as of this encounter Visit Diagnoses Diagnosis Chronic gout of foot, unspecified cause, unspecified laterality documented in this encounter Care Teams Hearing Aid Repairer Relationship Specialty Start Date End Date Beatris Gu CRNP [address] [place] [address] PCP - General Nurse Practitioner 05/16/21 documented as of this encounter
--- OUTSIDE RECORDS SUMMARY | 2023-12-15 22:34 | External Medical Summary | Summary of Care ---
Author Name Unknown Organization [facility] Address [address] [place] [address] Phone [phone] Care Team Providers Care Plant Wire Chief Name Role Phone Beatris Ruggiero Primary Care Provider Encounter Details Date Type Department Care Team (Late st Contact Info) Description 12/14/2023 Orders Only Family Practice [facility] [address] [facility] [place] [address] Beatris Ruggiero CRNP [address] [facility] [address] Allergies Active Allergy Reactions Criticality Noted Date [...] PPD 01/12/2012 Pneumococcal Conjugate Vacci ne, 20-valent ([id number]) 03/16/2023 Pneumococcal Polysaccharide PPV23 (Pneumovax) 02/23/2020 Seasonal [...] Upcoming Encounters Date Type Department Care Team ([facility] st Contact Info) Description 01/05/2024 10:00 AM EDT Office Visit [facility] [address] [place] [address] Beatris Ruggiero CRNP [address] [place] [address] 01/26/2024 10:00 AM EST Office Visit [facility] [address] [place] [address] Beatris Ruggiero CRNP [address] [place] [address] 09/08/2024 10:00 AM EDT Imaging Radiology [facility] [facility] [address] [place] [address] Scheduled Procedures Name Priority Associated Diagnoses Date/Ti [...] below - see scan for full detail OUTSIDE LAB (SEE SCANNED REPORT) Comment:SEE SCAN: [facility]CD CREATININE OUTSIDE L AB (SEE SCANNED REPORT) EGFR OUTSIDE LA B (SEE SCANNED REPORT) POTASSIUM OUTSIDE LA B (SEE SCANNED REPORT) GLUCOSE OUTSIDE LA B (SEE SCANNED REPORT) HOURS FASTING OUTSID E LAB (SEE SCANNED REPORT) TRIGLYCERIDES-OUT SIDE LAB OUTSIDE LAB (SEE SCANNED REPORT) CHOLESTEROL-OUTSI DE LAB OUTSIDE LAB (SEE SCANNED REPORT) HDL-OUTSIDE LAB OUTS LAURA LAB (SEE SCANNED REPORT) CHOL/HDL RATIO-OUTSIDE LAB OUTSIDE LA B (SEE SCANNED REPORT) LDL (CALCULATED)-OUTS [facility]A LAB OUTSIDE LAB (SEE SCANNED REPORT) LDL (DIRECT MEASURE)-OUTSIDE LAB OUTSIDE LAB (SEE SCANNED REPORT) HEMOGLOBIN, C6V-DENRFTS LAB OUTSIDE LAB (SEE SCANNED REPORT) PHOSPHORUS-OUTSID E LAB OUTSIDE LAB (SEE SCANNED REPORT) PTH-OUTSIDE LAB OUTS LAURA LAB (SEE SCANNED REPORT) MICROALBUMIN RATIO-OUTSIDE LAB OUTSIDE LA B (SEE SCANNED REPORT) PROTEIN, UA-OUTSIDE LAB OUTSIDE LAB (SEE SCANNED REPORT) HGB 10.5(L) 12.0 - 16.0 GM/DL OUTSIDE LAB (SEE SCANNED REPORT) 12/14/2023 Beatris MOROCHO LABORATORY OUTSIDE LAB (SEE SCANNED REPORT) documented in this encounter Care Teams Plant Wire Chief Relationship Specialty Start Date End Date Beatris Ruggiero CRNP [address] [place] [address] PCP - General Nurse Practitioner 05/16/21 documented as of this encounter
--- OUTSIDE RECORDS SUMMARY | 2023-12-15 22:34 | External Medical Summary | Summary of Care ---
Author Name Unknown Organization [facility] Address [address] [place] [address] Phone [phone] Care Team Providers Care Curing Room Supervisor Name Role Phone Beatris Ruggiero Primary Care Provider Encounter Details Date Type Department Care Team (Late st Contact Info) Description 12/10/2023 Orders Only [facility] [address] [place] [address] Beatris Ruggiero CRNP [address] [place] [address] Allergies Active Allergy Reactions Criticality Noted Date Comments No Known Drug Allergy 02/05/2001 documented as of this encounter (statuses as of 12/10/2023) Medications Medication Sig Dispensed Refills Start Date [...] 2 g INFUSION CENTRAL IV Q12H 12/10/2023 Active sterile water for injection 20 mL with cefepime 2 g INFUSION CENTRAL IV Q8H 12/03/2023 4 Discontinued documented as of this encounter (statuses as of 12/10/2023) Active Problems Problem Noted Date Diagnosed Date [...] as of this encounter (statuses as of 12/10/2023) Resolved Problems Problem Noted Date Diagnosed Date [...] as of this encounter (statuses as of 12/10/2023) Immunizations Name Administration Dates Next Due HEP A - Hepatitis A (Adult > 18 yrs) 04/18/2018, 10/13/2017 Hepatitis B, 20+ yrs 04/18/2018,11/16/2017,10/13 PPD 01/12/2012 Pneumococcal Conjugate Vacci ne, 20-valent ([id number]) 03/16/2023 Pneumococcal Polysaccharide PPV23 (Pneumovax) 02/23/2020 Seasonal [...] Description 01/05/2024 10:00 AM EDT Office Visit [facility] [address] [place] [address] Beatris Ruggiero CRNP [address] [address] 01/26/2024 10:00 AM EST Office Visit [facility] [address] [place] [address] Beatris Ruggiero CRNP [address] [place] [address] 09/08/2024 10:00 AM EDT Imaging Radiology [facility]st [facility] [address] [place] [address] Scheduled Procedures Name Priority Associated Diagnoses Date/Ti [...] Ratio 03/16/2024 03/16/2023, 12/14 HbA1c 04/27/2024 10/26/2023, 04/2023, 08/28/2022, Additional history exists Diabetic Eye Exam 06/23/2024 06/24/2023, 08/24/2019 Mammogram 09/01/2024 09/02/2023, 08/14, 08/30/2023, Additional history exists TSH 10/25/2024 10/26/2023, 0 04/2023, 08/28/2022, Additional history exists GFR 12/06/2024 12/07/2023, 10/13, 03/16/2023, Additional history exists DTap/Tdap Vaccines (3 - Td or Tdap) 12/08/2026 12/08/2016, 12/29/2007 Lipid Panel 08/29/2027 08/28/2022, 0 06/2021, 08/04/2018, Additional history exists Colonoscopy 03/06/2029 [...] filedocumented as of this encounter Care Teams Curing Room Supervisor Relationship Specialty Start Date End Date Beatris Ruggiero CRNP [address] [place] [address] PCP - General Nurse Practitioner 05/16/21 documented as of this encounter
--- OUTSIDE RECORDS SUMMARY | 2023-12-15 22:34 | External Medical Summary | Summary of Care ---
Author Name Unknown Organization [facility] Address [address] [place] [address] Phone [phone] Care Team Providers Care Digital Computer Systems Analyst Name Role Phone Beatris Ruggiero Christelle MOROCHO Primary Care Provider Encounter Details Date Type Department Care Team (Late st Contact Info) Description 12/02/2023 Population Health External Data Unspecified Department Allergies Active Allergy Reactions Criticality Noted Date [...] before bedtime. 36 Each 3 08/18/2022 Active Allopurinol 300 MG Oral [...] PPD 01/12/2012 Pneumococcal Conjugate Vacci ne, 20-valent ([id number]) 03/16/2023 Pneumococcal Polysaccharide PPV23 (Pneumovax) 02/23/2020 Seasonal [...] Description 01/05/2024 10:00 AM EDT Office Visit [facility] [address] [address] Beatirs Ruggiero CRNP [address] [place] [address] 01/26/2024 10:00 AM EST Office Visit [facility] [address] [address] Beatris Ruggiero CRNP [address] [place] [address] [address] 09/08/2024 10:00 AM EDT Imaging Radiology [facility]st [facility] [address] [address] Scheduled Procedures Name Priority Associated Diagnoses Date/Ti [...] filedocumented as of this encounter Care Teams Digital Computer Systems Analyst Relationship Specialty Start Date End Date Beatris Ruggiero CRNP [address] [place] [address] PCP - General Nurse Practitioner 05/16/21 documented as of this encounter
--- OUTSIDE RECORDS SUMMARY | 2023-12-15 22:34 | External Medical Summary | Summary of Care ---
Author Name Unknown Organization [facility] Address [address] [place] [address] Phone [phone] Care Team Providers Care Can Carrier Name Role Phone Beatris Ruggiero Primary Care Provider Encounter Details Date Type Department Care Team (Late st Contact Info) Description 12/07/2023 Orders Only Family Practice [facility] [address] [facility] [address] Beatris [facility]uggiero CRNP [address] [facility] [address] Allergies Active Allergy Reactions Criticality Noted Date Comments No Known Drug Allergy 02/05/2001 documented as of this encounter (statuses as of 12/07/2023) Medications Medication Sig Dispensed Refills Start Date [...] as of this encounter (statuses as of 12/07/2023) Active Problems Problem Noted Date Diagnosed Date [...] as of this encounter (statuses as of 12/07/2023) Resolved Problems Problem Noted Date Diagnosed Date [...] as of this encounter (statuses as of 12/07/2023) Immunizations Name Administration Dates Next Due HEP A - Hepatitis A (Adult > 18 yrs) 04/18/2018, 10/13/2017 Hepatitis B, 20+ yrs 04/18/2018,11/16/2017,10/13 PPD 01/12/2012 Pneumococcal Conjugate Vacci ne, 20-valent ([id number]) 03/16/2023 Pneumococcal Polysaccharide PPV23 (Pneumovax) 02/23/2020 Seasonal [...] Upcoming Encounters Date Type Department Care Team ([facility] st Contact Info) Description 01/05/2024 10:00 AM EDT Office Visit [facility] [address] [place] [address] Beatris Ruggiero CRNP [address] [place] [address] 01/26/2024 10:00 AM EST Office Visit [facility] [address] [place] [address] Beatris Ruggiero CRNP [address] [place] [address] 09/08/2024 10:00 AM EDT Imaging Radiology [facility] [address] [facility] [place] [address] [place] [address] Scheduled Procedures Name Priority Associated Diagnoses Date/Ti [...] 08/14, 08/30/2023, Additional history exists GFR 10/25/2024 12/07/2023, 10/13, 03/16/2023, Additional history exists TSH 10/25/2024 10/26/2023, 04/2023, 08/28/2022, Additional history exists DTap/Tdap Vaccines [...] Priority Date/Time Associated Diagnosis Comments CHEMISTRY-OUTSIDE Routine 12/07/2023 documented in this encounter Results * (ABNORMAL) CHEMISTRY-OUTSIDE (12/07/2023) Not all results display below - see scan for full detail OUTSIDE LAB (SEE SCANNED REPORT) Comment:SEE SCAN: CMP CREATININE 1.26(H) 0.55 - 1.02 MG/DL OUTSIDE LAB (SEE SCANNED REPORT) EGFR 47(L) >=60 ML/MIN/1.7 3M2 OUTSIDE LAB (SEE SCANNED REPORT) POTASSIUM 4.7 3.5 - 5.1 MMOL/L OUTSIDE LAB (SEE SCANNED REPORT) GLUCOSE 110 70 - 110 MG/DL OUTSIDE LAB (SEE [...] LAB OUTSIDE LAB (SEE SCANNED REPORT) HEMOGLOBIN, [id number] LAB OUTSIDE LAB (SEE SCANNED REPORT) PHOSPHORUS-OUTSID E LAB OUTSIDE LAB (SEE SCANNED REPORT) PTH-OUTSIDE LAB OUTS LAURA LAB (SEE SCANNED REPORT) MICROALBUMIN RATIO-OUTSIDE LAB OUTSIDE LA B (SEE SCANNED REPORT) PROTEIN, UA-OUTSIDE LAB OUTSIDE LAB (SEE SCANNED REPORT) HGB OUTSIDE LA B (SEE SCANNED REPORT) 12/07/2023 [facility] OUTSIDE LAB (SEE SCANNED REPORT) documented in this encounter Care Teams Can Carrier Relationship Specialty Start Date End Date Beatris Ruggiero CRNP [address] [place] [address] PCP - General Nurse Practitioner 05/16/21 documented as of this encounter
--- OUTSIDE RECORDS SUMMARY | 2023-12-15 22:34 | External Medical Summary | Summary of Care ---
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 For 6wks via Picc line Active Lisinopril 20 MG Oral Tablet (Prinivil)Indication s:HTN, goal below 140/90 Take 1 Tablet by mouth in the morning. 90 Tablet 3 08/18/2022 12/03/19 24 Discontinu ed(Medicat ion List Clean Up) Hospital, Clinic, or Other Facility Administered Medication Ordered Dose Route Frequency Start Date End Date Status sterile water for injection 20 mL with cefepime 2 g INFUSION CENTRAL IV Q8H 12/03/2023 12/24/2023 Act ginger documented as of this encounter (statuses as of 12/03/2023) Active Problems Problem Noted Date Diagnosed Date [...] as of this encounter (statuses as of 12/03/2023) Resolved Problems Problem Noted Date Diagnosed Date [...] as of this encounter (statuses as of 12/03/2023) Immunizations Name Administration Dates Next Due HEP A - Hepatitis A (Adult > 18 yrs) 04/18/2018, 10/13/2017 Hepatitis B, 20+ yrs 04/18/2018,11/16/2017,10/13 PPD 01/12/2012 Pneumococcal Conjugate Vacci ne, 20-valent ([id number]) 03/16/2023 Pneumococcal Polysaccharide PPV23 (Pneumovax) 02/23/2020 Seasonal [...] Sign Reading Time Taken Comments Blood Pressure 110/60 12/03/2023 2:14 PM EDT Pulse 76 12/03/2023 2:14 PM EDT Temperature - - Respiratory Rate - - Oxygen Saturation - - Inhaled Oxygen Concentration - - Weight - - Height - - Body Mass Index - - documented in this encounter Progress Notes * Beatris Ruggiero CRNP - 12/03/2023 2:10 PM EDT Images from the original note were not included. SUBJECTIVE: Jono Wade is a 67 year old female. Chief Complaint Patient presents with Hospital Follow-Up Recent Admission: Patient was recently admitted to [facility] then transferred to [facility] due to P SVT. The date of discharge was 11/30/2023. . Discharge report received and reviewed. HPI: Jono was admitted for removal of left total knee harDware due to infection with pseudomonas.She is currently on lovenox. She has picc line and receiving abx Cefipime tid x 6 weeks. PICC site is clean and dry. Left knee is painful, jenny in place. Swollen and immobilized. She was started on Metoprolol for PSVT. Patient Active Problem List Diagnosis Allergic rhinitis, seasonal Rosacea Esophageal reflux Hypothyroid Anxiety state Morbid obesity with BMI of 40.0-44.9, adult (HCC) Gout DANNIE on CPAP History of malignant melanoma of skin Elevated LFTs SOB (shortness of breath) Grade I diastolic dysfunction Lung nodule Need for pneumococcal vaccination HTN, goal below 130/80 Type 2 diabetes mellitus with hemoglobin A1c goal of less than 7.0% ([facility]) Left shoulder pain Preoperative general physical examination Type 2 diabetes mellitus with other diabetic kidney complication (HCC) Moderate persistent asthma with acute exacerbation Recurrent headache Neck pain Vitreous floaters of both eyes Migraine without aura and without status migrainosus, not intractable Mass of skin Depression Thrombocytopenia (HCC) Moderate episode of recurrent major depressive disorder ([facility]) Hyperlipidemia Folliculitis Status post left knee replacement Current Outpatient Medications Medication Sig Dispense Refill NEBULIZER DOROTHY as directed 1 0 saline (OCEAN NASAL SPRAY) 0.65 % nasal spray Administer 2 Sprays into each nostril as needed for Congestion. for nasal dryness or congestion 1 Bottle 5 Multiple Vitamins-Minerals (MULTIVITAMIN ADULT) TABS Take 1 Tablet by mouth daily. Spacer/Aero-Holding Chambers Device J44.9 1 Each 0 CPAP every night at bedtime. Fluticasone-Salmeterol 230-21 MCG/ACT Inhalation Aerosol (Advair HFA) Inhale 2 Puffs by mouth in the morning and 2 Puffs before bedtime. 36 Each 3 Lisinopril 20 MG Oral Tablet (Prinivil) Take 1 Tablet by mouth in the morning. 90 Tablet 3 Allopurinol 300 MG Oral Tablet (Zyloprim) Take 1 Tablet by mouth in the morning. 90 Tablet 3 Ipratropium-Albuterol 0.5-2.5 (3) MG/3ML Inhalation Solution (Duoneb) USE 3 ML EVERY 4 HOURS NEEDED FOR COUGH OR FOR SHORTNESS OF BREATH OR WHEEZING 90 mL 5 Triamcinolone Acetonide 0.1 % External Cream (Aristocort) Apply to itchy areas on arms twice daily as needed 453.6 g 1 Meloxicam 15 MG Oral Tablet (Mobic) TAKE 1 TABLET BY MOUTH DAILY FOR PAIN 30 Tablet 11 Albuterol Sulfate HFA 108 (90 Base) MCG/ACT Inhalation Aerosol Solution Inhale 2 Puffs by mouth every 4 hours as needed for Shortness of Breath or Wheezing. 8.5 g 5 Ozempic (0.25 or 0.5 MG/DOSE) 2 MG/3ML Solution Pen-injector Inject 0.5 mg under the skin once a week. Fluticasone Propionate 50 MCG/ACT Nasal Suspension (Flonase) SPRAY 2 SPRAYS INTO EACH NOSTRIL EVERYDAY 48 mL 1 Levocetirizine Dihydrochloride 5 MG Oral Tablet TAKE 1 TABLET BY MOUTH EVERY DAY IN THE EVENING 30 Tablet 11 Citalopram Hydrobromide 40 MG Oral Tablet (CeleXA) TAKE 1 TABLET BY MOUTH EVERY DAY IN THE MORNING 90 Tablet 3 Levothyroxine Sodium 25 MCG Oral Tablet (Levoxyl) TAKE 1 TAB BY MOUTH DAILY FIRST THING IN THE MORNING(ATLEAST 30MIN PRIOR TO BREAKFAST OR OTHER MEDS) 90 Tablet 0 Furosemide 20 MG Oral Tablet (Lasix) ONE PILL ON WEDNESDAY TO WEDNESDAY AND 2 PILLS WEDNESDAY, WEDNESDAY, WEDNESDAY. (Patient taking differently: Take 1 Tablet by mouth daily. One pill on Wednesday to and2 pills Wednesday, Wednesday, Wednesday.) 120 Tablet 1 Vitamin D 50 MCG (1999 UT) Oral Capsule Take 2,000 Units by mouth in the morning. Celecoxib 200 MG Oral Capsule (CeleBREX) Take 1 Capsule by mouth in the morning. Acetaminophen 500 MG Oral Tablet (Tylenol) Take 2 Tablets by mouth daily as needed for Pain, Mild or Pain, Moderate. Estroven Menopause Supplement Oral Tablet Take 1 Tablet by mouth at bedtime. Montelukast Sodium 10 MG Oral Tablet (Singulair) TAKE 1 TABLET BY MOUTH EVERY DAY 90 Tablet 3 Allopurinol 100 MG Oral Tablet (Zyloprim) TAKE 1 TABLET BY MOUTH EVERY DAY *TAKE ALONG WITH 300MG TABS FOR A DAILY DOSE OF 400MG* 90 Tablet 3 Klor-Con M20 20 MEQ Oral Tablet Extended Release (Potassium Chloride ER) TAKE 1 TABLET BY MOUTH EVERY DAY IN THE MORNING 30 Tablet 11 Omeprazole 20 MG Oral Capsule Delayed Release (PriLOSEC) TAKE BY MOUTH 1 CAPSULE IN THE MORNING. 1 HOUR BEFORE THE FIRST MEAL OF THE DAY.. 90 Capsule 3 Vitron-C 65-125 MG Oral Tablet (Iron-Vitamin C 65-125 mg per tab) Take 1 Tablet by mouth in the morning. 30 Tablet 3 Atorvastatin Calcium 10 MG Oral Tablet (Lipitor) TAKE 1 TABLET BY MOUTH EVERY DAY IN THE MORNING 90Tablet 0 SUMAtriptan Succinate 50 MG Oral Tablet (Imitrex) TAKE 2 TABLETS BY MOUTH AT ONSET OF MIGRAINE. TAKE 1 TABLET EVERY 2 HRS NEEDED. MAX 5 PER 24 HRS 9 Tablet 3 metFORMIN HCl 1000 MG Oral Tablet (Glucophage) Take 1 Tablet by mouth 2 times a day with morning and evening meals. 180 Tablet 0 Current Facility-Administered Medications Medication Dose Route Frequency Provider Last Rate Last Admin sterile water for injection 20 mL with cefepime 2 g INFUSION Central IV Q8H Current and discharge medications have been reconciled. Review of patient's allergies indicates: Allergen Reactions No Known Drug Allergy OBJECTIVE: [facility] 09/29/2001 REVIEW OF SYSTEMS: Review of Systems Constitutional: Positive for fatigue. Negative for chills, diaphoresis and fever. Respiratory: Negative for shortness of breath. Cardiovascular: Positive for palpitations and leg swelling. Negative for chest pain. Gastrointestinal: Negative for abdominal pain and anal bleeding. Musculoskeletal: Positive for arthralgias, gait problem, joint swelling and myalgias. Neurological: Negative for dizziness and syncope. PHYSICAL EXAM: [facility] 09/29/2001 Physical Exam HENT: Head: Normocephalic. Cardiovascular: Rate and Rhythm: Normal rate and regular rhythm. Pulmonary: Effort: Pulmonary effort is normal. Breath sounds: Normal breath sounds. Skin: Coloration: Skin is pale. Comments: INCISION with jenny No erythema or drainage Neurological: General: No focal deficit present. Mental Status: She is alert and oriented to person, place, and time. Psychiatric: Mood and Affect: Mood normal. Behavior: Behavior normal. Thought Content: Thought content normal. Judgment: Judgment normal. ASSESSMENT: 1. Hospital discharge follow-up - DISCH MED RECON CUR MED LIS 2. Pseudomonas aeruginosa infection On IV cefipime x [address] Home nursing is 1 time weekly With CBC and CMP weekly 3. 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 BINDER reapplied 4. Iron deficiency anemia, unspecified iron deficiency anemia type DOWN TO 9.6 Continue iron Checking in 1 week 5. Type 2 diabetes mellitus with hemoglobin A1c goal of less than 7.0% (HCC) 6. Moderate episode of recurrent major depressive disorder (HCC) Stable on celexa 7. Pain of left calf On lovenox Check duplex - VASC DUPLEX VENOUS LE UNILAT I spent a total of 40-54 minutes (exact time 50 mins) on the date of service in preparation, delivery, and documentation of the care provided to Jono Wade excluding any time spent in the performance of separately billed services or time spent by another provider/QHP. documented in this encounter Plan of Treatment Upcoming Encounters Date Type Department Care Team (Late st Contact Info) Description 12/06/2023 9:00 AM EDT Imaging Radiology [address] [place] [address] 01/05/2024 10:00 AM EDT Office [facility] [place] [address] Beatris Ruggiero CRNP [address] [facility] [place] [address] 01/26/2024 10:00 AM EST Office Visit Family Practice [facility] [address] [facility] [place] [address] Beatris Ruggiero CRNP [address] [place] [address] 09/08/2024 10:00 AM EDT Imaging Radiology [facility]st [facility] [address] [place] [address] Scheduled Orders Name Type Priority Associated Diagnoses Orde r Schedule VASC DUPLEX VENOUS LE UNILAT Medical Imaging STAT Pain of left calf Ordered: 12/03/2023 Scheduled Procedures Name Priority Associated Diagnoses Date/Ti [...] as of this encounter Visit Diagnoses Diagnosis Hospital discharge follow-up- Primary Other follow-up examination Pseudomonas aeruginosa infection Pseudomonas infection in conditions classified elsewhere and of unspecified site History 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
--- OUTSIDE RECORDS SUMMARY | 2023-12-15 22:34 | External Medical Summary | Summary of Care ---
Author Name Unknown Organization [facility] Address [address] [place] [address] Phone [phone] Care Team Providers Care Party Host/Hostess Name Role Phone Beatris Ruggiero Primary Care Provider Encounter Details Date Type Department Care Team (Late st Contact Info) Description 12/07/2023 Orders Only Family Practice [facility] [address] [facility] [address] Beatris [facility] [address] [facility] [address] Allergies Active Allergy Reactions Criticality Noted Date [...] PPD 01/12/2012 Pneumococcal Conjugate Vacci ne, 20-valent ([id number]) 03/16/2023 Pneumococcal Polysaccharide PPV23 (Pneumovax) 02/23/2020 Seasonal [...] Upcoming Encounters Date Type Department Care Team ([facility] st Contact Info) Description 01/05/2024 10:00 AM EDT Office Visit [facility] [address] [place] [address] Beatris Ruggiero CRNP [address] [address] 01/26/2024 10:00 AM EST Office Visit [facility] [address] [place] [address] Beatris Ruggiero CRNP [address] [address] 09/08/2024 10:00 AM EDT Imaging Radiology [facility] 1st [facility] [place] [address] [place] [address] Scheduled Procedures Name Priority Associated Diagnoses Date/Ti [...] 01/04/2023, Additional history exists TSH 10/25/2024 10/26/2023, 04/2023, [...] see scan for full detail SEE SCAN: CBC OUTSIDE LAB (SEE SCANNED REPORT) CREATININE OUTSIDE L AB (SEE SCANNED REPORT) [...] LAB OUTSIDE LAB (SEE SCANNED REPORT) HEMOGLOBIN, [id number] LAB OUTSIDE LAB (SEE SCANNED REPORT) PHOSPHORUS-OUTSID E LAB OUTSIDE LAB (SEE SCANNED REPORT) PTH-OUTSIDE LAB OUTS LAURA LAB (SEE SCANNED REPORT) MICROALBUMIN RATIO-OUTSIDE LAB OUTSIDE LA B (SEE SCANNED REPORT) PROTEIN, UA-OUTSIDE LAB OUTSIDE LAB (SEE SCANNED REPORT) HGB 10.3(L) 12.0 - 16.0 GM/DL OUTSIDE LAB (SEE SCANNED REPORT) 12/07/2023 [facility] OUTSIDE LAB (SEE SCANNED REPORT) documented in this encounter Care Teams Party Host/Hostess Relationship Specialty Start Date End Date Beatris Ruggiero CRNP [address] [place] [address] PCP - General Nurse Practitioner 05/16/21 documented as of this encounter
--- OUTSIDE RECORDS SUMMARY | 2023-12-15 22:34 | External Medical Summary | Summary of Care ---
Author Name Unknown Organization [facility] Address [address] [place] [address] Phone [phone] Care Team Providers Care Boiler Riveter Name Role Phone Beatris Ruggiero Christelle [facility] Primary Care Provider Encounter Details Date Type Department Care Team (Late st Contact Info) Description 12/03/2023 Population Health External Data Unspecified Department Allergies [...] and evening meals. 180 Tablet 11/22/2023 Active Hospital, Clinic, or Other Facility Administered [...] PPD 01/12/2012 Pneumococcal Conjugate Vacci ne, 20-valent ([id number]) 03/16/2023 Pneumococcal Polysaccharide PPV23 (Pneumovax) 02/23/2020 Seasonal [...] Description 12/03/2023 2:20 PM EDT Office Visit [facility] [address] [place] [address] Beatris Ruggiero CRNP [address] [place] [address] 01/26/2024 10:00 AM EST Office Visit [facility] [address] [place] [address] Baetris Ruggiero CRNP [address] [place] [address] 09/08/2024 10:00 AM EDT Imaging Radiology [facility] 1st [facility] [address] [place] [address] Scheduled Procedures Name Priority Associated Diagnoses Date/Ti me COLONOSCOPY FLEXIBLE PROXIMAL DIAGNOSTIC Recall Screen for colon cancer Health Maintenance Due Date Last Done Comments Jannette 2002 Fecal Occult Blood Test 2002 Sigmoidoscopy [...] 01/04/2023, Additional history exists TSH 10/25/2024 10/26/2023, 01/0 04/2023, 08/28/2022, Additional history exists DTap/Tdap Vaccines [...] filedocumented as of this encounter Care Teams Boiler Riveter Relationship Specialty Start Date End Date Beatris Ruggiero CRNP [address] [place] [address] PCP - General Nurse Practitioner 05/16/21 documented as of this encounter
--- OUTSIDE RECORDS SUMMARY | 2023-12-15 22:34 | External Medical Summary | Summary of Care ---
Author Name Unknown Organization [facility] Address [address] [place] [address] Phone [phone] Care Team Providers Care Station Gateman Name Role Phone Beatris Ruggiero Primary Care Provider Encounter Details Date Type Department Care Team (Late st Contact Info) Description 12/08/2023 Telephone Family Practice [facility] [address] [place] [address] Beatris Ruggiero CRNP [address] [place] [address] Allergies Active Allergy Reactions Criticality Noted Date [...] 2 g INFUSION CENTRAL IV Q8H 12/03/2023 Discontinued documented as of this encounter (statuses [...] PPD 01/12/2012 Pneumococcal Conjugate Vacci ne, 20-valent ([id number]) 03/16/2023 Pneumococcal Polysaccharide PPV23 (Pneumovax) 02/23/2020 Seasonal [...] pt has been recently active on the [facility] my chart within the past few months. * Telephone Encounter - Beatris Ruggiero CRNP - 12/08/2023 9:04 AM EDT Please notify patient Kidney functions are reduced and likely from antibiotic she is getting via PICC. Who is her infectious disease doctor that ordered the tests.? Eliud, MSN, [facility] Medicine documented in this encounter Plan of Treatment Upcoming Encounters Date Type Department Care Team (Late st Contact Info) Description 01/05/2024 10:00 AM EDT Office Visit [facility] [address] [place] [address] Beatris Ruggiero CRNP [address] [place] [address] 01/26/2024 10:00 AM EST Office Visit [facility] [address] [place] [address] Beatris Ruggiero CRNP [address] [place] [address] 09/08/2024 10:00 AM EDT Imaging Radiology [facility] 1st [facility] [address] [place] [address] Scheduled Procedures Name Priority Associated Diagnoses Date/Ti [...] filedocumented as of this encounter Care Teams Station Gateman Relationship Specialty Start Date End Date Beatris Ruggiero CRNP [address] [place] [address] PCP - General Nurse Practitioner 05/16/21 documented as of this encounter
--- OUTSIDE RECORDS SUMMARY | 2023-12-15 22:35 | External Medical Summary | Summary of Care ---
Author Name Unknown Organization [facility] Address [address] [place] [address] Phone [phone] Care Team Providers Care Supervisor Motor Vehicle Assembly Name Role Phone Beatris Ruggiero Primary Care Provider Encounter Details Date Type Department Care Team (Late st Contact Info) Description 12/03/2023 Orders Only [facility] [address] [place] [address] Beatris Ruggiero CRNP [address] [place] [address] Allergies Active Allergy Reactions Criticality Noted Date [...] Morbid obesity with BMI of 40.0-44.9, adult 03/2 11/2009 Overview: Per Obesity Taxonomy Anxiety state 01/06/2009 [...] PPD 01/12/2012 Pneumococcal Conjugate Vacci ne, 20-valent ([id number]) 03/16/2023 Pneumococcal Polysaccharide PPV23 (Pneumovax) 02/23/2020 Seasonal [...] Description 12/03/2023 2:20 PM EDT Office Visit [facility] 132 [facility] [place] [address] Beatris Ruggiero CRNP [address] [place] [address] 01/26/2024 10:00 AM EST Office [facility] [address] [place] [address] Beatris Ruggiero CRNP [address] [place] [address] 09/08/2024 10:00 AM EDT Imaging Radiology [facility] 1st Floor, [address] [place] [address] Scheduled Procedures Name Priority Associated Diagnoses Date/Ti [...] Ratio 03/16/2024 03/16/2023, 12/14 HbA1c 04/27/2024 10/26/2023, 01/0 04/2023, 08/28/2022, Additional history exists Diabetic Eye [...] filedocumented as of this encounter Care Teams Supervisor Motor Vehicle Assembly Relationship Specialty Start Date End Date Beatris Ruggiero CRNP [address] [place] [address] PCP - General Nurse Practitioner 05/16/21 documented as of this encounter
[2023-12-16] MEDS: CEFEPIME 1000MG 1,000 MG/10 ML SYR IV SCH (04:03)
[2023-12-16] MEDS: LEVOTHYROXINE SODIUM 25 MCG TABLET PO SCH (05:38)
[2023-12-16 07:08] LABS: Basophils # (auto) 0.07 K/uL (0.00-0.20); Basophils % (auto) 1.6 %; Eosinophils # (auto) 0.59 K/uL (0.00-0.50); Eosinophils % (auto) 13.7 %; Hematocrit (blood only) 29.9 % (37.0-47.0); Hemoglobin 9.4 g/dl (12.0-16.0); Immature Granulocytes # (auto) 0.01 K/uL (0.01-0.20); Immature Granulocytes % (auto) 0.2 %; Lymphocytes % (auto) 27.8 %; Mean Corpuscular Hemoglobin 23.4 pg (25.0-34.0); Mean Corpuscular Hgb Conc 31.4 g/dL (32.0-36.0); Mean Corpuscular Volume 74.6 fL (80.0-100.0); Mean Platelet Volume 10.9 fL (9.4-12.4); Monocytes # (auto) 0.45 K/uL (0.11-0.59); Monocytes % (auto) 10.4 %; Neutrophils % (auto) 46.3 %; Platelet Count 70 K/uL (130-400); RDW Coefficient of Variation 18.6 % (11.5-14.5); RDW Standard Deviation 50.7 fL (36.4-46.3); Red Blood Count 4.01 M/uL (4.20-5.40); White Blood Count 4.32 K/ul (4.8-10.8)
[2023-12-16 07:20] LABS: Creatinine Clr Calc Pharmacy 27.7 ml/min; Potassium 4.8 mmol/L (3.5-5.1)
[2023-12-16] MEDS: allopurinoL 100 MG TAB PO SCH (07:55)
[2023-12-16] MEDS: FERROUS SULFATE 325 MG TAB PO SCH (07:56)
[2023-12-16] MEDS: ASCORBIC ACID 500 MG TAB PO SCH (07:56)
[2023-12-16] MEDS: ATORVASTATIN 10 MG TAB PO SCH (07:57)
[2023-12-16] MEDS: MONTELUKAST SODIUM 10 MG TABLET PO SCH (07:57)
[2023-12-16] MEDS: PANTOprazole 40 MG TAB PO SCH (07:57)
[2023-12-16] MEDS: CYANOCOBALAMIN (B-12) 500 MCG TABLET PO SCH (07:57)
[2023-12-16] MEDS: CETIRIZINE HCL 10 MG TABLET PO SCH (07:57)
[2023-12-16] MEDS: CITALOPRAM 40 MG TAB PO SCH (07:58)
[2023-12-16] MEDS: CHOLECALCIFEROL 25 MCG (1000 UNITS) TAB PO SCH (07:58)
[2023-12-16] MEDS ORDERED: NON-FORMULARY MEDICATION (Iron,Carbonyl-Vitamin C [Vitron-C] 65 mg iron- 125 mg tablet,del PO SCH (09:00)
[2023-12-16] MEDS: LACTATED RINGER'S 1,000 ML IV SCH (11:09)
--- NOTE | 2023-12-16 13:56 | Hospitalist Progress Note ---
Date of Service December 16, 2023 Assessment & Plan (1) NIKITA (acute kidney injury): Plan: Patient is 68-year-old female with PMH HTN, dyslipidemia, DM II, PSVT, grade 1 diastolic dysfunction, chronic anemia, chronic thrombocytopenia, depression, hypothyroidism, gout, DANNIE and others listed below presented to ER for abnormal labs - abnormal renal functions. Currently on cefepime for left knee joint infection. Acute kidney injury Baseline creatinine 1.0 Likely multifactorial secondary to poor oral intake, NSAID use, Lasix/lisinopril --Renal USD:Normal renal ultrasound. --Cr 2.2 today NSAIDs discontinued Held diuretics, lisinopril Monitor renal function and avoid nephrotoxic agents as able Continue IV fluids Bladder scan to monitor for any retention Adjust medications renally If no improvement, will consult nephrology tomorrow (2) Infection of prosthetic left knee joint: Plan: S/P Left TKA in 03/[address] Enrique +Joint infection S/P I&D left knee with removal of implant and placement of antibiotic spacer on 11/23/[address] Enrique Intraoperative cultures + Pseudomonas aeruginosa. On IV cefepime per ID recommendations and to finish course on 01/03/24 Continue IV cefepime --renally adjusted Evaluated by ortho 12/13/23 with reported no concern for infection at that time Needs follow-up with ID, orthopedics on discharge (3) Paroxysmal SVT (supraventricular tachycardia): Plan: History: Echo done 11/25/23 revealed LVEF=60-65%, grade I diastolic dysfunction, trace AR. Sinus rhythm Continue metoprolol tartrate (4) Hypertension: Plan: Continue metoprolol tartrate lisinopril held due to renal insufficiency Monitor and adjust medications as needed (5) Controlled type 2 diabetes mellitus: Plan: A1c: 6.6 on 11/26/23 Hold home metformin Continue insulin while hospitalized Monitor blood glucose levels (6) Hypothyroidism: Plan: TSH: 079 Continue levothyroxine (7) Depression: Plan: Continue citalopram (8) Asthma: Plan: No signs of acute exacerbation Continue albuterol prn (9) Chronic anemia: Plan: Hgb: 11 (baseline ~11). Plt: 82 (baseline low 100's) Monitor CBC Continue iron, B12 supplement (10) Gout: Plan: On home allopurinol 400mg daily Decrease allopurinol to 200 mg daily for now Further adjustment based on renal function (11) Sleep apnea: Plan: CPAP HS Chronic thrombocytopenia No acute bleeding issues Monitor CBC DVT Px: SCDs: Re: Thrombocytopenia CODE STATUS Full code Admission and Anticipated Discharge Date Admission Date: December 15, 2023 Subjective Patient is seen and examined at bedside Offers no complaints Renal function stable Discussed with patient's family at bedside Patient denies any chest pain, dyspnea, nausea, vomiting, abdominal pain Review of Systems Review of Systems: All systems reviewed & are unremarkable except as noted in Subjective Physical Exam Physical Exam: Physical Exam: Vitals signs as noted above General Appearance: Morbidly obese, no apparent distress Head: normocephalic, Atraumatic Eyes: normal inspection, EOMI Neck: supple, Trachea midline Respiratory/Chest: Normal breath sounds, CTA, No accessory muscle use Cardiovascular: S1, S2, +faint murmur Abdomen/GI:Soft, Non tender, Bowel sounds present Extremities/Musculoskeletal:normal inspection, trace pedal edema Neurologic/Psych:AAOX3, grossly no focal neurological deficits Skin: normal color, warm Results & Data Results & Data Vital Signs (Past 12 Hours) Vital Signs Temp Pulse Pulse Pulse Resp BP Pulse Ox 12/16/23 11:08 36.6 C 66 18 145/86 H 98 12/16/23 07:13 36.5 C 76 18 148/80 H 98 12/16/23 07:00 72 12/16/23 04:31 36.5 C 72 18 138/76 97 O2 Del Method 12/16/23 11:08 Room Air 12/16/23 07:13 Room Air 12/16/23 07:00 12/16/23 04:31 Room Air Laboratory Results Short CBC 12/16/23 Range/Units 06:20 WBC 4.32 L (4.8-10.8) K/ul Hgb 9.4 L (12.0-16.0) g/dl Hct 29.9 L (37.0-47.0) % Plt Count 70 L (130-400) K/uL BMP 12/16/23 06:20 Sodium 139 Potassium 4.8 Chloride 112 H Carbon Dioxide 22 BUN 49 H Creatinine 2.23 H Glucose 99 Calcium 9.0 Urine 12/15/23 Range/Units 13:49 Urine Color Yellow Urine Appearance Cloudy A (Clear) Urine pH 5.5 (4.5-7.5) Ur Specific [place] 1.017 (1.000-1.030) Urine Protein 2+ H (Negative) Urine Glucose (UA) Negative (Negative)
[2023-12-16] MEDS: CARBAMIDE PEROXIDE 6.5% 15 ML BTL OT SCH (15:25)
[2023-12-16] MEDS: INFLUENZA VACC TS2024-25(65y+)/PF (IIV3) 0.5mL Syr IM ONE (17:29)
[2023-12-16] MEDS: POLYETHYLENE (MIRALAX) 17 GM PACK PO PRN (20:20)
[2023-12-17 06:51] LABS: Hematocrit (blood only) 29.1 % (37.0-47.0); Mean Corpuscular Hemoglobin 22.9 pg (25.0-34.0); Mean Corpuscular Hgb Conc 30.9 g/dL (32.0-36.0); Mean Platelet Volume 10.7 fL (9.4-12.4); Platelet Count 74 K/uL (130-400); RDW Coefficient of Variation 18.3 % (11.5-14.5); RDW Standard Deviation 49.6 fL (36.4-46.3); Red Blood Count 3.93 M/uL (4.20-5.40); White Blood Count 5.09 K/ul (4.8-10.8)
[2023-12-17 07:16] LABS: Magnesium 1.7 mg/dl (1.7-2.4)
[2023-12-17] MEDS: allopurinoL 100 MG TAB PO SCH (07:43)
[2023-12-17 08:42] LABS: BUN Creatinine Ratio 24.1 (10-20); Calcium 9.2 mg/dl (8.6-10.3); Creatinine Clr Calc Pharmacy 24.9 ml/min; Potassium 4.9 mmol/L (3.5-5.1)
--- NOTE | 2023-12-17 11:10 | Nephrology Consultation ---
Date of Consultation December 17, 2023 Assessment & Plan (1) NIKITA (acute kidney injury): baseline creat normal at 0.8 as of 2 weeks ago. started rising after that to 1.3 and then on December 13 it went up to 2 as outpatient. after admission she has received lot of fluid for 2 days but still creatinine is rising. Current creat 2.5 and still rising. already got plenty of fluids and no improvement. Renal US done and normal. She was on a cocktail of meds potentially affecting the renal perfusion/functi on-----Celebrex, meloxicam, Lasix, lisinopril and metformin + infection and Antibiotics use. So most likely has toxic injury to kidney sec to combination of toxic meds/Infection/antibiotics use. other differential diagnosis is acute interstitial nephritis secondary to infection /antibiotics /NSAID. Will also check for urinary eosinophil. Also check c3/c4 to evaluate for post infectious GN which can happen. will like to see creat not rising before discharge. does not have to be normal though. daily renal panel. make sure she is not on any diuretics NSAIDs Celebrex QUINTON inhibitor ARB metfor min. Avoid nephrotoxic antibiotics as much as possible. current antibiotic which is cefepime twice daily is not well known to cause nephrotoxicity and can be continued. will also repeat a UA today. (2) Infection of prosthetic left knee joint: this is a complicated issue and hard to treat. Currently on cefepime through PICC line twice daily for few more weeks. reviewed Infectious Disease as well as orthopedics note in detail Plan total time spent 62 minutes History of Present Illness Reason for Consultation: NIKITA Attending Physician: Chris Tam MD History of Present Illness 68-year-old female with normal baseline kidney function with a baseline creatinine of 0.8 as of 2 weeks ago. She recently had infected prosthesis of the knee replacement with Pseudomonas in the culture. she was getting IV cefepime 3 times a day. She was having periodic blood work done as an outpatient which started getting abnormal with a creatinine rising to 1.3 and then on December 13 went up to 2. She was then directed to the hospital. Even in the hospital creatinine is still rising and is now up to 2.5 despite getting lot of IV fluids since admission. Patient is eating drinking normally. No major issues with low blood pressure noted. Prior to hospitalization she was taking Celebrex as well as meloxicam on top of her regularly scheduled Lasix metformin lisinopril. since being admitted all of these medications has been stopped. Renal ultrasound already done and negative for hydronephrosis. review of systems-- negative for 12 systems. only thing positive is some degree of pain in her infected knee. Physical Exam Physical Exam: General: no distress, obese Neck: supple, No JVD Lungs: clear, no respiratory distress, no wheezing/rhonchi/rales CV: RRR, no murmur, no pretibial edema Abd: soft, non-tender, no flank or CVA tenderness Ext: Trace edema in left Neuro: A&O x 3, no focal deficits noted, normal affect Skin: warm, dry Allergies Allergy/AdvReac Type Severity Reaction Status Date / Time No Known Drug Allergies Allergy Unknown Verified 12/15/23 14:03 Home Medications Medication Instructions Recorded Confirmed Type albuterol sulfate 90 mcg/actuation 2 puffs inhalation Q4H PRN Wheezing 09/11/19 12/15/23 History aerosol inhaler allopurinol 100 mg tablet See Rx Instructions .Route .COMPLEX 09/11/19 12/15/23 History allopurinol 300 mg tablet See Rx Instructions .Route .COMPLEX 09/11/19 12/15/23 History fluticasone propionate 50 2 sprays intranasal DAILY PRN 09/11/19 12/15/23 History mcg/actuation nasal Congestion spray,suspension (Flonase Allergy Relief) furosemide 20 mg tablet (Lasix) 20 mg PO QAM 09/11/19 12/15/23 History ipratropium 0.5 mg-albuterol 3 mg 3 ml inhalation Q4H PRN Wheezing 09/11/19 12/15/23 History (2.5 mg base)/3 mL nebulization soln levothyroxine 25 mcg tablet 25 mcg PO QAM 09/11/19 12/15/23 History (Levoxyl) montelukast 10 mg tablet 10 mg PO QAM 09/11/19 12/15/23 History (Singulair) omeprazole magnesium 20 mg 20 mg PO QAM 09/11/19 12/15/23 History tablet,delayed release (Prilosec OTC) sodium chloride 0.65 % nasal spray 2 sprays intranasal BID PRN 09/11/19 12/15/23 History aerosol ([place] Nasal) Congestion triamcinolone acetonide 0.1 % 1 appln topical BID PRN Rash 09/11/19 12/15/23 History topical cream OneTouch Verio Flex Start #1 ea 09/22/19 12/15/23 Rx (blood-glucose meter) citalopram 40 mg tablet (Celexa) 40 mg PO QAM 05/02/20 12/15/23 History OneTouch Verio test strips (blood #300 ea 03/03/22 12/15/23 Rx sugar diagnostic) atorvastatin 10 mg tablet 10 mg PO QAM 12/28/22 12/15/23 History levocetirizine 5 mg tablet (Xyzal) 5 mg PO QAM 12/28/22 12/15/23 History OneTouch Delica Plus Lancet 33 #100 ea 03/30/23 12/15/23 Rx gauge (lancets) semaglutide 0.25 mg or 0.5 mg (2 0.5 mg (0.736 mL) subcut Q7D #3 mL 10/04/23 12/15/23 Rx mg/3 mL) subcutaneous pen injector (Ozempic) celecoxib 200 mg capsule 200 mg PO QAM 11/21/23 12/15/23 History iron,carbonyl 65 mg-vitamin C 125 1 tab PO QAM 11/21/23 12/15/23 History mg tablet,delayed release (Vitron-C) meloxicam 15 mg tablet 15 mg PO DAILY 11/21/23 12/15/23 History potassium chloride 20 mEq 20 meq PO DAILY 11/21/23 12/15/23 History tablet,extended release(part/cryst) (Klor-Con M) sumatriptan succinate 50 mg tablet 100 mg PO UD 11/21/23 12/15/23 History metformin 1,000 mg tablet 1,000 mg PO BID 11/25/23 12/15/23 History oxycodone 5 mg tablet 5 - 10 mg PO Q6H PRN Pain 11/25/23 12/15/23 History metoprolol succinate 25 mg 12.5 mg (1/2 x 25 mg) PO BID #60 11/30/23 12/15/23 Rx tablet,extended release 24 hr tabs cholecalciferol (vitamin D3) 50 2,000 unit PO DAILY 12/15/23 12/15/23 History mcg (2,000 unit) capsule (Vitamin D3) cyanocobalamin (vitamin B-12) 1,000 mcg PO DAILY 12/15/23 12/15/23 History 1,000 mcg tablet (Vitamin B-12) docusate sodium 100 mg capsule 100 mg PO BID PRN Constipation 12/15/23 12/15/23 History Patient History Medical History Hx of basal cell carcinoma Hx of melanoma of skin Spinal stenosis Arthritis GERD (gastroesophageal reflux disease) Hypothyroidism Diabetes mellitus, type 2 NIDDM Depression Leaky heart valve Stress echo 08/2019: Mild AR Hyperlipidemia History of COVID-19 2020, not hospitalized Surgical History Hx of basal cell carcinoma excision S/P right knee arthroscopy S/P left knee arthroscopy History of colonoscopy H/O melanoma excision face Family History Mother Diabetes Father Diabetes Brother Diabetes Brother Diabetes Other No family history of adverse response to anesthesia Social History Smoking Status: Never smoker Second Hand Exposure: No; Do You Dip or Chew Tobacco: No; Tobacco Cessation Education Requested by Patient: No Hx Alcohol Use: No Hx Substance Use: No Preferred Language: Greek Communication Ability: Effective Boiler Inspector Required: No Beliefs That Will Affect Care: None Current Living Situation: Spouse Other Information That Helps Us Care for You: No Feels Safe at Home: Yes Safety Concerns: Feels Safe At This Time Assistive Devices: Walker Results & Data Vital Signs (Past 12 Hours) Vital Signs Temp Pulse Pulse Resp BP BP Pulse Ox 12/17/23 08:02 36.7 C 65 16 158/80 H 95 12/17/23 05:44 74 12/17/23 03:40 36.8 C 73 16 146/70 H 98 12/16/23 23:57 70 12/16/23 23:24 36.8 C 112 H 16 136/67 95 O2 Del Method 12/17/23 08:02 Room Air 12/17/23 05:44 12/17/23 03:40 Room Air 12/16/23 23:57 12/16/23 23:24 Room Air
[2023-12-17 12:42] LABS: Appearance Urine Clear (Clear); Bacteria Urine Automated None Seen (None Seen); Bilirubin Urine Negative (Negative); Blood Urine Trace (Negative); Cast Urine Automated 0-2 /lpf (0-2); Color Urine Yellow; Epithelial Cell Urine Auto 0-2 /hpf (0-2); Glucose Urine UA Negative (Negative); Ketones Urine Negative (Negative); Leukocyte Esterase Urine Negative (Negative); Nitrite Urine Negative (Negative); Protein Urine 1+ (Negative); RBC Urine Automated 0-2 /hpf (0-2); Specific Gravity Urine 1.011 (1.000-1.030); Urobilinogen Urine Negative (Negative); WBC Urine Automated 0-5 /hpf (0-5); pH Urine 5.5 (4.5-7.5)
--- NOTE | 2023-12-17 16:14 | Hospitalist Progress Note ---
Date of Service December 17, 2023 Assessment & Plan (1) NIKITA (acute kidney injury): Plan: Patient is 68-year-old female with PMH HTN, dyslipidemia, DM II, PSVT, grade 1 diastolic dysfunction, chronic anemia, chronic thrombocytopenia, depression, hypothyroidism, gout, DANNIE and others listed below presented to ER for abnormal labs - abnormal renal functions. Currently on cefepime for left knee joint infection. Acute kidney injury Baseline creatinine 1.0 Likely multifactorial secondary to poor oral intake, NSAID use, Lasix/lisinopril, metformin, antibiotics --Renal USD:Normal renal ultrasound. --Cr 2.49 today NSAIDs discontinued Held diuretics, lisinopril Monitor renal function and avoid nephrotoxic agents as able Received IV fluids Bladder scan to monitor for any retention Adjust medications renally Appreciate nephrology input Check urine for additional fills, C3-C4 Monitor BMP closely (2) Infection of prosthetic left knee joint: Plan: S/P Left TKA in 03/[address] Enrique +Joint infection S/P I&D left knee with removal of implant and placement of antibiotic spacer on 11/23/[address] Enrique Intraoperative cultures + Pseudomonas aeruginosa. On IV cefepime per ID recommendations and to finish course on 01/03/24 Continue IV cefepime --renally adjusted Evaluated by ortho 12/13/23 with reported no concern for infection at that time Needs follow-up with ID, orthopedics on discharge (3) Paroxysmal SVT (supraventricular tachycardia): Plan: History: Echo done 11/25/23 revealed LVEF=60-65%, grade I diastolic dysfunction, trace AR. Sinus rhythm Continue metoprolol tartrate (4) Hypertension: Plan: Continue metoprolol tartrate lisinopril held due to renal insufficiency Monitor and adjust medications as needed (5) Controlled type 2 diabetes mellitus: Plan: A1c: 6.6 on 11/26/23 Hold home metformin Continue insulin while hospitalized Monitor blood glucose levels (6) Hypothyroidism: Plan: TSH: 079 Continue levothyroxine (7) Depression: Plan: Continue citalopram (8) Asthma: Plan: No signs of acute exacerbation Continue albuterol prn (9) Chronic anemia: Plan: Hgb: 11 (baseline ~11). Plt: 82 (baseline low 100's) Monitor CBC Continue iron, B12 supplement (10) Gout: Plan: On home allopurinol 400mg daily Decrease allopurinol to 50 mg Q2D for now (11) Sleep apnea: Plan: CPAP HS Chronic thrombocytopenia No acute bleeding issues Monitor CBC DVT Px: SCDs: Re: Thrombocytopenia CODE STATUS Full code Admission and Anticipated Discharge Date Admission Date: December 15, 2023 Subjective Patient is seen and examined at bedside No complaints Discussed with Nephrology today Patient denies any chest pain, dyspnea, nausea, vomiting, abdominal pain Review of Systems Review of Systems: All systems reviewed & are unremarkable except as noted in Subjective Physical Exam Physical Exam: Physical Exam: Vitals signs as noted above General Appearance: Morbidly obese, no apparent distress Head: normocephalic, Atraumatic Eyes: normal inspection, EOMI Neck: supple, Trachea midline Respiratory/Chest: Normal breath sounds, CTA, No accessory muscle use Cardiovascular: S1, S2, +faint murmur Abdomen/GI:Soft, Non tender, Bowel sounds present Extremities/Musculoskeletal:normal inspection, trace pedal edema Neurologic/Psych:AAOX3, grossly no focal neurological deficits Skin: normal color, warm Results & Data Results & Data Vital Signs (Past 12 Hours) Vital Signs Temp Pulse Pulse Resp BP Pulse Ox O2 Del Method 12/17/23 16:11 36.4 C L 76 18 158/80 H 99 Room Air 12/17/23 13:07 75 12/17/23 11:55 36.7 C 74 18 143/73 H 97 Room Air 12/17/23 08:02 36.7 C 65 16 158/80 H 95 Room Air 12/17/23 05:44 74 Laboratory Results Short CBC 12/17/23 Range/Units 06:02 WBC 5.09 (4.8-10.8) K/ul Hgb 9.0 L (12.0-16.0) g/dl Hct 29.1 L (37.0-47.0) % Plt Count 74 L (130-400) K/uL BMP 12/17/23 06:02 Sodium 138 Potassium 4.9 Chloride 111 H Carbon Dioxide 19 L BUN 60 H Creatinine 2.49 H Glucose 96 Calcium 9.2 Urine 12/17/23 Range/Units Unknown Urine Color Yellow Urine Appearance Clear (Clear) Urine pH 5.5 (4.5-7.5) Ur Specific [place] 1.011 (1.000-1.030) Urine Protein 1+ H (Negative) Urine Glucose (UA) Negative (Negative)
[2023-12-18 08:00] VITALS: RESP 16; TEMP 98.1
[2023-12-18 08:03] LABS: Hematocrit (blood only) 30.7 % (37.0-47.0); Hemoglobin 9.5 g/dl (12.0-16.0); Mean Corpuscular Hemoglobin 23.2 pg (25.0-34.0); Mean Corpuscular Hgb Conc 30.9 g/dL (32.0-36.0); Mean Corpuscular Volume 74.9 fL (80.0-100.0); Mean Platelet Volume 9.8 fL (9.4-12.4); Platelet Count 71 K/uL (130-400); RDW Coefficient of Variation 18.5 % (11.5-14.5); RDW Standard Deviation 50.3 fL (36.4-46.3); White Blood Count 4.52 K/ul (4.8-10.8)
[2023-12-18 09:06] LABS: Calcium 9.1 mg/dl (8.6-10.3); Creatinine Clr Calc Pharmacy 25.6 ml/min; Magnesium 1.7 mg/dl (1.7-2.4); Potassium 4.8 mmol/L (3.5-5.1)
[2023-12-18 12:06] VITALS: BP 148/76; PULSE 71; O2SAT 94
--- NOTE | 2023-12-18 12:35 | Hospitalist Progress Note ---
Date of Service December 18, 2023 Assessment & Plan (1) NIKITA (acute kidney injury): Plan: Patient is 68-year-old female with PMH HTN, dyslipidemia, DM II, PSVT, grade 1 diastolic dysfunction, chronic anemia, chronic thrombocytopenia, depression, hypothyroidism, gout, DANNIE and others listed below presented to ER for abnormal labs - abnormal renal functions. Currently on cefepime for left knee joint infection. Acute kidney injury Baseline creatinine 1.0 Likely multifactorial secondary to poor oral intake, NSAID use, Lasix/lisinopril, metformin, antibiotics --Renal USD:Normal renal ultrasound. --Cr 2.429 today NSAIDs discontinued Held diuretics, lisinopril Monitor renal function and avoid nephrotoxic agents as able Received IV fluids Bladder scan to monitor for any retention Adjust medications renally Appreciate nephrology input Check urine for Eosinophils, C3-C4--pending Discussed with Dr. Almanzar on 12/18/2023: Recommends to get repeat blood work on Wednesday (CBC, renal panel, UA and protein creatinine ratio). Also advised to hold Lasix, metformin, lisinopril and avoid NSAIDs Needs follow-up with nephrology on discharge (2) Infection of prosthetic left knee joint: Plan: S/P Left TKA in 03/[address] Enrique +Joint infection S/P I&D left knee with removal of implant and placement of antibiotic spacer on 11/23/[address] Enrique Intraoperative cultures + Pseudomonas aeruginosa. On IV cefepime per ID recommendations and to finish course on 01/03/24 Continue IV cefepime --renally adjusted Evaluated by ortho 12/13/23 with reported no concern for infection at that time Needs follow-up with ID, orthopedics on discharge Discussed with patient on multiple occasions that the IV antibiotic dosage may need to be readjusted based on her renal function and repeat blood work on discharge next week Patient states that she has follow-up with infectious disease on 12/21/2023 and plans to discuss for further instructions. (3) Paroxysmal SVT (supraventricular tachycardia): Plan: History: Echo done 11/25/23 revealed LVEF=60-65%, grade I diastolic dysfunction, trace AR. Sinus rhythm Continue metoprolol tartrate (4) Hypertension: Plan: Continue metoprolol tartrate lisinopril held due to renal insufficiency Monitor and adjust medications as needed (5) Controlled type 2 diabetes mellitus: Plan: A1c: 6.6 on 11/26/23 Hold home metformin Continue insulin while hospitalized Monitor blood glucose levels (6) Hypothyroidism: Plan: TSH: 079 Continue levothyroxine (7) Depression: Plan: Continue citalopram (8) Asthma: Plan: No signs of acute exacerbation Continue albuterol prn (9) Chronic anemia: Plan: Hgb: 11 (baseline ~11). Plt: 82 (baseline low 100's) Monitor CBC Continue iron, B12 supplement (10) Gout: Plan: On home allopurinol 400mg daily Decrease allopurinol to 50 mg Q2D for now (11) Sleep apnea: Plan: CPAP HS Chronic thrombocytopenia No acute bleeding issues Monitor CBC DVT Px: SCDs: Re: Thrombocytopenia CODE STATUS Full code Disposition Home Admission and Anticipated Discharge Date Admission Date: December 15, 2023 Subjective Patient is seen and examined at bedside Discussed with Nephrology today No new complaints Renal function stable Patient denies any chest pain, dyspnea, nausea, vomiting, abdominal pain Review of Systems Review of Systems: All systems reviewed & are unremarkable except as noted in Subjective Physical Exam Physical Exam: Physical Exam: Vitals signs as noted above General Appearance: Morbidly obese, no apparent distress Head: normocephalic, Atraumatic Eyes: normal inspection, EOMI Neck: supple, Trachea midline Respiratory/Chest: Normal breath sounds, CTA, No accessory muscle use Cardiovascular: S1, S2, +faint murmur Abdomen/GI:Soft, Non tender, Bowel sounds present Extremities/Musculoskeletal:normal inspection, trace pedal edema Neurologic/Psych:AAOX3, grossly no focal neurological deficits Skin: normal color, warm Results & Data Results & Data Vital Signs (Past 12 Hours) Vital Signs Temp Pulse Pulse Resp BP Pulse Ox O2 Del Method 12/18/23 12:06 36.7 C 71 16 148/76 H 94 Room Air 12/18/23 08:00 36.7 C 79 16 145/79 H 97 Room Air 12/18/23 07:48 88 12/18/23 03:09 36.3 C L 76 20 136/70 97 Room Air Laboratory Results Short CBC 12/18/23 Range/Units 06:38 WBC 4.52 L (4.8-10.8) K/ul Hgb 9.5 L (12.0-16.0) g/dl Hct 30.7 L (37.0-47.0) % Plt Count 71 L (130-400) K/uL BMP 12/18/23 06:38 Sodium 139 Potassium 4.8 Chloride 111 H Carbon Dioxide 22 BUN 58 H Creatinine 2.42 H Glucose 103 H Calcium 9.1 Urine 12/17/23 Range/Units Unknown Urine Color Yellow Urine Appearance Clear (Clear) Urine pH 5.5 (4.5-7.5) Ur Specific [place] 1.011 (1.000-1.030) Urine Protein 1+ H (Negative) Urine Glucose (UA) Negative (Negative)
--- NOTE | 2023-12-18 12:58 | Discharge Summary ---
Date of Service December 18, 2023 Admission HPI Per Admitting Provider Patient is 68-year-old female with PMH HTN, dyslipidemia, DM II, PSVT, grade 1 diastolic dysfunction, chronic anemia, chronic thrombocytopenia, depression, hypothyroidism, gout, DANNIE and others listed below presented to ER for abnormal labs. History obtained from patient, patient's , inpatient and outpatient chart review. Per chart review history of hospitalization 11/25/2023 - 11/30/2023 for infected left periprosthetic knee joint. History left TKA by Dr. Enrique 03/2023. S/P I&D left knee with removal of implant and placement of antibiotic spacer on 11/23/[address] Enrique and Intraoperative cultures + Pseudo monas aeruginosa. During that hospitalization was initially treated with cefepime, vancomycin and ID consulted and recommended cefepime x 6 weeks with weekly CBC and CMP, to finish course on 01/03/24. Patient states has been given self cefepime at home TID through her PICC line in right arm. States yesterday was called and told to go to twice daily dosing but is unsure of the reason. Per chart review patient with baseline creatinine 1.0 or less and Outpatient labs 12/07/2023 with creatinine 1.26. Outpatient labs yesterday and 12/14/2023 with creatinine of 2.0 and was referred to ER today. Patient reports was taking Celebrex in addition to meloxicam. She states her knee pain in controlled. She states she drinks about 16 ounces of water daily, 1 cup of coffee and 1 bottle of soda. She has been taking Lasix 20 mg daily. She reports she is urinating without difficulty. Denies dysuria, hematuria, urinary frequency. States past couple days has had intermittent hot and cold episodes. Has not taken her temperature at home. She reports following up with Ortho, Dr. Enrique on 12/13/2023 and had sutures removed and reports area was healing as expected without suspected infection. Patient states eating normally. Today having some nausea. Denies any vomiting. Reports last week had 1 episode of diarrhea and took 1 OTC Imodium with relief. Since BMs have been normal. Patient reports 1 was told to come to ER today for abnormal labs she felt very anxious and in ER reports feeling severely anxious and vomited x 1. No further vomiting in ER. Patient reports now with discussion of current condition and medical plan she is feeling less anxious. Is using walker for ambulation at home. Denies falls. States last week had slight stuffy nose and slight nonproductive cough that has resolved. Denies diaphoresis, TOLBERT, dizziness, syncope, vision changes, neck pain, CP, SOB, orthopnea, palpitations, sore throat, otalgia, abdominal pain, back pain, paresthesias, extremity weakness, extremity edema, rashes. Admission Exam Per Admitting Provider General: no distress, obese Head: normocephalic, atraumatic Eyes: conjunctiva non-injected, anicteric ENT: normal inspection external ears, nose, mucous membranes dry Neck: supple, trachea midline Lungs: clear, no respiratory distress, no wheezing/rhonchi/rales CV: RRR, no murmur, no pretibial edema Abd: normal BS, soft, non-tender, no flank or CVA tenderness to palpation Ext: no cyanosis, no calf tenderness; Left knee with bandage and brace in place Neuro: A&O x 3, no focal deficits noted, normal affect Skin: warm, dry Principal Diagnosis Acute kidney injury Discharge Data Allergies Allergy/AdvReac Type Severity Reaction Status Date / Time No Known Drug Allergies Allergy Unknown Verified 12/15/23 14:03 Consultations 12/15/23 12:44 ED Decision to Admit Stat 12/17/23 08:59 Consult Nephrology Routine Procedures Performed Laboratory Results WBC 4.52 K/ul (4.8-10.8) L 12/18/23 06:38 RBC 4.10 M/uL (4.20-5.40) L 12/18/23 06:38 Hgb 9.5 g/dl (12.0-16.0) L 12/18/23 06:38 Hct 30.7 % (37.0-47.0) L 12/18/23 06:38 MCV 74.9 fL (80.0-100.0) L 12/18/23 06:38 MCH 23.2 pg (25.0-34.0) L 12/18/23 06:38 MCHC 30.9 g/dL (32.0-36.0) L 12/18/23 06:38 RDW Std Deviation 50.3 fL (36.4-46.3) H 12/18/23 06:38 RDW Coeff of Soraya 18.5 % (11.5-14.5) H 12/18/23 06:38 Plt Count 71 K/uL (130-400) L 12/18/23 06:38 MPV 9.8 fL (9.4-12.4) 12/18/23 06:38 Immature Gran % (Auto) 0.2 % 12/16/23 06:20 Neut % (Auto) 46.3 % 12/16/23 06:20 Lymph % (Auto) 27.8 % 12/16/23 06:20 [place] % (Auto) 10.4 % 12/16/23 06:20 Eos % (Auto) 13.7 % 12/16/23 06:20 Baso % (Auto) 1.6 % 12/16/23 06:20 Neut # (Auto) 2.00 K/uL (1.40-6.50) 12/16/23 06:20 Lymph # (Auto) 1.20 K/uL (1.20-3.40) 12/16/23 06:20 [place] # (Auto) 0.45 K/uL (0.11-0.59) 12/16/23 06:20 Eos # (Auto) 0.59 K/uL (0.00-0.50) H 12/16/23 06:20 Baso # (Auto) 0.07 K/uL (0.00-0.20) 12/16/23 06:20 Immature Gran # (Auto) 0.01 K/uL (0.01-0.20) 12/16/23 06:20 Sodium 139 mmol/L (136-145) 12/18/23 06:38 Potassium 4.8 mmol/L (3.5-5.1) 12/18/23 06:38 Chloride 111 mmol/L (98-107) H 12/18/23 06:38 Carbon Dioxide 22 mmol/L (21-32) 12/18/23 06:38 Anion Gap 6 (3-11) 12/18/23 06:38 BUN 58 mg/dl (6-23) H 12/18/23 06:38 Creatinine 2.42 mg/dl (0.6-1.2) H 12/18/23 06:38 Est Cr Clr Drug Dosing 25.6 ml/min 12/18/23 06:38 eGFR 21.51 12/18/23 06:38 BUN/Creatinine Ratio 24.0 (10-20) H 12/18/23 06:38 Glucose 103 mg/dl (70-99(Fasting)) H 12/18/23 06:38 POC Glucose 118 mg/dl (70-99) H 12/18/23 12:10 Calcium 9.1 mg/dl (8.6-10.3) 12/18/23 06:38 Magnesium 1.7 mg/dl (1.7-2.4) 12/18/23 06:38 Total Bilirubin 0.5 mg/dl (0.2-1.0) 12/15/23 Unknown AST 17 U/L (13-39) 12/15/23 Unknown ALT 11 U/L (7-52) 12/15/23 Unknown Alkaline Phosphatase 76 U/L (34-104) 12/15/23 Unknown Total Protein 7.4 gm/dl (6.0-8.3) 12/15/23 Unknown Albumin 4.5 gm/dl (3.4-5.0) 12/15/23 Unknown Globulin 2.9 gm/dl (2.5-4.0) 12/15/23 Unknown Albumin/Globulin Ratio 1.6 (0.9-2) 12/15/23 Unknown Lipase 67 U/L (11-82) 12/15/23 Unknown Procalcitonin 0.07 ng/ml (0-0.5) 12/15/23 Unknown TSH 0.797 uIu/ml (0.300-4.500) 12/15/23 Unknown Urine Color Yellow 12/17/23 Unknown Urine Appearance Clear (Clear) 12/17/23 Unknown Urine pH 5.5 (4.5-7.5) 12/17/23 Unknown Ur Specific [place] 1.011 (1.000-1.030) 12/17/23 Unknown Urine Protein 1+ (Negative) H 12/17/23 Unknown Urine Glucose (UA) Negative (Negative) 12/17/23 Unknown Urine Ketones Negative (Negative) 12/17/23 Unknown Urine Blood Trace (Negative) H 12/17/23 Unknown Urine Nitrite Negative (Negative) 12/17/23 Unknown Urine Bilirubin Negative (Negative) 12/17/23 Unknown Urine Urobilinogen Negative (Negative) 12/17/23 Unknown Ur Leukocyte Esterase Negative (Negative) 12/17/23 Unknown Urine WBC (Auto) 0-5 /hpf (0-5) 12/17/23 Unknown Urine RBC (Auto) 0-2 /hpf (0-2) 12/17/23 Unknown U Hyaline Cast (Auto) 0-2 /lpf (0-2) 12/17/23 Unknown U Epithel Cells (Auto) 0-2 /hpf (0-2) 12/17/23 Unknown Urine Bacteria (Auto) None Seen (None Seen) 12/17/23 Unknown SARS-CoV-2, RNA, NAAT NEGATIVE (NEGATIVE) 12/15/23 12:23 Impressions Chest X-Ray 12/15/23 11:47 XR chest 1V portable HISTORY: 68 years-old Female weakness acute weakness COMPARISON: 11/25/2023 TECHNIQUE: AP view of the chest FINDINGS: Status post placement of a right-sided PICC, distal tip in the expected location of the upper to mid SVC. No pneumothorax or effusion. The lungs are clear. Heart size is normal. Bones appear grossly intact. Chronic appearing right-sided rib fractures. IMPRESSION: 1. No acute process. 2. Status post placement of a right-sided PICC. 3. No pneumothorax. ACT 112: Negative or not required by law. The above report was generated using voice recognition software. It may contain grammatical, syntax or spelling errors. Electronically signed by: Shahid Baugh M.D. 12/15/2023 12:19 PM Renal Ultrasound 12/15/23 12:23 RENAL ULTRASOUND HISTORY: Acute kidney injury nikita COMPARISON: None. FINDINGS: Right kidney: 10.6 cm. No hydronephrosis. Normal corticomedullary differentiation and cortical thickness. Left kidney: 9.5 cm. No hydronephrosis. Normal corticomedullary differentiation and cortical thickness. Bladder: No bladder wall thickening. The bilateral ureteral jets were not identified. Hepatic steatosis incidentally noted. IMPRESSION: Normal renal ultrasound. ACT 112: Negative or not required by law. Electronically signed by: Shahid Baugh M.D. 12/15/2023 1:30 PM Ordered Studies 12/15/23 12:23 US renal/blad retro comp Stat Hospital Course (1) NIKITA (acute kidney injury): Patient is 68-year-old female with PMH HTN, dyslipidemia, DM II, PSVT, grade 1 diastolic dysfunction, chronic anemia, chronic thrombocytopenia, depression, hypothyroidism, gout, DANNIE and others listed below presented to ER for abnormal labs - abnormal renal functions. Currently on cefepime for left knee joint infection. Acute kidney injury Baseline creatinine 1.0 Likely multifactorial secondary to poor oral intake, NSAID use, Lasix/lisinopril, metformin, antibiotics --Renal USD:Normal renal ultrasound. --Cr 2.429 today NSAIDs discontinued Held diuretics, lisinopril Monitor renal function and avoid nephrotoxic agents as able Received IV fluids Bladder scan to monitor for any retention Adjust medications renally Appreciate nephrology input Check urine for Eosinophils, C3-C4--pending Discussed with Dr. Almanzar on 12/18/2023: Recommends to get repeat blood work on Wednesday (CBC, renal panel, UA and protein creatinine ratio). Also advised to hold Lasix, metformin and avoid NSAIDs Needs follow-up with nephrology on discharge (2) Infection of prosthetic left knee joint: S/P Left TKA in 03/[address] Enrique +Joint infection S/P I&D left knee with removal of implant and placement of antibiotic spacer on 11/23/[address] Enrique Intraoperative cultures + Pseudomonas aeruginosa. On IV cefepime per ID recommendations and to finish course on 01/03/24 Continue IV cefepime --renally adjusted Evaluated by ortho 12/13/23 with reported no concern for infection at that time Needs follow-up with ID, orthopedics on discharge Discussed with patient on multiple occasions that the IV antibiotic dosage may need to be readjusted based on her renal function and repeat blood work on disch arge next week Patient states that she has follow-up with infectious disease on 12/21/2023 and plans to discuss for further instructions. (3) Paroxysmal SVT (supraventricular tachycardia): History: Echo done 11/25/23 revealed LVEF=60-65%, grade I diastolic dysfunction, trace AR. Sinus rhythm Continue metoprolol tartrate (4) Hypertension: Continue metoprolol tartrate Monitor and adjust medications as needed (5) Controlled type 2 diabetes mellitus: A1c: 6.6 on 11/26/23 Hold home metformin Continue insulin while hospitalized Monitor blood glucose levels (6) Hypothyroidism: TSH: 079 Continue levothyroxine (7) Depression: Continue citalopram (8) Asthma: No signs of acute exacerbation Continue albuterol prn (9) Chronic anemia: Hgb: 11 (baseline ~11). Plt: 82 (baseline low 100's) Monitor CBC Continue iron, B12 supplement (10) Gout: On home allopurinol 400mg daily Decrease allopurinol to 50 mg Q2D for now (11) Sleep apnea: CPAP HS Chronic thrombocytopenia No acute bleeding issues Monitor CBC DVT Px: SCDs: Re: Thrombocytopenia CODE STATUS Full code Disposition Home Total Time Total Time Spent Total Time Spent (In Minutes): 45 minutes Discharge Plan Discharge Items Patient Disposition: Home - Self-Care Reason For Visit: NIKITA Discharge Diagnosis: Acute kidney injury Activity: Per Instructions section Exercise/Sports: Gradually increase as tolerated Non-emergency contact: Primary Care Provider, Specialist and K[employer]ner Call non-emergency contact if: you have any medication questions, your symptoms worsen, your pain is concerning for you and you have a fever Follow-up/Referrals: Beatris Ruggiero CRNP [Primary Care Provider] - Diet: Carb Consistent or DM2 and Heart Healthy Addtl Attending Provider Instructions: Follow-up with your primary care physician Beatris MOROCHO in 1 week Follow-up with your furniture repair technician with repeat Blood work next week as advised Follow-up with your infectious disease on 12/21/2023 as scheduled --Your tests: Urine Eosinophils, C3-C4 levels are pending at the time of discharge. Follow-up with your physician for results. --Monitor your blood glucose levels, blood pressure closely on daily basis. Discuss with your physician for further adjustment of medications as needed --Avoid NSAIDs like celecoxib, meloxicam or other [id number] pain medications like ibuprofen, naproxen as it can worsen your renal function -- Get blood work CBC, renal function panel, urinalysis, protein/creatinine ratio next week and discuss with your physician for further instructions. --Continue IV cefepime 1 g twice a day for your bone infection. Your dose of the antibiotic may need to be adjusted based on your renal function with repeat blood work next week. -- Hold taking metformin, furosemide until further instructions from your primary care physician/furniture repair technician. -- Your allopurinol dose may need to be readjusted based on your renal function. Seek immediate medical attention if your symptoms reoccur or worsen Please take all medications as instructed on discharge list below. Please call if you have any questions or problems. You can reach a [facility] hospitalist on duty at 24 hours a day by calling [phone] Pending Studies at Discharge: Yes Studies:: Urine Eosinophils, C3-C4 levels Stand-Alone Forms: My [facility], Smoking Cessation Medications and DC Order Prescriptions: New ferrous sulfate 325 mg (65 mg iron) Tablet,Delayed Release (Dr/Ec) 325 mg PO QAM Qty: 30 1RF allopurinol 100 mg Tablet 50 mg PO Q2D Qty: 30 0RF Continued (DME) blood-glucose meter [CeleryTouch Verio Flex Start] Kit See Rx Instructions .ROUTE .MEDSUPPLY Qty: 1 0RF Rx Instructions: As directed (DME) OneTouch Verio test strips Strip See Rx Instructions .ROUTE .MEDSUPPLY Qty: 300 3RF Rx Instructions: test blood sugar 3 x daily (DME) lancets [OneTouch Delica Plus Lancet] 33 gauge misc See Rx Instructions .ROUTE .COMPLEX Qty: 100 11RF Dose Instruction: TEST BLOOD SUGAR 3 X DAILY Rx Instructions: TEST BLOOD SUGAR 3 X DAILY Ozempic 0.25 mg or 0.5 mg (2 mg/3 mL) pen injector 0.5 mg subcut Q7D Qty: 3 3RF Rx Instructions: Tuesdays montelukast [Singulair] 10 mg tablet 10 mg PO QAM omeprazole magnesium [Prilosec OTC] 20 mg tablet,delayed release (DR/EC) 20 mg PO QAM levothyroxine [Levoxyl] 25 mcg tablet 25 mcg PO QAM fluticasone propionate [Flonase Allergy Relief] 50 mcg/actuation spray,suspension 2 sprays INTNAS DAILY PRN (Reason: Congestion) triamcinolone acetonide 0.1 % cream 1 appln TOP BID PRN (Reason: Rash) sodium chloride [[place] Nasal] 0.65 % aerosol,spray 2 sprays INTNAS BID PRN (Reason: Congestion) albuterol sulfate 90 mcg/actuation HFA aerosol inhaler 2 puffs INH Q4H PRN (Reason: Wheezing) ipratropium-albuterol 0.5 mg-3 mg(2.5 mg base)/3 mL solution for nebulization 3 ml INH Q4H PRN (Reason: Wheezing) citalopram [Celexa] 40 mg tablet 40 mg PO QAM levocetirizine [Xyzal] 5 mg Tablet 5 mg PO QAM atorvastatin 10 mg tablet 10 mg PO QAM Rx Instructions: TAKE 1 TABLET BY MOUTH EVERY DAY oxycodone 5 mg tablet 5 - 10 mg PO Q6H PRN (Reason: Pain) metoprolol succinate 25 mg Tablet Extended Release 24 Hr 12.5 mg PO BID Qty: 60 0RF docusate sodium 100 mg capsule 100 mg PO BID PRN (Reason: Constipation) cyanocobalamin (vitamin B-12) [Vitamin B-12] 1,000 mcg Tablet 1,000 mcg PO DAILY cholecalciferol (vitamin D3) [Vitamin D3] 50 mcg (2,000 unit) Capsule 2,000 unit PO DAILY sumatriptan succinate 50 mg tablet 100 mg PO UD Rx Instructions: TAKE 2 TABLETS BY MOUTH AT ONSET OF MIGRAINE. TAKE 1 TABLET EVERY 2 HRS NEEDED. MAX 5 PER 24 HRS. Vitron-C 65 mg iron- 125 mg tablet,delayed release (DR/EC) 1 tab PO QAM Held allopurinol 100 mg tablet See Rx Instructions .ROUTE .COMPLEX Hold Instructions: Until further recommendations from your furniture repair technician/primary care physician Rx Instructions: Take 100mg with 300 mg tab for total daily dose of 400 mg every morning allopurinol 300 mg tablet See Rx Instructions .ROUTE .COMPLEX Hold Instructions: Until further recommendations from your furniture repair technician/primary care physician Rx Instructions: Take 300mg with 100mg to equal 400mg every morning furosemide [Lasix] 20 mg tablet 20 mg PO QAM Hold Instructions: Until further recommendations from your furniture repair technician metformin 1,000 mg tablet 1,000 mg PO BID Hold Instructions: Until further recommendations from your furniture repair technician potassium chloride [Klor-Con M20] 20 mEq tablet,ER particles/crystals 20 meq PO DAILY Hold Instructions: Until further recommendations from your furniture repair technician Discontinued celecoxib 200 mg capsule 200 mg PO QAM meloxicam 15 mg tablet 15 mg PO DAILY Discharge Orders: Discharge Order (Routine); Ordered 12/18/23 Ordered By: Chris Tam Admission Data Admit Date/Time: 12/15/23 13:07 Attending Provider: Chris Tam Admit Provider: Boni Gutierrez Primary Care Provider: Beatris Ruggiero Other Providers: Boni Gutierrez; Tyrell Palacios [facility]; Karl Almanzar
[2023-12-19] MEDS ORDERED: allopurinoL 100 MG TAB PO SCH (09:00)
[2023-12-20 16:37] LABS: Complement C3 42 mg/dL (83-193); Complement Total(CH50) 37 U/mL (31-60)
== END 2023-12-18 14:44 | disposition home health service (06) | DRG 683 ==
LOC: ED 10:55 → SUATTDRO 13:07 → 2N 13:07

== ENCOUNTER 2025-03-02 10:33 | Observation (INO) ==
--- NOTE | 2025-03-02 11:05 | Emergency Department Note ---
Impression & Plan Tachycardia, Anemia, Hypomagnesemia, Vomiting ED Provider Note NAME: VJ ALMANZA AGE: 69 SEX: F : 1955 ARRIVES VIA: Ambulance INFORMANT: [Patient] ED PROVIDER(S): [Eduardo Briseno MD] CHIEF COMPLAINT: Tachycardia HISTORY OF PRESENT ILLNESS: The patient is a 69-year-old female who presents to the ER with tachycardia. Patient was in the ED yesterday for the same complaint although, her rhythm broke spontaneously prior to any medication administration, she was discharged home. The patient states that she was at her doctor's office today, she vomited and was found to be tachycardic. She presents for evaluation. There was some concern at the doctor's office that the vomitus contained blood. The patient is not short of breath, she has no chest pain. She has no abdominal pain. There has been no fever. The patient recently had her PICC line removed. She was being treated for a left knee infection. PMHx/PSHx/Social Hx: See Below PHYSICAL EXAM: GENERAL: Patient is in no acute distress. HEENT: No acute trauma, normocephalic atraumatic, mucous membranes moist, no nasal congestion. NECK: No stridor, no adenopathy, no meningismus, trachea is midline. LUNGS: Clear to auscultation bilaterally, no wheeze, no rhonchi, breath sounds equal. HEART: Tachycardic with a regular rhythm, no obvious murmurs. ABDOMEN: Soft, nontender, no peritonitis. EXTREMITIES: No cyanosis, full range of motion of all the joints without pain or difficulty. Mild bilateral pedal edema. NEUROLOGIC: Oriented x 3, no acute motor or sensory deficits, no focal weakness. SKIN: No jaundice, no diaphoresis. DIFFERENTIAL DIAGNOSIS: SVT, A-fib or a flutter, electrolyte imbalance, anemia, hematemesis, among others. EMERGENCY DEPARTMENT PROCEDURES: MEDICAL DECISION MAKING: There is no leukocytosis. The patient is anemic however, this has been an ongoing issue and today's values are higher than her recent testing. There was a normal platelet count. No bandemia. No coagulopathy. No renal failure. Magnesium was low at 1.4. No concerning liver enzyme elevation. The patient appeared to be in a euthyroid state. ECG showed what I think to be atrial flutter, no acute ST elevation. Cardiac enzyme testing x 1 was not elevated making cardiac ischemia less likely. Chest x-ray did not show any findings of pneumonia or CHF. On exam, the patient was comfortable, she was not hypotensive. She was tachycardic. The patient was given IV magnesium, 2 g. She was given a 500 cc saline bolus. She received a total of 15 mg of IV metoprolol, this was given slowly, eventually, she did convert to a sinus rhythm. The patient was given 4 mg of Zofran IV for nausea. Patient presents with tachycardia. I believe she was in atrial flutter. She is now in a sinus rhythm after the administration of IV metoprolol and IV magnesium. Given the circumstances, given the rhythm disturbance, given the vomiting with outpatient concerns for hematemesis, I do think admission, observation, further monitoring is warranted. The patient would benefit from a cardiology consult. I spoke with the patient and case management, the on-call hospitalist was consulted. Prior/Outside records/notes reviewed: Today's EMS notes describing her presentation and transport to this hospital. ECG per my interpretation: Indication was tachycardia. The ECG shows what appears to be a possible atrial flutter with a rate of 138. The QRS is narrow. There is no ST elevation, there are no PVCs. QTc is 436. Repeat ECG per my interpretation: Indication was tachycardia. The ECG shows a sinus rhythm with some PACs. The rate is 87. There is no acute ST elevation, no PVCs. There is poor R wave progression. QTc is 433. Compared to the earlier ECG, the rhythm is now sinus. Continuous Cardiac Monitoring per my interpretation: An order was placed for continuous cardiac monitoring. The monitor shows a rate of 141 with atrial flutter. Imaging/x-ray results per my interpretation: Chest x-ray does not show mediastinal widening or CHF. There is no pneumonia. Chronic Medical/Social conditions affecting care: Recent left knee infection requiring PICC line placement and IV antibiotics. Care/Management discussed with: Case management and the on-call hospitalist. Level of care consideration(s): After review of the information above and other included data: --I believe the patient requires escalation of care to admission Critical Care Note: I have personally spent 47 minutes of critical care time in the direct management of this patient. This includes bedside care, interpretation of diagnostic studies, and testing, discussion with consultants, patient, and family members, and other required patient management activities. This 47 minutes is in excess of all separately billable procedures. DISPOSITION: Admission Past Med/Surg History Problem List Sinus tachycardia Vomiting (Acute) Hypomagnesemia (Acute) Anemia (Acute) Tachycardia (Acute) Tachycardia (Acute) Elevated lipase (Acute) Anemia (Acute) Heart palpitations (Acute) S/P PICC central line placement (Acute) Chronic anemia Sleep apnea CPAP (compliant) Gout NIKITA (acute kidney injury) (Acute) History of total left knee replacement Arthritis of knee, left Encounter for pre-operative examination Vitamin D deficiency Increase in creatinine Dysesthesia Depression Hypertriglyceridemia Dyslipidemia Obesity Controlled type 2 diabetes mellitus Shortness of breath (Acute) Tachycardia (Acute) Asthma (Chronic) Stable Hypertension (Chronic) Pulmonary nodule (Chronic) Medical History Infection of prosthetic left knee joint Paroxysmal SVT (supraventricular tachycardia) Infection of left knee Hypothyroidism Hx of basal cell carcinoma Hx of melanoma of skin Spinal stenosis Arthritis GERD (gastroesophageal reflux disease) Hypothyroidism Diabetes mellitus, type 2 NIDDM Depression Leaky heart valve Stress echo 08/2019: Mild AR Hyperlipidemia History of COVID-2020, not hospitalized Surgical History Hx of basal cell carcinoma excision S/P right knee arthroscopy S/P left knee arthroscopy History of colonoscopy H/O melanoma excision face Family History Mother Diabetes Father Diabetes Brother Diabetes Brother Diabetes Other No family history of adverse response to anesthesia Social History Smoking Status: Never smoker Second Hand Exposure: No; Do You Dip or Chew Tobacco: No; Hx Alcohol Use: Yes Alcohol type: hard liquor Hx Substance Use: No Preferred Language: [place] Communication Ability: Effective Residential Driver Required: No Beliefs That Will Affect Care: None Current Living Situation: Spouse Feels Safe at Home: Yes Assistive Devices: CPAP and Glasses Allergies Allergies Allergy/AdvReac Type Severity Reaction Status Date / Time No Known Allergies Allergy Verified 12/18/25 22:57 Home Meds Home Medications Medication Instructions Recorded Confirmed albuterol sulfate 90 mcg/actuation 2 puffs inhalation Q4H PRN Wheezing 09/11/19 03/02/25 aerosol inhaler allopurinol 100 mg tablet 100 mg PO DAILY 09/11/19 03/02/25 fluticasone propionate 50 2 sprays intranasal DAILY PRN 09/11/19 03/02/25 mcg/actuation nasal Congestion spray,suspension (Flonase Allergy Relief) furosemide 20 mg tablet (Lasix) 20 mg PO 3XWK 09/11/19 03/02/25 ipratropium 0.5 mg-albuterol 3 mg 3 ml inhalation Q4H PRN Wheezing 09/11/19 03/02/25 (2.5 mg base)/3 mL nebulization soln levothyroxine 25 mcg tablet 25 mcg PO DAILYBB 09/11/19 03/02/25 (Levoxyl) omeprazole magnesium 20 mg 20 mg PO DAILYBB 09/11/19 03/02/25 tablet,delayed release (Prilosec OTC) citalopram 40 mg tablet (Celexa) 40 mg PO QAM 05/02/20 03/02/25 atorvastatin 10 mg tablet 10 mg PO QAM 12/28/22 03/02/25 levocetirizine 5 mg tablet (Xyzal) 5 mg PO QPM 12/28/22 03/02/25 potassium chloride 20 mEq 20 meq PO 3XWK 11/21/23 03/02/25 tablet,extended release(part/cryst) (Klor-Con M) docusate sodium 100 mg capsule 100 mg PO BID PRN Constipation 12/15/23 03/02/25 aspirin 81 mg tablet,delayed 81 mg PO DAILY 01/28/25 03/02/25 release cyanocobalamin (vitamin B-12) 1,000 mcg PO DAILY 01/28/25 03/02/25 1,000 mcg tablet (Vitamin B-12) folic acid 1 mg tablet 1 mg PO DAILY 01/28/25 03/02/25 iron,carbonyl 65 mg-vitamin C 125 1 tab PO DAILY 01/28/25 03/02/25 mg tablet,delayed release (Vitron-C) losartan 50 mg tablet 50 mg PO DAILY 01/28/25 03/02/25 ondansetron 4 mg disintegrating 4 mg PO Q6H PRN NAUSEA/VOMITING 01/28/25 03/02/25 tablet oxycodone 5 mg tablet 5 mg PO Q4H PRN mod-severe pain 01/28/25 03/02/25 rifampin 300 mg capsule 300 mg PO BID 01/28/25 03/02/25 acetaminophen 500 mg tablet 1,000 mg PO Q6H PRN PAIN/FEVER 03/01/25 03/02/25 (Tylenol Extra Strength) cholecalciferol (vitamin D3) 50 2,000 unit PO DAILY 03/01/25 03/02/25 mcg (2,000 unit) capsule (Vitamin D3) polyethylene glycol 3350 17 17 g PO DAILY PRN Constipation 03/01/25 03/02/25 gram/dose oral powder (Miralax) soy isoflavone-black cohosh 1 cap PO DAILY 03/01/25 03/02/25 root-magnolia bark 155 mg capsule (Estroven) doxycycline hyclate 100 mg capsule 100 mg PO BID 03/02/25 03/02/25 montelukast 10 mg tablet 10 mg PO DAILY 03/02/25 03/02/25 Previous Rx's Medication Instructions Recorded OneTouch Verio Flex Start #1 ea 09/22/19 (blood-glucose meter) OneTouch Delica Plus Lancet 33 #100 ea 09/27/24 gauge (lancets) OneTouch Verio test strips (blood #300 ea 09/27/24 sugar diagnostic) metoprolol succinate 25 mg 12.5 mg (1/2 x 25 mg) PO BID #1 tab 03/01/25 tablet,extended release 24 hr Results & Data (ED) Vital Signs Vital Signs - 24 hr 03/02/25 10:40 03/02/25 10:47 03/02/25 10:47 Temperature 36.7 C Temperature Source Oral Pulse Rate 141 H 141 H Pulse Rate [Apical] Respiratory Rate 18 18 Respiratory Effort / Characteristics Non-Labored Spontaneous Respiratory Depth Normal Blood Pressure 144/86 H Blood Pressure [Right Arm] Blood Pressure Mean 105 Blood Pressure Mean [Right Arm] Blood Pressure Position Semi-fowlers Blood Pressure Position [Right Arm] Pulse Oximetry 97 97 97 Oxygen Delivery Method Room Air Room Air Room Air Sepsis Recent Fever Within 48 Hours No Sepsis New/Unexplained Change in Mental Status N/A Sepsis Action Taken by Nursing No Action Required 03/02/25 10:47 03/02/25 11:52 03/02/25 11:55 Temperature 36.7 C Temperature Source Oral Pulse Rate 138 H 134 H Pulse Rate [Apical] 141 H Respiratory Rate 18 Respiratory Effort / Characteristics Non-Labored Spontaneous Respiratory Depth Normal Blood Pressure 138/93 Blood Pressure [Right Arm] 144/86 H Blood Pressure Mean Blood Pressure Mean [Right Arm] 105 Blood Pressure Position Blood Pressure Position [Right Arm] Pulse Oximetry 97 Oxygen Delivery Method Room Air Sepsis Recent Fever Within 48 Hours Sepsis New/Unexplained Change in Mental Status Sepsis Action Taken by Nursing 03/02/25 12:00 03/02/25 12:10 03/02/25 12:15 Temperature Temperature Source Pulse Rate 88 132 H 132 H Pulse Rate [Apical] Respiratory Rate 17 Respiratory Effort / Characteristics Respiratory Depth Blood Pressure 142/94 H 152/101 H Blood Pressure [Right Arm] Blood Pressure Mean Blood Pressure Mean [Right Arm] Blood Pressure Position Blood Pressure Position [Right Arm] Pulse Oximetry 96 Oxygen Delivery Method Room Air Sepsis Recent Fever Within 48 Hours Sepsis New/Unexplained Change in Mental Status Sepsis Action Taken by Nursing 03/02/25 12:30 Temperature Temperature Source Pulse Rate Pulse Rate [Apical] 88 Respiratory Rate 17 Respiratory Effort / Characteristics Non-Labored Spontaneous Respiratory Depth Normal Blood Pressure Blood Pressure [Right Arm] 134/88 Blood Pressure Mean Blood Pressure Mean [Right Arm] 103 Blood Pressure Position Blood Pressure Position [Right Arm] Lying Pulse Oximetry 98 Oxygen Delivery Method Room Air Sepsis Recent Fever Within 48 Hours Sepsis New/Unexplained Change in Mental Status Sepsis Action Taken by Correction Medications Current Medication List: was personally reviewed by me Laboratory Data Attestation: I reviewed the patient's lab results. 03/02/25 10:47 03/02/25 10:47 Lab Results 03/02/25 03/02/25 Range/Units 10:47 12:00 WBC 4.26 L (4.8-10.8) K/ul RBC 4.34 (4.20-5.40) M/uL Hgb 10.2 L (12.0-16.0) g/dL Hct 32.3 L (37.0-47.0) % MCV 74.4 L (80.0-100.0) fL MCH 23.5 L (25.0-34.0) pg MCHC 31.6 L (32.0-36.0) g/dL RDW Std Deviation 39.2 (36.4-46.3) fL RDW Coeff of Soraya 14.6 H (11.5-14.5) % Plt Count 152 (130-400) K/uL MPV 10.3 (9.4-12.4) fL Immature Gran % (Auto) 0.5 % Neut % (Auto) 64.6 % Lymph % (Auto) 13.1 % [place]cher % (Auto) 8.7 % Eos % (Auto) 12.4 % Baso % (Auto) 0.7 % Neut # (Auto) 2.75 (1.40-6.50) K/uL Lymph # (Auto) 0.56 L (1.20-3.40) K/uL Letcher # (Auto) 0.37 (0.11-0.59) K/uL Eos # (Auto) 0.53 H (0.00-0.50) K/uL Baso # (Auto) 0.03 (0.00-0.20) K/uL Immature Gran # (Auto) 0.02 (0.01-0.20) K/uL PT 11.9 (9.0-12.0) Seconds INR 1.1 (0.9-1.1) APTT 26 (21-31) Seconds PTT Ratio 1.0 Sodium 137 (136-145) mmol/L Potassium 3.9 (3.5-5.1) mmol/L Chloride 103 (98-107) mmol/L Carbon Dioxide 23 (21-32) mmol/L Anion Gap 11 (3-11) BUN 13 (6-23) mg/dl Creatinine 0.94 (0.6-1.2) mg/dl Est Cr Clr Drug Dosing 68.5 ml/min eGFR 66.51 BUN/Creatinine Ratio 13.8 (10-20) Glucose 131 H (70-99(Fasting)) mg/dl Calcium 8.7 (8.6-10.3) mg/dl Magnesium 1.4 L (1.7-2.4) mg/dl Total Bilirubin 0.5 (0.2-1.0) mg/dl AST 23 (13-39) U/L ALT 23 (7-52) U/L Alkaline Phosphatase 65 (34-104) U/L Troponin I High Sens 4.9 (0-14) pg/ml Total Protein 6.6 (6.0-8.3) gm/dl Albumin 3.7 (3.4-5.0) gm/dl Globulin 2.9 (2.5-4.0) gm/dl Albumin/Globulin Ratio 1.3 (0.9-2) TSH 1.564 (0.300-4.500) uIu/ml Urine Color Dark Yellow Urine Appearance Clear (Clear) Urine pH 5.5 (4.5-7.5) Ur Specific [place] 1.026 (1.000-1.030) Urine Protein 1+ H (Negative) Urine Glucose (UA) Negative (Negative) Urine Ketones Trace H (Negative) Urine Blood Negative (Negative) Urine Nitrite Negative (Negative) Urine Bilirubin Negative (Negative) Urine Urobilinogen Negative (Negative) Ur Leukocyte Esterase Trace H (Negative) Urine WBC (Auto) 0-5 (0-5) /hpf Urine RBC (Auto) 0-2 (0-2) /hpf U Hyaline Cast (Auto) 0-2 (0-2) /lpf U Epithel Cells (Auto) 0-2 (0-2) /hpf Urine Bacteria (Auto) None Seen (None Seen) Urine Comment Administered Medications Magnesium Sulfate/Dextrose (Magnesium Sulfate / D5w) 1 gm in 100 mls @ 50 mls/hr IV Q2H FISH Stop: 03/02/25 18:29 Last Admin: 03/02/25 15:54 Dose: 50 mls/hr Documented By: DAA Discontinued Medications Sodium Chloride (Nss) 500 mls @ 999 mls/hr IV .Q31M FISH Stop: 03/02/25 11:15 Last Infusion: 03/02/25 13:25 Dose: Infused Documented By: Admin: 03/02/25 11:49 Dose: 999 mls/hr Documented By: GRARET Magnesium Sulfate/Dextrose (Magnesium Sulfate / D5w) 1 gm in 100 mls @ 100 mls/hr IV Q1H FISH Stop: 03/02/25 13:35 Last Admin: 03/02/25 13:46 Dose: 100 mls/hr Documented By: Infusion: 03/02/25 13:25 Dose: Infused Documented By: Admin: 03/02/25 12:25 Dose: 100 mls/hr Documented By: GARRET Metoprolol Tartrate (Metoprolol Tartrate 1 Mg/Ml Vial) 15 mg IV NOW STA Stop: 03/02/25 11:00 Last Admin: 03/02/25 12:14 Dose: Not Given Documented By: [facility] Metoprolol Tartrate (Metoprolol Tartrate 1 Mg/Ml Vial) 5 mg IV NOW STA Stop: 03/02/25 12:01 Last Admin: 03/02/25 11:55 Dose: 5 mg Documented By: GARRET Metoprolol Tartrate (Metoprolol Tartrate 1 Mg/Ml Vial) 5 mg IV NOW STA Stop: 03/02/25 12:06 Last Admin: 03/02/25 12:10 Dose: 5 mg Documented By: [facility] Metoprolol Tartrate (Metoprolol Tartrate 1 Mg/Ml Vial) 5 mg IV NOW STA Stop: 03/02/25 12:22 Last Admin: 03/02/25 12:15 Dose: 5 mg Documented By: GARRET Metoprolol Tartrate (Metoprolol Tartrate 25 Mg Tab) 25 mg PO NOW ONE Stop: 03/02/25 13:15 Last Admin: 03/02/25 13:37 Dose: 25 mg Documented By: [facility] Ondansetron HCl (Ondansetron Inj 2 Mg/Ml 2 Ml Vial) 4 mg IV NOW STA Stop: 03/02/25 11:55 Last Admin: 03/02/25 12:24 Dose: 4 mg Documented By: GARRET Potassium Chloride (Potassium Chloride Crtab 20 Meq Tabcr) 40 meq PO NOW STA Stop: 03/02/25 12:50 Last Admin: 03/02/25 13:07 Dose: 40 meq Documented By: [facility] Imaging Data Radiologist's Impression: Chest X-Ray 03/02/25 10:45 XR chest 1V portable HISTORY: 69 years-old Female weakness COMPARISON: CTA chest same day TECHNIQUE: AP view of the chest FINDINGS: The mediastinal and hilar silhouettes are within normal limits. Subcentimeter pulmonary nodules are better seen on yesterday's chest CT. No pneumothorax, pleural effusion, airspace consolidation or pulmonary edema. Bones of the chest appear grossly intact. IMPRESSION: No acute process. ACT 112: Negative or not required by law. The above report was generated using voice recognition software. It may contain grammatical, syntax or spelling errors. Electronically signed by: Shahid Baugh M.D. 03/02/2025 11:20 AM Discharge Plan Visit Data Chief Complaint: Tachycardia Stated Complaint: TACHYCARDIA ED Provider: Eduardo Briseno Discharge Problem: Tachycardia, Anemia, Hypomagnesemia, Vomiting Patient Disposition: Admitted As Inpatient Condition: Fair Discharge Instructions Interventions: ED Discharge Assessment Last Done: 03/02/25 14:37 Discharge Problem: Anemia Qualifiers: Anemia type: unspecified type Qualified Code(s): D64.9 - Anemia, unspecified Vomiting Qualifiers: Vomiting type: unspecified Nausea presence: with nausea Qualified Code(s): R 11.2 - Nausea with vomiting, unspecified
[2025-03-02 11:13] LABS: Hematocrit (blood only) 32.3 % (37.0-47.0); Hemoglobin 10.2 g/dL (12.0-16.0); Immature Granulocytes # (auto) 0.02 K/uL (0.01-0.20); Immature Granulocytes % (auto) 0.5 %; Mean Corpuscular Hemoglobin 23.5 pg (25.0-34.0); Mean Corpuscular Volume 74.4 fL (80.0-100.0); Platelet Count 152 K/uL (130-400); RDW Standard Deviation 39.2 fL (36.4-46.3); Red Blood Count 4.34 M/uL (4.20-5.40); White Blood Count 4.26 K/ul (4.8-10.8)
--- NOTE | 2025-03-02 11:21 | XRay Report ---
XR chest 1V portable HISTORY: 69 years-old Female weakness COMPARISON: CTA chest same day TECHNIQUE: AP view of the chest FINDINGS: The mediastinal and hilar silhouettes are within normal limits. Subcentimeter pulmonary nodules are b bo seen on yesterday's chest CT. No pneumothorax, pleural effusion, airspace consolidation or pulm onary edema. Bones of the chest appear grossly intact. IMPRESSION: No acute process. ACT 112: Negative or not required by law. The above report was generated using voice recognition software. It may contain grammatical, syntax o r spelling errors. Electronically signed by: Shahid Baugh M.D. 03/02/2025 11:20 AM
[2025-03-02 11:26] LABS: Alanine Aminotransferase 23.0 U/L (7-52); Albumin Globulin Ratio 1.3 (0.9-2); Albumin Level 3.7 gm/dl (3.4-5.0); Alkaline Phosphatase 65.0 U/L (34-104); Anion Gap 11.0 (3-11); Bilirubin,Total 0.5 mg/dl (0.2-1.0); Blood Urea Nitrogen 13.0 mg/dl (6-23); Calcium 8.7 mg/dl (8.6-10.3); Carbon Dioxide 23.0 mmol/L (21-32); Chloride 103.0 mmol/L (98-107); Creatinine Clr Calc Pharmacy 68.5 ml/min; Globulin 2.9 gm/dl (2.5-4.0); Glucose 131.0 mg/dl (70-99(Fasting)); Magnesium 1.4 mg/dl (1.7-2.4); Potassium 3.9 mmol/L (3.5-5.1); Sodium 137.0 mmol/L (136-145); Total Protein 6.6 gm/dl (6.0-8.3)
[2025-03-02 11:36] LABS: INR 1.1 (0.9-1.1); Partial Thromboplastin Time 26 Seconds (21-31); Prothrombin Time 11.9 Seconds (9.0-12.0)
[2025-03-02 11:39] LABS: Thyroid Stimulating Hormone 1.564 uIu/ml (0.300-4.500)
[2025-03-02] MEDS: SODIUM CHLORIDE 0.9% 500 ML IV SCH (11:49)
[2025-03-02] MEDS: METOPROLOL TARTRATE 1 MG/ML VIAL IV STA ×4 (11:55→12:15)
[2025-03-02 12:23] LABS: Appearance Urine Clear (Clear); Bacteria Urine Automated None Seen (None Seen); Cast Urine Automated 0-2 /lpf (0-2); Epithelial Cell Urine Auto 0-2 /hpf (0-2); Glucose Urine UA Negative (Negative); RBC Urine Automated 0-2 /hpf (0-2); WBC Urine Automated 0-5 /hpf (0-5)
[2025-03-02] MEDS: ONDANSETRON INJ 2 MG/ML 2 ML VIAL IV STA (12:24)
[2025-03-02] MEDS: MAGNESIUM SULFATE / D5W 1 GM/100 ML BAG IV SCH ×2 (12:25→15:54)
--- NOTE | 2025-03-02 12:55 | History & Physical Report ---
Date of Service March 02, 2025 Assessment & Plan (1) Sinus tachycardia: Plan: Patient is 69-year-old female with PMH HTN, dyslipidemia, DM II, PSVT, grade 1 diastolic dysfunction, history infection prosthetic left knee joint, chronic anemia, chronic thrombocytopenia, depression, hypothyroidism, gout, DANNIE and others listed below presented to ER for tachycardia today #Sinus tachycardia Seen at [facility] ED yesterday 03/01/2025 for tachycardia with rate 140's. Thought was possible atrial flutter and during ER course patient HRs down to 80's-90s without intervention and discharged home. Today at PCP office found to be tachycardic in 140s and referred to ER. In ER HR's 140's, BP 144/86, respirations 18, 97% on room air. Pt denies CP, palpitations, SOB currently. Initial concern by ER provider for possible atypical atrial flutter. In ER Patient given three doses IV Lopressor total of 15mg and now HR's in 80's-90s and appears sinus rhythm on most recent EKG. 10:40 a.m. EKG: Sinus tachycardia, rate 138 per my interpretation. 12:23 AM EKG: Sinus tachycardia, rate 132 per my interpretation. 12:31 AM EKG: Sinus rhythm, rate 87 per my interpretation K: 3.9, Ma.4, TSH: 1.5 In ER given 2 grams magnesium sulfate IV 07/20/2024 echo: EF: 60-64%, no LV wall motion abnormality, mild aortic valve regurgitation 09/19/2024 cardiac cath: Normal coronary arteries by angiography Replace potassium and magnesium and monitor R/O underlying infection. Blood cultures pending. Left knee x-ray pending. UA unremarkable. CXR: no infiltrate Obtain resting echo to r/o Cardiology consult. Discussed EKGs and also feels likely sinus tachycardia Increasing home metoprolol succinate from 12.5mg BID to 25mg BID as per discussion with cardiology CBC, BMP, magnesium labs in am #Infected prosthetic left knee S/P Left TKA in 03/[address] Enrique Joint infection S/P I&D left knee with removal of implant and placement of antibiotic spacer on 11/23/[address] Enrique. Intraoperative cultures + Pseudomonas aeruginosa. Treated with cefepime per ID recommendations and to finish course on 01/03/24 S/P removal left knee spacer, excisional debridement and irrigation of synovium, subcutaneous tissue & bone and conversion to revision left total knee arthroplasty [place] 12[place] [facility]. Had suspected recurrent infection and S/P Excisional debridement irrigation left superficial hematoma with debridement irrigation of the joint space synovium , subcutaneous tissue & Polyethylene swap on 01/19/25 [place] [facility] Initially was on cefazolin. Intraoperative cultures grew staphylococcus epidermis and [facility] recommended IV vancomycin (Ended 03/01/25). Oral rifaximin ended 03/02/25 To start on suppressive doxycycline today (03/02/25) PICC line removed yesterday 03/01/25 Following with [facility] #Nausea #Vomiting Having intermittent nausea, vomiting from IV antibiotics. Patient states took am medications including metoprolol succinate and approximately 45 minutes later while at PCP office had emesis that was red. She reports the rifampin pill is red Hgb: 10.2 and stable Suspect red vomit likely from red medication. Will continue to monitor #History Paroxysmal SVT (supraventricular tachycardia): Increasing home metoprolol succinate from 12.5mg BID to 25mg BID as above #Hypertension: Continue home losartan increasing home metoprolol succinate from 12.5mg BID to 25mg BID as above #Controlled type 2 diabetes mellitus: A1c: 6.2 on 12/22/24 Endocrine discontinued metformin recently #Hypothyroidism: Continue levothyroxine #Depression: Continue citalopram #Asthma: No signs of acute exacerbation Continue albuterol prn Chronic anemia: Hgb: 10.2. At baseline Continue home iron, B12 supplement, folic acid supplement #Gout: Continue home allopurinol #Sleep apnea: CPAP HS DVT Prophylaxis Heparin SQ Admit telemetry Full Code as per discussion with pt Follows with Beatris MOROCHO for routine care Pt was seen and care coordinated with Dr Callahan. See addendum I spent a total of 68 minutes reviewing notes, outpatient records, labs, medication, coordinating, documenting and providing care for this patient excluding time spent in the performance of separately billed services and excluding time spent by another provider/QHP. History of Present Illness Chief Complaint: Tachycardia Primary Care Provider: BAILEE Peña Patient is 69-year-old female with PMH HTN, dyslipidemia, DM II, PSVT, grade 1 diastolic dysfunction, history infection prosthetic left knee joint, chronic anemia, chronic thrombocytopenia, depression, hypothyroidism, gout, DANNIE and others listed below presented to ER for tachycardia today. States intermittently has "weird sensation" to left anterior chest but doesn't feel like having palpitations or heart racing and denies overt chest pain. Denies SOB. Seen at [facility] ED yesterday 03/01/2025 for tachycardia with rate 140's. Thought was possible atrial flutter and during ER course patient HRs down to 80's-90s and discharged home. Patient states took am medications including metoprolol succinate and ap proximately 45 minutes later while at PCP office had emesis that was red. She reports the rifampin pill is red. Seen at PCPs office today for ER follow-up and there Pulse ord267, BP 140/76 and referred to ER. Patient states decreased appetite and decreased oral intake while on antibiotics. Also reports intermittent nausea and vomiting. Reports was having diarrhea but that resolved approximately 3 weeks ago. Denies any hematemesis, melena or hematochezia. Denies abdominal pain. Denies history GI bleed. She has extensive history prosthetic left knee infection with most recent revision left total knee arthroplasty on 12/26/24 [place] [facility] Had suspected recurrent infection and bloody drainage and had debridement and irrigation hematoma left knee and polyethylene swap on 01/19/25 at [facility] Initially was on cefazolin. Intraoperative cultures grew staphylococcus epidermis and Pretty BERRIOS recommended IV vancomycin oral rifaximin to end on 03/01/25. Patient reports had one dose of rifaximin left to take this morning. To start on suppressive doxycycline today (03/02/25). Patient reports that her left knee seems to be doing well and isn't having pain and not requiring the use of her oxycodone. She is now ambulating without assistive device. Denies any open areas, discharge, bleeding, swelling or erythema. Denies fever/chills, diaphoresis, TOLBERT, dizziness, syncope, vision changes, neck pain, cough, sore throat, rhinorrhea, extremity weakness, increased extremity edema, rashes, urinary symptoms (other than orange urine from her rifaximin). Today in ER HR's in 140s and initial EKGs appear sinus rhythm to my interpretation. Discussed with ER physician who reports concern for atypical atrial flutter and patient was given three doses IV Lopressor total of 15mg and now HR's in 80's-90s and appears sinus rhythm on most recent EKG. Allergies Allergy/AdvReac Type Severity Reaction Status Date / Time No Known Allergies Allergy Verified 03/01/25 22:57 Home Medications Medication Instructions Recorded Confirmed Type albuterol sulfate 90 mcg/actuation 2 puffs inhalation Q4H PRN Wheezing 09/11/19 03/02/25 History aerosol inhaler allopurinol 100 mg tablet 100 mg PO DAILY 09/11/19 03/02/25 History fluticasone propionate 50 2 sprays intranasal DAILY PRN 09/11/19 03/02/25 History mcg/actuation nasal Congestion spray,suspension (Flonase Allergy Relief) furosemide 20 mg tablet (Lasix) 20 mg PO 3XWK 09/11/19 03/02/25 History ipratropium 0.5 mg-albuterol 3 mg 3 ml inhalation Q4H PRN Wheezing 09/11/19 03/02/25 History (2.5 mg base)/3 mL nebulization soln levothyroxine 25 mcg tablet 25 mcg PO DAILYBB 09/11/19 03/02/25 History (Levoxyl) omeprazole magnesium 20 mg 20 mg PO DAILYBB 09/11/19 03/02/25 History tablet,delayed release (Prilosec OTC) OneTouch Verio Flex Start #1 ea 09/22/19 03/02/25 Rx (blood-glucose meter) citalopram 40 mg tablet (Celexa) 40 mg PO QAM 05/02/20 03/02/25 History atorvastatin 10 mg tablet 10 mg PO QAM 12/28/22 03/02/25 History levocetirizine 5 mg tablet (Xyzal) 5 mg PO QPM 12/28/22 03/02/25 History potassium chloride 20 mEq 20 meq PO 3XWK 11/21/23 03/02/25 History tablet,extended release(part/cryst) (Klor-Con M) docusate sodium 100 mg capsule 100 mg PO BID PRN Constipation 12/15/23 03/02/25 History OneTouch Delica Plus Lancet 33 #100 ea 09/27/24 03/02/25 Rx gauge (lancets) OneTouch Verio test strips (blood #300 ea 09/27/24 03/02/25 Rx sugar diagnostic) aspirin 81 mg tablet,delayed 81 mg PO DAILY 01/28/25 03/02/25 History release cyanocobalamin (vitamin B-12) 1,000 mcg PO DAILY 01/28/25 03/02/25 History 1,000 mcg tablet (Vitamin B-12) folic acid 1 mg tablet 1 mg PO DAILY 01/28/25 03/02/25 History iron,carbonyl 65 mg-vitamin C 125 1 tab PO DAILY 01/28/25 03/02/25 History mg tablet,delayed release (Vitron-C) losartan 50 mg tablet 50 mg PO DAILY 01/28/25 03/02/25 History ondansetron 4 mg disintegrating 4 mg PO Q6H PRN NAUSEA/VOMITING 01/28/25 03/02/25 History tablet oxycodone 5 mg tablet 5 mg PO Q4H PRN mod-severe pain 01/28/25 03/02/25 History rifampin 300 mg capsule 300 mg PO BID 01/28/25 03/02/25 History acetaminophen 500 mg tablet 1,000 mg PO Q6H PRN PAIN/FEVER 03/01/25 03/02/25 History (Tylenol Extra Strength) cholecalciferol (vitamin D3) 50 2,000 unit PO DAILY 03/01/25 03/02/25 History mcg (2,000 unit) capsule (Vitamin D3) metoprolol succinate 25 mg 12.5 mg (1/2 x 25 mg) PO BID #1 tab 03/01/25 03/02/25 Rx tablet,extended release 24 hr polyethylene glycol 3350 17 17 g PO DAILY PRN Constipation 03/01/25 03/02/25 History gram/dose oral powder (Miralax) soy isoflavone-black cohosh 1 cap PO DAILY 03/01/25 03/02/25 History root-magnolia bark 155 mg capsule (Estroven) doxycycline hyclate 100 mg capsule 100 mg PO BID 03/02/25 03/02/25 History montelukast 10 mg tablet 10 mg PO DAILY 03/02/25 03/02/25 History Past Med/Surg History Problem List Sinus tachycardia Vomiting (Acute) Hypomagnesemia (Acute) Anemia (Acute) Tachycardia (Acute) Tachycardia (Acute) Elevated lipase (Acute) Anemia (Acute) Heart palpitations (Acute) S/P PICC central line placement (Acute) Chronic anemia Sleep apnea CPAP (compliant) Gout NIKITA (acute kidney injury) (Acute) History of total left knee replacement Arthritis of knee, left Encounter for pre-operative examination Vitamin D deficiency Increase in creatinine Dysesthesia Depression Hypertriglyceridemia Dyslipidemia Obesity Controlled type 2 diabetes mellitus Shortness of breath (Acute) Tachycardia (Acute) Asthma (Chronic) Stable Hypertension (Chronic) Pulmonary nodule (Chronic) Medical History Infection of prosthetic left knee joint Paroxysmal SVT (supraventricular tachycardia) Infection of left knee Hypothyroidism Hx of basal cell carcinoma Hx of melanoma of skin Spinal stenosis Arthritis GERD (gastroesophageal reflux disease) Hypothyroidism Diabetes mellitus, type 2 NIDDM Depression Leaky heart valve Stress echo 08/2019: Mild AR Hyperlipidemia History of COVID-2020, not hospitalized Surgical History Hx of basal cell carcinoma excision S/P right knee arthroscopy S/P left knee arthroscopy History of colonoscopy H/O melanoma excision face Family History Mother Diabetes Father Diabetes Brother Diabetes Brother Diabetes Other No family history of adverse response to anesthesia Social History Smoking Status: Never smoker Second Hand Exposure: No; Do You Dip or Chew Tobacco: No; Hx Alcohol Use: Yes Alcohol type: hard liquor Hx Substance Use: No Preferred Language: Haitian Communication Ability: Effective Twist Packer Required: No Beliefs That Will Affect Care: None Current Living Situation: Spouse Feels Safe at Home: Yes Assistive Devices: CPAP and Glasses Review of Systems Review of Systems: All systems reviewed & are unremarkable except as noted in HPI & below Physical Exam Physical Exam: General: no distress, obese female Head: normocephalic, atraumatic Eyes: conjunctiva non-injected, anicteric ENT: normal inspection external ears, nose, mucous membranes moist Neck: supple, trachea midline Lungs: clear, no respiratory distress, no wheezing/rhonchi/rales CV: RRR, rate 88, no murmur appreciated, trace pretibial edema Abd: normal BS, soft, non-tender Ext: no cyanosis, no calf tenderness; LLE: +healed incision to anterior knee, knee without edema, erythema or warmth. non-tender Neuro: A&O x 3, no focal deficits noted, normal affect Skin: warm, dry Results & Data Results & Data Vital Signs (Past 12 Hours) Vital Signs Temp Pulse Pulse Resp BP BP Pulse Ox 03/02/25 12:15 132 H 152/101 H 03/02/25 12:10 132 H 142/94 H 03/02/25 12:00 88 17 96 03/02/25 11:55 134 H 138/93 03/02/25 11:52 138 H 03/02/25 10:47 36.7 C 141 H 18 144/86 H 97 03/02/25 10:47 97 03/02/25 10:47 36.7 C 141 H 18 144/86 H 97 03/02/25 10:40 141 H 18 97 O2 Del Method 03/02/25 12:15 03/02/25 12:10 03/02/25 12:00 Room Air 03/02/25 11:55 03/02/25 11:52 03/02/25 10:47 Room Air 03/02/25 10:47 Room Air 03/02/25 10:47 Room Air 03/02/25 10:40 Room Air Laboratory Results Short CBC 03/02/25 Range/Units 10:47 WBC 4.26 L (4.8-10.8) K/ul Hgb 10.2 L (12.0-16.0) g/dL Hct 32.3 L (37.0-47.0) % Plt Count 152 (130-400) K/uL BMP 03/02/25 10:47 Sodium 137 Potassium 3.9 Chloride 103 Carbon Dioxide 23 BUN 13 Creatinine 0.94 Glucose 131 H Calcium 8.7 Liver Function 03/02/25 Range/Units 10:47 Total Bilirubin 0.5 (0.2-1.0) mg/dl AST 23 (13-39) U/L ALT 23 (7-52) U/L Alkaline Phosphatase 65 (34-104) U/L Albumin 3.7 (3.4-5.0) gm/dl Urine 03/02/25 Range/Units 12:00 Urine Color Dark Yellow Urine Appearance Clear (Clear) Urine pH 5.5 (4.5-7.5) Ur Specific Garrison 1.026 (1.000-1.030) Urine Protein 1+ H (Negative) Urine Glucose (UA) Negative (Negative) Diagnostic Findings Chest X-Ray 03/02/25 10:45 XR chest 1V portable HISTORY: 69 years-old Female weakness COMPARISON: CTA chest same day TECHNIQUE: AP view of the chest FINDINGS: The mediastinal and hilar silhouettes are within normal limits. Subcentimeter pulmonary nodules are better seen on yesterday's chest CT. No pneumothorax, pleural effusion, airspace consolidation or pulmonary edema. Bones of the chest appear grossly intact. IMPRESSION: No acute process. ACT 112: Negative or not required by law. The above report was generated using voice recognition software. It may contain grammatical, syntax or spelling errors. Electronically signed by: Shahid Baugh M.D. 03/02/2025 11:20 AM ECG Additional Comments: 10:40 a.m. EKG: Sinus tachycardia, rate 138 per my interpretation 12:23 AM EKG: Sinus tachycardia, rate 132 per my interpretation 12:31 AM EKG: Sinus rhythm, rate 87 Supervising Physician Co-Signing Physician Notes Patient seen and examined at bedside. Patient lying comfortably in bed. Responded well to PO lopressor. On exam, class III obesity, RRR, no pitting edema in legs bilaterally. Mg of 1.4 replenished, K of 3.9 replenished. Presentation consistent with paroxysmal SVT vs. sinus tachycardia, less likely atypical atrial flutter. Start metoprolol succinate 50 bid (increased from 25 bid given uncontrolled rates). Cardiology consult, appreciate recs. Echo ordered. Anticipate short hospital stay with discharge tonight vs. tomorrow pending workup and clinical improvement. I have seen and discussed the case with the collaborating advanced practitioner. I agree with the above H&P. I have reviewed and confirmed the patients medical history, the findings on physical examination, and the patients diagnosis and treatment plan with Ines Milner PA-C and agree with the information documented. I spent a total of 30 minutes coordinating, documenting, and providing care for this patient excluding time spent in the performance of separately billed services. All of the aforementioned completed outside of collaborating with the assigned advanced practitioner for a full treatment plan. I have reviewed the advanced practitioner's documentation, and I agree with, and take responsibility for the plan of care
[2025-03-02] MEDS: POTASSIUM CHLORIDE CRTAB 20 MEQ TABCR PO STA (13:07)
[2025-03-02] MEDS: METOPROLOL TARTRATE 25 MG TAB PO ONE (13:37)
--- NOTE | 2025-03-02 14:21 | Cardiology Consultation ---
Date of Consultation March 02, 2025 Assessment & Plan (1) Sinus tachycardia: (2) Hypomagnesemia: Plan Assessment: 69 year old female with PMHx for P. SVT, likely atrial tachycardia admitted for tachycardia. Received IV Lopressor with conversion to NSR. Cardiology consulted for further assessment and recommendations. Plan: 1. Sinus Tachycardia -Question sinus tachycardia vs an atypical flutter. Converted to NSR with IV lopressor. Patient remains asymptomatic. Should patient develop recurrence of tachycardia would give consideration to a one time dose of adenosine -Physical exam suggestive mild volume overload, likely in the setting of significant IV antibiotic/home infusions due to ongoing knee infection -Obtain echocardiogram to assess overall structure and function. -EKG now SR, but there is notation of low voltage, assess for pericardial effusion. -Start patient on Metoprolol succinate 25mg PO BID, first dose this evening as she received both IV lopressor and a one time dose of metoprolol tartrate in the ER. -Continue to monitor on telemetry. 2. Hypomagnesemia -Currently receiving IV magnesium supplementation -Monitor electrolytes closely as patient has had recent vomiting spells likely s/t to Rifampin Case has been discussed with Dr. nAgeles. Further recommendations regarding plan of care as per his assessment. I spent a total of 50 minutes on the date of service in preparation, delivery, documentation of the care provided to the patient excluding any time spent in the performance of separately billed services. BAILEE Antoyn [facility] Cardiology [facility] Supervising Physician Co-Signing Physician Notes Patient seen and personally examined. Full assessment and plan as outlined by advanced provider above 69-year-old female with complex recent history as noted with ongoing infection left knee joint status post knee replacement. Currently completing IV antibiotics as well as oral rifampin. Records reflect chronic sinus tachycardia with prior questions raised regarding paroxysmal supraventricular tachycardia Patient referred now after persistent sinus tachycardia observed on 2 ER presentation. No defined atrial arrhythmias though atypical atrial flutter not completely excluded review of EKGs and telemetry suggest sinus tachycardia only No overt inciting cause though patient has been receiving IV fluid infusions with antibiotic therapies recent difficulties with nausea and anorexia with rifampin. Echocardiogram today with normal systolic function mild aortic sclerosis but no other significant valvular disease no pericardial effusion Normal coronaries on recent diagnostic cardiac catheterization without prior structural heart disease Recommendations: Increase metoprolol succinate to 25 mg twice per day Monitor closely for any other sign of acute illness, infection Optimize electrolytes Physical examination notable for bilateral lower extremity edema likely from persistent IV infusions. May benefit from low-dose diuretic if persistent No other recommendations Contact with questions History of Present Illness Reason for Consultation: Tachycardia Requesting Physician: Ines Milner History of Present Illness HPI: Patient is a 69 year old female with PMHx as outlined below that presented to the ER as per recommendation of her PCP office. Patient has been maintaining her normal routine as much as possible with ongoing left knee issues (see below). patient states that she had completed her most recent course of IV antibiotics yesterday, her home health nurse was planning to remove her PICC line, but had noted while checking vital signs that she was tachycardic and strongly urged her to present to the ER. EKG yesterday showed Sinus tachycardia with question for atrial flutter. She was given metoprolol with repeat EKG showing NSR. Patient was provided with a PCP appointment today and saw Dr. Mcdonald. Per review of patient's PCP note, they reported that she had "vomited bright red emesis" upon entering the examine room. suspect related to Rifampin. She had remained tachycardiac and therefore was sent back to the ER. Initial EKG shows Sinus tachycardia vs atypical flutter. Review of telemetry shows ST rates 130-150's, She received IV Lopressor and showed conversion to SR with occasional PAC's rate 85bpm as 1236. Patient states that she feels a "weird sensation" but denies any chest pain, pressure, palpitations. She denies any current nausea, vomiting or diarrhea. She denies any pre-syncope or syncope. Serum magnesium 1.4 Problem list: 1. PSVT 2. Grade I Diastolic dysfunction 3. HTN 4. dyslipidemia 5. chronic thrombocytopenia 6. hypothyroidism 7. gout 8. DANNIE 9. DM type II 10. s/p Left TKA 03/2023--Joint infection S/P I&D left knee with removal of implant and placement of antibiotic spacer on 11/23/[address] Enrique Intraoperative cultures + Pseudomonas aeruginosa. Treated with cefepime per ID recommendations and to finish course on 01/03/24 S/P removal left knee spacer, excisional debridement and irrigation of synoviaum, subcutaneous tissue & bone and conversion to revision left total knee arthroplasty by ___ on 12/26/24. Had suspected recurrent infection and S/P left 1) Excisional debridement irrigation left superficial hematoma with debridement irrigation of the joint space synovium , subcutaneous tissue 2) Polyethylene swap [place]/19/[place] [facility] She presented with suspected recurrent infection following revision left total knee arthroplasty on 12/26/2024. She underwent excisional debridement of a superficial hematoma and joint space with polyethylene swap. Intraoperative cultures grew Staphylococcus epidermidis from broth only, and there were no signs of systemic infection. Infectious Disease recommended IV cefazolin and rifampin for six weeks, and a PICC line was requested. Postoperatively, she developed acute blood loss anemia requiring two units of PRBC; folate, B12, and iron supplementation were continued. Hemoglobin was stable after that. Wound VAC management were handled by Orthopedics, and changed to LEANNE at the time of discharge. 01/29/25 [facility] transferred to [facility] for wound bloody drainage and ortho saw and changed dressing. Just finished 6-week course of IV vancomycin via PICC and oral rifampin to end on 03/01/25 for infected knee details obtained from hospital record Allergies Allergy/AdvReac Type Severity Reaction Status Date / Time No Known Allergies Allergy Verified 03/01/25 22:57 Home Medications Medication Instructions Recorded Confirmed Type albuterol sulfate 90 mcg/actuation 2 puffs inhalation Q4H PRN Wheezing 09/11/19 03/02/25 History aerosol inhaler allopurinol 100 mg tablet 100 mg PO DAILY 09/11/19 03/02/25 History fluticasone propionate 50 2 sprays intranasal DAILY PRN 09/11/19 03/02/25 History mcg/actuation nasal Congestion spray,suspension (Flonase Allergy Relief) furosemide 20 mg tablet (Lasix) 20 mg PO 3XWK 09/11/19 03/02/25 History ipratropium 0.5 mg-albuterol 3 mg 3 ml inhalation Q4H PRN Wheezing 09/11/19 03/02/25 History (2.5 mg base)/3 mL nebulization soln levothyroxine 25 mcg tablet 25 mcg PO DAILYBB 09/11/19 03/02/25 History (Levoxyl) omeprazole magnesium 20 mg 20 mg PO DAILYBB 09/11/19 03/02/25 History tablet,delayed release (Prilosec OTC) OneTouch Verio Flex Start #1 ea 09/22/19 03/02/25 Rx (blood-glucose meter) citalopram 40 mg tablet (Celexa) 40 mg PO QAM 05/02/20 03/02/25 History atorvastatin 10 mg tablet 10 mg PO QAM 12/28/22 03/02/25 History levocetirizine 5 mg tablet (Xyzal) 5 mg PO QPM 12/28/22 03/02/25 History potassium chloride 20 mEq 20 meq PO 3XWK 11/21/23 03/02/25 History tablet,extended release(part/cryst) (Klor-Con M) docusate sodium 100 mg capsule 100 mg PO BID PRN Constipation 12/15/23 03/02/25 History OneTouch Delica Plus Lancet 33 #100 ea 09/27/24 03/02/25 Rx gauge (lancets) OneTouch Verio test strips (blood #300 ea 09/27/24 03/02/25 Rx sugar diagnostic) aspirin 81 mg tablet,delayed 81 mg PO DAILY 01/28/25 03/02/25 History release cyanocobalamin (vitamin B-12) 1,000 mcg PO DAILY 01/28/25 03/02/25 History 1,000 mcg tablet (Vitamin B-12) folic acid 1 mg tablet 1 mg PO DAILY 01/28/25 03/02/25 History iron,carbonyl 65 mg-vitamin C 125 1 tab PO DAILY 01/28/25 03/02/25 History mg tablet,delayed release (Vitron-C) losartan 50 mg tablet 50 mg PO DAILY 01/28/25 03/02/25 History ondansetron 4 mg disintegrating 4 mg PO Q6H PRN NAUSEA/VOMITING 01/28/25 03/02/25 History tablet oxycodone 5 mg tablet 5 mg PO Q4H PRN mod-severe pain 01/28/25 03/02/25 History rifampin 300 mg capsule 300 mg PO BID 01/28/25 03/02/25 History acetaminophen 500 mg tablet 1,000 mg PO Q6H PRN PAIN/FEVER 03/01/25 03/02/25 History (Tylenol Extra Strength) cholecalciferol (vitamin D3) 50 2,000 unit PO DAILY 03/01/25 03/02/25 History mcg (2,000 unit) capsule (Vitamin D3) metoprolol succinate 25 mg 12.5 mg (1/2 x 25 mg) PO BID #1 tab 03/01/25 03/02/25 Rx tablet,extended release 24 hr polyethylene glycol 3350 17 17 g PO DAILY PRN Constipation 03/01/25 03/02/25 History gram/dose oral powder (Miralax) soy isoflavone-black cohosh 1 cap PO DAILY 03/01/25 03/02/25 History root-magnolia bark 155 mg capsule (Estroven) doxycycline hyclate 100 mg capsule 100 mg PO BID 03/02/25 03/02/25 History montelukast 10 mg tablet 10 mg PO DAILY 03/02/25 03/02/25 History Patient History Medical History Infection of prosthetic left knee joint Paroxysmal SVT (supraventricular tachycardia) Infection of left knee Hypothyroidism Hx of basal cell carcinoma Hx of melanoma of skin Spinal stenosis Arthritis GERD (gastroesophageal reflux disease) Hypothyroidism Diabetes mellitus, type 2 NIDDM Depression Leaky heart valve Stress echo 08/2019: Mild AR Hyperlipidemia History of COVID-2020, not hospitalized Surgical History Hx of basal cell carcinoma excision S/P right knee arthroscopy S/P left knee arthroscopy History of colonoscopy H/O melanoma excision face Family History Mother Diabetes Father Diabetes Brother Diabetes Brother Diabetes Other No family history of adverse response to anesthesia Social History Smoking Status: Never smoker Second Hand Exposure: No; Do You Dip or Chew Tobacco: No; Hx Alcohol Use: No Hx Substance Use: No Preferred Language: Beninese Communication Ability: Effective Crop Roller Required: No Beliefs That Will Affect Care: None Current Living Situation: Spouse Feels Safe at Home: Yes Assistive Devices: Walker Review of Systems Review of Systems: All systems reviewed & are unremarkable except as noted in HPI & below Physical Exam Constitutional: well developed, well nourished and + overweight; no acute distress and not ill appearing Neck: normal visual inspection and trachea midline Respiratory: normal respiratory effort, lungs clear to auscultation Cardiovascular: Rate/Rhythm: regular rate and regular rhythm Heart Sounds: normal S1 and normal S2 Vessels: dorsalis pedis pulses present; no JVD Extremities: + edema trace to +1 BLE Skin: no rashes, warm and dry Psychiatric: A+Ox3, euthymic affect Results & Data Vital Signs (Past 12 Hours) Vital Signs Temp Pulse Pulse Resp BP BP Pulse Ox 03/02/25 12:15 132 H 152/101 H 03/02/25 12:10 132 H 142/94 H 03/02/25 12:00 88 17 96 03/02/25 11:55 134 H 138/93 03/02/25 11:52 138 H 03/02/25 10:47 36.7 C 141 H 18 144/86 H 97 03/02/25 10:47 97 03/02/25 10:47 36.7 C 141 H 18 144/86 H 97 03/02/25 10:40 141 H 18 97 O2 Del Method 03/02/25 12:15 03/02/25 12:10 03/02/25 12:00 Room Air 03/02/25 11:55 03/02/25 11:52 03/02/25 10:47 Room Air 03/02/25 10:47 Room Air 03/02/25 10:47 Room Air 03/02/25 10:40 Room Air Laboratory Results Cardiac Enzymes 03/02/25 Range/Units 10:47 AST 23 (13-39) U/L Troponin I High Sens 4.9 (0-14) pg/ml Coagulation 03/02/25 Range/Units 10:47 PT 11.9 (9.0-12.0) Seconds APTT 26 (21-31) Seconds CBC 03/02/25 Range/Units 10:47 WBC 4.26 L (4.8-10.8) K/ul RBC 4.34 (4.20-5.40) M/uL Hgb 10.2 L (12.0-16.0) g/dL Hct 32.3 L (37.0-47.0) % Plt Count 152 (130-400) K/uL Neut # (Auto) 2.75 (1.40-6.50) K/uL Lymph # (Auto) 0.56 L (1.20-3.40) K/uL [place] # (Auto) 0.37 (0.11-0.59) K/uL Eos # (Auto) 0.53 H (0.00-0.50) K/uL Baso # (Auto) 0.03 (0.00-0.20) K/uL Comprehensive Metabolic Panel 03/02/25 Range/Units 10:47 Sodium 137 (136-145) mmol/L Potassium 3.9 (3.5-5.1) mmol/L Chloride 103 (98-107) mmol/L Carbon Dioxide 23 (21-32) mmol/L BUN 13 (6-23) mg/dl Creatinine 0.94 (0.6-1.2) mg/dl Glucose 131 H (70-99(Fasting)) mg/dl Calcium 8.7 (8.6-10.3) mg/dl AST 23 (13-39) U/L ALT 23 (7-52) U/L Alkaline Phosphatase 65 (34-104) U/L Total Protein 6.6 (6.0-8.3) gm/dl Albumin 3.7 (3.4-5.0) gm/dl Intake and Output 03/01/25 03/02/25 03/02/25 22:59 06:59 14:59 Intake Total 600 / 600 Balance 600 / 600 Intake: IV 600 / 600 Magnesium Sulfate / D5w 1 gm In 100 / 100 100 ml @ 100 mls/hr IV Q1H FISH Rx#:[id number] Sodium Chloride 0.9% 500 ml @ 500 / 500 999 mls/hr IV .Q31M FISH Rx#: [id number] Other: Weight 111.7 kg Weight Measurement Method [facility] Patient Weight 03/03/25 06:59 Weight 111.7 kg Diagnostic Findings Cardiac Cath [facility] with Dr. Steven 09/19/2024: Normal coronaries by angiography nuclear stress test 08/21/2024 August 21, 2024 Lexiscan Interpretation Summary (as per Dr. Demetrio Aguila): Lexiscan nuclear cardiac stress test positive for reversible ischemia. Small perfusion defect of mild intensity noted basal to mid inferior wall worse with stress suggestive of myocardial ischemia. The LV ejection fraction is calculated at 56%. Gated SPECT images reveals normal myocardial thickening and wall motion. Echocardiogram obtained from [facility] 07/20/24 Interpretation Summary The examination is adequate to evaluate the referral indication. The qualitative LV ejection fraction is 60-64% (normal). No LV segmental wall motion abnormalities. The right ventricular systolic function is qualitatively normal. Mild aortic valve regurgitation is present. PG Care Time/CCT Total # of Minutes Spent Total Time Spent with Patient: Total time spent is greater than 50% in coordination of care (as documented) at patient's floor/unit and/or counseling patient: Coding Level of Care Code 41769 IN/OBS CONSULT LVL 5,80M Diagnoses Sinus tachycardia R00.0 Hypomagnesemia E83.42 Time Spent (min) 50
--- NOTE | 2025-03-02 14:59 | XRay Report ---
XR knee LT 3V HISTORY: 69 years-old Female r/o effusion h/o prosthetic infection COMPARISON: 01/28/2025 TECHNIQUE: 3 views of the left knee FINDINGS: Satisfactory alignment of the hinged arthroplasty with patellar resurfacing. No acute fracture, dislo cation or osseous erosion. Moderate circumferential soft tissue prominence with moderate sized joint effusion. IMPRESSION: 1. No acute osseous abnormality. 2. Soft tissue swelling with joint effusion. ACT 112: Negative or not required by law. The above report was generated using voice recognition software. It may contain grammatical, syntax o r spelling errors. Electronically signed by: Shahid Baugh M.D. 03/02/2025 2:58 PM
[2025-03-02] MEDS ORDERED: ONDANSETRON INJ 2 MG/ML 2 ML VIAL IV PRN (15:59)
[2025-03-02] MEDS ORDERED: POLYETHYLENE (MIRALAX) 17 GM PACK PO PRN (15:59)
[2025-03-02] MEDS ORDERED: ALBUTEROL HFA 8 GM INHALER INH PRN (15:59)
--- NOTE | 2025-03-02 16:16 | XCELERA ---
[id number]
[2025-03-02] MEDS: PNEUMOCOCCAL VACCINE (PCV20) 20-VAL CONJ-DIP CRM/PF 0.5 ML SYR IM ONE (17:43)
[2025-03-02] MEDS ORDERED: METOPROLOL TARTRATE 1 MG/ML VIAL IV PRN (17:57)
[2025-03-02] MEDS: METOPROLOL SUCC 50MG EXT REL TAB PO SCH (19:25)
--- NOTE | 2025-03-02 19:28 | Electrocardiogram Report ---
Test Reason : Blood Pressure : */* mmHG Vent. Rate : 138 BPM Atrial Rate : 138 BPM P-R Int : 168 ms QRS Dur : 82 ms QT Int : 288 ms P-R-T Axes : * 4 40 degrees QTcB Int : 436 ms Sinus tachycardia Possible Inferior infarct , age undetermined Abnormal ECG When compared with ECG of 01-Mar-2025 20:08, Borderline criteria for Inferior infarct are now Present Confirmed by Sonny Zepeda ([id number]) on 03/02/2025 7:28:22 PM Referred By: Confirmed By: Sonny Zepeda
--- NOTE | 2025-03-02 19:29 | Electrocardiogram Report ---
Test Reason : Blood Pressure : */* mmHG Vent. Rate : 132 BPM Atrial Rate : 132 BPM P-R Int : 176 ms QRS Dur : 76 ms QT Int : 294 ms P-R-T Axes : * -11 35 degrees QTcB Int : 435 ms Sinus tachycardia Low voltage QRS Cannot rule out Inferior infarct (cited on or before 02-Mar-2025) Cannot rule out Anterior infarct , age undetermined Abnormal ECG When compared with ECG of 02-Mar-2025 10:40, Minimal criteria for Anterior infarct are now Present Confirmed by Sonny Zepeda ([id number]) on 03/02/2025 7:28:44 PM Referred By: REFERRED SELF Confirmed By: Sonny Zepeda
[2025-03-02] MEDS: ACETAMINOPHEN 325 MG TAB PO PRN (20:19)
[2025-03-02] MEDS: DOXYCYCLINE HYCLATE 100 MG CAP PO SCH (20:19)
[2025-03-02] MEDS: HEPARIN SOD 5,000 UNIT/0.5 ML VIAL SQ SCH (20:19)
[2025-03-02] MEDS: CETIRIZINE HCL 10 MG TABLET PO SCH (20:19)
[2025-03-02] MEDS ORDERED: METOPROLOL SUCC 25MG EXT REL TAB PO SCH ×2 (21:00)
[2025-03-03 01:18] VITALS: O2SAT 96
[2025-03-03] MEDS: LEVOTHYROXINE SODIUM 25 MCG TABLET PO SCH (06:09)
[2025-03-03 07:21] VITALS: RESP 20; TEMP 98.1
[2025-03-03 07:32] LABS: Hematocrit (blood only) 29.2 % (37.0-47.0); Hemoglobin 9.1 g/dL (12.0-16.0); Immature Granulocytes # (auto) 0.02 K/uL (0.01-0.20); Immature Granulocytes % (auto) 0.5 %; Mean Corpuscular Hemoglobin 23.6 pg (25.0-34.0); Mean Corpuscular Volume 75.6 fL (80.0-100.0); Platelet Count 154 K/uL (130-400); RDW Standard Deviation 40.3 fL (36.4-46.3); Red Blood Count 3.86 M/uL (4.20-5.40); White Blood Count 3.98 K/ul (4.8-10.8)
[2025-03-03 07:54] LABS: Anion Gap 8.0 (3-11); Blood Urea Nitrogen 14.0 mg/dl (6-23); Calcium 8.8 mg/dl (8.6-10.3); Carbon Dioxide 23.0 mmol/L (21-32); Chloride 103.0 mmol/L (98-107); Creatinine Clr Calc Pharmacy 62.3 ml/min; Glucose 147.0 mg/dl (70-99(Fasting)); Magnesium 1.9 mg/dl (1.7-2.4); Potassium 4.4 mmol/L (3.5-5.1); Sodium 134.0 mmol/L (136-145)
[2025-03-03] MEDS: MONTELUKAST SODIUM 10 MG TABLET PO SCH (08:18)
[2025-03-03] MEDS: CYANOCOBALAMIN (B-12) 500 MCG TABLET PO SCH (08:18)
[2025-03-03] MEDS: FOLIC ACID 1 MG TAB PO SCH (08:19)
[2025-03-03] MEDS: ATORVASTATIN 10 MG TAB PO SCH (08:19)
[2025-03-03] MEDS: CITALOPRAM 40 MG TAB PO SCH (08:19)
[2025-03-03] MEDS: CHOLECALCIFEROL 25 MCG (1000 UNITS) TAB PO SCH (08:20)
[2025-03-03] MEDS: ASPIRIN 81 MG ECTAB PO SCH (08:20)
[2025-03-03] MEDS: LOSARTAN POTASSIUM 50 MG TAB PO SCH (08:21)
[2025-03-03] MEDS ORDERED: NON-FORMULARY MEDICATION (Iron,Carbonyl-Vitamin C [Vitron-C] 65 mg iron- 125 mg Tablet,Del PO SCH (09:00)
--- NOTE | 2025-03-03 09:45 | Electrocardiogram Report ---
Test Reason : Blood Pressure : */* mmHG Vent. Rate : 89 BPM Atrial Rate : 89 BPM P-R Int : 160 ms QRS Dur : 88 ms QT Int : 356 ms P-R-T Axes : 65 5 23 degrees QTcB Int : 433 ms Normal sinus rhythm Normal ECG When compared with ECG of 02-Mar-2025 12:23, Minimal criteria for Anterior infarct are no longer Present No significant change was found Confirmed by Dhaval Crump ([id number]) on 03/03/2025 9:45:08 AM Referred By: REFERRED SELF Confirmed By: Dhaval Crump
--- NOTE | 2025-03-03 10:47 | Discharge Summary ---
Date of Service March 03, 2025 Admission HPI Per Admitting Provider Patient is 69-year-old female with PMH HTN, dyslipidemia, DM II, PSVT, grade 1 diastolic dysfunction, history infection prosthetic left knee joint, chronic anemia, chronic thrombocytopenia, depression, hypothyroidism, gout, DANNIE and others listed below presented to ER for tachycardia today. States intermittently has "weird sensation" to left anterior chest but doesn't feel like having palpitations or heart racing and denies overt chest pain. Denies SOB. Seen at [facility] ED yesterday 03/01/2025 for tachycardia with rate 140's. Thought was possible atrial flutter and during ER course patient HRs down to 80's-90s an d discharged home. Patient states took am medications including metoprolol succinate and approximately 45 minutes later while at PCP office had emesis that was red. She reports the rifampin pill is red. Seen at PCPs office today for ER follow-up and there Pulse [id number], BP 140/76 and referred to ER. Patient states decreased appetite and decreased oral intake while on antibiotics. Also reports intermittent nausea and vomiting. Reports was having diarrhea but that resolved approximately 3 weeks ago. Denies any hematemesis, melena or hematochezia. Denies abdominal pain. Denies history GI bleed. She has extensive history prosthetic left knee infection with most recent revision left total knee arthroplasty on 12/26/24 at [facility]. Had suspected recurrent infection and bloody drainage and had debridement and irrigation hematoma left knee and polyethylene swap on 01/19/25 at [facility] [place]. Initially was on cefazolin. Intraoperative cultures grew staphylococcus epidermis and Eneidaer ID recommended IV vanc omycin oral rifaximin to end on 03/01/25. Patient reports had one dose of rifaximin left to take this morning. To start on suppressive doxycycline today (03/02/25). Patient reports that her left knee seems to be doing well and isn't having pain and not requiring the use of her oxycodone. She is now ambulating without assistive device. Denies any open areas, discharge, bleeding, swelling or erythema. Denies fever/chills, diaphoresis, TOLBERT, dizziness, syncope, vision changes, neck pain, cough, sore throat, rhinorrhea, extremity weakness, increased extremity edema, rashes, urinary symptoms (other than orange urine from her rifaximin). Today in ER HR's in 140s and initial EKGs appear sinus rhythm to my interpretation. Discussed with ER physician who reports concern for atypical atrial flutter and patient was given three doses IV Lopressor total of 15mg and now HR's in 80's-90s and appears sinus rhythm on most recent EKG. Admission Exam Per Admitting Provider General: no distress, obese female Head: normocephalic, atraumatic Eyes: conjunctiva non-injected, anicteric ENT: normal inspection external ears, nose, mucous membranes moist Neck: supple, trachea midline Lungs: clear, no respiratory distress, no wheezing/rhonchi/rales CV: RRR, rate 88, no murmur appreciated, trace pretibial edema Abd: normal BS, soft, non-tender Ext: no cyanosis, no calf tenderness; LLE: +healed incision to anterior knee, knee without edema, erythema or warmth. non-tender Neuro: A&O x 3, no focal deficits noted, normal affect Skin: warm, dry Principal Diagnosis Sinus tachycardia Discharge Exam Constitutional + well hydrated; no acute distress Eyes PERRL, conjunctivae normal, anicteric sclerae ENMT external ear and nose normal, oropharynx normal Respiratory normal respiratory effort, lungs clear to auscultation Cardiovascular Rate/Rhythm: regular rate and regular rhythm Gastrointestinal (Abdomen) normal bowel sounds, soft, nontender, no hepatosplenomegaly Musculoskeletal Left knee scar healing well. No tenderness or swelling Neurologic PERRL, EOMI, accommodation nl, no face palsy, no dysarthria Psychiatric A+Ox3, euthymic affect Discharge Data Allergies Allergy/AdvReac Type Severity Reaction Status Date / Time No Known Allergies Allergy Verified 03/01/25 22:57 Consultations 03/02/25 12:27 ED Decision to Admit Stat 03/02/25 13:34 Consult Cardiology Routine Hospital Course (1) Sinus tachycardia: 69-year-old woman with PMH HTN, dyslipidemia, DM II, PSVT, grade 1 diastolic dysfunction, history infection prosthetic left knee joint, chronic anemia, chronic thrombocytopenia, depression, hypothyroidism, gout, DANNIE and other medical problems who presented to ER for tachycardia #Sinus tachycardia Seen at [facility] ED on 03/01/2025 for tachycardia with rate 140's. Thought was possible atrial flutter and during ER course patient HRs down to 80's-90s without intervention and discharged home. On day of presentation at PCP office found to be tachycardic in 140s and referred to ER. In ER HR's 140's, BP 144/86, respirations 18, 97% on room air. She denied CP, palpitations, SOB Labs noted K: 3.9, Ma.4, TSH: 1.5 In ER, she got 2 grams magnesium sulfate IV 07/20/2024 echo: EF: 60-64%, no LV wall motion abnormality, mild aortic valve regurgitation 09/19/2024 cardiac cath: Normal coronary arteries by angiography 03/02/25 Echo: EF 65-70%, AV sclerosis is mild without significant stenosis, no other valvular disease noted. No pericardial effusion Hypomagnesemia was repleted and normalized She was evaluated by Cardiology who increased her metoprolol succinate to 25mg BID. HR has been within normal range till time of discharge PCP to consider zio patch testing/Holter monitor #Infected prosthetic left knee S/P Left TKA in 03/[address] Enrique Joint infection S/P I&D left knee with removal of implant and placement of antibiotic spacer on 11/23/[address] Enrique. Intraoperative cultures + Pseudomonas aeruginosa. Treated with cefepime per ID recommendations and to finish course on 01/03/24 S/P removal left knee spacer, excisional debridement and irrigation of synovium, subcutaneous tissue & bone and conversion to revision left total knee arthroplasty on 12/26/24 at [facility] [place]. Had suspected recurrent infection and S/P Excisional debridement irrigation left superficial hematoma with debridement irrigation of the joint space synovium , subcutaneous tissue & Polyethylene swap on 01/19/25 at [facility] [place]. Initially was on cefazolin. Intraoperative cultures grew staphylococcus epidermis and Jennifer ID recommended IV vancomycin (Ended 03/01/25). Oral rifaximin ended 03/02/25 PICC line removed on 03/01/25 Following with Jennifer BERRIOS Patient currently on suppressive doxycycline therapy started on 03/02/25. Reports she has meds at home #Nausea #Vomiting Having intermittent nausea, vomiting likely from IV antibiotics. Now resolved #Controlled type 2 diabetes mellitus: A1c: 6.2 on 12/22/24 Endocrine discontinued metformin recently #Hypothyroidism: Continue levothyroxine Chest CTA on admission noted left lobe of thyroid gland is enlarged and should be further evaluated with use of a nonemergent thyroid USS Patient reported today that there was already plans with her doctor to evaluate her thyroid. Further evaluation deferred to her PCP Other findings on CT chest noted 7mm pleural based nodule on RUL PCP to monitor Total Time Total Time Spent Total Time Spent (In Minutes): 40 Total Time Includes: Examination of the Patient, Discharge Planning and Medication Reconciliation Discharge Plan Discharge Items Patient Disposition: Home - Self-Care Reason For Visit: TACHYCARDIA Discharge Diagnosis: Sinus tachycardia Condition on Discharge: Fair Activity: Resume your previous activity Non-emergency contact: Primary Care Provider Call non-emergency contact if: you have any medication questions Follow-up/Referrals: Beatris Ruggiero CRNP [Primary Care Provider] - Diet: Carb Consistent or DM2 and Heart Healthy Addtl Attending Provider Instructions: Mrs Araiza You were hospitalized and managed for the above listed diagnoses. Your metoprolol was increased to 25mg twice a day. Please ensure follow up with your Primary Doctor It was a pleasure taking care of you. Pending Studies at Discharge: No Stand-Alone Forms: My [employer], Smoking Cessation Medications and DC Order Prescriptions: Continued (DME) blood-glucose meter [OneTouch Verio Flex Start] Kit See Rx Instructions .ROUTE .MEDSUPPLY Qty: 1 0RF Rx Instructions: As directed allopurinol 100 mg tablet 100 mg PO DAILY Hold Instructions: Until further recommendations from your fixed income director/primary care physician omeprazole magnesium [Prilosec OTC] 20 mg tablet,delayed release (DR/EC) 20 mg PO DAILYBB levothyroxine [Levoxyl] 25 mcg tablet 25 mcg PO DAILYBB fluticasone propionate [Flonase Allergy Relief] 50 mcg/actuation spray,suspension 2 sprays INTNAS DAILY PRN (Reason: Congestion) albuterol sulfate 90 mcg/actuation HFA aerosol inhaler 2 puffs INH Q4H PRN (Reason: Wheezing) ipratropium-albuterol 0.5 mg-3 mg(2.5 mg base)/3 mL solution for nebulization 3 ml INH Q4H PRN (Reason: Wheezing) furosemide [Lasix] 20 mg tablet 20 mg PO 3XWK Hold Instructions: Until further recommendations from your fixed income director Rx Instructions: TAKES MON, WED, & FRI. citalopram [Celexa] 40 mg tablet 40 mg PO QAM (DME) lancets [OneTouch Delica Plus Lancet] 33 gauge misc See Rx Instructions .ROUTE .COMPLEX Qty: 100 11RF Dose Instruction: TEST BLOOD SUGAR 3 X DAILY Rx Instructions: TEST BLOOD SUGAR 3 X DAILY (DME) OneTouch Verio test strips Strip See Rx Instructions .ROUTE .MEDSUPPLY Qty: 300 3RF Rx Instructions: test blood sugar 3 x daily levocetirizine [Xyzal] 5 mg Tablet 5 mg PO QPM atorvastatin 10 mg tablet 10 mg PO QAM docusate sodium 100 mg capsule 100 mg PO BID PRN (Reason: Constipation) cholecalciferol (vitamin D3) [Vitamin D3] 50 mcg (2,000 unit) capsule 2,000 unit PO DAILY acetaminophen [Tylenol Extra Strength] 500 mg Tablet 1,000 mg PO Q6H PRN (Reason: PAIN/FEVER) Estroven 155 mg Capsule 1 cap PO DAILY doxycycline hyclate 100 mg capsule 100 mg PO BID Rx Instructions: To start 03/02/25 for chronic suppres x 1 year montelukast 10 mg tablet 10 mg PO DAILY potassium chloride [Klor-Con M20] 20 mEq tablet,ER particles/crystals 20 meq PO 3XWK Hold Instructions: Until further recommendations from your fixed income director Rx Instructions: TAKES MON, WED, & FRI losartan 50 mg Tablet 50 mg PO DAILY cyanocobalamin (vitamin B-12) [Vitamin B-12] 1,000 mcg Tablet 1,000 mcg PO DAILY aspirin 81 mg Tablet,Delayed Release (Dr/Ec) 81 mg PO DAILY folic acid 1 mg Tablet 1 mg PO DAILY ondansetron 4 mg Tablet,Disintegrating 4 mg PO Q6H PRN (Reason: NAUSEA/VOMITING) oxycodone 5 mg tablet 5 mg PO Q4H PRN (Reason: mod-severe pain) Vitron-C 65 mg iron- 125 mg Tablet,Delayed Release (Dr/Ec) 1 tab PO DAILY polyethylene glycol 3350 [Miralax] 17 gram/dose powder 17 g PO DAILY PRN (Reason: Constipation) Changed metoprolol succinate 25 mg tablet extended release 24 hr 25 mg PO BID Qty: 60 0RF Discontinued rifampin 300 mg capsule 300 mg PO BID Rx Instructions: Took Last dose today 03/02/25 Discharge Orders: Discharge Order (Routine); Ordered 03/03/25 Ordered By: Fe Dover Admission Data Admit Date/Time: 03/02/25 13:24 Attending Provider: Fe Dover I. Admit Provider: Cj Callahan Primary Care Provider: Beatris Ruggiero Other Providers: Hemal Angeles Bryan J. Other Interventions: Discharge Summary Assessment (RN) Last Done: 03/03/25 11:07
[2025-03-03 11:08] VITALS: BP 138/86; PULSE 91
== END 2025-03-03 12:58 | disposition home or self-care (01) | DRG 309 ==
LOC: ED 10:33 → INTOOBSV 13:24 → 2S 13:24 → SUATTDRO 13:24 → 2S 14:37